=== PATIENT | male | born 1970 | race Two or more races ===

== ENCOUNTER → 2020-04-20 08:06 | Outpatient (BNVA) | payer MEDICAID, SELFPAY | PROVIDERS: PCP Nurse Practitioner Family; Visit Provider Nurse Practitioner Gerontology ==

== ENCOUNTER 2020-12-03 03:50 | Emergency (ER) | payer MEDICAID, SELFPAY ==
[2020-12-03 04:01] VITALS: BP 157/92; PULSE 88; RESP 16; TEMP 36.3; O2SAT 98; BMI 27.4
[2020-12-03 04:35] LABS: Glucose Urine UA >=1000 MG/DL (NEG); Leukocyte Esterase Urine NEG (NEG); Nitrite Urine NEG (NEG); PH 6.5 (5.0-8.0); UACC Culture Trigger NO; Urine Blood TRACE (NEG); Urine Ketones NEG (NEG); Urine Protein NEG (NEG-TRACE)
[2020-12-03 04:36] LABS: Appearance Urine CLEAR; Color Urine YELLOW
--- NOTE | 2020-12-03 04:39 | ED.MALEGU ---
HPI - Male Genitourinary General Chief complaint: Urogenital-Male Stated complaint: testicle swelling Time Seen by Provider: 12/03/20 04:39 Source: patient, family (so) and rn charge Mode of arrival: ambulatory Limitations: no limitations History of Present Illness HPI Narrative: 50 years old male came in for evaluation of infection in the penis. This is a 50-year-old male with fully control type 2 diabetes mellitus came in for evaluation of possible infection in the glans penis. Patient is homosexual declined any risk for STD no penile discharge, patient has been having inflammation with redness cottage cheese like material in the foreskin. No fever or chills. Related Data Home Medications Medication Instructions Recorded Confirmed atorvastatin 20 mg tablet 20 mg PO DAILY 04/20/20 04/20/20 bisacodyl 5 mg tablet,delayed 5 mg PO BEDTIME 04/20/20 04/20/20 release (Dulcolax (bisacodyl)) blood sugar diagnostic (FreeStyle #10 ea 04/20/20 04/20/20 Lite Strips) canagliflozin 300 mg tablet 300 mg PO DAILY 04/20/20 04/20/20 (Invokana) lancets 28 gauge (FreeStyle #100 ea 04/20/20 04/20/20 Lancets) sacubitril 49 mg-valsartan 51 mg 1 tab PO BID 04/20/20 04/20/20 tablet (Entresto) Previous Rx's Medication Instructions Recorded blood-glucose meter (FreeStyle #1 ea 04/14/20 [place] Lite) insulin lispro 100 unit/mL See Rx Instructions SUBCUT QID #15 07/27/20 subcutaneous pen (Humalog KwikPen ml (U-100) Insulin) cholecalciferol (vitamin D3) 125 125 mcg PO DAILY #30 cap 10/30/20 mcg (5,000 unit) capsule dulaglutide 1.5 mg/0.5 mL 1.5 mg SUBCUT QWEEK #2 ml 10/30/20 subcutaneous pen injector (Trulicity) insulin glargine 100 unit/mL (3 46 unit SUBCUT DAILY #15 ml 10/30/20 mL) subcutaneous pen (Lantus Solostar U-100 Insulin) pen needle, diabetic 32 gauge x 1 ea MISCELLANEOUS .COMPLEX #150 ea 10/30/20 (Pentips) nystatin-triamcinolone 100,000 1 appl TOPICAL TID #30 g 12/03/20 unit/g-0.1 % topical cream Allergies Allergy/AdvReac Type Severity Reaction Status Date / Time No Known Allergies Allergy Unverified 04/20/20 08:25 Review of Systems Review of Systems: All other systems are reviewed and are negative Constitutional: Reports as per HPI and Reports no additional constitutional complaints Eyes: Reports as per HPI and Reports no additional eye complaints Reports system reviewed and no additional complaints, except as documented Cardiovascular: Reports as per HPI and Reports no additional cardiovascular complaints Respiratory: Reports as per HPI and Reports no additional respiratory complaints Gastrointestinal: Reports as per HPI and Reports no additional gastrointestinal complaints Genitourinary: Reports no additional female genitourinary complaints Musculoskeletal: Reports no additional musculoskeletal complaints Skin/Breast: Reports system reviewed and no additional complaints, except as docu Psychiatric: Reports no additional psychiatric complaints Endocrine: Reports no additional endocrine complaints Hematologic/Lymphatic: Reports no additional hematologic/lymphatic complaints Allergic/Immunologic: Reports no additional allergic/immunologic complaints Reports system reviewed and no additional complaints, except as documented and Reports Abnormal speech present [facility] Past Medical History Medical History Cardiac insufficiency Essential hypertension Hyperlipidemia LDL goal <100 Proteinuria Type 2 diabetes mellitus with hyperglycemia, with long-term current use of insulin Vitamin D deficiency Surgical History No history of previous surgery Family History Family History Father Cancer Mother Hypertension Paternal Uncle Cancer Diabetes Maternal Uncle Diabetes Cancer Paternal Aunt CVD (cardiovascular disease) Social History Social History Household Members: Significant Other Advance Directives: No Advance Directives Information Provided: Yes Physical Exam Vital Signs: Vital Signs: Last Vital Signs Temp 97.3 F 12/03/20 04:01 Pulse 88 12/03/20 04:01 Resp 16 12/03/20 04:01 BP 157/92 H 12/03/20 04:01 Pulse Ox 98 12/03/20 04:01 Body Mass Index 27.4 Vital signs have been reviewed as appeared to be correct. Blood pressure normal. Heart rate normal. Respiration rate normal. Temperature normal. Oxygen saturation normal. Appearance: Alert. Oriented X3. No acute distress. Head: Normal external exam. Normocephalic. Atraumatic. No Finn signs noted. No raccoon eyes noted Eyes: PERRLA. EOMI. Conjunctiva and sclera normal. Eyelids normal. ENT: TM's Normal. Pharynx normal. Uvula midline. Moist mucous membranes. No trismus noted. No drooling noted. No muffled voice noted. Neck: Normal inspection. Neck supple. FROM. No adenopathy. Thyroid Normal. No meningeal signs. No neck mass noted. CVS: Normal heart rate and rhythm. Heart sound normal. No murmurs noted. Pulses normal throughout. Respiratory: No respiratory distress. Painless inspiration. Breath sounds normal. No wheezes/rales/rhonchi noted. Chest nontender. No accessory muscle usage noted or decreased air movement noted. Abdomen: Soft and nontender. Bowel sounds normal in all 4 quadrants. No distention noted. No organomegaly noted. No visible injury noted. exam: Uncircumcised, redness to the foreskin area and the glans penis with cottage cheese material under the foreskin and on the glans penis. Back: No CVA tenderness. Full range of motion noted. Skin: Skin warm and dry. Normal skin color. Normal skin turgor. No rashes/lesions/lacerations noted. Extremities: No lower extremity edema. Extremities exhibit normal range of motion. Extremities nontender. Neuro: Oriented X 3. Cranial nerve exam: II-XII are grossly intact No motor deficit. No sensory deficit. Reflexes normal. Course Course Course Narrative: Assessment and plan. 50-year-old male with history of uncontrolled type 2 diabetes came in with balanitis of the penis. Full start the patient on nystatin cream and follow up with for further evaluation for possible circumcision. MDM - Male Genitourinary Lab Data Labs: Lab Results 12/03/20 Range/Units 04:29 Urine Color YELLOW Urine Appearance CLEAR Urine pH 6.5 (5.0-8.0) Ur Specific [place] 1.020 (1.005-1.025) Urine Protein NEG (NEG-TRACE) MG/DL Urine Glucose (UA) >=1000 H (NEG) MG/DL Urine Ketones NEG (NEG) MG/DL Urine Blood TRACE (NEG) Urine Nitrite NEG (NEG) Ur Leukocyte Esterase NEG (NEG) Discharge Plan Discharge Clinical Impression: Candidal balanitis Patient Disposition: Home, Self-Care Instructions: Balanitis (ED) Prescriptions: New nystatin-triamcinolone 100,000-0.1 unit/g-% cream 1 appl topical TID Qty: 30 RF: 0 No Action (DME) blood-glucose meter [FreeStyle [place] Lite] Kit See Rx Instructions .ROUTE .MEDSUPPLY Qty: 1 RF: 0 insulin lispro [Humalog KwikPen Insulin] 100 unit/mL insulin pen See Rx Instructions subcut QID Qty: 15 RF: 2 Lantus Solostar U-100 Insulin 100 unit/mL (3 mL) insulin pen 46 unit subcut DAILY Qty: 15 RF: 0 Trulicity 1.5 mg/0.5 mL pen injector 1.5 mg subcut QWEEK Qty: 2 RF: 0 cholecalciferol (vitamin D3) 125 mcg (5,000 unit) capsule 125 mcg PO DAILY Qty: 30 RF: 0 pen needle, diabetic [Pentips] 32 gauge x 5/32 needle 1 ea miscellaneous .COMPLEX Qty: 150 RF: 0 bisacodyl [Dulcolax (bisacodyl)] 5 mg tablet,delayed release (DR/EC) 5 mg PO BEDTIME RF: 0 Entresto 49-51 mg tablet 1 tab PO BID RF: 0 atorvastatin 20 mg tablet 20 mg PO DAILY RF: 0 Invokana 300 mg tablet 300 mg PO DAILY RF: 0 (DME) lancets [FreeStyle Lancets] 28 gauge misc See Rx Instructions .ROUTE .MEDSUPPLY Qty: 100 RF: 0 (DME) FreeStyle Lite Strips Strip See Rx Instructions .ROUTE .MEDSUPPLY Qty: 10 RF: 0 Referrals: [facility] [Primary Care Provider] - 2 days
[2020-12-03 04:42] LABS: Mucus Urine 2+ /LPF; RBC Urine 0-2 /HPF (0); Squamous Epithelial Cell Urine TRACE /LPF
[2020-12-03 07:04] LABS: CT PCR NOT DETECTED (Not Detect.); NG PCR NOT DETECTED (Not Detect.)
[2020-12-03 07:40] LABS: Glucose, Whole Blood 172 mg/dL (60-115)
== END 2020-12-03 05:11 | disposition home or self-care (01) ==
PROVIDERS: Emergency Provider Emergency Medicine
DX: B37.42 Candidal balanitis (principal); N50.89 Other specified disorders of the male genital organs; Z20.2 Contact with and (suspected) exposure to infections with a predominantly sexual mode of transmission; Z79.899 Other long term (current) drug therapy
CPT/HCPCS: 81001; 82947; 87491; 87591; 99283; 99284

== ENCOUNTER 2021-03-15 19:26 | Emergency (ER) | payer MEDICAID, SELFPAY ==
[2021-03-15 19:38] VITALS: BP 213/125; PULSE 98; RESP 18; TEMP 36.8; O2SAT 98; BMI 27.4
--- NOTE | 2021-03-15 21:27 | ED_ITS ---
HPI - Dental/Oral General Chief complaint: Dental/Oral Stated complaint: tooth pain Time Seen by Provider: 03/15/21 21:17 Source: patient Mode of arrival: ambulatory Limitations: language barrier (Moroccan-speaking) History of Present Illness HPI Narrative: 50-year-old male who is Moroccan-speaking presenting to the ED with complaints of left upper dental pain over the past few weeks worse in the past few days. Reports that he has the appointment with his dentist to address this issue although he is unable to take this pain any longer. He reports that he seen the dentist approximately 1 week ago on Monday and was prescribed antibiotics and Motrin and Tylenol and he took as prescribed no symptomatic relief. He denies any other symptoms complaints or concerns at this time. MD Complaint: tooth pain Teeth map: 1. Onset (ago): day(s) (For the past few months worsened the past few days) Duration: worsening Severity: severe Severity scale (1-10): >10 Relieving factors: nothing Exacerbating factors: chewing and other (Palpation) Context: history of dental caries Treatment prior to arrival: other (Patient reports that he was taking Motrin Tylenol and a course of antibiotics although no symptomatic relief) Related Data Home Medications Medication Instructions Recorded Confirmed atorvastatin 20 mg tablet 20 mg PO DAILY 04/20/20 04/20/20 bisacodyl 5 mg tablet,delayed 5 mg PO BEDTIME 04/20/20 04/20/20 release (Dulcolax (bisacodyl)) blood sugar diagnostic (FreeStyle #10 ea 04/20/20 04/20/20 Lite Strips) canagliflozin 300 mg tablet 300 mg PO DAILY 04/20/20 04/20/20 (Invokana) lancets 28 gauge (FreeStyle #100 ea 04/20/20 04/20/20 Lancets) sacubitril 49 mg-valsartan 51 mg 1 tab PO BID 04/20/20 04/20/20 tablet (Entresto) Previous Rx's Medication Instructions Recorded blood-glucose meter (FreeStyle #1 ea 04/14/20 [place] Lite) cholecalciferol (vitamin D3) 125 125 mcg PO DAILY #30 cap 10/30/20 mcg (5,000 unit) capsule dulaglutide 1.5 mg/0.5 mL 1.5 mg (0.5 mL) SUBCUT QWEEK #2 ml 10/30/20 subcutaneous pen injector (Trulicity) insulin glargine 100 unit/mL (3 46 unit (0.46 mL) SUBCUT DAILY #15 10/30/20 mL) subcutaneous pen (Lantus ml Solostar U-100 Insulin) nystatin-triamcinolone 100,000 1 appl TOPICAL TID #30 g 12/03/20 unit/g-0.1 % topical cream insulin lispro 100 unit/mL See Rx Instructions SUBCUT QID #15 12/11/20 subcutaneous pen (Humalog KwikPen ml (U-100) Insulin) pen needle, diabetic 32 gauge x 1 ea MISCELLANEOUS .COMPLEX #200 ea 01/15/21 (Pentips) amoxicillin 875 mg-potassium 1 tab PO BID 10 Days #20 tab 03/15/21 clavulanate 125 mg tablet (Augmentin) ibuprofen 800 mg tablet 800 mg PO Q8H PRN #14 tab 03/15/21 oxycodone 5 mg tablet 5 mg PO Q6H PRN #14 tab 03/15/21 Allergies Allergy/AdvReac Type Severity Reaction Status Date / Time No Known Allergies Allergy Verified 03/15/21 19:38 Review of Systems Review of Systems: Constitutional : No Fever, No Chills, No changes in PO intake, No difficulty speaking, no recent dental procedure, no heat or cold intolerance while eating, no recent face trauma, ENT/Mouth : + Dental pain, No Sore throat, No Jaw pain, No throat swelling, No swallowing difficulty, no change in voice, No facial swelling, no drooling, no trismus, no bleeding, no lacerations, no tongue swelling, gum swelling, Eyes: No Eye Pain, No periorbital Swelling Cardiovascular : No Chest Pain, No SOB Respiratory : No Cough, No Sputum, No Wheezing, No Smoke Exposure, No Dyspnea Gastrointestinal : No Nausea, No Vomiting, No Diarrhea Genitourinary : No Dysuria Musculoskeletal : No Myalgias Skin : No rash, no facial swelling or redness, Neuro : No Weakness, No Numbness, No Headache Yes all other systems are reviewed and are negative PMFSH Past Medical History Attestation statement: The following information was validated with the patient. Medical History Cardiac insufficiency Essential hypertension Hyperlipidemia LDL goal <100 Proteinuria Type 2 diabetes mellitus with hyperglycemia, with long-term current use of insulin Vitamin D deficiency Surgical History No history of previous surgery Family History Family History Father Cancer Mother Hypertension Paternal Uncle Cancer Diabetes Maternal Uncle Diabetes Cancer Paternal Aunt CVD (cardiovascular disease) Social History Social History Household Members: Significant Other Advance Directives: No Advance Directives Information Provided: Yes Physical Exam Vital Signs: Vital Signs: Last Vital Signs Temp 98 F 03/15/21 21:37 Pulse 85 03/15/21 21:37 Resp 18 03/15/21 21:37 BP 145/97 H 03/15/21 21:37 Pulse Ox 98 03/15/21 21:37 BMI result Body Mass Index 27.4 vital signs have been reviewed as normal and appeared to be correct. Blood pressure normal. Heart rate normal. Respiration rate normal. Temperature normal. Oxygen saturation normal. Appearance: Alert. Oriented X3. No acute distress. Head: Normal external exam. Normocephalic. Atraumatic. Eyes: PERRLA. EOMI. Conjunctiva and sclera normal. Eyelids normal. ENT: EAC normal. TM's Normal. Pharynx normal. Uvula midline. Moist mucous membranes. No trismus noted. No drooling noted. No muffled voice noted. Dentition: Patient has multiple old dental extractions no signs of infections of those sites or gingival swelling/gum swelling. He has tenderness up patient to left upper tooth the canine tooth I believe with dental eleazar noted no fractu re no signs of dental abscess. Gingival within normal limits. No fluctuance. Not consistent with peritonsillar abscess. Not consistent with dental abscess. No salivary duct obstruction noted. Neck: Normal inspection. Neck supple. FROM. No adenopathy. Thyroid Normal. No meningeal signs. No neck mass noted. Trachea midline. CVS: Normal heart rate and rhythm. Heart sound normal. No murmurs noted. Pulses normal throughout. Respiratory: No respiratory distress. Painless inspiration. Breath sounds normal. No wheezes/rales/rhonchi noted. Chest nontender. No accessory muscle usage noted or decreased air movement noted. Back: Full range of motion noted. Skin: Skin warm and dry. Normal skin color. Normal skin turgor. No rashes/lesions/lacerations noted. Extremities:Extremities exhibit normal range of motion. Extremities nontender. Neuro: Oriented X 3. No motor deficit. No sensory deficit. Reflexes normal. MDM - Dental/Oral MDM Narrative Medical decision making narrative: 50-year-old male presenting to the ED with dental pain for the past few weeks worse in the past few days despite being on a course on antibiotics and Motrin Tylenol has a follow-up appointment with the dentist. Denies any other symptoms. On exam he has dental eleazar no signs of abscess. Therefore no labs or imaging indicated. I noted that the patient was hypertensive at 213/125 although he is asymptomatic to this and he reports he has a history of high blood pressure and did not take his blood pressure medication today I explained to him that he should take his blood pressure medication as prescribed and he should follow up with primary care provider regarding this and to return if any new or worsening symptoms. Patient understands agrees with this plan. Medical Records Attestation: I reviewed the patient's medical records. Discharge Plan Discharge Clinical Impression: Toothache Patient Disposition: Home, Self-Care Instructions: Toothache (ED) Prescriptions: New ibuprofen 800 mg tablet 800 mg PO Q8H PRN (Reason: pain) Qty: 14 RF: 0 amoxicillin-pot clavulanate [Augmentin] 875-125 mg tablet 1 tab PO BID 10 Days Qty: 20 RF: 0 oxycodone 5 mg tablet 5 mg PO Q6H PRN (Reason: pain) Qty: 14 RF: 0 No Action (DME) blood-glucose meter [FreeStyle [place] Lite] Kit See Rx Instructions .ROUTE .MEDSUPPLY Qty: 1 RF: 0 Lantus Solostar U-100 Insulin 100 unit/mL (3 mL) insulin pen 46 unit subcut DAILY Qty: 15 RF: 0 Trulicity 1.5 mg/0.5 mL pen injector 1.5 mg subcut QWEEK Qty: 2 RF: 0 cholecalciferol (vitamin D3) 125 mcg (5,000 unit) capsule 125 mcg PO DAILY Qty: 30 RF: 0 insulin lispro [Humalog KwikPen Insulin] 100 unit/mL insulin pen See Rx Instructions subcut QID Qty: 15 RF: 4 pen needle, diabetic [Pentips] 32 gauge x 5/32 needle 1 ea miscellaneous .COMPLEX Qty: 200 RF: 6 nystatin-triamcinolone 100,000-0.1 unit/g-% cream 1 appl topical TID Qty: 30 RF: 0 bisacodyl [Dulcolax (bisacodyl)] 5 mg tablet,delayed release (DR/EC) 5 mg PO BEDTIME RF: 0 Entresto 49-51 mg tablet 1 tab PO BID RF: 0 atorvastatin 20 mg tablet 20 mg PO DAILY RF: 0 Invokana 300 mg tablet 300 mg PO DAILY RF: 0 (DME) lancets [FreeStyle Lancets] 28 gauge misc See Rx Instructions .ROUTE .MEDSUPPLY Qty: 100 RF: 0 (DME) FreeStyle Lite Strips Strip See Rx Instructions .ROUTE .MEDSUPPLY Qty: 10 RF: 0 Referrals: [facility] [Primary Care Provider] - 2 days Stand Alone Forms: Work/School Release Print Language: Moroccan
[2021-03-15 21:37] VITALS: BP 145/97; PULSE 85; RESP 18; TEMP 36.6; O2SAT 98
[2021-03-15] MEDS: oxyCODONE HCl Immed Release 5 MG TABLET PO (22:07)
[2021-03-15] MEDS: Amoxicillin/Potassium Clav 875 MG TABLET PO (22:07)
[2021-03-15] MEDS: Ibuprofen 800 MG TABLET PO (22:07)
== END 2021-03-15 22:16 | disposition home or self-care (01) ==
PROVIDERS: Emergency Provider Emergency Medicine Emergency Medical Services
DX: K08.89 Other specified disorders of teeth and supporting structures (principal); I10 Essential (primary) hypertension; E11.9 Type 2 diabetes mellitus without complications; Z79.4 Long term (current) use of insulin
CPT/HCPCS: 99283

== ENCOUNTER → 2021-03-18 09:07 | Outpatient (BNVA) | payer MEDICAID, SELFPAY | PROVIDERS: PCP Internal Medicine; Visit Provider Nurse Practitioner Gerontology | DX: E11.65 Type 2 diabetes mellitus with hyperglycemia (principal); E78.5 Hyperlipidemia, unspecified; E55.9 Vitamin D deficiency, unspecified; I10 Essential (primary) hypertension; Z79.4 Long term (current) use of insulin | CPT/HCPCS: 82947; 83036; 99212 ==

== ENCOUNTER 2021-03-29 06:01 | Outpatient (REF) | payer MEDICAID, SELFPAY ==
[2021-03-29 07:24] LABS: Estimated Average Glucose 223 mg/dL; Hemoglobin A1c % 9.4 %
[2021-03-29 07:54] LABS: Alanine Aminotransferase 47 U/L (0-40); Albumin Level 4.5 g/dL (3.5-5.0); Alkaline Phosphatase 74 U/L (39-117); Anion Gap 12 (12-20); Aspartate Amino Transferase 31 U/L (5-37); Bilirubin Total 0.8 mg/dL (0.0-1.0); Blood Urea Nitrogen 13 mg/dL (9-16); Calcium 9.5 mg/dL (8.4-10.2); Carbon Dioxide 23 mmol/L (22-29); Chloride 106 mmol/L (96-108); Cholesterol 207 mg/dL; Estimated Glomerular Filt Rate > 60; Glucose Fasting 189 mg/dL (60-99); HDL Cholesterol 27 mg/dL; LDL Cholesterol Calculated 126 mg/dl; Potassium 4.2 mmol/L (3.3-5.1); Sodium 137 mmol/L (135-145); Total Protein 7.4 g/dL (6.5-8.0); Triglycerides 270 mg/dL
[2021-03-29 08:08] LABS: Vitamin D 25-OH Total 13.6 ng/mL (>30)
[2021-03-29 08:37] LABS: Creatinine Urine 133.79 mg/dL
[2021-03-30 08:06] LABS: LDL Cholesterol Direct 133 mg/dL (<100)
== END 2021-03-29 06:02 | disposition home or self-care (01) ==
LOC: HO.LAB 06:01
PROVIDERS: Visit Provider Nurse Practitioner Gerontology
DX: E11.65 Type 2 diabetes mellitus with hyperglycemia (principal); E55.9 Vitamin D deficiency, unspecified; Z79.4 Long term (current) use of insulin
CPT/HCPCS: 36415; 80053; 80061; 82043; 82306; 83036; 83721

== ENCOUNTER 2022-10-17 08:43 | Outpatient (REF) | payer MEDICAID, SELFPAY ==
[2022-10-17 17:18] LABS: Urine Cytology See Pathology rpt
== END 2022-10-17 08:44 | disposition home or self-care (01) ==
LOC: HO.LNP 08:43
PROVIDERS: PCP Internal Medicine; Visit Provider Nurse Practitioner Family
DX: R97.20 Elevated prostate specific antigen [PSA] (principal); R39.9 Unspecified symptoms and signs involving the genitourinary system
CPT/HCPCS: 51798; 88112; 99204

== ENCOUNTER 2022-10-17 08:43 | Outpatient (AMB) | payer MEDICAID, SELFPAY ==
--- NOTE | 2022-10-17 09:06 | MHC.OFFVIS ---
Intake Intake Visit Reasons: Difficulty Urinating/Elevated PSA 4.18 Intake Note: New Patient presents for initial visit difficulty urinating/elevated psa (psa 4.18) Urology Medications: none Blood Thinner: none PVR: 0ml's Cook Fish Eggs Required: Yes Accompanied by: Unknown Allergies No Known Allergies Allergy (Verified 10/17/22 13:02) Medication List - Last Reconciled 10/17/22 by HANNAH Gamez-JASMIN atorvastatin 80 mg PO BEDTIME blood sugar diagnostic (FreeStyle Lite Strips) As directed blood-glucose meter (FreeStyle [place] Lite kit) As directed cholecalciferol (vitamin D3) 125 mcg PO DAILY dulaglutide (Trulicity) 3 mg (0.5 mL) subcut QWEEK 28 days empagliflozin (Jardiance) 10 mg PO QAM ibuprofen 800 mg PO Q8H PRN insulin glargine (Lantus Solostar U-100 Insulin) 46 units (0.46 mL) subcut DAILY insulin lispro (Humalog KwikPen (U-100) Insulin) 15 units breakfast and lunch, 20 units dinner, 4 units hs snack subcut 4 times a day; lancets (FreeStyle Lancets) As directed losartan 50 mg PO DAILY nystatin-triamcinolone 100,000-0.1 unit/g-% 1 appl topical TID pen needle, diabetic (Pentips) 1 ea miscellaneous five times a day; PATIENT NEEDS APPOINTMENT FOR MORE REFILLS. sacubitril-valsartan 49-51 mg (Entresto) 1 tab PO BID tamsulosin (Flomax) 0.4 mg PO BEDTIME 30 days HPI HPI Comments History of Present Illness Details Arjun is a very pleasant 52-year-old Hebrew-speaking male patient of Dr. Erwin who was accompanied by his at today's visit. He has a past medical history of cardiac insufficiency, hypertension, hyperlipidemia, proteinuria, diabetes type 2 mellitus with hyperglycemia with long-term current use of insulin, and vitamin-D deficiency. He presents to the office today as a new patient for elevated PSA and ongoing lower urinary tract symptoms. In discussion with the patient today he reports noting over the last 5 months to be experiencing feelings of incomplete bladder emptying and straining to urinate. He otherwise denies urinary urgency, urinary frequency, incontinence, nocturia, hematuria, dysuria, foul smelling urine, flank pain, fever, and or chills. In review of patient's chart with records from PCP it appears PSA 4.2. Discussed at length potential causes for elevated PSA. Discussed obtaining retroperitoneal ultrasound for further assessment evaluation as well as redraw of PSA with no sex the night before, no caffeine morning of and no heavy lifting 1-2 days prior. When asked patient denies any known family history of prostate cancer. Discussed at length importance of managing diabetes for improvement in urinary symptoms as well of for overall health and wellbeing. In office urinalysis results reviewed with the patient today. PVR 0 mL. LACEY noted with semi firm right side of prostate no nodules or masses palpated. He otherwise offers no issues or concerns at this time. [facility] Medical History Cardiac insufficiency Essential hypertension Hyperlipidemia LDL goal <100 Proteinuria Type 2 diabetes mellitus with hyperglycemia, with long-term current use of insulin Vitamin D deficiency Surgical History No history of previous surgery Family History Father Cancer Mother Hypertension Paternal Uncle Cancer Diabetes Maternal Uncle Diabetes Cancer Paternal Aunt CVD (cardiovascular disease) Social History Household Members: Significant Other Alcohol intake: current Alcohol intake frequency: does not drink Patient Tobacco Use Status: Never used Tobacco Review of Systems Const Reports as per HPI Eyes Reports no additional complaints Card Reports as per HPI Resp Reports no additional complaints GI Reports no additional complaints Reports as per HPI Musc Reports no additional complaints Neuro Reports no additional complaints Psych Reports no additional complaints Endo Reports as per HPI Mode/Lymph Reports no additional complaints Aller/Immun Reports no additional complaints Physical Exam Const General: cooperative, healthy appearing, comfortable, no acute distress, well developed, alert and awake Orientation/consciousness: patient oriented x3 Limitations: no limitations HEENT Head: Yes normal to inspection, Yes normocephalic and Yes atraumatic Ears: hearing grossly normal bilaterally Eyes General: appearance normal, both eyes and all related structures Neck Neck: Yes normal visual inspection and Yes trachea midline Chest Chest palpation & inspection: normal inspection of the chest Resp Effort & Inspection: normal respiratory effort and able to speak in complete sentences Cardio Rate: regular rate GI Inspection: Yes normal to inspection General: Yes no CVA tenderness Back/Spine/Pelvis Back: no CVA tenderness Skin General skin exam: no rashes or lesions noted Neuro General: patient oriented x3 Extrem General: Yes normal to inspection Psych Appearance: grossly normal and well kempt Mental Status: mental status grossly normal Speech and movement: Normal speech and movement present and Clear speech present Affect: normal affect Attitude: cooperative Thought process: Normal thought process present Thought content: Normal thought content present Insight: Fair insight present (Psych) Judgement: Fair judgement present (Psych) Office Procedures Post Void Residual Post Residual Void Post Void Residual (PVR): 0 57151-Tgtf Void Residual by ultrasound Results AMB Urinalysis, Automated UA Leukoctes 0 Elizabeth/uL Last Edit by ChayKnottykartalison Mckeonpaige on 10/17/22 09:24 UA Nitrite Last Edit by Flipzu Lindapaige on 10/17/22 09:24 UA Urobilinogen 0.2 mg/dL Last Edit by Flipzu Lindapaige on 10/17/22 09:24 UA Protein 30 mg/dL Last Edit by Flipzu LindaVipVenta on 10/17/22 09:24 UA pH 6.0 Last Edit by [employer] on 10/17/22 09:24 UA Blood 25 Yony/uL Last Edit by Flipzu Lindapaige on 10/17/22 09:24 UA Specific [place] 1.020 Last Edit by [employer] on 10/17/22 09:24 UA Ketone Negative Last Edit by [employer] on 10/17/22 09:24 UA Bilirubin 0 mg/dL Last Edit by [employer] on 10/17/22 09:24 UA Glucose 0 mg/dL Last Edit by [employer] on 10/17/22 09:24 Results Reviewed Results Reviewed: Laboratory Last Values Urine pH (Auto) 6.0 10/17/22 09:22 Specific [place] (Auto) 1.020 10/17/22 09:22 Urine Protein (Auto) 30 mg/dL 10/17/22 09:22 Glucose (UA)(Auto) 0 mg/dL 10/17/22 09:22 Urine Ketones (Auto) Negative 10/17/22 09:22 Urine Blood (Auto) 25 Yony/uL 10/17/22 09:22 Urine Bilirubin (Auto) 0 mg/dL 10/17/22 09:22 Urine Urobilinogen (Auto) 0.2 mg/dL 10/17/22 09:22 Leukocyte Esterase (Auto) 0 Elizabeth/uL 10/17/22 09:22 Assessment & Plan Assessment & Plan (1) Elevated PSA: Code(s): R97.20 - Elevated prostate specific antigen [PSA] (2) Lower urinary tract symptoms: Code(s): R39.9 - Unspecified symptoms and signs involving the genitourinary system Plan In office urinalysis results reviewed with the patient today. PVR 0 mL. Start Flomax as discussed and prescribed. Will obtain retroperitoneal ultrasound for further assessment evaluation. Redraw of PSA; with specific instructions of no caffeine morning of test, no heavy lifting 1-2 days prior, and no sexual activity night before lab draw. Discussed at length potential causes for elevated PSA. Discussed near future in office cystoscopy is symptoms persist and/or worsen. Discussed at length importance of managing diabetes for improvement in urinary symptoms as well as overall health and well-being. Follow-up in 1-2 months with imaging and lab to be completed prior; or sooner with any issues, concerns, and or questions. Orders: Orders US retroperitoneal comp Today R39.9 - Unspecified symptoms and signs involving the genitourinary system, R97.20 - Elevated prostate specific antigen [PSA] PSA,Total (Free>4and<10) Today R97.20 - Elevated prostate specific antigen [PSA] Urine Cytology Today R39.9 - Unspecified symptoms and signs involving the genitourinary system AMB Urinalysis Automated Today Z13.9 - Encounter for screening, unspecified AMB Post Void Residual by ultrasound Today Z13.9 - Encounter for screening, unspecified Medications: New tamsulosin (Flomax) 0.4 mg PO BEDTIME 30 days 30 caps 1RF R97.20 - Elevated prostate specific antigen [PSA] Patient Instructions: The patient had an opportunity to ask questions regarding the treatment plan. All questions were answered. Physical exam, labs, and imaging were discussed and reviewed in detail. As well as risks, benefits, and discussion of treatment choices. No major barriers to understanding were identified. The patient expressed understanding and agreement with the above treatment plan. The patient was made aware they should contact our office by phone for worsening of their current condition, the appearance of new symptoms, or with any questions or concerns. Compliance is encouraged with any medications and follow up testing that is ordered. It is a privilege to be allowed the opportunity to participate in? your urological care.? Again, if you have any questions or concerns If you have any questions or concerns please do not hesitate to contact me. The office is [phone]. This note is constructed using voice recognition software. While every effort has been made to ensure accuracy tax attorney errors may have been included. Yours sincerely, HANNAH Gamez-JASMIN Coding Level of Care Code New Pt Level 4 (32913) Diagnoses Elevated PSA R97.20 Lower urinary tract symptoms R39.9 CPT Codes Post Residual Void - PVR CPT Code: 30350-Grzs Void Residual by ultrasound ([id number])
== END 2022-10-17 10:00 | disposition home or self-care (01) ==
PROVIDERS: PCP Internal Medicine; Visit Provider Nurse Practitioner Family
DX: R97.20 Elevated prostate specific antigen [PSA] (principal); R39.9 Unspecified symptoms and signs involving the genitourinary system
CPT/HCPCS: 99204

== ENCOUNTER 2022-10-24 06:44 | Outpatient (REF) | payer MEDICAID, SELFPAY ==
[2022-10-24 08:21] LABS: PSA,Total (Free>4and<10) 4.08 ng/mL (0.00-4.00)
[2022-10-26 10:59] LABS: Free Prostate Spec Ag 0.7 ng/mL; Percent Free Prostate Spec Ag 18 % (calc) (>25); Prostate Specific Ag Total 3.9 ng/mL (< OR = 4.0)
== END 2022-10-24 06:45 | disposition home or self-care (01) ==
LOC: HO.LAB 06:44
PROVIDERS: Visit Provider Nurse Practitioner Family
DX: Z12.5 Encounter for screening for malignant neoplasm of prostate (principal); R97.20 Elevated prostate specific antigen [PSA]
CPT/HCPCS: 36415; 84153; 84154

== ENCOUNTER 2022-11-04 07:07 | Outpatient (REF) | payer MEDICAID, SELFPAY ==
[2022-11-04 07:18] LABS: MANUAL DIFF FLAG NO
[2022-11-04 08:07] LABS: Basophils Percent Auto 0.5 % (0-2); Eosinophils Absolute Auto 0.1 X10*3/uL (0.0-0.4); Eosinophils Percent Auto 1.5 % (0-4); Hematocrit 46.5 % (42.0-52.0); Hemoglobin 16.7 g/dl (14.0-18.0); Imm Gran Abs Auto 0.03 X10*3/uL (0.00-0.03); Imm Gran Pct Auto 0.5 % (0.0-0.4); Lymphocytes Absolute Auto 2.1 X10*3/uL (1.2-4.9); Lymphocytes Percent Auto 31.6 % (20-40); Mean Corpuscular HGB Conc 35.9 g/dl (31.0-36.0); Mean Corpuscular Hemoglobin 29.3 pg (27.0-33.0); Mean Corpuscular Volume 81.7 fL (80.0-98.0); Mean Platelet Volume 10.2 fL (9.4-12.4); Monocytes Absolute Auto 0.6 X10*3/uL (0.1-1.2); Monocytes Percent Auto 9.6 % (2-11); Neutrophils Absolute Auto 3.7 x10*3/uL (2.0-8.3); Neutrophils Percent Auto 56.3 % (45-73); Platelet Count 193 X10*3/uL (160-400); Red Blood Count 5.69 X10*6/uL (4.60-5.80); Red Cell Distribution Width 12.6 % (11.0-16.0); White Blood Count 6.6 X10*3/uL (4.8-10.8)
== END 2022-11-04 07:08 | disposition home or self-care (01) ==
LOC: HO.LAB 07:07
PROVIDERS: PCP Registered Nurse; Visit Provider Registered Nurse
DX: N48.1 Balanitis (principal)
CPT/HCPCS: 36415; 85025

== ENCOUNTER 2022-11-07 09:44 | Outpatient (REF) | payer MEDICAID, SELFPAY ==
--- NOTE | ~2022-11-07 | US_ITS ---
EXAMINATION: US RETROPERITONEAL COMPLETE (RENAL) CLINICAL INFORMATION: Elevated prostate specific antigen. COMPARISON: CT abdomen/pelvis 06/14/2009. TECHNIQUE: Real-time imaging of the kidneys and bladder. FINDINGS: RIGHT KIDNEY: 10.2 x 5.6 x 6.1 cm (SAG x AP x TRV). The kidney is normal in size, contour, and echogenicity. Renal cortical thickness is normal. No calculi or focal parenchymal lesions. No hydronephrosis. LEFT KIDNEY: 11.5 x 6.7 x 6.2 cm (SAG x AP x TRV). The kidney is normal in size, contour, and echogenicity. Renal cortical thickness is normal. No calculi or focal parenchymal lesions. No hydronephrosis. BLADDER: Well-distended with wall thickening and trabeculations. Bilateral ureteral jets are not demonstrated. Prevoid bladder volume is 175.3 mL. Postvoid bladder volume is 193.5 mL. ADDITIONAL FINDINGS: Prostate volume of 80 mL. US/US retroperitoneal comp IMPRESSION: 1. No nephrolithiasis or hydronephrosis. 2. Enlarged prostate with evidence of chronic bladder outlet obstruction.
== END 2022-11-07 09:45 | disposition home or self-care (01) ==
LOC: HO.US 09:44
PROVIDERS: Visit Provider Nurse Practitioner Family
DX: R39.9 Unspecified symptoms and signs involving the genitourinary system (principal); R97.20 Elevated prostate specific antigen [PSA]
CPT/HCPCS: 76770

== ENCOUNTER 2022-11-29 08:56 | Outpatient (AMB) | payer MEDICAID, SELFPAY ==
--- NOTE | 2022-11-29 09:19 | MHC.OFFVIS ---
Intake Intake Visit Reasons: 6w/labs/US(SET) Intake Note: Patient presents for follow up visit difficulty urinating/elevated psa (psa 4.08)/Ultrasound (imaging 11/07/22) Urology Medications: Tamsulosin Blood Thinner: none PVR: 0ml's Channel Manager Required: Yes Channel Manager Name: BEAR Accompanied by: Self / Same As Patient Allergies No Known Allergies Allergy (Verified 11/29/22 21:51) Medication List - Last Reconciled 11/29/22 by HANNAH Gamez-JASMIN alfuzosin ER 10 mg PO BEDTIME 30 days atorvastatin 80 mg PO BEDTIME blood sugar diagnostic (FreeStyle Lite Strips) As directed blood-glucose meter (FreeStyle [place] Lite kit) As directed cholecalciferol (vitamin D3) 125 mcg PO DAILY dulaglutide (Trulicity) 3 mg (0.5 mL) subcut QWEEK 28 days empagliflozin (Jardiance) 10 mg PO QAM finasteride 5 mg PO DAILY 90 days ibuprofen 800 mg PO Q8H PRN insulin glargine (Lantus Solostar U-100 Insulin) 46 units (0.46 mL) subcut DAILY insulin lispro (Humalog KwikPen (U-100) Insulin) 15 units breakfast and lunch, 20 units dinner, 4 units hs snack subcut 4 times a day; lancets (FreeStyle Lancets) As directed losartan 50 mg PO DAILY nystatin-triamcinolone 100,000-0.1 unit/g-% 1 appl topical TID pen needle, diabetic (Pentips) 1 ea miscellaneous five times a day; PATIENT NEEDS APPOINTMENT FOR MORE REFILLS. sacubitril-valsartan 49-51 mg (Entresto) 1 tab PO BID HPI HPI Comments History of Present Illness Details Arjun is a very pleasant 52-year-old Armenian-speaking male patient of Dr. Erwin. He has a past medical history of cardiac insufficiency, hypertension, hyperlipidemia, proteinuria, diabetes type 2 mellitus with hyperglycemia with long-term current use of insulin, and vitamin-D deficiency. He presents to the office today for follow-up. Of note, patient was seen as a new patient for elevated PSA and ongoing lower urinary tract symptoms approximately 6 weeks ago at which time the patient was started on Flomax in a retroperitoneal ultrasound was ordered for further assessment evaluation. These results were reviewed with the patient today. Bilateral kidneys with no calculi, lesions, and or hydronephrosis. The bladder is well distended with wall thickening and trabeculations. Prostate volume is approximately 80 mL. PSAs are as follows... 10/23--4.1 10/23--3.9 % free prostate 18% When asked patient reports Flomax to have been helping lower urinary tract symptoms he had been experiencing however stop taking medications as he noted retrograde ejaculation. Discuss trial alfuzosin. Discussed at length potential causes for elevated PSA. Discussed prostate biopsy verses surveillance monitoring verses trial of finasteride. This was discussed at length. All questions were answered. In office urinalysis results reviewed with the patient today. Discussed at length importance of managing diabetes for improvement in lower urinary tract symptoms as well as overall health and well-being. He otherwise offers no other issues or concerns at this time. [facility] Medical History Cardiac insufficiency Essential hypertension Hyperlipidemia LDL goal <100 Proteinuria Type 2 diabetes mellitus with hyperglycemia, with long-term current use of insulin Vitamin D deficiency Surgical History No history of previous surgery Family History Father Cancer Mother Hypertension Paternal Uncle Cancer Diabetes Maternal Uncle Diabetes Cancer Paternal Aunt CVD (cardiovascular disease) Social History Household Members: Significant Other Alcohol intake: current Alcohol intake frequency: does not drink Patient Tobacco Use Status: Never used Tobacco Review of Systems Const Reports as per HPI Eyes Reports no additional complaints Card Reports as per HPI Resp Reports no additional complaints GI Reports no additional complaints Reports as per HPI Musc Reports no additional complaints Neuro Reports no additional complaints Psych Reports no additional complaints Endo Reports as per HPI Mode/Lymph Reports no additional complaints Aller/Immun Reports no additional complaints Physical Exam Const General: cooperative, healthy appearing, comfortable, no acute distress, well developed, alert and awake Orientation/consciousness: patient oriented x3 Limitations: no limitations HEENT Head: Yes normal to inspection, Yes normocephalic and Yes atraumatic Ears: hearing grossly normal bilaterally Eyes General: appearance normal, both eyes and all related structures Neck Neck: Yes normal visual inspection and Yes trachea midline Chest Chest palpation & inspection: normal inspection of the chest Resp Effort & Inspection: normal respiratory effort and able to speak in complete sentences Cardio Rate: regular rate GI Inspection: Yes normal to inspection General: Yes no CVA tenderness Back/Spine/Pelvis Back: no CVA tenderness Skin General skin exam: no rashes or lesions noted Neuro General: patient oriented x3 Extrem General: Yes normal to inspection Psych Appearance: grossly normal and well kempt Mental Status: mental status grossly normal Speech and movement: Normal speech and movement present and Clear speech present Affect: normal affect Attitude: cooperative Thought process: Normal thought process present Thought content: Normal thought content present Insight: Fair insight present (Psych) Judgement: Fair judgement present (Psych) Office Procedures Post Void Residual Post Residual Void Post Void Residual (PVR): 0 [id number]-[id number] Void Residual by ultrasound Results AMB Urinalysis, Automated UA Leukoctes 0 Elizabeth/uL Last Edit by [employer] on 11/29/22 09:38 UA Nitrite Last Edit by [employer] on 11/29/22 09:38 UA Urobilinogen 0.2 mg/dL Last Edit by [employer] on 11/29/22 09:38 UA Protein 15 mg/dL Last Edit by [employer] on 11/29/22 09:38 UA pH 6.0 Last Edit by [employer] on 11/29/22 09:38 UA Blood 0 Yony/uL Last Edit by [employer] on 11/29/22 09:38 UA Specific [place] 1.020 Last Edit by [employer] on 11/29/22 09:38 UA Ketone Negative Last Edit by [employer] on 11/29/22 09:38 UA Bilirubin 0 mg/dL Last Edit by [employer] on 11/29/22 09:38 UA Glucose 0 mg/dL Last Edit by [employer] on 11/29/22 09:38 Results Reviewed Results Reviewed: Laboratory Last Values Urine pH (Auto) 6.0 11/29/22 09:26 Specific [place] (Auto) 1.020 11/29/22 09:26 Urine Protein (Auto) 15 mg/dL 11/29/22 09:26 Glucose (UA)(Auto) 0 mg/dL 11/29/22 09:26 Urine Ketones (Auto) Negative 11/29/22 09:26 Urine Blood (Auto) 0 Yony/uL 11/29/22 09:26 Urine Bilirubin (Auto) 0 mg/dL 11/29/22 09:26 Urine Urobilinogen (Auto) 0.2 mg/dL 11/29/22 09:26 Leukocyte Esterase (Auto) 0 Elizabeth/uL 11/29/22 09:26 Date of Service: 11/07/22 EXAMINATION: US RETROPERITONEAL COMPLETE (RENAL) FINDINGS: RIGHT KIDNEY: 10.2 x 5.6 x 6.1 cm (SAG x AP x TRV). The kidney is normal in size, contour, and echogenicity. Renal cortical thickness is normal. No calculi or focal parenchymal lesions. No hydronephrosis. LEFT KIDNEY: 11.5 x 6.7 x 6.2 cm (SAG x AP x TRV). The kidney is normal in size, contour, and echogenicity. Renal cortical thickness is normal. No calculi or focal parenchymal lesions. No hydronephrosis. BLADDER: Well-distended with wall thickening and trabeculations. Bilateral ureteral jets are not demonstrated. Prevoid bladder volume is 175.3 mL. Postvoid bladder volume is 193.5 mL. ADDITIONAL FINDINGS: Prostate volume of 80 mL. IMPRESSION: 1.? No nephrolithiasis or hydronephrosis. 2.? Enlarged prostate with evidence of chronic bladder outlet obstruction. Assessment & Plan Assessment & Plan (1) Elevated PSA: Code(s): R97.20 - Elevated prostate specific antigen [PSA] (2) Enlarged prostate: Code(s): N40.0 - Benign prostatic hyperplasia without lower urinary tract symptoms (3) Bladder trabeculation: Code(s): N32.89 - Other specified disorders of bladder (4) Bladder wall thickening: Code(s): N32.89 - Other specified disorders of bladder (5) Lower urinary tract symptoms: Code(s): R39.9 - Unspecified symptoms and signs involving the genitourinary system Plan In office urinalysis results reviewed with the patient today; as noted above. Recent PSA results reviewed with the patient today; as noted above. Recent retroperitoneal ultrasound results reviewed with the patient today; as noted above. Discussed at length surveillance monitoring verses prostate biopsy verses trial of finasteride; discussed risks and benefits of asformentioned interventions/treatment options Discussed and stressed the importance of managing diabetes for improvement in lower urinary tract symptoms as well as overall health and well-being. Start finasteride 5 mg as discussed and prescribed. Start alfuzosin 10 mg as discussed and prescribed. PSA in 4 months. Follow-up in 4 months with lab to be completed prior; or sooner with any issues, concerns, and or questions. Orders: Orders PSA,Total (Free>4and<10) 4 Months R97.20 - Elevated prostate specific antigen [PSA] AMB Urinalysis Automated Today Z13.9 - Encounter for screening, unspecified AMB Post Void Residual by ultrasound Today R39.9 - Unspecified symptoms and signs involving the genitourinary system Medications: New finasteride 5 mg PO DAILY 90 days 90 tabs 1RF N40.1 - Benign prostatic hyperplasia with lower urinary tract symptoms, R33.9 - Retention of urine, unspecified alfuzosin ER Take before bedtime 10 mg PO BEDTIME 30 days 90 tabs 1RF N32.0 - Bladder-neck obstruction, N40.1 - Benign prostatic hyperplasia with lower urinary tract symptoms, R33.9 - Retention of urine, unspecified, R35.1 - Nocturia, R39.12 - Poor urinary stream Discontinued tamsulosin (Flomax) Discontinued Reason: Doctor's Order 0.4 mg PO BEDTIME 30 days 30 caps 1RF R97.20 - Elevated prostate specific antigen [PSA] Patient Instructions: The patient had an opportunity to ask questions regarding the treatment plan. All questions were answered. Physical exam, labs, and imaging were discussed and reviewed in detail. As well as risks, benefits, and discussion of treatment choices. No major barriers to understanding were identified. The patient expressed understanding and agreement with the above treatment plan. The patient was made aware they should contact our office by phone for worsening of their current condition, the appearance of new symptoms, or with any questions or concerns. Compliance is encouraged with any medications and follow up testing that is ordered. It is a privilege to be allowed the opportunity to participate in? your urological care.? Again, if you have any questions or concerns If you have any questions or concerns please do not hesitate to contact me. The office is [phone]. This note is constructed using voice recognition software. While every effort has been made to ensure accuracy repulping supervisor errors may have been included. Yours sincerely, HANNAH Gamez-BC Coding Level of Care Code Est Pt Level 4 (00881) Diagnoses Elevated PSA R97.20 Enlarged prostate N40.0 Bladder trabeculation N32.89 Bladder wall thickening N32.89 Lower urinary tract symptoms R39.9 CPT Codes Post Residual Void - PVR CPT Code: 38663-Hnvr Void Residual by ultrasound ([id number])
== END 2022-11-29 09:58 | disposition home or self-care (01) ==
PROVIDERS: PCP Internal Medicine; Visit Provider Nurse Practitioner Family
DX: N40.1 Benign prostatic hyperplasia with lower urinary tract symptoms (principal); R33.9 Retention of urine, unspecified; Z13.9 Encounter for screening, unspecified
CPT/HCPCS: 99214

== ENCOUNTER → 2022-11-29 08:56 | Outpatient (BNVA) | payer MEDICAID, SELFPAY | PROVIDERS: PCP Internal Medicine; Visit Provider Nurse Practitioner Family | DX: R97.20 Elevated prostate specific antigen [PSA] (principal); N40.0 Benign prostatic hyperplasia without lower urinary tract symptoms; N32.89 Other specified disorders of bladder; R39.9 Unspecified symptoms and signs involving the genitourinary system | CPT/HCPCS: 51798; 81003; 99212 ==

== ENCOUNTER 2023-02-15 09:58 | Outpatient (REF) | payer MEDICAID, SELFPAY ==
--- NOTE | ~2023-02-15 | XR_ITS ---
EXAMINATION: XR CERVICAL SPINE CLINICAL INFORMATION: Pain COMPARISON: None available. TECHNIQUE: The views of the cervical spine, inclusive of oblique views, were obtained. FINDINGS: There is straightening of cervical lordosis with minimal marginal spurring at the level of C5-C6 and C6-C7 and narrowing of C5-C6 and C6-C7 intervertebral disc spaces. Neuroforamina are narrowed due to osteophytosis at the same level bilaterally. There is uncovertebral osteophytosis seen. Soft tissues unremarkable. XR/XR cervical spine 5V IMPRESSION: Multilevel degenerative changes at the level of C5-C6 and C6-C7.
== END 2023-02-15 09:59 | disposition home or self-care (01) ==
LOC: HO.HHCX 09:58
PROVIDERS: Visit Provider Emergency Medicine
DX: M54.12 Radiculopathy, cervical region (principal)
CPT/HCPCS: 72050

== ENCOUNTER 2023-03-21 06:57 | Outpatient (REF) | payer MEDICAID, SELFPAY ==
[2023-03-21 08:41] LABS: PSA,Total (Free>4and<10) 2.52 ng/mL (0.00-4.00)
== END 2023-03-21 06:58 | disposition home or self-care (01) ==
LOC: HO.LAB 06:57
PROVIDERS: PCP Registered Nurse; Visit Provider Nurse Practitioner Family
DX: R97.20 Elevated prostate specific antigen [PSA] (principal)
CPT/HCPCS: 36415; 84153

== ENCOUNTER 2023-03-31 09:04 | Outpatient (AMB) | payer MEDICAID, SELFPAY ==
--- NOTE | 2023-03-31 09:29 | A.OFFVIS_ITS ---
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 Accompanied by: Self / Same As Patient Allergies No Known Allergies Allergy (Verified 04/01/23 17:20) Medication List - Last Reconciled 04/01/23 by HANNAH Gamez- alfuzosin ER 10 mg PO BEDTIME 90 days atorvastatin 20 mg PO DAILY blood sugar diagnostic (FreeStyle Lite Strips) As directed blood-glucose meter (FreeStyle [place] Lite kit) As directed chlorthalidone 25 mg PO QAM cholecalciferol (vitamin D3) 125 mcg PO DAILY dulaglutide (Trulicity) mg subcut QWEEK empagliflozin (Jardiance) 25 mg PO QAM finasteride 5 mg PO DAILY 90 days ibuprofen 800 mg PO Q8H PRN insulin glargine (Lantus Solostar U-100 Insulin) 46 units (0.46 mL) subcut DAILY insulin lispro (Humalog KwikPen (U-100) Insulin) 15 units breakfast and lunch, 20 units dinner, 4 units hs snack subcut 4 times a day; lancets (FreeStyle Lancets) As directed losartan 50 mg PO DAILY nystatin-triamcinolone 100,000-0.1 unit/g-% 1 appl topical TID pen needle, diabetic (Pentips) 1 ea miscellaneous five times a day; PATIENT NEEDS APPOINTMENT FOR MORE REFILLS. sacubitril-valsartan 49-51 mg (Entresto) 1 tab PO BID HPI HPI Comments History of Present Illness Details Arjun is a very pleasant 52-year-old Georgian-speaking male patient of Dr. Erwin who was accompanied by his significant other at today's office visit. He has a past medical history of cardiac insufficiency, hypertension, hyperlipi demia, proteinuria, diabetes type 2 mellitus with hyperglycemia with long-term current use of insulin, and vitamin-D deficiency. He presents to the office today for follow-up of his elevated PSA and lower urinary tract symptoms. In discussion with the patient today reports to be doing and feeling well. He reports significant improvement in lower urinary tract symptoms on alfuzosin 10 mg daily as well as 5 mg of finasteride. Recent PSA results reviewed with the patient today. Previous workup has included a retroperitoneal ultrasound noting bilateral kidneys with no calculi, lesions, and or hydronephrosis. The bladder is well distended with wall thickening and trabeculations. Prostate volume is approximately 80 mL. PSAs are as follows... 10/23--4.1 10/23--3.9 % free prostate 18% 03/25--2.5 Patient had previously trialed Flomax with good improvement in lower urinary tract symptoms however had been experiencing retrograde ejaculation and has since been doing well with alfuzosin. He currently denies any bothersome urinary issues or concerns. Discussed and stressed the importance of continuing to follow PSAs. He denies urinary urgency, urinary frequency, incontinence, nocturia, hematuria, dysuria, foul smelling urine, changes to urinary stream, flank pain, fever, and or chills. He is happy with his current voiding parameters. In office urinalysis results reviewed with the patient today. PVR 52 mL. Discussed at length importance of managing diabetes for improvement in lower urinary tract symptoms as well as overall health and well-being. He otherwise offers no other issues or concerns at this time. [facility] Medical History Cardiac insufficiency Essential hypertension Proteinuria Vitamin D deficiency Hyperlipidemia LDL goal <100 Type 2 diabetes mellitus with hyperglycemia, with long-term current use of insulin Surgical History No history of previous surgery Family History Father Cancer Mother Hypertension Paternal Uncle Cancer Diabetes Maternal Uncle Diabetes Cancer Paternal Aunt CVD (cardiovascular disease) Social History Household Members: Significant Other Alcohol intake: current Alcohol intake frequency: does not drink Patient Tobacco Use Status: Never used Tobacco Review of Systems Const Reports as per HPI Eyes Reports no additional complaints Card Reports as per HPI Resp Reports no additional complaints GI Reports no additional complaints Reports as per HPI Musc Reports no additional complaints Neuro Reports no additional complaints Psych Reports no additional complaints Endo Reports as per HPI Mode/Lymph Reports no additional complaints Aller/Immun Reports no additional complaints Physical Exam Const General: cooperative, healthy appearing, comfortable, no acute distress, well developed, alert and awake Orientation/consciousness: patient oriented x3 Limitations: no limitations HEENT Head: Yes normal to inspection, Yes normocephalic and Yes atraumatic Ears: hearing grossly normal bilaterally Eyes General: appearance normal, both eyes and all related structures Neck Neck: Yes normal visual inspection and Yes trachea midline Chest Chest palpation & inspection: normal inspection of the chest Resp Effort & Inspection: normal respiratory effort and able to speak in complete sentences Cardio Rate: regular rate GI Inspection: Yes normal to inspection General: Yes no CVA tenderness Back/Spine/Pelvis Back: no CVA tenderness Skin General skin exam: no rashes or lesions noted Neuro General: patient oriented x3 Extrem General: Yes normal to inspection Psych Appearance: grossly normal and well kempt Mental Status: mental status grossly normal Speech and movement: Normal speech and movement present and Clear speech present Affect: normal affect Attitude: cooperative Thought process: Normal thought process present Thought content: Normal thought content present Insight: Fair insight present (Psych) Judgement: Fair judgement present (Psych) Office Procedures Post Void Residual Post Residual Void Post Void Residual (PVR): 52 [id number] Void Residual by ultrasound Results AMB Urinalysis, Automated UA Leukoctes 0 Elizabeth/uL Last Edit by MessageGears on 03/31/23 09:46 UA Nitrite Negative Last Edit by MessageG[employer] on 03/31/23 09:46 UA Urobilinogen 0.2 mg/dL Last Edit by Message[employer] on 03/31/23 09:46 UA Protein 30 mg/dL Last Edit by MessageG[employer] on 03/31/23 09:46 UA pH 6.0 Last Edit by Message[employer] on 03/31/23 09:46 UA Blood 0 Yony/uL Last Edit by [employer] on 03/31/23 09:46 UA Specific [place] 1.025 Last Edit by Message[employer] on 03/31/23 09:46 UA Ketone Negative Last Edit by Message[employer] on 03/31/23 09:46 UA Bilirubin 0 mg/dL Last Edit by [employer] on 03/31/23 09:46 UA Glucose 0 mg/dL Last Edit by Message[employer] on 03/31/23 09:46 Results Reviewed Results Reviewed: Laboratory Last Values Urine pH (Auto) 6.0 03/31/23 09:37 Specific [place] (Auto) 1.025 03/31/23 09:37 Urine Protein (Auto) 30 mg/dL 03/31/23 09:37 Glucose (UA)(Auto) 0 mg/dL 03/31/23 09:37 Urine Ketones (Auto) Negative 03/31/23 09:37 Urine Blood (Auto) 0 Yony/uL 03/31/23 09:37 Urine Nitrite (Auto) Negative 03/31/23 09:37 Urine Bilirubin (Auto) 0 mg/dL 03/31/23 09:37 Urine Urobilinogen (Auto) 0.2 mg/dL 03/31/23 09:37 Leukocyte Esterase (Auto) 0 Elizabeth/uL 03/31/23 09:37 Assessment & Plan Assessment & Plan (1) Enlarged prostate: Code(s): N40.0 - Benign prostatic hyperplasia without lower urinary tract symptoms (2) Lower urinary tract symptoms: Code(s): R39.9 - Unspecified symptoms and signs involving the genitourinary system (3) Elevated PSA: Code(s): R97.20 - Elevated prostate specific antigen [PSA] (4) Bladder trabeculation: Code(s): N32.89 - Other specified disorders of bladder (5) Bladder wall thickening: Code(s): N32.89 - Other specified disorders of bladder Plan In office urinalysis results reviewed with the patient today; as noted above. PVR 52 mL. Recent PSA results reviewed with the patient today; as noted above. Discussed at length surveillance monitoring verses prostate biopsy verses continuation of finasteride; discussed risks and benefits of asformentioned interventions/treatment options Discussed and stressed the importance of managing diabetes for improvement in lower urinary tract symptoms as well as overall health and well-being. Continue finasteride 5 mg as discussed and prescribed. Continue alfuzosin 10 mg as discussed and prescribed. Patient reports be happy with current voiding parameters PSA in 4 months. Follow-up in 4 months with lab to be completed prior; or sooner with any issues, concerns, and or questions. Orders: Orders AMB Urinalysis Automated 03/31/23 Z13.9 - Encounter for screening, unspecified Prostate Specific Antigen 4 Months N40.0 - Benign prostatic hyperplasia without lower urinary tract symptoms, R39.9 - Unspecified symptoms and signs involving the genitourinary system AMB Post Void Residual by ultrasound 03/31/23 R39.9 - Unspecified symptoms and signs involving the genitourinary system Medications: Changed From alfuzosin ER Take before bedtime 10 mg PO BEDTIME 30 days 90 tabs 1RF N32.0 - Bladder- neck obstruction, N40.1 - Benign prostatic hyperplasia with lower urinary tract symptoms, R33.9 - Retention of urine, unspecified, R35.1 - Nocturia, R39.12 - Poor urinary stream To alfuzosin ER Take before bedtime 10 mg PO BEDTIME 90 days 90 tabs 2RF N32.0 - Bladder- neck obstruction, N40.1 - Benign prostatic hyperplasia with lower urinary tract symptoms, R33.9 - Retention of urine, unspecified, R35.1 - Nocturia, R39.12 - Poor urinary stream Refilled finasteride 5 mg PO DAILY 90 days 90 tabs 1RF N40.1 - Benign prostatic hyperplasia with lower urinary tract symptoms, R33.9 - Retention of urine, unspecified Patient Instructions: The patient had an opportunity to ask questions regarding the treatment plan. All questions were answered. Physical exam, labs, and imaging were discussed and reviewed in detail. As well as risks, benefits, and discussion of treatment choices. No major barriers to understanding were identified. The patient expressed understanding and agreement with the above treatment plan. The patient was made aware they should contact our office by phone for worsening of their current condition, the appearance of new symptoms, or with any questions or concerns. Compliance is encouraged with any medications and follow up testing that is ordered. It is a privilege to be allowed the opportunity to participate in? your urological care.? Again, if you have any questions or concerns If you have any questions or concerns please do not hesitate to contact me. The office is [phone]. This note is constructed using voice recognition software. While every effort has been made to ensure accuracy entry level civil engineer errors may have been included. Yours sincerely, ESE Gamez Coding Level of Care Code Est Pt Level 3 (49531) Diagnoses Enlarged prostate N40.0 Lower urinary tract symptoms R39.9 Elevated PSA R97.20 Bladder trabeculation N32.89 Bladder wall thickening N32.89 CPT Codes Post Residual Void - PVR CPT Code: 05451-Lthr Void Residual by ultrasound ([id number])
== END 2023-03-31 10:06 | disposition home or self-care (01) ==
PROVIDERS: PCP Internal Medicine; Visit Provider Nurse Practitioner Family
DX: N40.0 Benign prostatic hyperplasia without lower urinary tract symptoms (principal); R39.9 Unspecified symptoms and signs involving the genitourinary system; R97.20 Elevated prostate specific antigen [PSA]; N32.89 Other specified disorders of bladder
CPT/HCPCS: 99213

== ENCOUNTER → 2023-03-31 09:04 | Outpatient (BNVA) | payer MEDICAID, SELFPAY | PROVIDERS: PCP Internal Medicine; Visit Provider Nurse Practitioner Family | DX: N40.0 Benign prostatic hyperplasia without lower urinary tract symptoms (principal); R97.20 Elevated prostate specific antigen [PSA]; N32.89 Other specified disorders of bladder; R39.9 Unspecified symptoms and signs involving the genitourinary system; Z79.899 Other long term (current) drug therapy | CPT/HCPCS: 51798; 81003; 99212 ==

== ENCOUNTER 2023-07-18 07:12 | Outpatient (REF) | payer MEDICAID, SELFPAY ==
[2023-07-18 08:25] LABS: Prostate Specific Antigen 3.51 ng/mL (<0.05-4.0)
== END 2023-07-18 07:13 | disposition home or self-care (01) ==
LOC: HO.LAB 07:12
PROVIDERS: Visit Provider Nurse Practitioner Family
DX: N40.0 Benign prostatic hyperplasia without lower urinary tract symptoms (principal); R39.9 Unspecified symptoms and signs involving the genitourinary system
CPT/HCPCS: 36415; 84153

== ENCOUNTER → 2023-07-28 07:47 | Outpatient (BNVA) | payer MEDICAID, SELFPAY | PROVIDERS: PCP Internal Medicine; Visit Provider Nurse Practitioner Family ==

== ENCOUNTER 2023-10-10 14:57 | Outpatient (AMB) | payer MEDICAID, SELFPAY ==
--- NOTE | 2023-10-10 15:09 | A.OFFVIS_ITS ---
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 Accompanied by: Self / Same As Patient Allergies No Known Allergies Allergy (Verified 10/10/23 16:16) Medication List - Last Reconciled 10/10/23 by HANNAH Gamez- alfuzosin ER 10 mg PO BEDTIME 90 days atorvastatin 20 mg PO DAILY blood sugar diagnostic (FreeStyle Lite Strips) As directed blood-glucose meter (FreeStyle [place] Lite kit) As directed chlorthalidone 25 mg PO QAM cholecalciferol (vitamin D3) 125 mcg PO DAILY dulaglutide (Trulicity) mg subcut QWEEK empagliflozin (Jardiance) 25 mg PO QAM finasteride 5 mg PO DAILY 90 days ibuprofen 800 mg PO Q8H PRN insulin glargine (Lantus Solostar U-100 Insulin) 46 units (0.46 mL) subcut DAILY insulin lispro (Humalog KwikPen (U-100) Insulin) 15 units breakfast and lunch, 20 units dinner, 4 units hs snack subcut 4 times a day; lancets (FreeStyle Lancets) As directed losartan 50 mg PO DAILY nystatin-triamcinolone 100,000-0.1 unit/g-% 1 appl topical TID pen needle, diabetic (Pentips) 1 ea miscellaneous five times a day; PATIENT NEEDS APPOINTMENT FOR MORE REFILLS. sacubitril-valsartan 49-51 mg (Entresto) 1 tab PO BID HPI Comments Details: Arjun is a very pleasant 53-year-old Armenian-speaking male patient of Dr. Erwin who was accompanied by his significant other at today's office visit. He has a past medical history of cardiac insufficiency, hypertension, hyperlipidemia, proteinuria, diabetes type 2 mellitus with hyperglycemia with long-term current use of insulin, and vitamin-D deficiency. He presents to the office today for follow-up of his elevated PSA and lower urinary tract symptoms. In discussion with the patient today reports to be doing and feeling well. He reports s ignificant improvement in lower urinary tract symptoms on alfuzosin 10 mg daily as well as 5 mg of finasteride. Recent PSA results reviewed with the patient today as noted and trended below. Previous workup has included a retroperitoneal ultrasound 11/23 noting bilateral kidneys with no calculi, lesions, and or hydronephrosis. The bladder is well distended with wall thickening and trabeculations. Prostate volume is approximately 80 mL. PSAs are as follows... 10/23 4.1, 10/23 3.9 % free prostate 18%, 03/25 2.5, 07/25 3.5 Patient had previously trialed Flomax with good improvement in lower urinary tract symptoms however had been experiencing retrograde ejaculation and has since been doing well with alfuzosin. He currently denies any bothersome urinary issues or concerns. When asked he denies urinary urgency, urinary frequency, incontinence, nocturia, hematuria, dysuria, foul smelling urine, changes to urinary stream, flank pain, fever, and or chills. He is happy with his current voiding parameters. In office urinalysis results reviewed with the patient today. PVR 43ml's. Discussed slight increase/bump in PSA. Discussed potential causes of slight increase in PSA. Discussed at length importance of managing diabetes for improvement in lower urinary tract symptoms as well as overall health and well-being. He otherwise offers no other issues or concerns at this time. [facility] Medical History Cardiac insufficiency Essential hypertension Proteinuria Vitamin D deficiency Hyperlipidemia LDL goal <100 Type 2 diabetes mellitus with hyperglycemia, with long-term current use of insulin Surgical History No history of previous surgery Family History Father Cancer Mother Hypertension Paternal Uncle Cancer Diabetes Maternal Uncle Diabetes Cancer Paternal Aunt CVD (cardiovascular disease) Social History Household Members: Significant Other Alcohol intake: current Alcohol intake frequency: does not drink Patient Tobacco Use Status: Never used Tobacco Review of Systems Const Reports as per HPI Eyes Reports no additional complaints Card Reports as per HPI Resp Reports no additional complaints GI Reports no additional complaints Reports as per HPI Musc Reports no additional complaints Neuro Reports no additional complaints Psych Reports no additional complaints Endo Reports as per HPI Mode/Lymph Reports no additional complaints Aller/Immun Reports no additional complaints Physical Exam Const General: cooperative, healthy appearing, comfortable, no acute distress, well developed, alert and awake Nutritional Appearance: average body habitus Orientation/consciousness: patient oriented x3 Limitations: no limitations HEENT Head: Yes normal to inspection, Yes normocephalic and Yes atraumatic Ears: hearing grossly normal bilaterally Eyes General: appearance normal, both eyes and all related structures Neck Neck: Yes normal visual inspection and Yes trachea midline Chest Chest palpation & inspection: normal inspection of the chest Resp Effort & Inspection: normal respiratory effort and able to speak in complete sentences Cardio Rate: regular rate GI Inspection: Yes normal to inspection General: Yes no CVA tenderness Back/Spine/Pelvis Back: no CVA tenderness Skin General skin exam: no rashes or lesions noted Neuro General: patient oriented x3 Extrem General: Yes normal to inspection Psych Appearance: grossly normal and well kempt Mental Status: mental status grossly normal Speech and movement: Normal speech and movement present and Clear speech present Affect: normal affect Attitude: cooperative Thought process: Normal thought process present Thought content: Normal thought content present Insight: Fair insight present (Psych) Judgement: Fair judgement present (Psych) Office Procedures Post Void Residual Post Residual Void Post Void Residual (PVR): 43 [id number] Void Residual by ultrasound Results AMB Urinalysis, Automated UA Leukoctes 0 Elizabeth/uL Last Edit by [email or web address] on 10/10/23 15:42 UA Nitrite Negative Last Edit by [email or web address] on 10/10/23 15:42 UA Urobilinogen 0.2 mg/dL Last Edit by [email or web address] on 10/10/23 15:42 UA Protein 0 mg/dL Last Edit by [email or web address] on 10/10/23 15:42 UA pH 6.0 Last Edit by [email or web address] on 10/10/23 15:42 UA Blood 0 Yony/uL Last Edit by [email or web address] on 10/10/23 15:42 UA Specific [place] 1.015 Last Edit by [email or web address] on 10/10/23 15:42 UA Ketone Negative Last Edit by [email or web address] on 10/10/23 15:42 UA Bilirubin 0 mg/dL Last Edit by [email or web address] on 10/10/23 15:42 UA Glucose 250 mg/dL Last Edit by Tucker Abad on 10/10/23 15:42 Results Reviewed Results Reviewed: Laboratory Last Values Urine pH (Auto) 6.0 10/10/23 15:39 Specific [place] (Auto) 1.015 10/10/23 15:39 Urine Protein (Auto) 0 mg/dL 10/10/23 15:39 Glucose (UA)(Auto) 250 mg/dL 10/10/23 15:39 Urine Ketones (Auto) Negative 10/10/23 15:39 Urine Blood (Auto) 0 Yony/uL 10/10/23 15:39 Urine Nitrite (Auto) Negative 10/10/23 15:39 Urine Bilirubin (Auto) 0 mg/dL 10/10/23 15:39 Urine Urobilinogen (Auto) 0.2 mg/dL 10/10/23 15:39 Leukocyte Esterase (Auto) 0 Elizabeth/uL 10/10/23 15:39 Assessment & Plan Assessment & Plan (1) Elevated PSA: Code(s): R97.20 - Elevated prostate specific antigen [PSA] Category: Medical Plan In office urinalysis results reviewed with the patient today; as noted above. Recent PSA results reviewed with the patient and his partner today; as noted above. Will obtain redraw of PSA with no sex the night before, no caffeine morning of, and no heavy lifting 1-2 days prior. Discussed at length potential causes of bump in PSA. Continue finasteride and terazosin as prescribed. Patient currently denies any bothersome urinary issues or concerns. He reports be happy with current voiding parameters. Follow-up in 1-2 weeks with lab to be completed prior; or sooner with any issues, concerns, and or questions. Orders: Orders AMB Urinalysis Automated Today Z13.9 - Encounter for screening, unspecified Prostate Specific Antigen Today R97.20 - Elevated prostate specific antigen [PSA] AMB Post Void Residual by ultrasound Today R39.9 - Unspecified symptoms and signs involving the genitourinary system Medications: Refilled finasteride 5 mg PO DAILY 90 days 90 tabs 1RF N40.1 - Benign prostatic hyperplasia with lower urinary tract symptoms, R33.9 - Retention of urine, unspecified alfuzosin ER Take before bedtime 10 mg PO BEDTIME 90 days 90 tabs 2RF N32.0 - Bladder- neck obstruction, N40.1 - Benign prostatic hyperplasia with lower urinary tract symptoms, R33.9 - Retention of urine, unspecified, R35.1 - Nocturia, R39.12 - Poor urinary stream Patient Instructions: The patient had an opportunity to ask questions regarding the treatment plan. All questions were answered. Physical exam, labs, and imaging were discussed and reviewed in detail. As well as risks, benefits, and discussion of treatment choices. No major barriers to understanding were identified. The patient expressed understanding and agreement with the above treatment plan. The patient was made aware they should contact our office by phone for worsening of their current condition, the appearance of new symptoms, or with any questions or concerns. Compliance is encouraged with any medications and follow up testing that is ordered. It is a privilege to be allowed the opportunity to participate in? your urological care.? Again, if you have any questions or concerns If you have any questions or concerns please do not hesitate to contact me. The office is [phone]. This note is constructed using voice recognition software. While every effort has been made to ensure accuracy traffic reporter errors may have been included. Yours sincerely, ESE Gamez Coding Level of Care Code Est Pt Level 3 (36338) Diagnoses Elevated PSA R97.20 CPT Codes Post Residual Void - PVR CPT Code: 07577-Bjsl Void Residual by ultrasound ([id number])
== END 2023-10-10 15:47 | disposition home or self-care (01) ==
PROVIDERS: PCP Internal Medicine; Visit Provider Nurse Practitioner Family
DX: Z13.9 Encounter for screening, unspecified (principal); R97.20 Elevated prostate specific antigen [PSA]
CPT/HCPCS: 99213

== ENCOUNTER → 2023-10-10 14:57 | Outpatient (BNVA) | payer MEDICAID, SELFPAY | PROVIDERS: PCP Internal Medicine; Visit Provider Nurse Practitioner Family | DX: R97.20 Elevated prostate specific antigen [PSA] (principal); N40.1 Benign prostatic hyperplasia with lower urinary tract symptoms; R33.8 Other retention of urine; Z79.899 Other long term (current) drug therapy | CPT/HCPCS: 51798; 81003; 99212 ==

== ENCOUNTER 2023-10-13 07:44 | Outpatient (REF) | payer MEDICAID, SELFPAY ==
[2023-10-13 10:38] LABS: Prostate Specific Antigen 2.07 ng/mL (<0.05-4.0)
== END 2023-10-13 07:45 | disposition home or self-care (01) ==
LOC: HO.LAB 07:44
PROVIDERS: Visit Provider Nurse Practitioner Family
DX: Z12.5 Encounter for screening for malignant neoplasm of prostate (principal); R97.20 Elevated prostate specific antigen [PSA]
CPT/HCPCS: 36415; 84153

== ENCOUNTER 2023-10-24 11:49 | Outpatient (AMB) | payer MEDICAID, SELFPAY ==
--- NOTE | 2023-10-24 11:50 | MHC.OFFVIS ---
Intake Visit Reasons: 2w/PSA(set) Intake Note: Patient presents for follow up visit on: Elevated PSA and Lab results PSA: 2.07 Urology Medications: Alfuzosin, finasteride Blood Thinner: none Manager Title Required: No Manager Title Name: [id number] Accompanied by: Self / Same As Patient Allergies No Known Allergies Allergy (Verified 10/24/23 11:59) Medication List - Last Reconciled 10/24/23 by HANNAH Gamez- alfuzosin ER 10 mg PO BEDTIME 90 days atorvastatin 20 mg PO DAILY blood sugar diagnostic (FreeStyle Lite Strips) As directed blood-glucose meter (FreeStyle [place] Lite kit) As directed chlorthalidone 25 mg PO QAM cholecalciferol (vitamin D3) 125 mcg PO DAILY dulaglutide (Trulicity) mg subcut QWEEK empagliflozin (Jardiance) 25 mg PO QAM finasteride 5 mg PO DAILY 90 days ibuprofen 800 mg PO Q8H PRN insulin glargine (Lantus Solostar U-100 Insulin) 46 units (0.46 mL) subcut DAILY insulin lispro (Humalog KwikPen (U-100) Insulin) 15 units breakfast and lunch, 20 units dinner, 4 units hs snack subcut 4 times a day; lancets (FreeStyle Lancets) As directed losartan 50 mg PO DAILY nystatin-triamcinolone 100,000-0.1 unit/g-% 1 appl topical TID pen needle, diabetic (Pentips) 1 ea miscellaneous five times a day; PATIENT NEEDS APPOINTMENT FOR MORE REFILLS. sacubitril-valsartan 49-51 mg (Entresto) 1 tab PO BID HPI Comments Details: Arjun is a very pleasant 53-year-old Rwandan-speaking male patient of Dr. Erwin. He has a past medical history of cardiac insufficiency, hypertension, hyperlipidemia, proteinuria, diabetes type 2 mellitus with hyperglycemia with long-term current use of insulin, and vitamin-D deficiency. He is being followed up on today via telehealth as patient was seen approximately 2 weeks ago and PSA was noted to be slightly increased despite compliance with finasteride. Therefore, redraw of PSA was ordered and performed. These results were reviewed with the patient today. In discussion with the patient today reports to be doing and feeling well. He reports significant improvement in lower urinary tract symptoms on alfuzosin 10 mg daily as well as 5 mg of finasteride. Previous workup has included a retroperitoneal ultrasound 11/23 noting bilateral kidneys with no calculi, lesions, and or hydronephrosis. The bladder is well distended with wall thickening and trabeculations. Prostate volume is approximately 80 mL. PSAs are as follows... 10/23 4.1, 10/23 3.9 % free prostate 18%, 03/25 2.5, 07/25 3.5, 10/24 2.1 Patient had previously trialed Flomax with good improvement in lower urinary tract symptoms however had been experiencing retrograde ejaculation and has since been doing well with alfuzosin. He currently denies any bothersome urinary issues or concerns. When asked he denies urinary urgency, urinary frequency, incontinence, nocturia, hematuria, dysuria, foul smelling urine, changes to urinary stream, flank pain, fever, and or chills. He is happy with his current voiding parameters. Discussed at length importance of managing diabetes for improvement in lower urinary tract symptoms as well as overall health and well-being. He otherwise offers no other issues or concerns at this time. [facility] Medical History Cardiac insufficiency Essential hypertension Proteinuria Vitamin D deficiency Hyperlipidemia LDL goal <100 Type 2 diabetes mellitus with hyperglycemia, with long-term current use of insulin Surgical History No history of previous surgery Family History Father Cancer Mother Hypertension Paternal Uncle Cancer Diabetes Maternal Uncle Diabetes Cancer Paternal Aunt CVD (cardiovascular disease) Social History Household Members: Significant Other Alcohol intake: current Alcohol intake frequency: does not drink Patient Tobacco Use Status: Never used Tobacco Review of Systems Const Reports as per HPI Eyes Reports no additional complaints Card Reports as per HPI Resp Reports no additional complaints GI Reports no additional complaints Reports as per HPI Musc Reports no additional complaints Neuro Reports no additional complaints Psych Reports no additional complaints Endo Reports as per HPI Mode/Lymph Reports no additional complaints Aller/Immun Reports no additional complaints Physical Exam Const General: cooperative Resp Effort & Inspection: able to speak in complete sentences Psych Attitude: cooperative Thought process: Normal thought process present Thought content: Normal thought content present Insight: Fair insight present (Psych) Judgement: Fair judgement present (Psych) Telehealth Telehealth Telehealth Platform: Telephone Location of provider rendering services: practice address Location of patient: address on file Patient Identification confirmed using: Name, : Yes Telehealth method: voice only Patient verbally consented to treatment: Yes Patient verbally consented to billing insurance company: Yes Patient informed of any privacy concerns related to visit: Yes Minutes spent on Phone/Video with Pt.: 15 Assessment & Plan Assessment & Plan (1) Enlarged prostate: Code(s): N40.0 - Benign prostatic hyperplasia without lower urinary tract symptoms Category: Medical (2) Elevated PSA: Code(s): R97.20 - Elevated prostate specific antigen [PSA] Category: Medical (3) Bladder wall thickening: Code(s): N32.89 - Other specified disorders of bladder Category: Medical (4) Bladder trabeculation: Code(s): N32.89 - Other specified disorders of bladder Category: Medical (5) Lower urinary tract symptoms: Code(s): R39.9 - Unspecified symptoms and signs involving the genitourinary system Category: Medical Plan Recent PSA results reviewed with the patient and his partner today; as noted above. Continue finasteride and terazosin as prescribed. Patient currently denies any bothersome urinary issues or concerns. He reports be happy with current voiding parameters. Follow-up in 4 months with lab to be completed prior; or sooner with any issues, concerns, and or questions. Orders: Orders Prostate Specific Antigen 4 Months N40.0 - Benign prostatic hyperplasia without lower urinary tract symptoms Patient Instructions: The patient had an opportunity to ask questions regarding the treatment plan. All questions were answered. Physical exam, labs, and imaging were discussed and reviewed in detail. As well as risks, benefits, and discussion of treatment choices. No major barriers to understanding were identified. The patient expressed understanding and agreement with the above treatment plan. The patient was made aware they should contact our office by phone for worsening of their current condition, the appearance of new symptoms, or with any questions or concerns. Compliance is encouraged with any medications and follow up testing that is ordered. It is a privilege to be allowed the opportunity to participate in? your urological care.? Again, if you have any questions or concerns If you have any questions or concerns please do not hesitate to contact me. The office is [phone]. This note is constructed using voice recognition software. While every effort has been made to ensure accuracy leader assembler errors may have been included. Yours sincerely, HANNAH Gamez- Coding Level of Care Code Tele Est Pt Level 3 (03038) Diagnoses Enlarged prostate N40.0 Elevated PSA R97.20 Bladder wall thickening N32.89 Bladder trabeculation N32.89 Lower urinary tract symptoms R39.9
== END 2023-10-24 12:16 | disposition home or self-care (01) ==
LOC: HO.HUSH 11:49
PROVIDERS: PCP Internal Medicine; Visit Provider Nurse Practitioner Family
DX: N40.0 Benign prostatic hyperplasia without lower urinary tract symptoms (principal); R97.20 Elevated prostate specific antigen [PSA]; N32.89 Other specified disorders of bladder; R39.9 Unspecified symptoms and signs involving the genitourinary system
CPT/HCPCS: 99213

== ENCOUNTER → 2023-10-24 11:49 | Outpatient (BNVA) | payer MEDICAID, SELFPAY | PROVIDERS: PCP Internal Medicine; Visit Provider Nurse Practitioner Family ==

== ENCOUNTER 2023-11-14 17:24 | Outpatient (REF) | payer MEDICAID, SELFPAY ==
[2023-11-18 19:08] LABS: C. Trachomatis RNA TMA, Throat NOT DETECTED; N. gonorrhoeae RNA TMA, Throat NOT DETECTED
[2023-11-19 03:39] LABS: C.Trachomatis RNA TMA, Rectal NOT DETECTED; N.Gonorrhoeae RNA TMA, Rectal NOT DETECTED
== END 2023-11-14 17:25 | disposition home or self-care (01) ==
LOC: HO.HHCLNP 17:24
PROVIDERS: Visit Provider Student in an Organized Health Care Education/Training Program
DX: Z00.00 Encounter for general adult medical examination without abnormal findings (principal)
CPT/HCPCS: 87491; 87591

== ENCOUNTER → 2023-12-15 07:38 | Outpatient (REF) | payer MEDICAID, SELFPAY ==
--- NOTE | 2023-12-15 07:41 | CA_ITS ---
Transthoracic Echocardiogram Patient (Last, First, Middle): Arjun Parkinson, Gender: Male Date of : 1970 Age: 53 Procedure Date: 12/15/2023 Procedure Type: Transthoracic Echocardiogram Location: OP Height: 167.64 cm Weight: 77.11 kg BSA: 1.87 m2 Heart Rate: 90 bpm BP: 148 / 72 mmHg Straight Pin Making Machine Operator: SB Referring MD: Lisa Fraser MD Symptoms: CARDIOMYOPATHY I42.9 Study Quality: Adequate ECG Rhythm: Sinus Conclusions: - Normal left ventricular size and systolic function. There is mildly increased left ventricular wall thickness. The visually estimated ejection fraction is between 55-60%. - Normal right ventricular cavity size and systolic function. Findings Left Ventricle Normal left ventricular size and systolic function. There is mildly increased left ventricular wall thickness. The visually estimated ejection fraction is between 55-60%. There is no evidence of regional wall motion abnormalities. Diastolic function is indeterminate on the basis of available data. Right Ventricle Normal right ventricular cavity size and systolic function. Atria The left atrium is normal in size. The right atrium is normal in size. Aortic Valve Normal aortic valve structure and function. There is no aortic valve stenosis. There is no aortic valve regurgitation. Mitral Valve Normal mitral valve structure and function. There is no mitral valve regurgitation. There is no mitral valve stenosis. Pulmonic Valve The pulmonic valve is likely normal. Tricuspid Valve Normal tricuspid valve structure. There is trace tricuspid valve regurgitation. Normal right atrial pressure. There is no evidence of pulmonary hypertension. Great Vessels All visible segments of the aorta are normal in size. The visualized portions of the pulmonary artery and branches are normal. Venous The inferior vena cava is normal in size and collapses greater than 50% with inspiration. Pericardium/Pleural There is no evidence of pericardial effusion. Prior Study Comparison No prior study available for comparison. Measurements 2D Linear Measurements IVSd: 1.31 0.6-0.9/0.6-1.0 cm LVIDd: 4.64 3.9-5.3/4.2-5.9 cm LVIDd Index: 2.48 2.4-3.2/2.2-3.1 cm/m2 LVIDs: 2.98 2.0-3.6 cm LVPWd: 1.22 0.7-1.1 cm LA Diam: 3.40 2.7-3.8/3.0-4.0 cm LAIDs Index: 1.82 1.5-2.3 cm/m2 LV Mass: 279.45 67-162/88-224 g LV Mass Index: 149.44 43-95/49-115 g/m2 LVOT Diam: 2.00 3.0+(-)1.3 cm 2D Systolic Function EF 4C: 51.30 >55% EF 2C: 53.50 >55% Mitral Valve E'Lateral: 6.31 E'Medial: 6.64 Aortic Valve AoV Pk Erasmo: 1.16 AoV Pk Grad: 5.00 RADHA: 2.84 LVOT LVOT Pk Erasmo: 1.06 LVOT Mn Erasmo: 0.71 LVOT VTI: 0.18 LVOT Pk Grad: 4.00 LVOT Mn Grad: 2.00 LVOT Diam: 2.00 LVOT Area: 3.14 Diastolic Function E'Medial: 6.64 E' Laterial: 6.31 Right Ventricle TAPSE (mm): 16.10 TVS' Erasmo: 9.17 Tricuspid Valve TR Pk Erasmo: 2.15 TR Pk Grad: 18.00 RA Press: 3.00 RVSP: 21.00 Great Vessels Aorta Sinus of Valsalva: 3.50 2.0-3.5 cm Ao Asc: 3.20 2.1-3.4 cm Ao Arch: 2.90 Pulmonary Valve PV Pk Erasmo: 0.86 Peak PV Grad: 3.00 Updated in Other Vendor System with Status of Final Ray Gar MD electronically signed on 12/17/2023 2:16:10 PM with status of Final
== END ==
LOC: HO.CARD 07:38
PROVIDERS: PCP Internal Medicine; Visit Provider Student in an Organized Health Care Education/Training Program
DX: I42.9 Cardiomyopathy, unspecified (principal)
CPT/HCPCS: 93306

== ENCOUNTER → 2023-12-15 07:41 | Outpatient (BNV) | payer MEDICAID, SELFPAY | PROVIDERS: PCP Internal Medicine; Visit Provider Internal Medicine Cardiovascular Disease | DX: I42.8 Other cardiomyopathies (principal) | CPT/HCPCS: 93306 ==

== ENCOUNTER 2024-01-12 06:51 | Outpatient (REF) | payer MEDICAID, SELFPAY ==
[2024-01-12 07:36] LABS: Hematocrit 45.6 % (42.0-52.0); Hemoglobin 16.4 g/dl (14.0-18.0); Mean Corpuscular Hemoglobin 29.3 pg (27.0-33.0); Mean Corpuscular Volume 81.6 fL (80.0-98.0); Mean Platelet Volume 9.9 fL (9.4-12.4); Platelet Count 168 X10*3/uL (160-400); Red Blood Count 5.59 X10*6/uL (4.60-5.80); Red Cell Distribution Width 12.3 % (11.0-16.0); White Blood Count 5.5 X10*3/uL (4.8-10.8)
[2024-01-12 07:57] LABS: Estimated Average Glucose 240 mg/dL; Hemoglobin A1C 354.5591 umol/L; Total Hemoglobin (HGBA1C) 4158.9136 umol/L
[2024-01-12 08:13] LABS: Creatinine Urine 128.64 mg/dL; Microalbum/Creatinine Ratio Ur 9.3 ug/mg cr (<30)
[2024-01-12 08:16] LABS: Alanine Aminotransferase 40 U/L (0-40); Albumin Level 4.4 g/dL (3.5-5.0); Alkaline Phosphatase 79 U/L (39-117); Anion Gap 12 (12-20); Aspartate Amino Transferase 26 U/L (5-37); Bilirubin Total 0.6 mg/dL (0.0-1.0); Blood Urea Nitrogen 10 mg/dL (9-16); Calcium 9.7 mg/dL (8.4-10.2); Carbon Dioxide 26 mmol/L (22-29); Chloride 103 mmol/L (96-108); Cholesterol 208 mg/dL (<200); Estimated Glomerular Filt Rate > 60; Glucose Random 274 mg/dL (60-115); HDL Cholesterol 32 mg/dL (>40); LDL Cholesterol Calculated 121 mg/dL (<100); Potassium 3.8 mmol/L (3.3-5.1); Sodium 137 mmol/L (135-145); Total Protein 7.4 g/dL (6.5-8.0); Triglycerides 275 mg/dL (<150)
[2024-01-12 08:33] LABS: TSH reflex Free T4 3.03 uIU/mL (0.32-4.0); Vitamin D 25-OH Total 20.9 ng/mL (>30)
[2024-01-12 08:37] LABS: Syphilis Screen Nonreactive (Nonreactive)
[2024-01-12 08:40] LABS: HBS Num1 677.45 mIU/mL (0-7.99); HBc Num1 5.76 S/CO (0.00-0.79); HIV AB/AG Nonreactive (Nonreactive); HIV Num 1 0.04 S/CO (0.00-0.99); Hepatitis B Surface Antigen Negative (Negative); ~HepC Num1 0.24 S/CO (0.00-0.79); ~Hepatitis B Surface Antibody REACTIVE (Nonreactive); ~Hepatitis C Antibody Nonreactive (Nonreactive)
[2024-01-12 08:49] LABS: Folate 12.2 ng/mL (> or = 4.0); Prostate Specific Antigen 2.49 ng/mL (<0.05-4.0); Vitamin B12 423 pg/mL (200-900)
[2024-01-12 11:41] LABS: HBc Num2 5.66 S/CO; HBc Num3 5.82 S/CO; Hepatitis B Core Antibody Reactive (Nonreactive)
== END 2024-01-12 06:52 | disposition home or self-care (01) ==
LOC: HO.LAB 06:51
PROVIDERS: PCP Student in an Organized Health Care Education/Training Program; Visit Provider Student in an Organized Health Care Education/Training Program
DX: Z00.00 Encounter for general adult medical examination without abnormal findings (principal); E11.9 Type 2 diabetes mellitus without complications; Z79.4 Long term (current) use of insulin
CPT/HCPCS: 36415; 80053; 80061; 82043; 82306; 82570; 82607; 82746; 83036; 84153; 84443; 85027; 86704; 86706; 86780; 86803; 87340; 87389

== ENCOUNTER 2024-02-20 08:02 | Outpatient (REF) | payer MEDICAID, SELFPAY ==
[2024-02-20 11:52] LABS: Prostate Specific Antigen 3.01 ng/mL (<0.05-4.0)
[2024-02-20 12:13] LABS: Alanine Aminotransferase 39 U/L (0-40); Albumin Level 4.2 g/dL (3.5-5.0); Alkaline Phosphatase 71 U/L (39-117); Anion Gap 8 (12-20); Aspartate Amino Transferase 33 U/L (5-37); Bilirubin Total 0.7 mg/dL (0.0-1.0); Blood Urea Nitrogen 16 mg/dL (9-16); Calcium 9.2 mg/dL (8.4-10.2); Carbon Dioxide 30 mmol/L (22-29); Chloride 104 mmol/L (96-108); Estimated Glomerular Filt Rate > 60; Glucose Random 166 mg/dL (60-115); Potassium 3.4 mmol/L (3.3-5.1); Sodium 139 mmol/L (135-145); Total Protein 7.1 g/dL (6.5-8.0)
== END 2024-02-20 08:03 | disposition home or self-care (01) ==
LOC: HO.HHCL 08:02
PROVIDERS: Student in an Organized Health Care Education/Training Program; Visit Provider Nurse Practitioner Family
DX: I10 Essential (primary) hypertension (principal); N40.0 Benign prostatic hyperplasia without lower urinary tract symptoms
CPT/HCPCS: 36415; 80053; 84153

== ENCOUNTER 2024-06-10 09:39 | Outpatient (REF) | payer MEDICAID, SELFPAY ==
--- NOTE | ~2024-06-10 | XR_ITS ---
EXAMINATION: XR RIBS, LEFT CLINICAL INFORMATION: INJURY to left anterior ribs. COMPARISON: None available. TECHNIQUE: PA view of the chest, and 4 views left RIBS. FINDINGS: Lungs are clear. No consolidation, pneumothorax, or pleural effusion. The cardiomediastinal silhouette and pulmonary vasculature are normal. Reviews demonstrate a probable subtle fracture of the left anterior 10th rib. XR/XR ribs LT min 3V w CXR1V IMPRESSION: 1. Findings suggestive of subtle fracture left anterior 10th rib. 2. Lungs are clear. Electronically signed by: Pb Kaur MD 06/10/2024 10:08 AM EDT
--- OUTSIDE RECORDS SUMMARY | 2024-06-10 10:32 | XMS_ITS | Clinical Summary ---
Author Organization [address] [facility] Address [address] [place] [address] Phone Care Team Providers Care Cylinder Filler Name Role Phone Lisa Cantrell MD Primary Care Pro vider Social History Tobacco Use Types Packs/Day Years Used Date Smoking Tobacco: Never Assessed Sex and Gender Information Value Date Recorded Sex Assigned at Not on file Legal Sex Male 4:38 PM EDT Gender Identity Not on file Sexual Orientation Not on file Plan of Treatment Upcoming Encounters Date Type Department Care Team ([facility] Contact Info) Description 07/18/2024 8:30 AM EDT Office Visit Orthopedic Surgery - [place] [address] [phone] Ascencion Broussard, DPM [address] [address] Health Maintenance Due Date Last Done Comments DTaP,Tdap,and Td Vaccines (1 - Tdap) 1988 Hepatitis B Vaccines (1 of 3 - 19+ 3-dose series) 1988 Pneumococcal Vaccine: 50+ Ye ars (1 of 1 - PCV) 2019 Zoster Vaccines (1 of 2) 2019 COVID-19 Vaccine ( - 2023-2 5 season) 2023 Influenza Vaccine (#1) 2023 Cholesterol Screening (Lipid Panel) 01/28/2024 Colorectal Cancer Screening: Colonoscopy 01/28/2024 Depression Screening 01/28/2024 HIV Screening 01/28/2024 Hepatitis C Screening 01/28/2024 Social Influencers of Health Screening 01/28/2024 HIB Vaccines Aged Out No longer eligi ble based on patient's age to complete this topic HPV Vaccines Aged Out No longer eligi ble based on patient's age to complete this topic Hepatitis A Vaccines Aged Out No long er eligible based on patient's age to complete this topic IPV Vaccines Aged Out No longer eligi ble based on patient's age to complete this topic MMR Vaccines Aged Out No longer eligi ble based on patient's age to complete this topic Meningococcal ACWY Vaccine Aged Out N o longer eligible based on patient's age to complete this topic Meningococcal B Vacine Aged Out No lo nger eligible based on patient's age to complete this topic Pneumococcal Vaccine: Pediat rics (0 to 5 Years) and At-Risk Patients (6 to 64 Years) Aged Out No longer eligible b ased on patient's age to complete this topic RSV Immunization Patients Un rom 20 months Aged Out No longer eligible b ased on patient's age to complete this topic Varicella Vaccines Aged Out No longer eligible based on patient's age to complete this topic Care Teams Cylinder Filler Relationship Specialty Start Date End Date Lisa Cantrell MD 9 [facility] 9 [place] [phone] PCP - General 01/22/24
== END 2024-06-10 09:40 | disposition home or self-care (01) ==
LOC: HO.HHCX 09:39
PROVIDERS: Visit Provider Emergency Medicine
DX: S29.9XXD Unspecified injury of thorax, subsequent encounter (principal)
CPT/HCPCS: 71101

== ENCOUNTER → 2024-06-10 09:40 | Outpatient (BNV) | payer MEDICAID, SELFPAY | PROVIDERS: Visit Provider Radiology Diagnostic Radiology | DX: S29.9XXA Unspecified injury of thorax, initial encounter (principal) | CPT/HCPCS: 71101 ==

== ENCOUNTER 2024-10-21 09:16 | Outpatient (REF) | payer MEDICAID, SELFPAY ==
--- NOTE | ~2024-10-21 | XR_ITS ---
EXAMINATION: XR HAND 3 OR MORE VIEWS RIGHT HISTORY: right digits pain and weakness COMPARISON: There are no prior studies available for comparison. FINDINGS: Three views of the right hand are submitted. Osseous mineralization is normal. There is no fracture or dislocation. The joint spaces are preserved. The soft tissues are unremarkable. XR/XR hand RT min 3V IMPRESSION: Unremarkable examination of the right hand. Electronically signed by: Gen Louie MD 10/21/2024 09:55 AM EDT
--- OUTSIDE RECORDS SUMMARY | 2024-10-21 09:40 | XMS_ITS | Encounter Summary ---
Author Organization [facility] Address [address] [place] [address] [address] [place] [address] Care Team Providers Care Senior Controls Engineer Name Role Phone Lisa Cantrell MD Primary Care Pro vider Reason for Visit * Reason Comments Med Refill Encounter Details Date Type Department Care Team (Late st Contact Info) Description 04/05/2023 Refill [facility] MEDICINE [address] [place] [address] Lisa Cantrell MD [address] [place] [address] Type 2 diabetes mellitus with hyperglycemia, with long-term current use of insulin ([facility]) Social History Tobacco Use Types Packs/Day Years Used Date Smoking Tobacco: Never Passive Smoke Exposure: Never Smokeless Tobacco: Never Alcohol Use Standard Drinks/Week Comments Never 0 (1 standard drink = 0.6 oz pur e alcohol) Depression Answer Date Recorded Patient Health Questionnaire-9 Score 0 08/31/2022 Housing Stability Answer Date Recorded What is your housing situation today? I have cammy owens 02/06/[address] you li ve. Do you have problems with any of the following? None of the above 02/06/2023 Food Insecurity Answer Date Recorded Within the past 12 months, y ou worried that your food would run out before you got money to buy more: Never True 02/06/2023 Within the past 12 months,th e food you bought just didn't last and you didn't have enough money to get more: Never True 09/2022 Transportation Answer Date Recorded In the past 12 months, has l ack of transportation kept you from medical appts, meetings, work or from getting things needed for daily living? No 02/06/2023 Utilities Answer Date Recorded In the past 12 months, has t he electric, gas, oil or water company threatened to shut off services in your home? No 02/06/2023 Depression Answer Date Recorded Patient Health Questionnaire-2 Score 0 08/31/2022 Sex and Gender Information Value Date Recorded Sex Assigned at Male 01/31/2022 10:17 AM EDT Legal Sex Male 10:17 AM EDT Gender Identity Male 01/31/2022 10:17 AM EDT Sexual Orientation Rose 11/14/2023 10 :51 AM EDT documented as of this encounter Plan of Treatment Upcoming Encounters Date Type Department Care Team (Late st Contact Info) Description 10/25/2024 11:30 AM EDT Office Visit [facility] MEDICINE [address] [place] [phone] Lisa Cantrell MD [address] [place] [phone] 12/30/2024 9:00 AM EDT Office Visit [facility] OPTOMETRY [address] [place] [address] Gracie Ingram, OD [address] [place] [address] 03/26/2025 9:30 AM EST Office Visit [facility] OPTOMETRY [address] [place] [address] Gracie Ingram, OD [address] [place] [address] documented as of this encounter Visit Diagnoses Diagnosis Type 2 diabetes mellitus with hyperglycemia, with long-term current use of insulin ([facility]) documented in this encounter Additional Health Concerns Assessment Noted Time PHQ-9 Depression Total Score: 0 09/01/19 23 8:56 AM EDT documented as of this encounter Care Teams Senior Controls Engineer Relationship Specialty Start Date End Date Lisa Cantrell MD [address] [place] [phone] PCP - General Internal Medicine 12/22/22 documented as of this encounter
== END 2024-10-21 09:17 | disposition home or self-care (01) ==
LOC: HO.HHCX 09:16
PROVIDERS: Visit Provider Internal Medicine
DX: M25.541 Pain in joints of right hand (principal); M25.561 Pain in right knee
CPT/HCPCS: 73130

== ENCOUNTER → 2024-10-21 09:16 | Outpatient (BNV) | payer MEDICAID, SELFPAY | PROVIDERS: Visit Provider Radiology Diagnostic Radiology | DX: M79.644 Pain in right finger(s) (principal) | CPT/HCPCS: 73130 ==

== ENCOUNTER 2025-01-01 10:02 | Outpatient (REF) | payer MEDICAID, SELFPAY ==
--- OUTSIDE RECORDS SUMMARY | 2024-12-30 09:00 | XMS_ITS | Encounter Summary ---
Author Organization [facility] [facility] Address [address] [facility] [address] [place] [address] Care Team Providers Care Certified Performance Technologist Name Role Phone Lisa Cantrell MD Primary Care Pro vider Reason for Visit * Reason Comments Glaucoma Encounter Details Date Type Department Care Team (Late st Contact Info) Description 12/30/2024 9:00 AM EDT Office Visit [facility] OPTOMETRY [address] [place] [address] Juan Jose, Gracie, OD [address] [place] [address] Suspicious optic nerve cupping of both eyes (Primary Dx) Social History Tobacco Use Types Packs/Day Years Used Date Smoking Tobacco: Never Passive Smoke Exposure: Never Smokeless Tobacco: Never Alcohol Use Standard Drinks/Week Comments Yes 0 (1 standard drink = 0.6 oz pur e alcohol) occasionally Depression Answer Date Recorded Patient Health Questionnaire-9 Score 3 11/14/2023 Patient Health Questionnaire-9 Score 3 11/14/2023 Last PHQ-9: Questionnaire Data Not on file 0 11/14/2023 Housing Stability Answer Date Recorded What is your housing situation today? I have cammy graciela 11/01/[address] you li ve. Do you have problems with any of the following? None of the above 11/01/2023 Food Insecurity Answer Date Recorded Within the past 12 months, y ou worried that your food would run out before you got money to buy more: Never True 11/01/2023 Within the past 12 months,th e food you bought just didn't last and you didn't have enough money to get more: Never True Transportation Answer Date Recorded In the past 12 months, has l ack of transportation kept you from medical appts, meetings, work or from getting things needed for daily living? No 11/01/2023 Utilities Answer Date Recorded In the past 12 months, has t he electric, gas, oil or water company threatened to shut off services in your home? No 11/01/2023 Depression Answer Date Recorded Patient Health Questionnaire-2 Score 0 11/14/2023 Internet Access Answer Date Recorded Internet Access Q1 Yes 12/04/2023 Internet Access Q2 Not on file 12/04/2023 Sex and Gender Information Value Date Recorded Sex Assigned at Male 01/31/2022 10:17 AM EDT Legal Sex Male 10:17 AM EDT Gender Identity Male 01/31/2022 10:17 AM EDT Sexual Orientation Rose 11/14/2023 10 :51 AM EDT documented as of this encounter Plan of Treatment Upcoming Encounters Date Type Department Care Team (Late st Contact Info) Description 01/27/2025 9:00 AM EDT Medication Management [facility] MEDICINE [address] [place] [phone] Angela Llamas, PharmD [address] [place] [address] 03/13/2025 9:00 AM EST Office Visit [facility] MEDICINE [address] [place] [phone] Lisa Cantrell MD [address] [place] [address] 03/26/2025 9:30 AM EST Office Visit [facility] OPTOMETRY [address] [place] [address] Gracie Ingram, OD [address] [place] [address] Pending Results Name Type Priority Associated Diagnoses Date /Time Automated Visual Field, Extended - OU - Both Eyes Ophthalmology Routine Suspicious optic nerve cupping of both eyes 12/30/2024 10:14 AM EDT documented as of this encounter Visit Diagnoses Diagnosis Suspicious optic nerve cupping of both eyes- Primary documented in this encounter Additional Health Concerns Assessment Noted Time PHQ-9 Depression Total Score: 3 11/14/19 24 10:21 AM EDT documented as of this encounter Care Teams Certified Performance Technologist Relationship Specialty Start Date End Date Lisa Cantrell MD [address] [place] [phone] PCP - General Internal Medicine 12/22/22 documented as of this encounter
--- OUTSIDE RECORDS SUMMARY | 2025-01-01 11:13 | XMS_ITS | Encounter Summary ---
Author Organization [email or web address] [facility] Address [address] [place] [address] 7[address] [place] [address] Care Team Providers Care Cone Picker Name Role Phone Mark Brennan Primary Care Provider Unavail able Lisa Cantrell MD Primary Care Pro vider Reason for Visit * Reason Comments Med Refill Encounter Details Date Type Department Care Team (Late Contact Info) Description 07/08/2022 Refill [facility] [address] [place] [address] Cuca Richey FNP Social History Tobacco Use Types Packs/Day Years Used Date Smoking Tobacco: Never Assessed Sex and Gender Information Value Date Recorded Sex Assigned at Male 01/31/2022 10:17 AM EDT Legal Sex Male 10:17 AM EDT Gender Identity Male 01/31/2022 10:17 AM EDT Sexual Orientation Rose 11/14/2023 10 :51 AM EDT COVID-19 Exposure Response Date Recorded In the last 10 days, have yo u been in contact with someone who was confirmed or suspected to have Coronavirus/COVID-19? No / Unsure 07/04/2022 9:32 AM EDT documented as of this encounter Plan of Treatment Upcoming Encounters Date Type Department Care Team (Late Contact Info) Description 01/27/2025 9:00 AM EDT Medication Management [facility] MEDICINE [address] [place] [address] Angela Llamas, CarrieD [address] [place] [address] 03/13/2025 9:00 AM EST Office Visit [facility] MEDICINE [address] [place] [address] Lisa Cantrell MD [address] [place], [place] [phone] 03/26/2025 9:30 AM EST Office Visit [facility] OPTOMETRY [address] [place], [place] [phone] Gracie Ingram, OD [address] [place], [place] [phone] documented as of this encounter Visit Diagnoses Not on filedocumented in this encounter Care Teams Cone Picker Relationship Specialty Start Date End Date Mark Brennan AGNP PCP - General Family Medicine 01/03/22 12/21/22 Lisa Cantrell MD [address] [place], [place] [phone] PCP - General Internal Medicine 12/22/22 documented as of this encounter
--- OUTSIDE RECORDS SUMMARY | 2025-01-01 11:13 | XMS_ITS | Encounter Summary ---
Author Organization [employer] Address [address] [place] [address] [address] [place] [address] Care Team Providers Care Medical Physics Teacher Name Role Phone Lisa Cantrell MD Primary Care Pro vider Reason for Visit * Reason Comments Med Refill Encounter Details Date Type Department Care Team (Late st Contact Info) Description 04/05/[address] [facility] [address] [place] [address] Lisa Cantrell MD [address] [place] [address] Type 2 diabetes mellitus with hyperglycemia, with long-term current use of insulin ([facility]) Social History Tobacco Use Types Packs/Day Years [...] Description 01/27/2025 9:00 AM EDT Medication Management [facility] [address] [place] [phone] Angela Llamas, PharmD [address] [place] [address] 03/13/2025 9:00 AM EST Office Visit [facility] [address] [place] [address] Lisa Cantrell MD [address] [place] [phone] 03/26/2025 9:30 AM EST Office Visit [facility] [address] [place] [address] Gracie Ingram, OD [address] [place] [address] documented as of this encounter Visit Diagnoses Diagnosis Type 2 diabetes mellitus with hyperglycemia, with long-term current use of insulin (HCC) documented in this encounter Additional Health Concerns Assessment Noted Time PHQ-9 Depression Total Score: 0 09/01/19 23 8:56 AM EDT documented as of this encounter Care Teams Medical Physics Teacher Relationship Specialty Start Date End Date Lisa Cantrell MD [address] [place] [id number] PCP - General Internal Medicine 12/22/22 documented as of this encounter
--- OUTSIDE RECORDS SUMMARY | 2025-01-01 11:13 | XMS_ITS | Encounter Summary ---
Author Organization [employer] Address [address] [facility] [address] [place] [address] Care Team Providers Care Black Top Spreader Machine Operator Name Role Phone Mark Brennan Primary Care Provider Unavail able Lisa Cantrell MD Primary Care Pro vider Encounter Details Date Type Department Care Team ([facility] Contact Info) Description 07/08/2022 Orders Only [facility] & PEDS [address] [place] [address] Danni Romero LPN Social History Tobacco Use Types Packs/Day Years [...] Upcoming Encounters Date Type Department Care Team ([facility] Contact Info) Description 01/27/2025 9:00 AM EDT Medication Management [facility] [address] [place] [phone] Angela Llamas, PharmD [address] [place] [address] 03/13/2025 9:00 AM EST Office Visit [facility] [address] [place], [place] [phone] Lisa Cantrell MD [address] [place], [place] [phone] 03/26/2025 9:30 AM EST Office Visit [facility] OPT[facility]ET[facility] [address] [place], [place] [phone] Gracie Ingram, OD [address] [place], [place] [phone] documented as of this encounter Visit Diagnoses Not on filedocumented in this encounter Care Teams Black Top Spreader Machine Operator Relationship Specialty Start Date End Date Mark Brennan AGNP PCP - General Family Medicine 01/03/22 12/21/22 Lisa Cantrell MD [address] [place], [place] [phone] PCP - General Internal Medicine 12/22/22 documented as of this encounter
--- OUTSIDE RECORDS SUMMARY | 2025-01-01 11:14 | XMS_ITS | Clinical Summary ---
Author Organization [employer] Address [address] [place] [address] [address] [place] [address] Care Team Providers Care Usability Specialist Name Role Phone Lisa [place]rell MD Primary Care Pro vider Allergies Active Allergy Reactions Criticality Noted Date Comments Bee Pollen Runny nose 08/17/2022 Medications empagliflozin (Jardiance) 25 MG Take 1 tablet (25 mg) by mouth in the morning. 90 tablet 1 023 Active glucose blood test stripIndications :Type 2 diabetes mellitus without complication, with long-term current use of insulin (HCC) 1 each by Other route 2 times daily. 100 each 12 023 Active Blood Pressure kitIndications:T ype 2 diabetes mellitus without complication, with long-term current use of insulin (HCC) 1 kit 2 times daily. 1 kit 023 Active Pentips 32G X 4 MM misc USE FIVE TIMES DAILY 200 each 11 023 Active alfuzosin ER (Uroxatral) 10 MG 24 hr tablet Take 10 mg by mouth in the morning. Do not crush, chew, or split. Active finasteride (Proscar) 5 MG tablet Take 5 mg by mouth in the morning. Do not crush, chew, or split. Active TRUEplus Lancets 33G misc 1 Units 2 times daily. TEST BLOOD SUGAR SUGAR TWICE A DAY 100 each 11 024 Active polyethylene glycol, PEG, 3350 (MiraLax) 17 GM/SCOOP powderIndication s:Constipation, unspecified constipation type Take 17 g by mouth if needed each day (constipation). 225 g 2 Active FREESTYLE LITE test strip TEST BLOOD SUGAR TWICE A DAY 100 each 11 024 2024 Active metFORMIN (Glucophage) 500 MG tablet TAKE 1 TABLET BY MOUTH TWICE DAILY IN THE MORNING AND IN THE EVENING WITH BREAKFAST AND WITH DINNER 180 tablet Active lidocaine (Lidoderm) 5 % patch APPLY 1 PATCH TOPICALLY TO SKIN, LEAVE ON FOR 12 HOURS AND OFF FOR 12 HOURS DIRECTED 30 patch 2 Active meloxicam (Mobic) 15 MG tablet Take 1 tablet (15 mg) by mouth Once per day. 15 tablet 025 2025 Active acetaminophen (Tylenol) 500 MG tablet Take 2 tablets (1,000 mg) by mouth every 6 (six) hours if needed for moderate pain or fever for up to 25 doses. Take 1-2 tablets po tid prn pain 90 tablet Active polyethylene glycol, PEG, 3350 (MiraLax) 17 GM/SCOOP powderIndication s:Constipation, unspecified constipation type 17 grams in 8-12 oz juice or water PO TID for 3 days 238 g Active docusate sodium (Colace) 100 MG capsuleIndicatio ns:Constipation, unspecified constipation type Take 1 capsule (100 mg) by mouth if needed each day for constipation. 30 capsule 2 025 2024 Active losartan (Cozaar) 25 MG tablet TAKE 1 TABLET BY MOUTH EVERY DAY 90 tablet Active Aspirin Low Dose 81 MG chewable tablet CHEW 1 TABLET BY MOUTH EVERY DAY 90 tablet Active atorvastatin (Lipitor) 40 MG tabletIndication s:Mixed hyperlipidemia TAKE 1 TABLET BY MOUTH EVERY DAY 90 tablet Active chlorthalidone (Hygroton) 25 MG tabletIndication s:Essential hypertension Take 1 tablet (25 mg) by mouth in the morning. 90 tablet Active Lantus SoloStar 100 UNIT/ML penIndications:T ype 2 diabetes mellitus with hyperglycemia, with long-term current use of insulin (HCC) INJECT 42 UNITS SUBCUTANEOUSLY EVERY EVENING DIRECTED 15 mL 2 Active Diclofenac Sodium 1 % gel APPLY 1 INCH TOPICALLY TWICE DAILY IN THE MORNING AND AT BEDTIME NEEDED FOR PAIN 100 g 025 Active cholecalciferol (Vitamin D-3) 125 MCG (5000 UT) tabletIndication s:Routine adult health maintenance TAKE 1 TABLET BY MOUTH EVERY DAY 90 tablet 025 Active insulin lispro (HumaLOG) 100 UNIT/ML injectionIndicat ions:Type 2 diabetes mellitus with hyperglycemia, with long-term current use of insulin (HCC) Inject 20 Units under the skin with breakfast, with lunch, and with evening meal. 15 mL 1 025 Active cholecalciferol (Vitamin D-3) 125 MCG (5000 UT) tabletIndication s:Routine adult health maintenance TAKE 1 TABLET BY MOUTH EVERY DAY 90 tablet 1 025 2024 Discontinued insulin lispro (HumaLOG) 100 UNIT/ML injectionIndicat ions:Type 2 diabetes mellitus with hyperglycemia, with long-term current use of insulin (HCC) INJECT 12 UNITS SUBCUTANEOUSLY TWICE DAILY BEFORE BREAKFAST AND BEFORE LUNCH, 15 UNITS BEFORE SUPPER AND 4 UNITS WITH SNACKS 15 mL 1 025 2024 Discontinued insulin lispro (HumaLOG) 100 UNIT/ML injectionIndicat ions:Type 2 diabetes mellitus with hyperglycemia, with long-term current use of insulin (HCC) INJECT 12 UNITS SUBCUTANEOUSLY TWICE DAILY BEFORE BREAKFAST AND BEFORE LUNCH, 15 UNITS BEFORE SUPPER, AND 4 UNITS WITH SNACKS 15 mL 1 025 2024 Discontinued(R eorder (will not trigger notification to Pharmacy)) Hospital, Clinic, or Other Facility Administered Medication Ordered Dose Route Frequency Start Date End Date Status lidocaine (Xylocaine) 2 % injection 20 mgIndications:Inflamed skin tag 20 mg INFILTRATION Once 01/19/2024 Active Active Problems Problem Noted Date Diagnosed Date Arthralgia of right hand 10/21/2024 Assessment & Plan (10/21/2024 9:00 AM EDT): Unclear if related to recent fall, order x-ray of the hand. Acute location of symptoms, is most likely related to OA, see above Arthralgia of right knee 10/21/2024 Assessment & Plan (10/21/2024 9:00 AM EDT): Most likely OA, discussed with patient regarding the treatment and prognosis of the condition, will order x-rays and explained that we may find some early signs of arthritis and will treat the pain accordingly. Start meloxicam 1 to 2 weeks daily plus Tylenol twice daily as needed breakthrough pain. Follow-up with PCP Use diclofenac gel or compresses with Epsom salt to affected areas. Get x-rays and follow-up with PCP if symptoms do not resolve within 3 to 4 weeks. Poor memory 01/19/2024 Cardiomyopathy 11/14/2023 Family history of cancer 11/14/2023 Skin lesion 11/14/2023 Overweight (BMI 25.0-29.9) 11/14/2023 Gastroesophageal reflux disease 12/02/2022 Assessment & Plan (12/02/2022 11:19 AM EDT): He will hold Alfasulozin + Finasteride x 2d Take Tums tid ac meals + at bedtime x 2w then prn Omeprazole 20 mg on empty stomach x 1mo, FU with PCP Avoid red meat or processed foods, NSAIDs Benign prostatic hyperplasia (BPH) with straining on urination 12/02/2022 Assessment & Plan (12/02/2022 11:21 AM EDT): Didn't tolerate Flomax due to delayed ejaculation. He's on Alfuzosin + finasteride, doing well so far. He will hold them x 2d as above and take them with dinner after that. FU with PCP or urology Mixed hyperlipidemia 08/30/2022 Assessment & Plan (09/28/2022 9:14 AM EDT): Started atorvastatin 20 mg 08/30/22, ordered cmp for liver function Assessment & Plan (08/31/2022 9:45 AM EDT): Component Ref Range & Units 12 d ago 1 yr ago Cholesterol, Total <200 mg/dL 212 High 187 HDL Cholesterol > OR = 40 mg/dL 32 Low 30 Low Triglycerides <150 mg/dL 221 High 305 High CM Comment: If a non-fasting specimen was collected, consider repeat triglyceride testing on a fasting specimen if clinically indicated. Paz et al. J. of Clin. Lipidol. 2015;9:129-169. LDL Cholesterol mg/dL (calc) 144 High 116 High CM Comment: Reference range: <100 Desirable range <100 mg/dL for primary prevention; <70 mg/dL for patients with CHD or diabetic patients with > or = 2 CHD risk factors. LDL-C is now calculated using the Griffin calculation, which is a validated novel method providing better accuracy than the Friedewald equation in the estimation of LDL-C. David SS et al. JUDD. 2013;310(57): 4885-8881 (http://education.[employer]/faq/EXL323) Chol/HDLC Ratio <5.0 (calc) 6.6 High 6.2 High Non-HDL Cholesterol <130 mg/dL (calc) 180 High 157 High CM The 10-year ASCVD risk score (Janiya WAGGONER, et al., 2019) is: 22.5% Values used to calculate the score: Age: 52 years Sex: Male Is Non- : No Diabetic: Yes Tobacco smoker: No Systolic Blood Pressure: 156 mmHg Is BP treated: Yes HDL Cholesterol: 32 mg/dL Total Cholesterol: 212 mg/dL Starting patient on atorvastatin 20 mg Routine adult health maintenance 08/17/2022 Assessment & Plan (08/17/2022 4:11 PM EDT): PHQ: 0 STI: denies, states he is faithful Smoking status: denies smoking Lipids: panel ordered. Colonoscopy: 44 y/o 06/18/2019 had previsit but got scarred and never went through with it. Ordered referral to GI Eye exam: 3rd of this month, F/up in one year. [facility] Dental home: [facility] dental advised. Constipation 08/17/2022 Assessment & Plan (08/17/2022 4:09 PM EDT): Patient will start colace and miralax. We will discuss his results in two weeks at his f/up. He is also being placed for a colorectal cancer screening. Microalbuminuria due to type 2 diabetes mellitus 04/22/2016 Essential hypertension 10/08/2015 Assessment & Plan (10/21/2024 9:02 AM EDT): Uncontrolled today, and she is to be borderline controlled/stage I HTN. Advised to take BP medications daily and regularly and follow-up closely with PCP on 10/25/2024 Assessment & Plan (09/28/2022 1:15 PM EDT): Patients home blood pressures not well managed. Patient also is having difficulty urinating and has an inreased PSA = 4.18 on 08/18/22. I started patient on Tamsulosin 0.4 mg daily. Patient is to continue logging BP at home and return in 6 weeks for f/up. Counseled low-salt diet, advised increase in exercise to 30 min/ day most days, weight loss if applicable. Call clinic for high BP >170/90 or low <90/60. Assessment & Plan (08/31/2022 9:43 AM EDT): Starting chlorthalidone 25 mg Patient is not sure if he snores, I instructed him to ask someone he lives with and report back at his next visit in one month. I will order a polysomnography if so. He is to continue his BP logging and bring list in at f/up. Counseled low-salt diet, advised increase in exercise to 30 min/ day most days, weight loss if applicable. Assessment & Plan (08/17/2022 4:05 PM EDT): Patient is to log his BP twice a day and return in two weeks with the log. Type 2 diabetes mellitus without complication Assessment & Plan (09/28/2022 1:15 PM EDT): A1C = 9.3 Increasing trulicity to 1.5 mg/0.5 mL F/up 6 weeks Assessment & Plan (08/31/2022 9:44 AM EDT): Last visit 08/17: Patients DM2 is not controlled. Patient stopped trulicity 3 mg, I am restarting him on 0.75 mg. I explained to him that we need to get his diabetes under control, and that he needs to stay on his medication. Diabetes can cause diabetic gastroparesis. Today: Patient was restarted on his trulicity last visit. I will bring him back in 4 weeks to check a1c again. I do not want to increase his Trulicity after two weeks. Counseled weight loss, dietary changes including watching carbs, exercise 30 min/ day, most days. ED precautions discussed Assessment & Plan (08/17/2022 4:04 PM EDT): A1C today 9.8 Glucose 204 Patients DM2 is not controlled. Patient stopped trulicity 3 mg, I am restarting him on 0.75 mg. I explained to him that we need to get his diabetes under control, and that he needs to stay on his medication. Diabetes can cause diabetic gastroparesis. He is to return in two weeks with his blood sugar results. Encounters Date Type Department Care Team Description 01/01/2025 Travel 12/30/2024 9:00 AM EDT Office Visit [facility] OPTOMETRY [address] [place], [place] [phone] Juan Jose, Gracie, OD Suspicious optic nerve cupping of both eyes (Primary Dx) 12/30/2024 Travel 12/25/2024 Travel 12/23/2024 Travel 12/19/2024 Orders Only [facility] MEDICINE [address] [place] [phone] Lisa Cantrell MD Type 2 diabetes mellitus with hyperglycemia, with long-term current use of insulin ([facility]) 12/18/2024 Refill [facility] WALK-IN CENTER [address] [place] [address] Lisa Cantrell MD Type 2 diabetes mellitus with hyperglycemia, with long-term current use of insulin ([facility]/HCC) 12/16/2024 Telephone [facility] MEDICINE [address] [place] [address], [place] [phone] Lisa Cantrell MD chart prep 12/10/2024 Refill [facility] MEDICINE [address] [place] [address], [place] [phone] Cristobal Brooks MD Routine adult health maintenance 11/26/2024 Refill [facility] WALK-IN CENTER [address] [place] [address], [place] [phone] Swapna Pimentel MD 11/17/2024 Refill [facility] MEDICINE [address] [place] [phone] Lisa Cantrell MD Type 2 diabetes mellitus with hyperglycemia, with long-term current use of insulin ([facility]) 11/11/2024 Refill [facility] MEDICINE [address] [place] [address] Lisa Cantrell MD Essential hypertension 11/08/2024 Refill [facility] PEDS [address] [place] [address] Norma Brothers MD Mixed hyperlipidemia 10/31/2024 8:40 AM EDT Office Visit [facility] WALK[facility]IN CENTER [address] [place] [phone] Dennis Mauricio MD Constipation, unspecified constipation type (Primary Dx); Colon cancer screening 10/31/2024 Travel 10/25/2024 Travel 10/24/2024 Travel 10/24/2024 Telephone [facility] MEDICINE [address] [place] [phone] Lisa Cantrell MD Chartprep 10/21/2024 9:00 AM EDT Office Visit [facility] WALK[facility]IN [facility]ENTER [address] [place] [phone] Swapna Pimentel MD Arthralgia of right hand (Primary Dx); Arthralgia of right knee; Essential hypertension 10/21/2024 Travel 10/11/2024 Refill [facility] WALK[facility] [address] [place] [phone] Norma Brothers MD Type 2 diabetes mellitus with hyperglycemia, with long-term current use of insulin ([facility]) from Last 3 Months Immunizations Immunization Administration Dates Next Due Influenza injectable quadriv alent IIV4 with preservative 03/08/2017 Influenza injectable quadrivalent preservative f ree 04/22/2016 Influenza, IIV3, injectable 03/10/2014 Influenza, seasonal, injectable, preservative fr ee 01/18/2024 MMR 10/12/2015 Pfizer Covid-19 Vaccine 12+ 01/18/2024 Pneumococcal Conjugate PCV 20 11/14/2023 Pneumococcal Polysaccharide PPSV23 09/07/2016 Tdap 10/08/2015 Varicella 10/12/2015 Zoster, Recombinant 10/06/2020,05/13/2019 Family History Medical History Relation Name Comments Gout Brother Cancer Father Gastric cancer Diabetes Father's Brother Alzheimer's disease Mother Hypertension Mother Diabetes Mother's Brother unspecified ca Mother's Brother breast ca at 60s Mother's Sister paternal cousin: gastric ca Other Throat cancer Sister Uterine cancer Sister Relation Name Status Comments Brother Father Father's Brother Mother Mother's Brother Mother's Sister Other Sister Social History Tobacco Use Types Packs/Day Years Used Date Smoking Tobacco: Never Passive Smoke Exposure: Never Smokeless Tobacco: Never Tobacco Cessation:Counseling Given: Not Answered Alcohol Use Standard Drinks/Week Comments Yes 0 (1 standard drink = 0.6 oz pur e alcohol) occasionally Depression Answer Date Recorded Patient Health Questionnaire-9 Score 3 11/14/2023 Patient Health Questionnaire-9 Score 3 11/14/2023 Last PHQ-9: Questionnaire Data Not on file 0 11/14/2023 Housing Stability Answer Date Recorded What is your housing situation today? I have cammy owens 11/01/[address] you li [...] Orientation Rose 11/14/2023 10 :51 AM EDT Last Filed Vital Signs Vital Sign Reading Time Taken Comments Blood Pressure 140/92 01/01/2025 9:46 AM EDT Pulse 82 01/01/2025 9:46 AM EDT Temperature 36.8 C (98.3 F) 10/31/2024 8:38 AM EDT Respiratory Rate 18 10/31/2024 8:38 AM EDT Oxygen Saturation 96% 10/31/2024 8:38 AM EDT Inhaled Oxygen Concentration - - Weight 77.7 kg (171 lb 6.4 oz) 10/31/2024 8:38 A M EDT Height 167.6 cm (5' 6 ) 10/21/2024 8:40 AM EDT Body Mass Index 27.66 10/21/2024 8:40 AM EDT Plan of Treatment Upcoming Encounters Date Type Department Care Team (Late st Contact Info) Description 01/27/2025 9:00 AM EDT Medication Management [facility] MEDICINE [address] [place] [phone] Angela Llamas, PharmD [address] [place] [address] 03/13/2025 9:00 AM EST Office Visit [facility] MEDICINE [address] [place] [phone] Lisa Cantrell MD [address] [place] [address] 03/26/2025 9:30 AM EST Office Visit [facility] OPTOMETRY [address] [place] [phone] Gracie Ingram, OD [address] [place] [address] Health Maintenance Due Date Last Done Comments Anal Pap 1969 CT Colonography 1969 Colonoscopy 1969 Colorectal Cancer Screening 1969 FIT DNA/Cologuard 1969 FIT 1969 FOBT 1969 Sigmoidoscopy 1969 Diabetes: Foot Exam 1979 Alcohol/Substance Use Screening 1981 Hepatitis A Vaccines (1 of 2 - Risk 2-dose series) 1988 Hepatitis B Vaccines (1 of 3 - 19+ 3-dose series) 1988 Depression Screening 11/13/2024 11/14/2023, 11/14/19 SDOH Screening 11/13/2024 11/14/2023 Influenza Vaccine (#1) 2024 , 03/08/2017, 04/22/2016, Additional history exists Lipid Panel 01/11/2025 01/12/2024, 08/01, 11/03/2020 Diabetes: Hemoglobin A1C 04/03/2025 025, 01/12/2024, 11/14/2023, Additional history exists Eye Exam 09/30/2025 09/30/2024, 06/02, 06/28/2024, Additional history exists DTaP/Tdap/Td Vaccines (2 - Td or Tdap) 10/07/2025 10/08/2015 Tobacco Screening 10/21/2025 10/21/2024 Disability Screening 10/24/2025 10/24/2024 RSV Patients and Patients Aged 60 years or older (1 - 1-dose 75+ series) 2044 Zoster Vaccines Completed 10/06/2020, 05/13/2019 Pneumococcal Vaccine: 50+ Years Completed 11/14/2023, 09/07/2016 HIV Screening Completed 01/12/2024 Hepatitis C Screening Completed 01/12/2024 COVID-19 Vaccine Completed 01/18/2024, 06/2021, 09/29/2020, Additional history exists HIB Vaccines Aged Out No longer eligi ble based on patient's age to complete this topic HPV Vaccines Aged Out No longer eligi ble based on patient's age to complete this topic IPV Vaccines Aged Out No longer eligi ble based on patient's age to complete this topic Meningococcal B Vaccine Aged Out No l onger eligible based on patient's age to complete this topic Meningococcal Vaccine Aged Out No taylor bibi eligible based on patient's age to complete this topic RSV under 20 months Aged Out No longe r eligible based on patient's age to complete this topic Rotavirus Vaccines Aged Out No longer eligible based on patient's age to complete this topic Procedures Procedure Name Priority Date/Time Associated Diagnosis Comments POCT GLYCATED HEMOGLOBIN, TOTAL Routine 01/01/2025 9:41 AM EDT Diabetes mellitus type 2, insulin dependent (HCC) XR HAND 3+ VIEWS RIGHT Routine 10/21/2024 8:38 AM EDT Arthralgia of right hand Arthralgia of right knee HEPATITIS C AB W/REFL TO HCV RNA, QN, PCR Routine 01/12/2024 7:08 AM EDT Annual physical exam HIV 1/2 ANTIGEN/ANTIBODY, FOURTH GENERATION W/RFL Routine 01/12/2024 7:08 AM EDT Annual physical exam LIPID PANEL, STANDARD Routine 01/12/2024 7:08 AM EDT Annual physical exam from Last 3 Months or Most Recently Relevant to Health Maintenance Results * (ABNORMAL) POCT A1c (01/01/2025 9:41 AM EDT) Hemoglobin A1C 9.3(A) 4.0 - 5.7 % QC Media Lot # [id number] Lot# Expiration Date [id number] Blood 01/01/2025 9:41 AM EDT Lisa Fraser MD POINT OF CARE PRAKASH T ENTER/EDIT ORDERABLES Final Result * XR Hand 3+ Views Right (10/21/2024 8:38 AM EDT) Anatomical Region Laterality Modality Upper Extremities, Hand Right Radiogra phic Imaging 10/21/2024 8:38 AM EDT Narrative 10/21/2024 9:59 AM EDT [address] [address] XRay Report Signed Patient: Arjun Parkinson MR#: [id number] : 1970 Acct:[id number] Age/Sex: 54 / M ADM Date: 10/21/24 Loc: [facility] Attending Dr: Swapna Pimentel MD Ordering Physician: Swapna Pimentel MD Date of Service: 10/21/24 Procedure(s): XR hand RT min 3V Accession Number(s): [id number] cc: Swapna Pimentel MD EXAMINATION: XR HAND 3 OR MORE VIEWS RIGHT HISTORY: right digits pain and weakness COMPARISON: There are no prior studies available for comparison. FINDINGS: Three views of the right hand are submitted. Osseous mineralization is normal. There is no fracture or dislocation. The joint spaces are preserved. The soft tissues are unremarkable. XR/XR hand RT min 3V IMPRESSION: Unremarkable examination of the right hand. Electronically signed by: Gen Louie MD 10/21/2024 09:55 AM EDT RP Dictated By: Gen Louie MD Signed By: <Electronically signed by Gen Louie MD in OV> 10/21/24 0955 DD/ 0838 TD/TT: 10/21/24 0900 Patcher: Procedure Note Donyasminter, Image - 10/21/[address] [address] XRay Report Signed Patient: Arjun Parkinson#: [id number] : 1970Acct:[id number] Age/Sex: 54 / MADM Date: 10/21/24 Loc: [facility] Attending Dr: Swapna Pimentel MD Ordering Physician: Swapna Pimentel MD Date of Service: 10/21/24 Procedure(s): XR hand RT min 3V Accession Number(s): [id number] cc: Swapna Pimentel MD EXAMINATION: XR HAND 3 OR MORE VIEWS RIGHT HISTORY: right digits pain and weakness COMPARISON: There are no prior studies available for comparison. FINDINGS: Three views of the right hand are submitted. Osseous mineralization is normal. There is no fracture or dislocation. The joint spaces are preserved. The soft tissues are unremarkable. XR/XR hand RT min 3V IMPRESSION: Unremarkable examination of the right hand. Electronically signed by: Gen Louie MD 10/21/2024 09:55 AM EDT RP Dictated By: Gen Louie MD Signed By: <Electronically signed by Gen Louie MD in OV> 10/21/24 0955 DD/ 0838 TD/TT: 10/21/24 0900 Patcher: us Swapna Pimentel MD IMG XR PROCEDURES Final Result * Hepatitis C Antibody with Reflex to HCV, RNA, Quantitative, Real-Time PCR (01/12/2024 7:08 AM EDT) Hepatitis C Antibody Nonreactive Nonreactive [facility] Comment:Antibodies to HCV no t detected; does not exclude early acuteHCV infection. Blood Venous blood specimen / Unknown 01/12/2024 7:08 AM EDT 01/12/2024 7:08 AM EDT us Lisa Fraser MD LAB BLOOD ORDERAB LES Final Result [facility] [address] [place] [phone] * HIV-1/2 Antigen and Antibodies, Fourth Generation, with Reflexes (01/12/2024 7:08 AM EDT) HIV AB/AG Nonreactive Nonreactive [facility] Comment:HIV-1 p24 Ag and/or HIV-1/HIV-2 Ab not detected.A test result that is nonreactive does not exclude thepossibility of exposure to or infection with HIV-1 and/orHIV-2. Nonreactive results in this assay for individualswith prior exposure to HIV-1 and/or HIV-2 may be due toantigen and antibody levels that are below the limit ofdetection of this assay.The [employer] HIV Ag/Ab Combo assay result andsupplemental assay results should be interpreted inconjunction with the patient's clinical presentation,history and other laboratory results. If the results areinconsistent with clinical evidence, additional testing issuggested to confirm the result. Blood Venous blood specimen / Unknown 01/12/2024 7:08 AM EDT 01/12/2024 7:08 AM EDT us Lisa Fraser MD LAB BLOOD ORDERAB LES Final Result Performing Organization Address City/[facility]/ZIP Co de Phone Number [facility] [address] [place] [phone] * (ABNORMAL) Lipid Panel, Standard (01/12/2024 7:08 AM EDT) Triglycerides 275(H) <150 mg/dL [facility] Comment:Desirable Triglyceri de: less than 150 mg/dLBorderline High Triglyceride 150-199 mg/dLHigh Triglyceride: 200-499 mg/dLVery High Triglyceride: greater than or equal to 5OO mg/dL Cholesterol 208(H) <200 mg/dL [facility] Comment:Desirable Cholestero l: less than 200 mg/dLBorderline High Cholesterol: 200-239 mg/dLHigh Cholesterol: greater than 239 mg/dL LDL Cholesterol Calculated 121(H) <100 mg/dL [facility] Comment:Desirable LDL: less than 100 mg/dLNear Optimal/Above Optimal LDL: 110- 129 mg/dLBorderline High LDL: 130-159 mg/dLHigh LDL: 160-189 mg/dLVery High LDL: greater than or equal to 190 mg/dL HDL Cholesterol 32(L) >40 mg/dL [facility] Comment:Desirable HDL: great er than 40 mg/dL Note: This HDL assay may give artificially low results in patients with liver disease. Blood Venous blood specimen / Unknown 01/12/2024 7:08 AM EDT 01/12/2024 7:08 AM EDT us Lisa Fraser MD LAB BLOOD ORDERAB LES Final Result Performing Organization Address City/[facility]/ZIP Co de Phone Number [facility] [address] [place], [place] [phone] from Last 3 Months or Most Recently Relevant to Health Maintenance Insurance [facility] C3 Care Teams Usability Specialist Relationship Specialty Start Date End Date Lisa Cantrell MD [address] [place] [phone] PCP - General Internal Medicine 12/22/22
--- OUTSIDE RECORDS SUMMARY | 2025-01-01 11:14 | XMS_ITS | Encounter Summary ---
Author Organization [employer] Address [address] [place] [address] 7[address] [place] [address] Care Team Providers Care Clinical Nurse Reviewer Name Role Phone Mark Brennan Primary Care Provider Unavail able Lisa Cantrell MD Primary Care Pro vider Reason for Visit * Reason Onset Date Comments TP appt 05/18/2022 Encounter Details Date Type Department Care Team ([facility] Contact Info) Description 05/18/2022 Telephone [facility] [address] [place] [phone] Mark Brennan AGNP TP appt Social History Tobacco Use Types Packs/Day Years Used Date Smoking Tobacco: Never Assessed Sex and Gender Information Value Date Recorded Sex Assigned at Male 01/31/2022 10:17 AM EDT Legal Sex Male 10:17 AM EDT Gender Identity Male 01/31/2022 10:17 AM EDT Sexual Orientation Rose 11/14/2023 10 :51 AM EDT documented as of this encounter Miscellaneous Notes * Telephone Encounter - Scott Goldstein - 05/18/2022 9:10 AM EST Tc from pt spouse requesting a TP appt for ppt. Pt has not yet had a TP appt with new provider. Maintenance Custodian tried booking but schedule for provider was booked. Please contact pt at [phone] documented in this encounter Plan of Treatment Upcoming Encounters Date Type Department Care Team (Late Contact Info) Description 01/27/2025 9:00 AM EDT Medication Management [facility] MEDICINE [address] [place] [address] Angela Llamas, PharmD 230 [place] [address] 03/13/2025 9:00 AM EST Office Visit [facility] MED[facility]INE [address] [place] [address] Lisa Cantrell MD 230 [place] [address] 03/26/2025 9:30 AM EST Office Visit [facility] OPT[facility] [address] [place], [place] [phone] Gracie Ingram, OD 230 [place] [address] documented as of this encounter Visit Diagnoses Not on filedocumented in this encounter Care Teams Clinical Nurse Reviewer Relationship Specialty Start Date End Date Mark Brennan AGNP PCP - General Family Medicine 01/03/22 12/21/22 Lisa Cantrell MD [address] [place] [address] [phone] PCP - General Internal Medicine 12/22/22 documented as of this encounter
--- OUTSIDE RECORDS SUMMARY | 2025-01-01 11:14 | XMS_ITS | Encounter Summary ---
Author Organization [employer] Address 75 [facility] 7t [place] [address] Care Team Providers Care Lead Infrastructure Architect Name Role Phone Lisa Cantrell MD Primary Care Pro vider Encounter Details Date Type Department Care Team (Latest Contact Info) Description 01/01/2025 Travel Social History Tobacco Use Types Packs/Day Years [...] Description 01/27/2025 9:00 AM EDT Medication Management [facility] MEDICINE [address] [place] [phone] Angela Llamas, PharmD [address] [place] [address] 03/13/2025 9:00 AM EST Office Visit [facility] MEDICINE 230 [place] [address] Lisa Cantrell MD 230 [place] [address] 03/26/2025 9:30 AM EST Office Visit [facility] OPTOMETRY [address] [place] [address] Juan Jose, Gracie, OD 230 [place] [address] documented as of this encounter Visit Diagnoses Not on filedocumented in this encounter Additional Health Concerns Assessment Noted Time PHQ-9 Depression Total Score: 3 11/14/19 24 10:21 AM EDT documented as of this encounter Care Teams Lead Infrastructure Architect Relationship Specialty Start Date End Date Lisa Cantrell MD [address] [place] [phone] PCP - General Internal Medicine 12/22/22 documented as of this encounter
--- OUTSIDE RECORDS SUMMARY | 2025-01-01 11:14 | XMS_ITS | Encounter Summary ---
Author Organization [employer] Address 75 [facility] 7t [place] [address] Care Team Providers Care Office Automation Clerk Name Role Phone Lisa Cantrell MD Primary Care Pro vider Encounter Details Date Type Department Care Team (Latest Contact Info) Description 12/30/2024 Travel Social History Tobacco Use Types Packs/Day [...] 01/27/2025 9:00 AM EDT Medication Management [facility] MEDICINE [address] [place] [phone] Angela Llamas, PharmD 230 [place] [address] 03/13/2025 9:00 AM EST Office Visit [facility] MEDICINE [address] [place] [address] Lisa Cantrell MD 230 [place] [address] 03/26/2025 9:30 AM EST Office Visit [facility] OPTOMETRY [address] [place] [address] Juan Jose, Gracie, OD 230 [place] [address] documented as of this encounter Visit Diagnoses Not on filedocumented in this encounter Additional Health Concerns Assessment Noted Time PHQ-9 Depression Total Score: 3 11/14/19 24 10:21 AM EDT documented as of this encounter Care Teams Office Automation Clerk Relationship Specialty Start Date End Date Lisa Cantrell MD [address] [place] [phone] PCP - General Internal Medicine 12/22/22 documented as of this encounter
[2025-01-01 11:54] LABS: Microalbum/Creatinine Ratio Ur 28.7 ug/mg cr (<30)
[2025-01-01 12:05] LABS: Alanine Aminotransferase 48 U/L (0-40); Albumin Level 4.7 g/dL (3.5-5.0); Alkaline Phosphatase 74 U/L (39-117); Anion Gap 10 (12-20); Aspartate Amino Transferase 45 U/L (5-37); Blood Urea Nitrogen 11 mg/dL (9-16); Calcium 9.5 mg/dL (8.4-10.2); Carbon Dioxide 29 mmol/L (22-29); Chloride 107 mmol/L (96-108); Cholesterol 196 mg/dL (<200); Estimated Glomerular Filt Rate > 60; HDL Cholesterol 30 mg/dL (>40); Potassium 4.2 mmol/L (3.3-5.1); Sodium 142 mmol/L (135-145); Total Protein 7.4 g/dL (6.5-8.0); Triglycerides 196 mg/dL (<150)
== END 2025-01-01 10:03 | disposition home or self-care (01) ==
LOC: HO.HHCL 10:02
PROVIDERS: PCP Student in an Organized Health Care Education/Training Program; Visit Provider Student in an Organized Health Care Education/Training Program
DX: E11.9 Type 2 diabetes mellitus without complications (principal); Z79.4 Long term (current) use of insulin
CPT/HCPCS: 36415; 80048; 80061; 80076; 82043; 82570

== ENCOUNTER 2025-01-06 10:11 | Outpatient (REF) | payer MEDICAID, SELFPAY ==
--- OUTSIDE RECORDS SUMMARY | 2025-01-06 09:00 | XMS_ITS | Encounter Summary ---
Author Organization [employer] Address 75 [facility] 7t [place] [address] Care Team Providers Care Information Systems Analyst Name Role Phone Lisa Cantrell MD Primary Care Pro vider Angela Llamas PharmD Unavailable [phone] Reason for Visit * Reason Comments Blood in Urine Encounter Details Date Type Department Care Team (Late st Contact Info) Description 01/06/2025 9:00 AM EDT Office Visit [facility] 230 [place] [address] Elevated blood pressure reading in office with diagnosis of hypertension (Primary Dx); Hematuria, unspecified type Social History Tobacco Use Types Packs/Day Years [...] is your housing situation today? I have cammymichael owens 11/01/[address] you [...] AM EDT documented as of this encounter Last Filed Vital Signs Vital Sign Reading Time Taken Comments Blood Pressure 138/98 01/06/2025 9:43 AM EDT Pulse 93 01/06/2025 9:17 AM EDT Temperature 36.8 C (98.2 F) 01/06/2025 9:17 AM EDT Respiratory Rate 20 01/06/2025 9:17 AM EDT Oxygen Saturation 96% 01/06/2025 9:17 AM EDT Inhaled Oxygen Concentration - - Weight 76.7 kg (169 lb 3.2 oz) 01/06/2025 9:17 A M EDT Height - - Body Mass Index 27.31 10/21/2024 8:40 AM EDT documented in this encounter Plan of Treatment Upcoming Encounters Date Type Department Care Team (Late st Contact Info) Description 01/27/2025 9:00 AM EDT Medication Management [facility] MEDICINE [address] [place] [address] Angela Llamas, CarrieD [address] [place] [address] 03/13/2025 9:00 AM EST Office Visit [facility] [address] [place] [address] [phone] Lisa Cantrell MD [address] [place] [phone] 03/26/2025 9:30 AM EST Office Visit [facility] [address] [place] [address] Gracie Ingram, OD [address] [place] [address] Scheduled Orders Name Type Priority Associated Diagnoses Orde r Schedule Urinalysis, Complete, with Reflex to Culture Lab Routine Hematuria, unspecified type Ordered: 01/06/2025 Basic Metabolic Panel Lab Routine Hematuria, unspecified type Expected: 01/06/2025 (Approximate), Expires: 01/06/2026 documented as of this encounter Procedures Procedure Name Priority Date/Time Associated Diagnosis Comments POCT URINALYSIS DIPSTICK Routine 01/06/2025 9:53 AM EDT Hematuria, unspecified type documented in this encounter Results * (ABNORMAL) POCT Urinalysis (01/06/2025 9:53 AM EDT) Color, UA Yellow Clarity, UA Cloudy Glucose, UA Negative Bilirubin, UA Negative Ketones, UA Negative Spec Grav, UA 1.025 Blood, UA Positive(A) Negative, None Detected Comment:large pH, UA 6.0 Protein, UA Trace Comment:30mg/dL Urobilinogen, UA 0.2 Leukocytes, UA Negative Negative, Rare, Trace Nitrite, UA Negative Negative, None Detected Appearance, UA cloudy QC Media Lot # [id number] Lot# Expiration Date 63, Urine 01/06/2025 9:53 AM EDT Olivia Greenwood SINGLE NEEDLE TUFTING MACHINE OPERATOR POINT OF CARE TEST ENTER/EDIT O RDERABLES Final Result documented in this encounter Visit Diagnoses Diagnosis Elevated blood pressure reading in office with diagnosis of hypertension- Primary Hematuria, unspecified type documented in this encounter Additional Health Concerns Assessment Noted Time PHQ-9 Depression Total Score: 3 11/14/19 24 10:21 AM EDT documented as of this encounter Care Teams Information Systems Analyst Relationship Specialty Start Date End Date Lisa Cantrell MD [address] [place] [phone] PCP - General Internal Medicine 12/22/22 Angela Llamas, CarrieD [address] [place] [phone] Pharmacist Pharmacy 01/01/25 documented as of this encounter
--- OUTSIDE RECORDS SUMMARY | 2025-01-06 11:50 | XMS_ITS | Encounter Summary ---
Author Organization [employer] Address 75 [facility] 7t [place] [address] Care Team Providers Care Machinery Erector Name Role Phone Lisa Cantrell MD Primary Care Pro vider Angela Llamas PharmD Unavailable [phone] Encounter Details Date Type Department Care Team (Latest Contact Info) Description 01/06/2025 Travel Social History Tobacco Use Types Packs/Day [...] Male 01/31/2022 10:17 AM EDT Sexual Orientation Orse 11/14/2023 10 :51 AM EDT documented as of this encounter Plan of Treatment Upcoming Encounters Date Type Department Care Team (Late st Contact Info) Description 01/27/2025 9:00 AM EDT Medication Management [facility] [address] [place] [address] Angela Llamas PharmD 230 [place] [address] 03/13/2025 9:00 AM EST Office Visit [facility] [address] [place] [address] Lisa Cantrell MD [address] [place] [address] 03/26/2025 9:30 AM EST Office Visit [facility] OPT[facility] [address] [place] [address] Juan Jose, Gracie, OD 230 [place] [address] documented as of this encounter Visit Diagnoses Not on filedocumented in this encounter Additional Health Concerns Assessment Noted Time PHQ-9 Depression Total Score: 3 11/14/19 24 10:21 AM EDT documented as of this encounter Care Teams Machinery Erector Relationship Specialty Start Date End Date Lisa Cantrell MD [address] [place] [address] PCP - General Internal Medicine 12/22/22 Angela Llamas, PharmD 230 [place] [address] Pharmacist Pharmacy 01/01/25 documented as of this encounter
--- OUTSIDE RECORDS SUMMARY | 2025-01-06 11:51 | XMS_ITS | Encounter Summary ---
Author Organization [employer] Address [address] [place] [address] 7 [place] [address] Care Team Providers Care Lead Net Software Developer Name Role Phone Lisa Cantrell MD Primary Care Pro vider Angela Llamas PharmD Unavailable [phone] Encounter Details Date Type Department Care Team (Late st Contact Info) Description 01/01/2025 Orders Only [facility] MEDICINE 230 [place] [address] Lisa Cantrell MD 230 [place] [address] Social History Tobacco Use Types Packs/Day Years [...] your housing situation today? I have cammy sing 11/01/[address] you li [...] 9:00 AM EDT Medication Management [facility] MEDICINE [address] [place] [address] Angela Llamas, PharmD [address] [place] [address] 03/13/2025 9:00 AM EST Office Visit [facility] MEDICINE [address] [place] [address] Lisa Cantrell MD 230 [place] [address] 03/26/2025 9:30 AM EST Office Visit [facility] OPTOMETRY [address] [place] [address] Gracie Ingram, OD 230 [place] [address] documented as of this encounter Procedures Procedure Name Priority Date/Time Associated Diagnosis Comments ALBUMIN, RANDOM URINE W/CREATININE Routine 01/01/2025 10:22 AM EDT HEPATIC FUNCTION PANEL Routine 01/01/2025 10:22 AM EDT LIPID PANEL, STANDARD Routine 01/01/2025 10:22 AM EDT BASIC METABOLIC PANEL Routine 01/01/2025 10:22 AM EDT documented in this encounter Results * (ABNORMAL) Lipid Panel, Standard (01/01/2025 10:22 AM EDT) Triglycerides 196(H) <150 mg/dL [facility] Comment:Desirable Triglyceri de: less than 150 mg/dLBorderline High Triglyceride 150-199 mg/dLHigh Triglyceride: 200-499 mg/dLVery High Triglyceride: greater than or equal to 5OO mg/dL Cholesterol 196 <200 mg/dL [facility] Comment:Desirable Cholestero l: less than 200 mg/dLBorderline High Cholesterol: 200-239 mg/dLHigh Cholesterol: greater than 239 mg/dL LDL Cholesterol Calculated 127(H) <100 mg/dL [facility] Comment:Desirable LDL: less than 100 mg/dLNear Optimal/Above Optimal LDL: 110- 129 mg/dLBorderline High LDL: 130-159 mg/dLHigh LDL: 160-189 mg/dLVery High LDL: greater than or equal to 190 mg/dL HDL Cholesterol 30(L) >40 mg/dL [facility] Comment:Desirable HDL: great er than 40 mg/dL Note: This HDL assay may give artificially low results in patients with liver disease. 01/01/2025 10:2 2 AM EDT 01/01/2025 10:55 AM EDT us Lisa Fraser MD LAB BLOOD ORDERAB LES Final Result [facility] [address] [place] [phone] * (ABNORMAL) Basic Metabolic Panel (01/01/2025 10:22 AM EDT) Sodium 142 135 - 145 mmol/L [facility] Potassium 4.2 3.3 - 5.1 mmol/L [facility] Chloride 107 96 - 108 mmol/L [facility] Carbon Dioxide 29 22 - 29 mmol/L [facility] Anion Gap 10(L) 12 - 20 [facility] Urea Nitrogen (BUN) 11 9 - 16 mg/dL [facility] Creatinine, Serum 0.94 0.5 - 1.4 mg/dL [facility] Estimated Glomerular Filt Rate >60 [facility] Comment:Chronic Kidney Disea se: Estimated GFR < 60 mL/min/1.59c1Ghmupd Kidney Disease: Estimated GFR < 15 mL/min/1.73m2 Glucose 125(H) 60 - 115 mg/dL [facility] Calcium 9.5 8.4 - 10.2 mg/dL [facility] 01/01/2025 10:2 2 AM EDT 01/01/2025 10:55 AM EDT us Lisa Fraser MD LAB BLOOD ORDERAB LES Final Result [facility] [address] [place] [phone] * (ABNORMAL) Hepatic Function Panel (01/01/2025 10:22 AM EDT) Bilirubin, Total 0.7 0.0 - 1.0 mg/dL [facility] Bilirubin, Direct 0.2 0.0 - 0.5 mg/dL [facility] Aspartate Amino Transferase 45(H) 5 - 37 U/L [facility] Alanine Aminotransferase 48(H) 0 - 40 U/L [facility] Total Protein 7.4 6.5 - 8.0 g/dL [facility] Albumin Level 4.7 3.5 - 5.0 g/dL [facility] Alkaline Phosphatase 74 39 - 117 U/L [facility] 01/01/2025 10:2 2 AM EDT 01/01/2025 10:55 AM EDT us Lisa Fraser MD LAB BLOOD ORDERAB LES Final Result Performing Organization Address [facility] Co de Phone Number [facility] [address] [place] [address] [phone] * Albumin, Random Urine W/Creatinine (01/01/2025 10:22 AM EDT) Creatinine, Urine 195.00 mg/dL [facility] Microalbumin Urine 56.0 mg/L [facility] Microalbum Creatinine Ratio Ur 28.7 <30 ug/mg cr [facility] Comment:Albumin/Creatinine R atio Reference Ranges: Normal: < 30 ug/mg creatinine Microalbuminuria: 30 - 300 ug/mg creatinineClinical Albuminuria: > 300 ug/mg creatinine 01/01/2025 10:2 2 AM EDT 01/01/2025 10:55 AM EDT us Lisa Fraser MD LAB URINE ORDERAB LES Final Result Performing Organization Address [facility] Co de Phone Number [facility] [address] [place] [address] [phone] documented in this encounter Visit Diagnoses Not on filedocumented in this encounter Additional Health Concerns Assessment Noted Time PHQ-9 Depression Total Score: 3 11/14/19 24 10:21 AM EDT documented as of this encounter Care Teams Lead Net Software Developer Relationship Specialty Start Date End Date Lisa Cantrell MD 230 [place] [address] PCP - General Internal Medicine 12/22/22 Angela Llamas, CarireD [address] [place] [address] Pharmacist Pharmacy 01/01/25 documented as of this encounter
--- OUTSIDE RECORDS SUMMARY | 2025-01-06 11:51 | XMS_ITS | Encounter Summary ---
Author Organization [employer] Address [address] [place] [address] Care Team Providers Care Mail Sorting Supervisor Name Role Phone Lisa Cantrell MD Primary Care Pro vider Angela Llamas PharmD Unavailable [phone] Encounter Details Date Type Department Care Team (Late st Contact Info) Description 01/01/2025 Results Follow-Up [facility] MEDICINE [address] [place] [address] Lisa Cantrell MD [address] [place] [address] POCT A1c Social History Tobacco Use Types Packs/Day Years [...] 01/27/2025 9:00 AM EDT Medication Management [facility]INE [address] [place] [address] Angela Llamas, PharmD [address] [place] [address] 03/13/2025 9:00 AM EST Office Visit [facility] [address] [place] [address] Lisa Cantrell MD 230 [place] [address] 03/26/2025 9:30 AM EST Office Visit [facility] [address] [place] [address] Gracie Ingram, OD [address] [place] [address] documented as of this encounter Visit Diagnoses Not on filedocumented in this encounter Additional Health Concerns Assessment Noted Time PHQ-9 Depression Total Score: 3 11/14/19 10:21 AM EDT documented as of this encounter Care Teams Mail Sorting Supervisor Relationship Specialty Start Date End Date Lisa Cantrell MD [address] [place] [address] [phone] PCP - General Internal Medicine 12/22/22 Angela Llamas, CarrieD [address] [place] [phone] Pharmacist Pharmacy 01/01/25 documented as of this encounter
--- OUTSIDE RECORDS SUMMARY | 2025-01-06 11:51 | XMS_ITS | Encounter Summary ---
Author Organization [employer] Address [address] [place] [address] 7[place] [address] Care Team Providers Care Energy Conservation Technician Name Role Phone Mark Brennan Primary Care Provider Unavail able Lisa Cantrell MD Primary Care Pro vider Angela Llamas PharmD Unavailable [phone] Reason for Visit * Reason Onset Date Comments TP appt 05/18/2022 Encounter Details Date Type Department Care Team ([facility] Contact Info) Description 05/18/2022 Telephone [facility] MEDICINE [address] [place] [phone] Mark Brennan AGNP TP appt Social History [...] had a TP appt with new provider. Image Assembler tried booking but schedule for provider was booked. Please contact pt at [phone] documented in this encounter Plan of Treatment Upcoming Encounters Date Type Department Care Team ([facility] Contact Info) Description 01/27/2025 9:00 AM EDT Medication Management [facility]INE [address] [place] [address] Angela Llamas, Mark [address] [place] [address] 03/13/2025 9:00 AM EST Office Visit [facility]INE [address] [place] [address] Lisa Cantrell MD 230 [place] [address] 03/26/2025 9:30 AM EST Office Visit [facility] OPTOMETRY [address] [place] [address] Juan Jose, Gracie, OD 230 [place] [address] documented as of this encounter Visit Diagnoses Not on filedocumented in this encounter Care Teams Energy Conservation Technician Relationship Specialty Start Date End Date Mark Brennan AGNP PCP - General Family Medicine 01/03/22 12/21/22 Lisa Cantrell MD [address] [place] [phone] PCP - General Internal Medicine 12/22/22 Angela Llamas PharmD [address] [place] [phone] Pharmacist Pharmacy 01/01/25 documented as of this encounter
--- OUTSIDE RECORDS SUMMARY | 2025-01-06 11:51 | XMS_ITS | Encounter Summary ---
Author Organization [employer] Address 75 [facility] 7t [place] [address] Care Team Providers Care Composite Mechanic Name Role Phone Lisa Cantrell MD Primary Care Pro vider Angela Llamas PharmD Unavailable [phone] Encounter Details Date Type Department Care Team [...] Description 01/27/2025 9:00 AM EDT Medication Management [facility] MED[facility]INE [address] [place] [phone] Angela Llamas PharmD 230 [place] [address] 03/13/2025 9:00 AM EST Office Visit [facility] [address] [place] [address] Lisa Cantrell MD [address] [place] [address] 03/26/2025 9:30 AM EST Office Visit [facility] OPTOMETRY [address] [place] [address] Juan Jose, Gracie, OD 230 [place] [address] documented as of this encounter Visit Diagnoses Not on filedocumented in this encounter Additional Health Concerns Assessment Noted Time PHQ-9 Depression Total Score: 3 11/14/19 24 10:21 AM EDT documented as of this encounter Care Teams Composite Mechanic Relationship Specialty Start Date End Date Lisa Cantrell MD [address] [place] [phone] PCP - General Internal Medicine 12/22/22 Angela Llamas, PharmD 230 [place] [address] Pharmacist Pharmacy 01/01/25 documented as of this encounter
--- OUTSIDE RECORDS SUMMARY | 2025-01-06 11:51 | XMS_ITS | Clinical Summary ---
Author Organization [employer] Address [address] [place] [address] 7[address] [place] [address] Care Team Providers Care Electrical Subcontractor Name Role Phone Lisa Cantrell MD Primary Care Pro vider Angela Llamas PharmD Unavailable [phone]- [phone] Allergies Active Allergy Reactions Criticality Noted Date Comments Bee Pollen Runny nose 08/17/2022 Medications glucose blood test stripIndications :Type 2 diabetes [...] misc USE FIVE TIMES DAILY 200 each 023 Active alfuzosin ER (Uroxatral) 10 MG [...] A DAY 100 each 11 024 Active FREESTYLE LITE test strip TEST BLOOD SUGAR TWICE A DAY 100 each 11 024 2024 Active lidocaine (Lidoderm) 5 % patch APPLY 1 PATCH TOPICALLY TO SKIN, LEAVE ON FOR 12 HOURS AND OFF FOR 12 HOURS DIRECTED 30 patch 2 025 Active meloxicam (Mobic) 15 MG tablet Take 1 tablet (15 mg) by mouth Once per day. 15 tablet 025 2025 Active acetaminophen (Tylenol) 500 MG tablet Take 2 tablets (1,000 mg) by mouth every 6 (six) hours if needed for moderate pain or fever for up to 25 doses. Take 1-2 tablets po tid prn pain 90 tablet 025 Active docusate sodium (Colace) 100 MG capsuleIndicatio [...] MOUTH EVERY DAY 90 tablet 025 Active chlorthalidone (Hygroton) 25 MG tabletIndication s:Essential hypertension Take 1 tablet (25 mg) by mouth in the morning. 90 tablet 025 Active Lantus SoloStar 100 UNIT/ML penIndications:T ype 2 diabetes mellitus with hyperglycemia, with long-term current use of insulin ([facility]) INJECT 42 UNITS SUBCUTANEOUSLY EVERY EVENING DIRECTED 15 mL 2 025 Active Diclofenac Sodium 1 % gel APPLY [...] hyperglycemia, with long-term current use of insulin ([facility]) Inject 20 Units under the skin with breakfast, with lunch, and with evening meal. 15 mL 1 025 Active Tirzepatide (Mounjaro) 2.5 MG/0.5ML solution auto-injectorInd ications:Diabete s mellitus type 2, insulin dependent ([facility]) Inject 2.5 mg under the skin every 7 (seven) days. 2 mL Active empagliflozin (Jardiance) 25 MG Take 1 tablet (25 mg) by mouth in the morning. 90 tablet 1 023 2024 Discontinued(N on-compliance) polyethylene glycol, PEG, 3350 (MiraLax) 17 GM/SCOOP powderIndication s:Constipation, unspecified constipation type Take 17 g by mouth if needed each day (constipation). 225 g 2 024 2024 Discontinued(M ed list cleanup (will not trigger notification to Pharmacy)) metFORMIN (Glucophage) 500 MG tablet TAKE 1 TABLET BY MOUTH TWICE DAILY IN THE MORNING AND IN THE EVENING WITH BREAKFAST AND WITH DINNER 180 tablet 025 2024 Discontinued(N on-compliance) cholecalciferol (Vitamin D-3) 125 MCG (5000 UT) tabletIndication s:Routine adult health maintenance TAKE 1 TABLET BY MOUTH EVERY DAY 90 tablet 1 025 2024 Discontinued insulin lispro (HumaLOG) 100 UNIT/ML injectionIndicat ions:Type 2 diabetes mellitus with hyperglycemia, with long-term current use of insulin ([facility]) INJECT 12 UNITS SUBCUTANEOUSLY TWICE DAILY BEFORE BREAKFAST AND BEFORE LUNCH, 15 UNITS BEFORE SUPPER AND 4 UNITS WITH SNACKS 15 mL 1 025 2024 Discontinued polyethylene glycol, PEG, 3350 (MiraLax) 17 GM/SCOOP powderIndication s:Constipation, unspecified constipation type 17 grams in 8-12 oz juice or water PO TID for 3 days 238 g 025 2024 Discontinued(M ed list cleanup (will not trigger notification to Pharmacy)) insulin lispro (HumaLOG) 100 UNIT/ML injectionIndicat ions:Type 2 diabetes mellitus with hyperglycemia, with long-term current use of insulin ([facility]) INJECT 12 UNITS SUBCUTANEOUSLY TWICE DAILY BEFORE [...] factors. LDL-C is now calculated using the David-Marlys calculation, which is a validated novel method providing better accuracy than the Friedewald equation in the estimation of LDL-C. David SS et al. JUDD. 2013;310(19): 8136-9612 (http://education.UsingMiles.com/faq/YNY475) Chol/HDLC Ratio <5.0 (calc) 6.6 High 6.2 [...] of this month, F/up in one year. [facility] Dental home: [facility] dental advised. Constipation 08/17/2022 Assessment & Plan [...] log. Type 2 diabetes mellitus without complication 07 /10/2015 Assessment & Plan (09/28/2022 1:15 PM EDT): [...] Encounters Date Type Department Care Team Description 01/06/2025 9:00 AM EDT Office Visit [facility] WALK-IN CENTER [address] [place] [address] Elevated blood pressure reading in office with diagnosis of hypertension (Primary Dx); Hematuria, unspecified type 01/06/2025 Travel 01/01/2025 Results Follow-Up [facility] MEDICINE [address] [place] [address] Lisa Cantrell MD Albumin, Random Urine W/Creatinine, Hepatic Function Panel, Basic Metabolic Panel, Lipid Panel, Standard 01/01/2025 Results Follow-Up [facility] MEDICINE [address] [place] [address] Lisa Cantrell MD POCT A1c 01/01/2025 Orders Only [facility] MEDICINE [address] [place] [address] Lisa Cantrell MD 01/01/2025 Travel 12/30/2024 9:00 AM EDT Office Visit [facility] OPTOMETRY [address] [place] [address] Juan Jose, Gracie, OD Suspicious optic nerve cupping of both eyes (Primary Dx) 12/30/2024 Travel 12/25/2024 Travel 12/23/2024 Travel 12/19/2024 Orders Only [facility] MEDICINE [address] [place] [address] Lisa Cantrell MD Type 2 diabetes mellitus with hyperglycemia, with long-term current use of insulin (CMS/[facility]) 12/18/2024 Refill [facility] WALK[facility]IN CENTER [address] [place] [address] Lisa Cantrell MD Type 2 diabetes mellitus with hyperglycemia, with long-term current use of insulin (CMS/[facility]) 12/16/2024 Telephone [facility] MEDICINE [address] [place] [address] Lisa Cantrell MD chart prep 12/10/2024 Refill [facility] MEDICINE [address] [place] [address] Cristobal Brooks MD Routine adult health maintenance 11/26/2024 Refill [facility] WALK-IN CENTER [address] [place] [address] Swapna Pimentel MD 11/17/2024 Refill [facility] MEDICINE [address] [place] [address] Lisa Cantrell MD Type 2 diabetes mellitus with hyperglycemia, with long-term current use of insulin (CMS/HCC) 11/11/2024 Refill [facility] MEDICINE [address] [place] [address] Lisa Cantrell MD Essential hypertension 11/08/2024 Refill [facility] MED & PEDS [address] [place], [place] [phone] Norma Brothers MD Mixed hyperlipidemia 10/31/2024 8:40 AM EDT Office Visit [facility] WALK-IN CENTER [address] [place] [phone] Dennis Mauricio MD Constipation, unspecified constipation type (Primary Dx); Colon cancer screening 10/31/2024 Travel 10/25/2024 Travel 10/24/2024 Travel 10/24/2024 Telephone [facility] MEDICINE [address] [place] [phone] Lisa Cantrell MD Chartprep 10/21/2024 9:00 AM EDT Office Visit [facility] WALK-IN [address] [address] Swapna Pimentel MD Arthralgia of right hand (Primary Dx); Arthralgia of right knee; Essential hypertension 10/21/2024 Travel 10/11/2024 Refill [facility] WALK-IN [address] [address] Norma Brothers MD Type 2 diabetes mellitus with hyperglycemia, with long-term current use of insulin ([facility]) from Last 3 Months Immunizations [...] oz) 01/06/2025 9:17 A M EDT Height 167.6 cm (5' 6 ) 10/21/2024 8:40 AM EDT Body Mass Index 27.31 10/21/2024 8:40 AM EDT Plan of Treatment Upcoming Encounters Date Type Department Care Team (Late st Contact Info) Description 01/27/2025 9:00 AM EDT Medication Management [facility] MEDICINE [address] [place] [address] Angela Llmaas, PharmD [address] [place] [address] 03/13/2025 9:00 AM EST Office Visit [facility] MEDICINE [address] [place] [address] Lisa Cantrell MD [address] [place] [address] 03/26/2025 9:30 AM EST Office Visit [facility] OPTOMETRY [address] [place] [address] Juan Jose, Gracie, OD [address] [place] [address] Health Maintenance Due Date Last Done Comments Anal Pap 1969 CT Colonography 1969 Colonoscopy 1969 Colorectal Cancer Screening 1969 FIT DNA/Cologuard 1969 FIT 1969 FOBT 1969 Sigmoidoscopy 1969 Diabetes: Foot Exam 1979 Alcohol/Substance Use Screening 1981 Hepatitis A Vaccines (1 of 2 - Risk 2-dose series) 1988 Hepatitis B Vaccines (1 of 3 - 19+ 3-dose series) 1988 Depression Screening 11/13/2024 11/14/2023, 11/14/19 24 SDOH Screening 11/13/2024 11/14/2023 Influenza Vaccine (#1) 2024 , 03/08/2017, 04/22/2016, Additional history exists Diabetes: Hemoglobin A1C 04/03/2025 025, 01/12/2024, 11/14/2023, Additional history exists Eye Exam 09/30/2025 09/30/2024, 06/02, 06/28/2024, Additional history exists DTaP/Tdap/Td Vaccines (2 - Td or Tdap) 10/07/2025 10/08/2015 Tobacco Screening 10/21/2025 10/21/2024 Disability Screening 10/24/2025 10/24/2024 Lipid Panel 01/01/2026 01/01/2025, 01/01, 08/18/2022, Additional history exists RSV Patients and Patients Aged 60 years [...] 01/06/2025 9:53 AM EDT Hematuria, unspecified type LIPID PANEL, STANDARD Routine 01/01/2025 10:22 AM EDT BASIC METABOLIC PANEL Routine 01/01/2025 10:22 AM EDT HEPATIC FUNCTION PANEL Routine 01/01/2025 10:22 AM EDT ALBUMIN, RANDOM URINE W/CREATININE Routine 01/01/2025 10:22 AM EDT POCT GLYCATED HEMOGLOBIN, TOTAL Routine 01/01/2025 9:41 [...] to Health Maintenance Results * (ABNORMAL) POCT Urinalysis (01/06/2025 9:53 [...] Media Lot # [id number] Lot# Expiration Date 63 Urine 01/06/2025 9:53 AM EDT us Olivia Greenwood NP POINT OF CARE TEST ENTER/EDIT O RDERABLES Final Result * Albumin, Random Urine W/Creatinine (01/01/2025 10:22 AM EDT) Creatinine, Urine 195.00 mg/dL [facility] Microalbumin Urine 56.0 mg/L [facility] Microalbum Creatinine Ratio Ur 28.7 <30 ug/mg cr [facility] Comment:Albumin/Creatinine R atio Reference Ranges: Normal: < 30 ug/mg creatinine Microalbuminuria: 30 - 300 ug/mg creatinineClinical Albuminuria: > 300 ug/mg creatinine 01/01/2025 10:2 2 AM EDT 01/01/2025 10:55 AM EDT us Lisa Fraser MD LAB URINE ORDERAB LES Final Result Performing Organization Address [facility]/ZIP Co de Phone Number [facility] [address] [place] [phone] * (ABNORMAL) Hepatic Function Panel (01/01/2025 10:22 AM EDT) Bilirubin, Total 0.7 0.0 - 1.0 mg/dL [facility] Bilirubin, Direct 0.2 0.0 - 0.5 mg/dL [facility] Aspartate Amino Transferase 45(H) 5 - 37 U/L [facility] Alanine Aminotransferase 48(H) 0 - 40 U/L [facility] Total Protein 7.4 6.5 - 8.0 g/dL [facility] Albumin Level 4.7 3.5 - 5.0 g/dL [facility] Alkaline Phosphatase 74 39 - 117 U/L [facility] 01/01/2025 10:2 2 AM EDT 01/01/2025 10:55 AM EDT us Lisa Fraser MD LAB BLOOD ORDERAB LES Final Result Performing Organization Address City/[facility]/ZIP Co de Phone Number [facility] [address] [place] [address] [phone] * (ABNORMAL) Lipid Panel, Standard (01/01/2025 10:22 AM EDT) Triglycerides 196(H) <150 mg/dL [facility] Comment:Desirable Triglyceri de: less than 150 mg/dLBorderline High Triglyceride 150-199 mg/dLHigh Triglyceride: 200-499 mg/dLVery High Triglyceride: greater than or equal to 5OO mg/dL Cholesterol 196 <200 mg/dL [facility] Comment:Desirable Cholestero l: less than 200 mg/dLBorderline High Cholesterol: 200-239 mg/dLHigh Cholesterol: greater than 239 mg/dL LDL Cholesterol Calculated 127(H) <100 mg/dL [facility] Comment:Desirable LDL: less than 100 mg/dLNear Optimal/Above Optimal LDL: 110- 129 mg/dLBorderline High LDL: 130-159 mg/dLHigh LDL: 160-189 mg/dLVery High LDL: greater than or equal to 190 mg/dL HDL Cholesterol 30(L) >40 mg/dL [facility] Comment:Desirable HDL: great er than 40 mg/dL Note: This HDL assay may give artificially low results in patients with liver disease. 01/01/2025 10:2 2 AM EDT 01/01/2025 10:55 AM EDT us Lisa Fraser MD LAB BLOOD ORDERAB LES Final Result [facility] [address] [place] [phone] * (ABNORMAL) Basic Metabolic Panel (01/01/2025 10:22 AM EDT) Sodium 142 135 - 145 mmol/L [facility] Potassium 4.2 3.3 - 5.1 mmol/L [facility] Chloride 107 96 - 108 mmol/L [facility] Carbon Dioxide 29 22 - 29 mmol/L [facility] Anion Gap 10(L) 12 - 20 [facility] Urea Nitrogen (BUN) 11 9 - 16 mg/dL [facility] Creatinine, Serum 0.94 0.5 - 1.4 mg/dL [facility] Estimated Glomerular Filt Rate >60 [facility] Comment:Chronic Kidney Disea se: Estimated GFR < 60 mL/min/1.39f2Wogiii Kidney Disease: Estimated GFR < 15 mL/min/1.73m2 Glucose 125(H) 60 - 115 mg/dL [facility] Calcium 9.5 8.4 - 10.2 mg/dL [facility] 01/01/2025 10:2 2 AM EDT 01/01/2025 10:55 AM EDT us Lisa Frsaer MD LAB BLOOD ORDERAB LES Final Result [facility] [address] [place] [phone] * (ABNORMAL) POCT A1c (01/01/2025 9:41 AM EDT) Hemoglobin A1C 9.3(A) 4.0 - 5.7 % QC Media Lot # [id number] Lot# Expiration Date ,623,220 Blood 01/01/2025 9:41 AM EDT us Lisa Fraser MD POINT OF CARE PRAKASH T ENTER/EDIT ORDERABLES Final Result * XR Hand 3+ Views Right (10/21/2024 8:38 AM EDT) Anatomical Region Laterality Modality Upper Extremities, Hand Right Radiogra phic Imaging 10/21/2024 8:38 AM EDT Narrative 10/21/2024 9:59 AM EDT [address] [address] XRay Report Signed Patient: Arjun Parkinson MR#: [id number] : 1970 Acct:[id number] Age/Sex: 54 / M ADM Date: 10/21/24 Loc: HO.HHCX Attending Dr: Swapna Pimentel MD Ordering Physician: Swapna Pimentel MD Date of Service: 10/21/24 Procedure(s): XR hand RT min 3V Accession Number(s): [id number] cc: Swapna Pimentel MD EXAMINATION: XR HAND [...] signed by Gen Louie MD in OV> 10/21/24954 DD/ 7 TD/TT: 10/21/24899 Inventory Specialist Manager: Procedure Note Donotuseinterpreter, Image - 10/21/2024 [place] [address] XRay Report Signed Patient: Arjun Parkinson#: [id number] : 1970Acct:[id number] Age/Sex: 54 / MADM Date: 10/21/24 Loc: HO.HHCX Attending Dr: Swapna Pimentel MD Ordering Physician: Swapna Pimentel MD Date of Service: 10/21/24 Procedure(s): XR hand RT min 3V Accession Number(s): [id number] cc: Swapna Pimentel MD EXAMINATION: XR HAND [...] signed by Gen Louie MD in OV> 10/21/24954 DD/ 0838 TD/TT: 10/21/24 0900 Inventory Specialist Manager: Swapna Pimentel MD IMG XR PROCEDURES Final Result * Hepatitis C Antibody with Reflex to HCV, RNA, Quantitative, Real-Time PCR (01/12/2024 7:08 AM EDT) Hepatitis C Antibody Nonreactive Nonreactive [facility] Comment:Antibodies to HCV no t detected; does not exclude early acuteHCV infection. Blood Venous blood specimen / Unknown 01/12/2024 7:08 AM EDT 01/12/2024 7:08 AM EDT Lisa Fraser MD LAB BLOOD ORDERAB LES Final Result [facility] [address] [place] [phone] * HIV-1/2 Antigen and Antibodies, Fourth Generation, with Reflexes (01/12/2024 7:08 AM EDT) HIV AB/AG Nonreactive Nonreactive [facility] Comment:HIV-1 p24 Ag and/or HIV-1/HIV-2 Ab not detected.A test result that is nonreactive does not exclude thepossibility of exposure to or infection with HIV-1 and/orHIV-2. Nonreactive results in this assay for individualswith prior exposure to HIV-1 and/or HIV-2 may be due toantigen and antibody levels that are below the limit ofdetection of this assay.The [employer] HIV Ag/Ab Combo assay result andsupplemental assay results should be interpreted inconjunction with the patient's clinical presentation,history and other laboratory results. If the results areinconsistent with clinical evidence, additional testing issuggested to confirm the result. Blood Venous blood specimen / Unknown 01/12/2024 7:08 AM EDT 01/12/2024 7:08 AM EDT Lisa Fraser MD LAB BLOOD ORDERAB LES Final Result [facility] [address] [place], [place] [phone] from Last 3 Months or Most Recently Relevant to Health Maintenance Insurance Mto[employer] C3 Care Teams Electrical Subcontractor Relationship Specialty Start Date End Date Lisa Cantrell MD [address] [place] [address] PCP - General Internal Medicine 12/22/22 Angela Llamas, CarrieD [address] [place] [address] Pharmacist Pharmacy 01/01/25
--- OUTSIDE RECORDS SUMMARY | 2025-01-06 11:51 | XMS_ITS | Encounter Summary ---
Author Organization [employer] Address [address] [facility] 7[address] [place] [address] Care Team Providers Care Director Of Athletics Name Role Phone Mark Brennan Primary Care Provider Unavail able Lisa Cantrell MD Primary Care Pro vider Angela Llamas PharmD Unavailable [phone] Encounter Details Date Type Department Care Team (Late Contact Info) Description 07/08/2022 Orders Only [facility] MED & PEDS [address] [place] [address] Danni Romero LPN Social History Tobacco Use [...] Description 01/27/2025 9:00 AM EDT Medication Management [facility] MEDICINE [address] [place], [place] [phone] Angela Llamas, PharmD [address] [place], [place] [phone] 03/13/2025 9:00 AM EST Office Visit [facility] MEDICINE [address] [place] [address] Lisa Cantrell MD [address] [place] [address] 03/26/2025 9:30 AM EST Office Visit [facility] OPTOMETRY [address] [place] [address] Gracie Ingram, OD [address] [place] [address] documented as of this encounter Visit Diagnoses Not on filedocumented in this encounter Care Teams Director Of Athletics Relationship Specialty Start Date End Date Mark Brennan AGNP PCP - General Family Medicine 01/03/22 12/21/22 Lisa Cantrell MD [address] [place] [address] PCP - General Internal Medicine 12/22/22 Angela Llamas PharmD [address] [place] [phone] Pharmacist Pharmacy 01/01/25 documented as of this encounter
--- OUTSIDE RECORDS SUMMARY | 2025-01-06 11:51 | XMS_ITS | Encounter Summary ---
Author Organization [employer] Address [address] [facility] [address]t [place] [address] Care Team Providers Care Local Area Network Administrator Name Role Phone Mark Brennan Primary Care Provider Unavail able Lisa Cantrell MD Primary Care Pro vider Angela Llamas PharmD Unavailable [phone] Reason for Visit * Reason Comments Med Refill Encounter Details Date Type Department Care Team (Late Contact Info) Description 07/08/2022 Refill [facility] WALK-IN CENTER [address] [place] [address] Cuca Richey FNP Social History Tobacco Use [...] Description 01/27/2025 9:00 AM EDT Medication Management [facility] MEDICINE [address] [place] [address] Angela Llamas, PharmD [address] [place] [address] 03/13/2025 9:00 AM EST Office Visit [facility] MEDICINE [address] [place] [address] Lisa Cantrell MD [address] [place] [address] 03/26/2025 9:30 AM EST Office Visit [facility] OPTOMETRY [address] [place] [address] Juan Jose, Gracie, OD [address] [place] [address] documented as of this encounter Visit Diagnoses Not on filedocumented in this encounter Care Teams Local Area Network Administrator Relationship Specialty Start Date End Date Mark Brennan AGNP PCP - General Family Medicine 01/03/22 12/21/22 Lisa Cantrell MD [address] [place] [address] [phone] PCP - General Internal Medicine 12/22/22 Angela Llamas, CarrieD [address] [place] [address] [phone] Pharmacist Pharmacy 01/01/25 documented as of this encounter
--- OUTSIDE RECORDS SUMMARY | 2025-01-06 11:51 | XMS_ITS | Encounter Summary ---
Author Organization [employer] Address [address] [place] [phone] Care Team Providers Care Tire Spotter Name Role Phone Lisa Cantrell MD Primary Care Pro vider Angela Llamas PharmD Unavailable [phone] Encounter Details Date Type Department Care Team (Late st Contact Info) Description 01/01/2025 Results Follow-Up [facility] MEDICINE [address] [place] [address] Lisa Cantrell MD [address] [place] [address] Albumin, Random Urine W/Creatinine, Hepatic Function Panel, Basic Metabolic Panel, Lipid Panel, Standard Social History Tobacco Use Types Packs/Day Years [...] as of this encounter Miscellaneous Notes * Result Encounter Note - Lisa Fraser MD - 01/01/2025 2:04 PM EDT Pt saw today Radha Pina Pt to start Mounjaro today and seems not fully complaint w statins per my discussion westley Garcia Pt will f w CDTM this month ,possibly to start Medbox to improve compliance documented in this encounter Plan of Treatment Upcoming Encounters Date Type Department Care Team (Late st Contact Info) Description 01/27/2025 9:00 AM EDT Medication Management [facility] MEDICINE [address] [place] [address] [phone] Angela Llamas, PharmD [address] [place] [address] [phone] 03/13/2025 9:00 AM EST Office Visit [facility] MEDICINE [address] [place] [address] [phone] Lisa Cantrell MD [address] [place], [place] [phone] 03/26/2025 9:30 AM EST Office Visit [facility] OPTOMETRY [address] [place], [place] [phone] Gracie Ingram, OD [address] [place] [address] documented as of this encounter Visit Diagnoses Not on filedocumented in this encounter Additional Health Concerns Assessment Noted Time PHQ-9 Depression Total Score: 3 11/14/19 24 10:21 AM EDT documented as of this encounter Care Teams Tire Spotter Relationship Specialty Start Date End Date Lisa Cantrell MD [address] [place] [address] PCP - General Internal Medicine 12/22/22 Angela Llamas, CarrieD [address] [place] [address] Pharmacist Pharmacy 01/01/25 documented as of this encounter
--- OUTSIDE RECORDS SUMMARY | 2025-01-06 11:51 | XMS_ITS | Encounter Summary ---
Author Organization [employer] Address [address] [place] [address] [address] [place] [address] Care Team Providers Care Heat Treating Operator Name Role Phone Lisa Cantrell MD Primary Care Pro vider Angela Llamas PharmD Unavailable [phone] Reason for Visit * Reason Comments Med Refill Encounter Details Date Type Department Care Team (Late st Contact Info) Description 04/05/2023 Refill [facility] [address] [place] [address] Lisa Cantrell MD [address] [place], [place] [phone] Type 2 diabetes mellitus with hyperglycemia, with long-term current use of insulin ([facility]) Social History Tobacco Use Types Packs/Day Years Used Date Smoking Tobacco: Never Passive Smoke Exposure: Never Smokeless Tobacco: Never Alcohol Use Standard Drinks/Week Comments Never 0 (1 standard drink = 0.6 oz pur e alcohol) Depression Answer Date Recorded Patient Health Questionnaire-9 Score 0 08/31/2022 Housing Stability Answer Date Recorded What is your housing situation today? I have cammy sing 02/06/[address] you li [...] Description 01/27/2025 9:00 AM EDT Medication Management [facility] [address] [place] [address] Angela Llamas, PharmD [address] [place] [address] 03/13/2025 9:00 AM EST Office Visit [facility] [address] [place] [address] Lisa Cantrell MD [address] [place] [address] 03/26/2025 9:30 AM EST Office Visit [facility] [address] [place] [address] Gracie Ingram, OD [address] [place] [address] documented as of this encounter Visit Diagnoses Diagnosis Type 2 diabetes mellitus with hyperglycemia, with long-term current use of insulin (HCC) documented in this encounter Additional Health Concerns Assessment Noted Time PHQ-9 Depression Total Score: 0 09/01/19 23 8:56 AM EDT documented as of this encounter Care Teams Heat Treating Operator Relationship Specialty Start Date End Date Lisa Cantrell MD [address] [place] [id number] PCP - General Internal Medicine 12/22/22 Angela Llamas, CarrieD [address] [place] [phone] Pharmacist Pharmacy 01/01/25 documented as of this encounter
[2025-01-06 11:52] LABS: Anion Gap 10 (12-20); Blood Urea Nitrogen 16 mg/dL (9-16); Calcium 9.7 mg/dL (8.4-10.2); Carbon Dioxide 28 mmol/L (22-29); Chloride 102 mmol/L (96-108); Estimated Glomerular Filt Rate > 60; Potassium 4.2 mmol/L (3.3-5.1); Sodium 136 mmol/L (135-145)
[2025-01-06 17:17] LABS: Appearance Urine Clear; Glucose Urine UA 250 mg/dL (Negative); PH 6.0 (5.0-9.0); Specific Gravity - Urine 1.020 (1.005-1.025); UMIC TRIGGER UACC YES
[2025-01-06 17:57] LABS: UACC Culture Trigger YES
== END 2025-01-06 10:12 | disposition home or self-care (01) ==
LOC: HO.HHCL 10:11
PROVIDERS: PCP Nurse Practitioner; Visit Provider Nurse Practitioner
DX: R31.9 Hematuria, unspecified (principal)
CPT/HCPCS: 36415; 80048; 81001; 87086

== ENCOUNTER 2025-01-06 14:59 | Emergency (ER) | payer MEDICAID, SELFPAY ==
--- NOTE | ~2025-01-06 | CT_ITS ---
CLINICAL HISTORY: back pain, hematuria. kidney stones? CT abdomen and pelvis without contrast Comparison: None provided Findings: LIMITED CHEST: Lung bases are clear. LIVER: No focal liver lesion. BILIARY: No gallbladder wall thickening, radiopaque stone, or ductal dilatation. PANCREAS: No mass or ductal dilatation. SPLEEN: No splenomegaly. KIDNEYS: No hydronephrosis or radiopaque stone. ADRENALS: No nodule. VASCULAR: No aneurysm. RETROPERITONEUM: No lymphadenopathy or mass. BOWEL/MESENTERY: No evidence of obstruction. No free fluid or air. ABDOMINAL WALL: No mass or significant abnormality. URINARY BLADDER: Circumferential thickening of the bladder. PELVIC NODES: No pelvic lymphadenopathy. PELVIC ORGANS: Prostatomegaly. BONES: No acute fracture. Degenerative changes of the spine. OTHER: Negative. IMPRESSION: No nephrolithiasis or hydronephrosis. Prostatomegaly with circumferential wall thickening of the bladder, may represent chronic outlet obstruction. This document has been electronically signed by: Kusum Steward MD on 01/06/2025 19:21:33
[2025-01-06 15:55] VITALS: BP 137/90; PULSE 101; RESP 16; TEMP 36.6; O2SAT 97; BMI 26.5
[2025-01-06 16:19] LABS: MANUAL DIFF FLAG NO
[2025-01-06 16:25] LABS: Appearance Urine Clear; Glucose Urine UA >=1000 mg/dL (Negative); PH 7.0 (5.0-9.0); Specific Gravity - Urine 1.020 (1.005-1.025); UMIC TRIGGER UACC YES
[2025-01-06 16:31] LABS: Hematocrit 45.6 % (42.0-52.0); Hemoglobin 16.7 g/dl (14.0-18.0); Imm Gran Abs Auto 0.01 X10*3/uL (0.00-0.03); Imm Gran Pct Auto 0.2 % (0.0-0.4); Lymphocytes Absolute Auto 1.5 X10*3/uL (1.2-4.9); Mean Corpuscular HGB Conc 36.6 g/dl (31.0-36.0); Mean Corpuscular Hemoglobin 29.8 pg (27.0-33.0); Mean Corpuscular Volume 81.3 fL (80.0-98.0); NRBC Abs Auto 0.000 X10*3/uL (0.0-0.012); NRBC Pct Auto 0.0 /100WBC (0.0-0.2); Platelet Count 195 X10*3/uL (160-400); Red Blood Count 5.61 X10*6/uL (4.60-5.80); White Blood Count 5.9 X10*3/uL (4.8-10.8)
[2025-01-06 16:52] LABS: Alanine Aminotransferase 42 U/L (0-40); Albumin Level 4.7 g/dL (3.5-5.0); Alkaline Phosphatase 74 U/L (39-117); Anion Gap 9 (12-20); Aspartate Amino Transferase 36 U/L (5-37); Blood Urea Nitrogen 18 mg/dL (9-16); Calcium 9.9 mg/dL (8.4-10.2); Carbon Dioxide 28 mmol/L (22-29); Chloride 102 mmol/L (96-108); Creatinine Clr Calc Pharmacy 70.3; Estimated Glomerular Filt Rate > 60; Potassium 3.8 mmol/L (3.3-5.1); Sodium 135 mmol/L (135-145); Total Protein 7.8 g/dL (6.5-8.0)
--- NOTE | 2025-01-06 17:09 | ED.MALEGU ---
HPI - Male Genitourinary General Chief complaint: Urogenital-Male Stated complaint: peeing blood since last night Time Seen by Provider: 01/06/25 17:25 Source: patient and radiology physician (all interactions with this patient were facilitated with an [facility] instrument maker and repairer) Mode of arrival: ambulatory Limitations: language barrier (all interactions with this patient were facilitated with an [facility] instrument maker and repairer) History of Present Illness ED Provider: Sadie Gutierrez PA-C HPI Narrative: Patient is a 54 year old assigned male at with a history of bladder trabeculation, enlarged prostate, DM, and HTN presenting to the emergency department today with blood in his urine and flank pain. Patient states that he has had blood in his urine since yesterday and is having lower back pain. Patient denies any other complaints at this time. Patient states that he followed up with the Urology group here at [facility] last year for other things. Related Data Home Medications ?Medication ?Instructions ?Recorded ?Confirmed blood sugar diagnostic (FreeStyle #10 ea 04/20/20 04/01/23 Lite Strips) lancets 28 gauge (FreeStyle #100 ea 04/20/20 04/01/23 Lancets) sacubitril 49 mg-valsartan 51 mg 1 tab PO BID 04/20/20 04/01/23 tablet (Entresto) losartan 50 mg tablet 50 mg PO DAILY 03/18/21 04/01/23 atorvastatin 20 mg tablet 20 mg PO DAILY 03/31/23 04/01/23 chlorthalidone 25 mg tablet 25 mg PO QAM 03/31/23 04/01/23 dulaglutide 1.5 mg/0.5 mL mg subcut QWEEK 03/31/23 04/01/23 subcutaneous pen injector (Trulicity) empagliflozin 25 mg tablet 25 mg PO QAM 03/31/23 04/01/23 (Jardiance) Previous Rx's ?Medication ?Instructions ?Recorded blood-glucose meter (FreeStyle #1 ea 04/14/20 Williams Lite kit) insulin glargine 100 unit/mL (3 46 unit (0.46 mL) subcut DAILY #15 10/30/20 mL) subcutaneous pen (Lantus mL Solostar U-100 Insulin) nystatin-triamcinolone 100,000 1 appl topical TID #30 grams 12/03/20 unit/g-0.1 % topical cream insulin lispro 100 unit/mL See Rx Instructions subcut QID #15 12/11/20 subcutaneous pen (Humalog KwikPen mL (U-100) Insulin) pen needle, diabetic 32 gauge x 1 ea miscellaneous .COMPLEX #200 ea 01/15/21 (Pentips Pen Needle) ibuprofen 800 mg tablet 800 mg PO Q8H PRN pain #14 tabs 03/15/21 cholecalciferol (vitamin D3) 125 125 mcg PO DAILY #30 caps 03/30/21 mcg (5,000 unit) capsule alfuzosin 10 mg tablet,extended 10 mg PO BEDTIME 90 days #90 tabs 10/10/23 release 24 hr finasteride 5 mg tablet 5 mg PO DAILY 90 days #90 tabs 10/10/23 Allergies Allergy/AdvReac Type Severity Reaction Status Date / Time No Known Allergies Allergy Verified 01/06/25 15:57 Review of Systems Constitutional: Constitutional: Reports as per HPI Eyes: Eyes: Reports as per HPI ENT: Reports as per HPI Cardiovascular: Cardiovascular: Reports as per HPI Respiratory: Respiratory: Reports as per HPI Gastrointestinal: Gastrointestinal: Reports as per HPI Genitourinary: Genitourinary: Reports as per HPI Musculoskeletal: Musculoskeletal: Reports as per HPI Integumentary/Breasts: Skin/Breast: Reports as per HPI Neurologic: Reports as per HPI Psychiatric: Psychiatric: Reports as per HPI Endocrine: Endocrine: Reports as per HPI Hematologic/Lymphatic: Hematologic/Lymphatic: Reports as per HPI Allergic/Immunologic: Allergic/Immunologic: Reports as per HPI [facility] Past Medical History Attestation statement: The following information was validated with the patient. Source: old records reviewed and nursing notes reviewed Medical History Cardiac insufficiency Essential hypertension Proteinuria Vitamin D deficiency Hyperlipidemia LDL goal <100 Type 2 diabetes mellitus with hyperglycemia, with long-term current use of insulin Surgical History No history of previous surgery Family History Family History Father Cancer Mother Hypertension Paternal Uncle Cancer Diabetes Maternal Uncle Diabetes Cancer Paternal Aunt CVD (cardiovascular disease) Social History Social History Household Members: Significant Other Alcohol intake: current Alcohol intake frequency: does not drink Patient Tobacco Use Status: Never used Tobacco Physical Exam Vital Signs: Vital Signs: Last Vital Signs Temp 97.7 F 01/06/25 20:06 Pulse 78 01/06/25 20:06 Resp 16 01/06/25 20:06 BP 132/93 H 01/06/25 20:06 Pulse Ox 97 01/06/25 20:06 O2 Del Method Room Air 01/06/25 20:06 BMI result Body Mass Index 26.5 Const: General: cooperative, no acute distress, alert and awake Nutritional Appearance: well nourished Orientation/consciousness: patient oriented x3 HEENT: Head: Yes normal to inspection and Yes atraumatic Ears: hearing grossly normal bilaterally and external ears normal General nose exam: Normal external nose present, no nasal discharge noted and no epistaxis Face and sinus: Yes normal facial exam, No abrasion and No laceration Mouth: Normal oral and palatal mucosa present, no drooling and no muffled voice Eyes: General: appearance normal, both eyes and all related structures Periorbital: periorbital findings normal Eyelids: Yes eyelids normal Conjunctivae: conjunctivae normal Pupils: Equal, round and reactive pupils present EOM: EOMs intact bilaterally Neck: Neck: Yes normal visual inspection and Yes full ROM Resp: Effort & Inspection: normal respiratory effort and able to speak in complete sentences Neuro: General: patient oriented x3, moves all extremities and CN's II-XI intact bilaterally Cranial nerves: Yes Equal, round and reactive pupils present Cognition (Neuro): normal cognition Extrem: General: Yes normal to inspection, Yes full ROM and Yes capillary refill normal Psych: Appearance: grossly normal Mental Status: mental status grossly normal Affect: normal affect Attitude: cooperative Thought process: Normal thought process present Thought content: Normal thought content present Insight: Good insight present (Psych) Course Course Course Narrative: RME: 54 yol male presents to the ED for back pain with blood in the urine. patient denies any trauma, fever, chills, nuasea, or vomittting, labs ordered. Medical Decision Making Medical Decision Making MDM Narrative: Patient is a 54 year old assigned male at with a history of bladder trabeculation, enlarged prostate, DM, and HTN presenting to the emergency department today with blood in his urine and flank pain. Patient's physical exam was as noted in the physical exam portion of this note. Patient's blood work was unremarkable. Patient's urine showed blood but no evidence of UTI. Patient's CT abd/pelvis showed evidence of bladder wall thickening which the radiologist speculates is secondary to chronic outlet obstruction. I explained my physical exam findings as well as all test results to the patient. I answered all questions asked by the patient. I stressed the importance of the patient taking his medication as directed (either prescribed or as the over the counter packaging recommends). I stressed the importance of the patient following up with his primary care provider and the urology team. I stressed the importance of the patient returning to the emergency department immediately if his symptoms were to worsen or if he were to develop any dizziness, shortness of breath, difficulty breathing, chest pain, blurry vision, loss of vision, nausea, vomiting, abdominal pain, fever, chills, back pain, or any other complaints. Patient verbalized agreement and understanding with this treatment plan and discharge. Differential Diagnosis Differential Diagnoses: The differential diagnosis associated with the presentation includes Kidney stone UTI Flank pain Hematuria Bladder mass Bladder CA Admission/Observation Consideration of admission/observation: Escalation of care including admission/observation considered Patient would have been admitted to the hospital had his work up had any findings where hospital admission was appropriate and his clinical presentation warranted hospital admission. Lab Data [facility] Lab Attestation statement: I reviewed the patient's lab results. My interpretation of these results are in the [facility] Rationale portion of this note. 01/06/25 16:12 01/06/25 16:12 Labs: Lab Results 01/06/25 Range/Units 16:12 WBC 5.9 (4.8-10.8) X10*3/uL RBC 5.61 (4.60-5.80) X10*6/uL Hgb 16.7 (14.0-18.0) g/dl Hct 45.6 (42.0-52.0) % MCV 81.3 (80.0-98.0) fL MCH 29.8 (27.0-33.0) pg MCHC 36.6 H (31.0-36.0) g/dl RDW 12.5 (11.0-16.0) % Plt Count 195 (160-400) X10*3/uL MPV 9.7 (9.4-12.4) fL Immature Gran % (Auto) 0.2 (0.0-0.4) % Neut % (Auto) 64.3 (45-73) % Lymph % (Auto) 25.0 (20-40) % [place] % (Auto) 8.9 (2-11) % Eos % (Auto) 1.3 (0-4) % Baso % (Auto) 0.3 (0-2) % Lymph # (Auto) 1.5 (1.2-4.9) X10*3/uL [place] # (Auto) 0.5 (0.1-1.2) X10*3/uL Eos # (Auto) 0.1 (0.0-0.4) X10*3/uL Baso # (Auto) 0.0 (0.0-0.2) X10*3/uL Abs Immat Gran (auto) 0.01 (0.00-0.03) X10*3/uL Absolute Neuts (auto) 3.8 (2.0-8.3) x10*3/uL Absolute Nucleated RBC 0.000 (0.0-0.012) X10*3/uL Nucleated RBC % (auto) 0.0 (0.0-0.2) /100WBC Sodium 135 (135-145) mmol/L Potassium 3.8 (3.3-5.1) mmol/L Chloride 102 (96-108) mmol/L Carbon Dioxide 28 (22-29) mmol/L Anion Gap 9 L (12-20) BUN 18 H (9-16) mg/dL Creatinine 1.11 (0.5-1.4) mg/dL Estim Creat Clear Calc 70.3 Estimated GFR > 60 Random Glucose 247 H (60-115) mg/dL Calcium 9.9 (8.4-10.2) mg/dL Total Bilirubin 0.7 (0.0-1.0) mg/dL AST 36 (5-37) U/L ALT 42 H (0-40) U/L Alkaline Phosphatase 74 (39-117) U/L Total Protein 7.8 (6.5-8.0) g/dL Albumin 4.7 (3.5-5.0) g/dL Urine Color Yellow Urine Appearance Clear Urine pH 7.0 (5.0-9.0) Ur Specific [place] 1.020 (1.005-1.025) Urine Protein Negative (Neg-Trace) mg/dL Urine Glucose (UA) >=1000 H (Negative) mg/dL Urine Ketones Negative (Negative) mg/dL Urine Blood Moderate (2+) H (Negative) Urine Nitrite Negative (Negative) Ur Leukocyte Esterase Negative (Negative) Urine RBC >20 H (0-2) /HPF Urine WBC 0-5 (0-5) /HPF Ur Squamous Epith Cells 0-2 (0-2) /HPF Urine Bacteria None Seen (None Seen) Hyaline Casts 0-2 (0-2) /LPF Independent Interpretation I performed an independent interpretation of an: CT Scan Interpretation: My interpretation is in agreement with the radiologist's impression of this imaging study. Report Number: [id number] Reason for Exam: back pain, hematuria. kidney stones? CLINICAL HISTORY: back pain, hematuria. kidney stones? CT abdomen and pelvis without contrast Comparison: None provided Findings: LIMITED CHEST: Lung bases are clear. LIVER: No focal liver lesion. BILIARY: No gallbladder wall thickening, radiopaque stone, or ductal dilatation. PANCREAS: No mass or ductal dilatation. SPLEEN: No splenomegaly. KIDNEYS: No hydronephrosis or radiopaque stone. ADRENALS: No nodule. VASCULAR: No aneurysm. RETROPERITONEUM: No lymphadenopathy or mass. BOWEL/MESENTERY: No evidence of obstruction. No free fluid or air. ABDOMINAL WALL: No mass or significant abnormality. URINARY BLADDER: Circumferential thickening of the bladder. PELVIC NODES: No pelvic lymphadenopathy. PELVIC ORGANS: Prostatomegaly. BONES: No acute fracture. Degenerative changes of the spine. OTHER: Negative. IMPRESSION: No nephrolithiasis or hydronephrosis. Prostatomegaly with circumferential wall thickening of the bladder, may represent chronic outlet obstruction. This document has been electronically signed by: Kusum Steward MD on 01/06/2025 19:21:33 Dictated By: Kusum Steward MD Signed By: Electronically signed by Kusum Steward MD 01/06/251921 Radiology Impression Discussion of test interpretation with radiology: I have reviewed the radiologist's reading. Discharge Plan Discharge Clinical Impression: Hematuria Patient Disposition: Home, Self-Care Instructions: Hematuria (ED) Additional Instructions: Your work up did not show any EMERGENT process for your symptoms. Mclaughlin evaluaci?n no mostr? erica?n proceso EMERGENTE para earnest s?ntomas. Please follow up with the urology team. Por favor braulio seguimiento con el equipo de urolog?a. IF you are prescribed home medications and/or you are taking over the counter medications at home- it is very important you continue to do so as prescribed / directed unless told otherwise. SI le recetan medicamentos y/o est? tomando medicamentos de venta melinda, es muy importante que contin?e haci?ndolo seg?n lo recetado/indicado a menos que le indiquen lo contrario. Follow up with your primary care provider. Return to the emergency department immediately if your symptoms worsen or if you develop any dizziness, shortness of breath, difficulty breathing, chest pain, blurry vision, loss of vision, nausea, vomiting, abdominal pain, fever, chills, back pain, or any other complaints. Braulio?seguimiento?con mclaughlin m?dico de atenci?n primaria. Acuda inmediatamente al servicio de urgencias si earnest s?ntomas empeoran o si presenta falta de aliento, dificultad para respirar, dolor tor?cico, mareos, aturdimiento, dolor de espalda, dolor abdominal, fiebre, escalofr?os o cualquier otro s?ntoma. Please see the information below about our Patient Portal. If you are not yet enrolled in the [facility] Patient Portal, you will receive an enrollment email invitation following your visit to any [facility] care setting. You may also self-enroll in the Patient Portal by visiting our website: [email or web address] The following information is required to access the Patient Portal: - Your [facility] Medical Record Number - Your personal home email address (must match what is in your electronic medical record, Registration staff can assist with this) - Name - Date of Capabilities of the Patient Portal: - Message some providers - View upcoming appointments - Access your health summary, medical history, and visit history - View current conditions and allergies - View procedure and lab results - View your medications, including guidelines, side effects, and precautions - Complete pre-appointment questionnaires requested by your provider - Ready summary reports of your office visits and procedures To access the Patient Portal Mobile Rahul, follow these directions: - Search Cadee in the Rahul Store or [employer] Store - Download the Rahul - Search for [facility] - Enter your login/password Portal del paciente Si usted no esta inscrito en el portal de pacientes de [facility] y [facility], recibira oh invitacion de inscripcion despues de mclaughlin visita al [facility] o al [facility] via correo electronico. Tambien puede inscribirse voluntariamente en el portal de pacientes visitando nuestra pagina web: [email or web address] La siguiente informacion sera requerida para acceder al portal: - Mclaughlin nona de historia medica de [facility] - Mclaughlin direccion de correo electronico personal - Nombre - Fecha de nacimiento Capacidades: Las siguientes capacidades estan disponibles en el portal de pacientes: - Enviar mensajes a algunos doctores - Verificar proximas citas - Acceso a mclaughlin historial de nelsy, registro medico e historial de visitas - Bernarda las condiciones actuales y alergias bernarda procedimientos y resultados del laboratorio - Bernarda earnest medicamentos, incluyendo las pautas - Efectos secundarios y precauciones - Completar o llenar formularios / cuestionarios de - Citas solicitadas por mclaughlin doctor - Leer los resumenes de reportes medicos de earnest visitas y procedimientos Yanira acceder a la aplicacion movil: - Busque [employer]e en la Rahul Store o [employer] Store - Descargue la aplicacion - Busque [facility] - Ingrese mclaughlin nombre de usuario / Contrasena Prescriptions: No Action (DME) blood-glucose meter [TagManStyle Williams Lite] Kit See Rx Instructions .ROUTE .JobConvo Qty: 1 0RF Rx Instructions: As directed Lantus Solostar U-100 Insulin 100 unit/mL (3 mL) insulin pen 46 unit subcut DAILY Qty: 15 0RF Rx Instructions: NEEDS APPOINTMENT FOR MORE REFILLS. insulin lispro [Humalog KwikPen Insulin] 100 unit/mL insulin pen See Rx Instructions subcut QID Qty: 15 4RF Rx Instructions: 15 units breakfast and lunch, 20 units dinner, 4 units hs snack subcut 4 times a day; pen needle, diabetic [Pentips Pen Needle] 32 gauge x 5/32 needle 1 ea miscellaneous .COMPLEX Qty: 200 6RF Rx Instructions: 1 ea miscellaneous five times a day; PATIENT NEEDS APPOINTMENT FOR MORE REFILLS. cholecalciferol (vitamin D3) 125 mcg (5,000 unit) capsule 125 mcg PO DAILY Qty: 30 11RF nystatin-triamcinolone 100,000-0.1 unit/g-% cream 1 appl topical TID Qty: 30 0RF ibuprofen 800 mg tablet 800 mg PO Q8H PRN (Reason: pain) Qty: 14 0RF Entresto 49-51 mg tablet 1 tab PO BID (DME) lancets [FreeStyle Lancets] 28 gauge misc See Rx Instructions .ROUTE .MEDSUPPLY Qty: 100 Rx Instructions: As directed (DME) FreeStyle Lite Strips Strip See Rx Instructions .ROUTE .MEDSUPPLY Qty: 10 Rx Instructions: As directed losartan 50 mg tablet 50 mg PO DAILY Jardiance 25 mg tablet 25 mg PO QAM Trulicity 1.5 mg/0.5 mL pen injector subcut QWEEK atorvastatin 20 mg tablet 20 mg PO DAILY chlorthalidone 25 mg tablet 25 mg PO QAM alfuzosin 10 mg tablet extended release 24 hr 10 mg PO BEDTIME 90 Days Qty: 90 2RF Rx Instructions: Take before bedtime finasteride 5 mg tablet 5 mg PO DAILY 90 Days Qty: 90 1RF Referrals: [facility] [Provider Group, Urology] Referral Note: You'll receive a call from the Urology team within 3 business days. If you don't, please call them. Recibira oh llamada del equipo de Urologia en un plazo de 3 deleon habiles. Si no la recibe, llamelos. Center,[facility] [Primary Care Provider, Medical] Interventions: ED Discharge Assessment Last Done: 01/06/25 20:06 Discharge Date/Time: 01/06/25 20:07 Print Language: Ugandan
[2025-01-06 19:09] VITALS: BP 132/93; PULSE 78; RESP 16; TEMP 36.5; O2SAT 97
[2025-01-06 20:06] VITALS: BP 132/93; PULSE 78; RESP 16; TEMP 36.5; O2SAT 97
== END 2025-01-06 20:07 | disposition home or self-care (01) ==
PROVIDERS: Emergency Provider Student in an Organized Health Care Education/Training Program
DX: R31.9 Hematuria, unspecified (principal); M54.50 Low back pain, unspecified; I10 Essential (primary) hypertension; E11.9 Type 2 diabetes mellitus without complications; R10.A0 Flank pain, unspecified side; Z79.899 Other long term (current) drug therapy
CPT/HCPCS: 36415; 74176; 80053; 81001; 85025; 99284

== ENCOUNTER → 2025-01-06 17:08 | Outpatient (BNV) | payer MEDICAID, SELFPAY | PROVIDERS: Emergency Provider Student in an Organized Health Care Education/Training Program; Visit Provider Student in an Organized Health Care Education/Training Program | DX: N40.0 Benign prostatic hyperplasia without lower urinary tract symptoms (principal); N32.89 Other specified disorders of bladder | CPT/HCPCS: 74176 ==

== ENCOUNTER 2025-02-11 07:42 | Outpatient (AMB) | payer MEDICAID, SELFPAY ==
--- OUTSIDE RECORDS SUMMARY | 2025-02-11 07:44 | XMS_ITS | Encounter Summary ---
Author Organization [employer] Address [address] [place] [id number] Care Team Providers Care Exterminator Helper Termite Name Role Phone Lisa Cantrell MD Primary Care Pro vider Angela Llamas PharmD Unavailable [phone] Encounter Details Date Type Department Care Team (Late st Contact Info) Description 01/01/2025 Results Follow-Up [facility] [address] [place] [address] Lisa Cantrell MD [address] [place] [address] Albumin, Random Urine W/Creatinine, Hepatic Function Panel, [...] Care Team (Late st Contact Info) Description 03/13/2025 9:00 AM EST Office Visit [facility] [address] [place] [address] Lisa Cantrell MD [address] [place], [place] [phone] 06/30/2025 9:00 AM EDT Office Visit [facility] OPTOMETRY [address] [place] [address] Gracie Ingram, OD [address] [place] [address] documented as of this encounter Visit Diagnoses Not on filedocumented in this encounter Additional Health Concerns Assessment Noted Time PHQ-9 Depression Total Score: 3 11/14/19 24 10:21 AM EDT documented as of this encounter Care Teams Exterminator Helper Termite Relationship Specialty Start Date End Date Lisa Cantrell MD [address] [place] [address] [phone] PCP - General Internal Medicine 12/22/22 Angela Llamas, CarrieD [address] [place] [id number] Pharmacist Pharmacy 01/01/25 documented as of this encounter
--- OUTSIDE RECORDS SUMMARY | 2025-02-11 07:44 | XMS_ITS | Encounter Summary ---
Author Organization [employer] Address [address] [place] [address], [place] [address] Care Team Providers Care News Assistant Name Role Phone Mark Brennan Primary Care Provider Unavail able Lisa Cantrell MD Primary Care Pro vider Angela Llamas PharmD Unavailable +- [phone] Encounter Details Date Type Department Care Team (Late Contact Info) Description 07/08/2022 Orders Only [facility] MED & PEDS [address] [place], [place] [phone] Danni Romero LPN Social History Tobacco Use [...] Department Care Team (Late Contact Info) Description 03/13/2025 9:00 AM EST Office Visit [facility] MEDICINE [address] [place], [place] [phone] Lisa Cantrell MD [address] [place], [place] [phone] 06/30/2025 9:00 AM EDT Office Visit [facility] OPTOMETRY [address] [place], [place] [phone] Gracie Ingram, OD [address] [place] [address] documented as of this encounter Visit Diagnoses Not on filedocumented in this encounter Care Teams News Assistant Relationship Specialty Start Date End Date Mark Brennan AGNP PCP - General Family Medicine 01/03/22 12/21/22 Lisa Cantrell MD [address] [place] [address] PCP - General Internal Medicine 12/22/22 Angela Llamas PharmD [address] [place], [place] [phone] Pharmacist Pharmacy 01/01/25 documented as of this encounter
--- OUTSIDE RECORDS SUMMARY | 2025-02-11 07:44 | XMS_ITS | Encounter Summary ---
Author Organization [employer] Address [address] [place] [address] [address] [place] [address] Care Team Providers Care Tank House Supervisor Name Role Phone Lisa Cantrell MD Primary Care Pro vider Angela Llamas PharmD Unavailable [phone] Reason for Visit * Reason Comments Med Refill Encounter Details Date Type Department Care Team (Late st Contact Info) Description 04/05/2023 Refill [facility] MEDICINE [address] [place] [address] Lisa Cantrell MD [address] [place], [place] [phone] Type 2 diabetes mellitus with hyperglycemia, with long-term current use of insulin ([facility]) Social History Tobacco Use Types [...] Description 03/13/2025 9:00 AM EST Office Visit [facility] MEDICINE [address] [place] [address] Lisa Cantrell MD [address] [place] [address] 06/30/2025 9:00 AM EDT Office Visit [facility] OPTOMETRY [address] [place] [address] Juan Jose, Gracie, OD [address] [place] [address] documented as of this encounter Visit Diagnoses Diagnosis Type 2 diabetes mellitus with hyperglycemia, with long-term current use of insulin (HCC) documented in this encounter Additional Health Concerns Assessment Noted Time PHQ-9 Depression Total Score: 0 09/01/19 23 8:56 AM EDT documented as of this encounter Care Teams Tank House Supervisor Relationship Specialty Start Date End Date Lisa Cantrell MD [address] [place] [id number] PCP - General Internal Medicine 12/22/22 Angela Llamas, Mark [address] [place] [phone] Pharmacist Pharmacy 01/01/25 documented as of this encounter
--- OUTSIDE RECORDS SUMMARY | 2025-02-11 07:44 | XMS_ITS | Encounter Summary ---
Author Organization [employer] Address [address] [place] [id number] Care Team Providers Care Payroll Assistant Name Role Phone Lisa Cantrell MD Primary Care Pro vider Angela Llamas PharmD Unavailable [phone]- [phone] Encounter Details Date Type Department Care Team (Late st Contact Info) Description 01/01/2025 Results Follow-Up [facility] MEDICINE [address] [place] [address] Lisa Cantrell MD [address] [place] [address] POCT A1c Social History Tobacco Use Types [...] Description 03/13/2025 9:00 AM EST Office Visit [facility] MEDICINE [address] [place] [address] Lisa Cantrell MD [address] [place] [address] 06/30/2025 9:00 AM EDT Office Visit [facility] OPTOMETRY [address] [place] [address] Juan Jose, Gracie, OD [address] [place] [address] documented as of this encounter Visit Diagnoses Not on filedocumented in this encounter Additional Health Concerns Assessment Noted Time PHQ-9 Depression Total Score: 3 11/14/19 24 10:21 AM EDT documented as of this encounter Care Teams Payroll Assistant Relationship Specialty Start Date End Date Lisa Cantrell MD [address] [place] [phone] PCP - General Internal Medicine 12/22/22 Angela Llamas PharmD [address] [place] [address] Pharmacist Pharmacy 01/01/25 documented as of this encounter
--- OUTSIDE RECORDS SUMMARY | 2025-02-11 07:44 | XMS_ITS | Encounter Summary ---
Author Organization [employer] Address [address] [place] [address] [address] [address] Care Team Providers Care Upholstery Handler Name Role Phone Mark Brennan Primary Care Provider Unavail able Lisa Cantrell MD Primary Care Pro vider Angela Llamas PharmD Unavailable [phone] Reason for Visit * Reason Comments Med Refill Encounter Details Date Type Department Care Team (Late Contact Info) Description 07/08/2022 Refill [facility] [address] [place] [phone] Cuca Richey FNP Social History Tobacco Use [...] Description 03/13/2025 9:00 AM EST Office Visit [facility] MEDICINE [address] [place] [phone] Lisa Cantrell MD [address] [place], [place] [phone] 06/30/2025 9:00 AM EDT Office Visit [facility] OPTOMETRY [address] [place], [place] [phone] Gracie Ingram, OD [address] [place] [address] documented as of this encounter Visit Diagnoses Not on filedocumented in this encounter Care Teams Upholstery Handler Relationship Specialty Start Date End Date Mark Brennan AGNP PCP - General Family Medicine 01/03/22 12/21/22 Lisa Cantrell MD [address] [place], [place] [phone] PCP - General Internal Medicine 12/22/22 Angela Llamas PharmD [address] [place], [place] [phone] Pharmacist Pharmacy 01/01/25 documented as of this encounter
--- OUTSIDE RECORDS SUMMARY | 2025-02-11 07:45 | XMS_ITS | Clinical Summary ---
Author Organization [employer] Address [address] [place] [address] Care Team Providers Care Cardiovascular Surgical Tech Name Role Phone Lisa Cantrell MD Primary Care Pro vider Angela Llamas PharmD Unavailable [phone] Allergies Active Allergy Reactions Criticality Noted Date Comments Bee Pollen Runny nose 08/17/2022 Medications glucose blood test stripIndications: Type 2 diabetes mellitus without complication, with long-term current use of insulin (HCC) 1 each by Other route 2 times daily. 100 each 08/18/19 23 Active Blood Pressure kitIndications:Ty pe 2 diabetes mellitus without complication, with long-term current use of insulin (HCC) 1 kit 2 times daily. 1 kit 08/18/19 Active Pentips 32G X 4 MM misc USE FIVE TIMES DAILY 200 each 08/20/19 23 Active alfuzosin ER (Uroxatral) 10 MG 24 hr tablet Take 10 mg by mouth in the morning. Do not crush, chew, or split. Active finasteride (Proscar) 5 MG tablet Take 5 mg by mouth in the morning. Do not crush, chew, or split. Active TRUEplus Lancets 33G misc 1 Units 2 times daily. TEST BLOOD SUGAR SUGAR TWICE A DAY 100 each 07/27/19 24 Active lidocaine (Lidoderm) 5 % patch APPLY 1 PATCH TOPICALLY TO SKIN, LEAVE ON FOR 12 HOURS AND OFF FOR 12 HOURS DIRECTED 30 patch 2 09/06/19 25 Active meloxicam (Mobic) 15 MG tablet Take 1 tablet (15 mg) by mouth Once per day. 15 tablet 10/22/19 25 026 Active acetaminophen (Tylenol) 500 MG tablet Take 2 tablets (1,000 mg) by mouth every 6 (six) hours if needed for moderate pain or fever for up to 25 doses. Take 1-2 tablets po tid prn pain 90 tablet 10/22/19 25 Active losartan (Cozaar) 25 MG tablet TAKE 1 TABLET BY MOUTH EVERY DAY 90 tablet 11/09/19 25 Active Aspirin Low Dose 81 MG chewable tablet CHEW 1 TABLET BY MOUTH EVERY DAY 90 tablet 11/09/19 25 Active atorvastatin (Lipitor) 40 MG tabletIndications :Mixed hyperlipidemia TAKE 1 TABLET BY MOUTH EVERY DAY 90 tablet 11/09/19 25 Active chlorthalidone (Hygroton) 25 MG tabletIndications :Essential hypertension Take 1 tablet (25 mg) by mouth in the morning. 90 tablet 11/12/19 25 Active Lantus SoloStar 100 UNIT/ML penIndications:Ty pe 2 diabetes mellitus with hyperglycemia, with long-term current use of insulin ([facility]) INJECT 42 UNITS SUBCUTANEOUSLY EVERY EVENING DIRECTED 15 mL 2 11/19/19 25 Active Diclofenac Sodium 1 % gel APPLY 1 INCH TOPICALLY TWICE DAILY IN THE MORNING AND AT BEDTIME NEEDED FOR PAIN 100 g 11/28/19 25 Active cholecalciferol (Vitamin D-3) 125 MCG (5000 UT) tabletIndications :Routine adult health maintenance TAKE 1 TABLET BY MOUTH EVERY DAY 90 tablet 12/11/19 25 Active insulin lispro (HumaLOG) 100 UNIT/ML injectionIndicati ons:Type 2 diabetes mellitus with hyperglycemia, with long-term current use of insulin ([facility]) Inject 20 Units under the skin with breakfast, with lunch, and with evening meal. 15 mL 1 12/20/19 25 Active Tirzepatide (Mounjaro) 2.5 MG/0.5ML solution auto-injectorIndi cations:Diabetes mellitus type 2, insulin dependent ([facility]) Inject 2.5 mg under the skin every 7 (seven) days. 2 mL 01/02/20 25 Active FREESTYLE LITE test strip TEST BLOOD SUGAR TWICE A DAY 100 each 11 02/05/20 24 025 docusate sodium (Colace) 100 MG capsuleIndication s:Constipation, unspecified constipation type Take 1 capsule (100 mg) by mouth if needed each day for constipation. 30 capsule 2 11/01/19 25 025 Hospital, Clinic, or Other Facility Administered Medication [...] factors. LDL-C is now calculated using the David-Frankel calculation, which is a validated novel method providing better accuracy than the Friedewald equation in the estimation of LDL-C. David SS et al. JUDD. 2013;310(19): 2455-8363 (http://education.ServiceTrade.Octoplus/faq/FVF210) Chol/HDLC Ratio <5.0 (calc) 6.6 High 6.2 [...] of this month, F/up in one year. [facility] Dental home: [facility] dental advised. Constipation 08/17/2022 Assessment [...] Encounters Date Type Department Care Team Description 01/26/2025 Travel 01/13/2025 Telephone [facility] MEDICINE [address] [place] [address] Lisa Cantrell MD 01/13/2025 Results Follow-Up [facility]ICINE [address] [place] [address] Olivia Greenwood NP POCT Urinalysis, Urinalysis, Complete, with Reflex to Culture, Basic Metabolic Panel 01/06/2025 9:00 AM EDT Office Visit [facility] WALK[facility]IN CENTER [address] [place] [address] Olivia Greenwood NP Elevated blood pressure reading in office with diagnosis of hypertension (Primary Dx); Hematuria, unspecified type; Acute bilateral low back pain without sciatica 01/06/2025 Orders Only GENERIC EXTERNAL DATA DEPARTMENT Provider, Generic External Data 01/06/2025 Travel 01/01/2025 Results Follow-Up [facility] MEDICINE [address] [place] [address] Lisa Cantrell MD Albumin, Random Urine W/Creatinine, Hepatic Function Panel, Basic Metabolic Panel, Lipid Panel, Standard 01/01/2025 Results Follow-Up [facility] [address] [place] [address] Lisa Cantrell MD POCT A1c 01/01/2025 Orders Only [facility] [address] [place] [address] Lisa Cantrell MD 01/01/2025 Travel 12/30/2024 9:00 AM EDT Office Visit [facility] OPTOMETRY [address] [place] [address] Juan Jose, Gracie, OD Open angle with borderline findings, 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) 12/18/2024 Refill [facility] [address] [place] [address] Lisa Cantrell MD Type 2 diabetes mellitus with hyperglycemia, with long-term current use of insulin ([facility]) 12/16/2024 Telephone [facility] MEDICINE [address] [place] [address] Lisa Cantrell MD chart prep 12/10/2024 Refill [facility] MEDICINE [address] [place], [place] [phone] Cristobal Brooks MD Routine adult health maintenance 11/26/2024 Refill [facility] [address] [place] [address] Swapna Pimentel MD 11/17/2024 Refill [facility] MEDICINE [address] [place] [address] Lisa Cantrell MD Type 2 diabetes mellitus with hyperglycemia, with long-term current use of insulin ([facility]) 11/11/2024 Refill [facility] MEDICINE [address] [place], [place] [phone] Lisa Cantrell MD Essential hypertension from Last 3 Months Immunizations Immunization Administration [...] Description 03/13/2025 9:00 AM EST Office Visit [facility] MEDICINE [address] [place] [address] Lisa Cantrell MD [address] [place], [place] [phone] 06/30/2025 9:00 AM EDT Office Visit [facility] OPTOMETRY [address] [place], [place] [phone] Juan Jose, Gracie, OD [address] [place], [place] [phone] Health Maintenance Due Date Last Done Comments [...] 04/03/2025 025, 01/12/2024, 11/14/2023, Additional history exists DTaP/Tdap/Td Vaccines (2 - Td or Tdap) 10/07/2025 10/08/2015 Disability Screening 10/24/2025 10/24/2024 Eye Exam 12/30/2025 12/30/2024, 09/03, 06/28/2024, Additional history exists Lipid Panel 01/01/2026 01/01/2025, 01/01, 08/18/2022, Additional history exists Tobacco Screening 01/08/2026 01/08/2025 RSV Patients and Patients Aged 60 years [...] Procedure Name Priority Date/Time Associated Diagnosis Comments CT ABDOMEN PELVIS WO CONTRAST Routine 01/06/2025 7:21 PM EDT CULTURE, URINE, ROUTINE Routine 01/06/2025 5:57 PM EDT COMPREHENSIVE METABOLIC PANEL Routine 01/06/2025 4:12 PM EDT CBC WITH AUTO DIFFERENTIAL Routine 01/06/2025 4:12 PM EDT URINALYSIS, COMPLETE, WITH REFLEX TO CULTURE Routine 01/06/2025 4:12 PM EDT BASIC METABOLIC PANEL Routine 01/06/2025 10:32 AM EDT Hematuria, unspecified type POCT URINALYSIS DIPSTICK Routine 01/06/2025 9:53 AM EDT Hematuria, unspecified type URINALYSIS, COMPLETE, WITH REFLEX TO CULTURE Routine 01/06/2025 12:00 AM EDT Hematuria, unspecified type LIPID PANEL, STANDARD Routine 01/01/2025 10:22 AM EDT BASIC METABOLIC PANEL Routine 01/01/2025 10:22 AM EDT HEPATIC FUNCTION PANEL Routine 10:22 AM EDT ALBUMIN, RANDOM URINE W/CREATININE Routine 01/01/2025 10:22 AM EDT POCT GLYCATED HEMOGLOBIN, TOTAL Routine 01/01/2025 9:41 AM EDT Diabetes mellitus type 2, insulin dependent (HCC) AUTOMATED VISUAL FIELD, EXTENDED - OU - BOTH EYES Routine 12/30/2024 9:00 AM EDT Open angle with borderline findings, low risk HEPATITIS C AB W/REFL TO HCV RNA, QN, PCR Routine 01/12/2024 7:08 AM EDT Annual physical exam HIV 1/2 ANTIGEN/ANTIBODY, FOURTH GENERATION W/RFL Routine 01/12/2024 7:08 AM EDT Annual physical exam from Last 3 Months or Most Recently Relevant to Health Maintenance Results * CT Abdomen Pelvis w/o Contrast (01/06/2025 7:21 PM EDT) Anatomical Region Laterality Modality Body, Pelvis, Abdomen Computed T omography 01/06/2025 7:21 PM EDT Narrative 01/06/2025 7:22 PM EDT [place] [id number] CT Scan Report Signed Patient: Arjun Parkinson MR#: [id number] : 1970 Acct:[id number] Age/Sex: 54 / M ADM Date: 01/06/25 Loc: HO.ED Attending Dr: Ordering Physician: Antonino Marquez Date of Service: 01/06/25 Procedure(s): CT abdomen pelvis wo IV con Accession Number(s): [id number] cc: Antonino Marquez; [facility] Report Number: [id number]: Total DLP = 464.00 mGy-cm Reason for Exam: back pain, hematuria. kidney stones? CLINICAL HISTORY: back pain, hematuria. kidney stones? CT abdomen and pelvis without contrast Comparison: None provided Findings: LIMITED CHEST: Lung bases are clear. LIVER: No focal liver lesion. BILIARY: No gallbladder wall thickening, radiopaque stone, or ductal dilatation. PANCREAS: No mass or ductal dilatation. SPLEEN: No splenomegaly. KIDNEYS: No hydronephrosis or radiopaque stone. ADRENALS: No nodule. VASCULAR: No aneurysm. RETROPERITONEUM: No lymphadenopathy or mass. BOWEL/MESENTERY: No evidence of obstruction. No free fluid or air. ABDOMINAL WALL: No mass or significant abnormality. URINARY BLADDER: Circumferential thickening of the bladder. PELVIC NODES: No pelvic lymphadenopathy. PELVIC ORGANS: Prostatomegaly. BONES: No acute fracture. Degenerative changes of the spine. OTHER: Negative. IMPRESSION: No nephrolithiasis or hydronephrosis. Prostatomegaly with circumferential wall thickening of the bladder, may represent chronic outlet obstruction. This document has been electronically signed by: Kusum Steward MD on 01/06/2025 19:21:33 Dictated By: Kusum Steward MD Signed By: <Electronically signed by Kusum Steward MD in OV> 01/06/251921 DD/ 20 TD/TT: 01/06/251920 Major Case Detective: Procedure Note Donotuseinterpreter, Image - 01/06/[address] [place] [id number] [address] Scan Report Signed Patient: Arjun Parkinson#: [id number] : 1970Acct:[id number] Age/Sex: 54 / MADM Date: 01/06/25 Loc: HO.ED Attending Dr: Ordering Physician: Antonino Marquez Date of Service: 01/06/25 Procedure(s): CT abdomen pelvis wo IV con Accession Number(s): [id number] cc: Antonino Marquez; [facility] Report Number: [id number]: Total DLP = 464.00 mGy-cm Reason for Exam: back pain, hematuria. kidney stones? CLINICAL HISTORY: back pain, hematuria. kidney stones? CT abdomen and pelvis without contrast Comparison: None provided Findings: LIMITED CHEST: Lung bases are clear. LIVER: No focal liver lesion. BILIARY: No gallbladder wall thickening, radiopaque stone, or ductal dilatation. PANCREAS: No mass or ductal dilatation. SPLEEN: No splenomegaly. KIDNEYS: No hydronephrosis or radiopaque stone. ADRENALS: No nodule. VASCULAR: No aneurysm. RETROPERITONEUM: No lymphadenopathy or mass. BOWEL/MESENTERY: No evidence of obstruction. No free fluid or air. ABDOMINAL WALL: No mass or significant abnormality. URINARY BLADDER: Circumferential thickening of the bladder. PELVIC NODES: No pelvic lymphadenopathy. PELVIC ORGANS: Prostatomegaly. BONES: No acute fracture. Degenerative changes of the spine. OTHER: Negative. IMPRESSION: No nephrolithiasis or hydronephrosis. Prostatomegaly with circumferential wall thickening of the bladder, may represent chronic outlet obstruction. This document has been electronically signed by: Kusum Steward MD on 01/06/2025 19:21:33 Dictated By: Kusum Steward MD Signed By: <Electronically signed by Kusum Steward MD in OV> 01/06/251921 DD/ 20 TD/TT: 01/06/251920 Major Case Detective: [facility] External Provider IMG CT PROCEDURES Final Result * Culture, Urine, Routine (01/06/2025 5:57 PM EDT) Urine Urine specimen obtained by clean catch procedure / Unknown 01/06/2025 5:57 PM EDT 01/06/2025 5:57 PM EDT Comment:[facility] Narrative [facility] - 01/08/2025 12:25 PM EDT Urine Culture No growth. Specimen Source: Urine clean catch Olivia Greenwood NP LAB MICROBIOLOGY - GENERAL ORDVadim SPEARS Final Result [facility] [address] [place] [phone] * (ABNORMAL) Urinalysis, Complete, with Reflex to Culture (01/06/2025 4:12 PM EDT) Only the most recent of2 resultswithin the time period is included. Color Urine Yellow [facility] Appearance Urine Clear [facility] PH 7.0 5.0 - 9.0 [facility] Glucose Urine UA >=1000(A) Negative mg/dL [facility] Urine Blood Moderate (2+)(A) Negative [facility] Specific [place] - Urine 1.020 1.005 - 1.025 [facility] Urine Protein Negative Neg-Trace mg/dL [facility] Urine Ketones Negative Negative mg/dL [facility] Nitrite Urine Negative Negative [facility] Leukocyte Esterase Urine Negative Negative [facility] RBC Urine >20(A) 0 - 2 /HPF [facility] Urine WBC 0-5 0 - 5 /HPF [facility] Urine Squamous Epithelial Cell 0-2 0 - 2 /HPF [facility] Urine Bacteria None Seen None Seen [facility] Hyaline Casts, Urine 0-2 0 - 2 /LPF [facility] 01/06/2025 4:12 PM EDT 01/06/2025 4:17 PM EDT Narrative [facility] - 01/06/2025 4:28 PM EDT [id number], Clean Catch us Generic External Data Provider LAB URINE ORDERAB LES Final Result [facility] [address] [place] [phone] * (ABNORMAL) CBC auto differential (01/06/2025 4:12 PM EDT) White Blood Count 5.9 4.8 - 10.8 X10*3/uL [facility] Red Blood Count 5.61 4.60 - 5.80 X10*6/uL [facility] Hemoglobin 16.7 14.0 - 18.0 g/dl [facility] Hematocrit 45.6 42.0 - 52.0 % [facility] Mean Corpuscular Volume 81.3 80.0 - 98.0 fL [facility] Mean Corpuscular Hemoglobin 29.8 27.0 - 33.0 pg [facility] Mean Corpuscular HGB Conc 36.6(H) 31.0 - 36.0 g/dl [facility] Red Cell Distribution Width 12.5 11.0 - 16.0 % [facility] Platelet Count 195 160 - 400 X10*3/uL [facility] Mean Platelet Volume 9.7 9.4 - 12.4 fL [facility] Neutrophils Percent Auto 64.3 45 - 73 % [facility] Imm Gran Pct Auto 0.2 0.0 - 0.4 % [facility] Lymphocytes Percent Auto 25.0 20 - 40 % [facility] Monocytes Percent Auto 8.9 2 - 11 % [facility] Eosinophils Percent Auto 1.3 0 - 4 % [facility] Basophils Percent Auto 0.3 0 - 2 % [facility] NRBC Pct Auto 0.0 0.0 - 0.2 /100WBC [facility] Neutrophils Absolute Auto 3.8 2.0 - 8.3 x10*3/uL [facility] Imm Gran Abs Auto 0.01 0.00 - 0.03 X10*3/uL [facility] Lymphocytes Absolute Auto 1.5 1.2 - 4.9 X10*3/uL [facility] Monocytes Absolute Auto 0.5 0.1 - 1.2 X10*3/uL [facility] Eosinophils Absolute Auto 0.1 0.0 - 0.4 X10*3/uL [facility] Basophils Absolute Auto 0.0 0.0 - 0.2 X10*3/uL [facility] NRBC Abs Auto 0.000 0.0 - 0.012 X10*3/uL [facility] 01/06/2025 4:12 PM EDT 01/06/2025 4:17 PM EDT us Generic External Data Provider LAB BLOOD ORDERAB LES Final Result Performing Organization Address [facility]/State/ZIP Co de Phone Number [facility] [address] [place], [place] [phone] * (ABNORMAL) Comprehensive Metabolic Panel (01/06/2025 4:12 PM EDT) Sodium 135 135 - 145 mmol/L [facility] Potassium 3.8 3.3 - 5.1 mmol/L [facility] Comment:Slight Hemolysis.Int erpret result with caution. Chloride 102 96 - 108 mmol/L [facility] Carbon Dioxide 28 22 - 29 mmol/L [facility] Anion Gap 9(L) 12 - 20 [facility] Urea Nitrogen (BUN) 18(H) 9 - 16 mg/dL [facility] Creatinine, Serum 1.11 0.5 - 1.4 mg/dL [facility] Creatinine Clr Calc Pharmacy 70.3 [facility] Comment:eGFR (calculated fro m the MDRD study equation) and eCrCl(calculated from the Cockcroft-Gault equation) are based ondifferent parameters and may not yield comparable results.If eCrCl result is absurd, please check patient'sheight/weight. Estimated Glomerular Filt Rate >60 [facility] Comment:Chronic Kidney Disea se: Estimated GFR < 60 mL/min/1.73r5Ugxyvd Kidney Disease: Estimated GFR < 15 mL/min/1.73m2 Glucose 247(H) 60 - 115 mg/dL [facility] Calcium 9.9 8.4 - 10.2 mg/dL [facility] Bilirubin, Total 0.7 0.0 - 1.0 mg/dL [facility] Aspartate Amino Transferase 36 5 - 37 U/L [facility] Comment:Slight Hemolysis.Int erpret result with caution. Alanine Aminotransferase 42(H) 0 - 40 U/L [facility] Total Protein 7.8 6.5 - 8.0 g/dL [facility] Albumin Level 4.7 3.5 - 5.0 g/dL [facility] Alkaline Phosphatase 74 39 - 117 U/L [facility] 01/06/2025 4:12 PM EDT 01/06/2025 4:17 PM EDT us Generic External Data Provider LAB BLOOD ORDERAB LES Final Result Performing Organization Address [facility] de Phone Number [facility] [address] [place] [address] [phone] * (ABNORMAL) Basic Metabolic Panel (01/06/2025 10:32 AM EDT) Only the most recent of2 resultswithin the time period is included. Sodium 136 135 - 145 mmol/L [facility] Potassium 4.2 3.3 - 5.1 mmol/L [facility] Chloride 102 96 - 108 mmol/L [facility] Carbon Dioxide 28 22 - 29 mmol/L [facility] Anion Gap 10(L) 12 - 20 [facility] Urea Nitrogen (BUN) 16 9 - 16 mg/dL [facility] Creatinine, Serum 1.08 0.5 - 1.4 mg/dL [facility] Estimated Glomerular Filt Rate >60 [facility] Comment:Chronic Kidney Disea se: Estimated GFR < 60 mL/min/1.88r9Sghxbs Kidney Disease: Estimated GFR < 15 mL/min/1.73m2 Glucose 215(H) 60 - 115 mg/dL [facility] Calcium 9.7 8.4 - 10.2 mg/dL [facility] Blood Venous blood specimen / Unknown 01/06/2025 10:32 AM EDT 01/06/2025 11:25 AM EDT us Olivia Greenwood LICENSE EXAMINER LAB BLOOD ORDERABLES Final Resu lt Performing Organization Address [facility] Co de Phone Number [facility] [address] [place] [phone] * (ABNORMAL) POCT Urinalysis (01/06/2025 9:53 AM [...] Media Lot # [id number] Lot# Expiration Date [id number] Urine 01/06/2025 9:53 AM EDT Olivia Greenwood NP POINT OF CARE TEST ENTER/EDIT O RDERABLES Final Result * Albumin, Random Urine W/Creatinine (01/01/2025 10:22 AM EDT) Creatinine, Urine 195.00 mg/dL [facility] Microalbumin Urine 56.0 mg/L [facility] Microalbum Creatinine Ratio Ur 28.7 <30 ug/mg cr [facility] Comment:Albumin/Creatinine R atio Reference Ranges: Normal: < 30 ug/mg creatinine Microalbuminuria: 30 - 300 ug/mg creatinineClinical Albuminuria: > 300 ug/mg creatinine 01/01/2025 10:2 2 AM EDT 01/01/2025 10:55 AM EDT Lisa Fraser MD LAB URINE ORDERAB LES Final Result [facility] [address] [place] [phone] * (ABNORMAL) Hepatic Function Panel (01/01/2025 10:22 AM EDT) Bilirubin, Total 0.7 0.0 - 1.0 mg/dL [facility] Bilirubin, Direct 0.2 0.0 - 0.5 mg/dL [facility] Aspartate Amino Transferase 45(H) 5 - 37 U/L [facility] Alanine Aminotransferase 48(H) 0 - 40 U/L [facility] Total Protein 7.4 6.5 - 8.0 g/dL [facility] Albumin Level 4.7 3.5 - 5.0 g/dL [facility] Alkaline Phosphatase 74 39 - 117 U/L [facility] 01/01/2025 10:2 2 AM EDT 01/01/2025 10:55 AM EDT us Lisa Fraser MD LAB BLOOD ORDERAB LES Final Result Performing Organization Address [facility] Co de Phone Number [facility] [address] [place] [phone] * (ABNORMAL) Lipid Panel, Standard (01/01/2025 10:22 AM EDT) Triglycerides 196(H) <150 mg/dL [facility] Comment:Desirable Triglyceri de: less than 150 mg/dLBorderline High Triglyceride 150-199 mg/dLHigh Triglyceride: 200-499 mg/dLVery High Triglyceride: greater than or equal to 5OO mg/dL Cholesterol 196 <200 mg/dL [facility] Comment:Desirable Cholestero l: less than 200 mg/dLBorderline High Cholesterol: 200-239 mg/dLHigh Cholesterol: greater than 239 mg/dL LDL Cholesterol Calculated 127(H) <100 mg/dL [facility] Comment:Desirable LDL: less than 100 mg/dLNear Optimal/Above Optimal LDL: 110- 129 mg/dLBorderline High LDL: 130-159 mg/dLHigh LDL: 160-189 mg/dLVery High LDL: greater than or equal to 190 mg/dL HDL Cholesterol 30(L) >40 mg/dL [facility] Comment:Desirable HDL: great er than 40 mg/dL Note: This HDL assay may give artificially low results in patients with liver disease. 01/01/2025 10:2 2 AM EDT 01/01/2025 10:55 AM EDT us Lisa Fraesr MD LAB BLOOD ORDERAB LES Final Result Performing Organization Address City/[facility]/ZIP Co de Phone Number [facility] [address] [place] [phone] * (ABNORMAL) POCT A1c (01/01/2025 9:41 AM EDT) Hemoglobin A1C 9.3(A) 4.0 - 5.7 % QC Media Lot # [id number] Lot# Expiration Date [id number] Blood 01/01/2025 9:41 AM EDT Lisa Fraser MD POINT OF CARE PRAKASH T ENTER/EDIT ORDERABLES Final Result * Automated Visual Field, Extended - OU - Both Eyes (12/30/2024 9:00 AM EDT) Narrative Gracie Ingram, OD - 01/08/2025 3:52 PM EDT VISUAL FIELD INTERPRETATION Visual Field Interpretation Test Details: Octopus G P Pulsar / 200 / TOP Reliability Indices: False positive errors OD: 0/8 OS: 0/8 False negative errors OD: 0/8 OS: 0/8 Statistical Indices: MS [src]: OD: 22.6 OS: 22.0 MD [< 2.0 src]: OD: -0.7 OS: -0.1 sLV [< 2.5 src]: OD: 1.5 OS: 1.6 Impression: Reason for testing: Glaucoma suspect both eyes secondary to large optic nerve cupping Test Reliability: Good reliability, no false positives or negatives in either eye Impression: Right: 1 focal shallow defect superiorly Left: Unremarkable field Progression: Right: Much improved field with almost total resolution of defects seen on 09/2024 exam. Left: Complete resolution of defect seen on 09/2024 exam. Management Plan: Low suspicion for glaucoma at this time. Will monitor with a dilated eye exam and updated OCT of the nerve in 6 months. Gracie Ingram OD OPHTH VISUAL FIELD Final Resu lt * Hepatitis C Antibody with Reflex to HCV, RNA, Quantitative, Real-Time PCR (01/12/2024 7:08 AM EDT) Hepatitis C Antibody Nonreactive Nonreactive [facility] Comment:Antibodies to HCV no t detected; does not exclude early acuteHCV infection. Blood Venous blood specimen / Unknown 01/12/2024 7:08 AM EDT 01/12/2024 7:08 AM EDT us Lisa Fraser MD LAB BLOOD ORDERAB LES Final Result Performing Organization Address [facility] Co de Phone Number [facility] LAB[facility] [address] [place] [address] [phone] * HIV-1/2 Antigen and Antibodies, Fourth Generation, with Reflexes (01/12/2024 7:08 AM EDT) [facility] HIV AB/AG Nonreactive Nonreactive [facility] Comment:HIV-1 p24 Ag and/or HIV-1/HIV-2 Ab not detected.A test result that is nonreactive does not exclude thepossibility of exposure to or infection with HIV-1 and/orHIV-2. Nonreactive results in this assay for individualswith prior exposure to HIV-1 and/or HIV-2 may be due toantigen and antibody levels that are below the limit ofdetection of this assay.[facility] HIV Ag/Ab Combo assay result andsupplemental assay results should be interpreted inconjunction with the patient's clinical presentation,history and other laboratory results. If the results areinconsistent with clinical evidence, additional testing issuggested to confirm the result. Blood Venous blood specimen / Unknown 01/12/2024 7:08 AM EDT 01/12/2024 7:08 AM EDT us Lisa Fraser MD LAB BLOOD ORDERAB LES Final Result Performing Organization Address City/[facility]/ZIP Co de Phone Number [facility] [address] [place] [address] [phone] from Last 3 Months or Most Recently Relevant to Health Maintenance Insurance [address] [place] [address] C3 Care Teams Cardiovascular Surgical Tech Relationship Specialty Start Date End Date Lisa Cantrell MD [address] [place] [address] PCP - General Internal Medicine 12/22/22 Angela Llamas PharmD [address] [place] [address] Pharmacist Pharmacy 01/01/25
--- OUTSIDE RECORDS SUMMARY | 2025-02-11 07:45 | XMS_ITS | Encounter Summary ---
Author Organization [employer] Address [address] [place] [address] [address] [place] [address] Care Team Providers Care Project Control Manager Name Role Phone Mark Brennan Primary Care Provider Unavail able Lisa Cantrell MD Primary Care Pro vider Angela Llamas PharmD Unavailable [phone]- [phone] Reason for Visit * Reason Onset Date Comments TP appt 05/18/2022 Encounter Details Date Type Department Care Team ([facility] Contact Info) Description 05/18/2022 Telephone [facility] [address] [place] [phone] Mark Brennan AGNP TP appt Social History [...] had a TP appt with new provider. Pattern Data Operator tried booking but schedule for provider was booked. Please contact pt at [phone] documented in this encounter Plan of Treatment Upcoming Encounters Date Type Department Care Team ([facility] Contact Info) Description 03/13/2025 9:00 AM EST Office Visit [facility] [address] [place] [address] Lisa Cantrell MD [address] [place] [address] 06/30/2025 9:00 AM EDT Office Visit [facility] [address] [place], [place] [phone] Gracie Ingram, OD [address] [place] [address] documented as of this encounter Visit Diagnoses Not on filedocumented in this encounter Care Teams Project Control Manager Relationship Specialty Start Date End Date Mark Brennan AGNP PCP - General Family Medicine 01/03/22 12/21/22 Lisa Cantrell MD [address] [place] [phone] PCP - General Internal Medicine 12/22/22 Angela Llamas, CarrieD [address] [place] [address] [phone] Pharmacist Pharmacy 01/01/25 documented as of this encounter
--- NOTE | 2025-02-11 08:04 | A.OFFVIS_ITS ---
Intake Visit Reasons: hematuria/ chronic bladder outlet obstruction Intake Note: Patient is present for HEMATURIA/ CHRONIC BLADDER OUTLET OBSTRUTION Urology Medication:ALFUZOSIN,FINASTERIDE Antibiotic Allergy:NONE Blood Thinner:NONE Crab Steamer Required: No Crab Steamer Name: Cliff Ayers Allergies No Known Allergies Allergy (Verified 02/11/25 08:18) Medication List - Last Reconciled 02/11/25 by HANNAH Gamez- alfuzosin ER 10 mg PO BEDTIME 90 days atorvastatin 20 mg PO DAILY blood sugar diagnostic (FreeStyle Lite Strips) As directed blood-glucose meter (FreeStyle Jericho Lite kit) As directed chlorthalidone 25 mg PO QAM cholecalciferol (vitamin D3) 125 mcg PO DAILY dulaglutide (Trulicity) mg subcut QWEEK empagliflozin (Jardiance) 25 mg PO QAM finasteride 5 mg PO DAILY 90 days ibuprofen 800 mg PO Q8H PRN insulin glargine (Lantus Solostar U-100 Insulin) 46 units (0.46 mL) subcut DAILY insulin lispro (Humalog KwikPen (U-100) Insulin) 15 units breakfast and lunch, 20 units dinner, 4 units hs snack subcut 4 times a day; lancets (FreeStyle Lancets) As directed losartan 50 mg PO DAILY nystatin-triamcinolone 100,000-0.1 unit/g-% 1 appl topical TID pen needle, diabetic (Pentips Pen Needle) 1 ea miscellaneous five times a day; PATIENT NEEDS APPOINTMENT FOR MORE REFILLS. sacubitril-valsartan 49-51 mg (Entresto) 1 tab PO BID HPI Comments Details: Arjun is a very pleasant 54-year-old Turkmen-speaking male patient of Dr. Erwin was accompanied by his partner at today's office visit. He has a past medical history of cardiac insufficiency, hypertension, hyperlipidemia, proteinuria, diabetes type 2 mellitus with hyperglycemia with long-term current use of insulin, and vitamin-D deficiency. He presents to the office today for follow-up of his gross hematuria. In discussion with the patient today he reports having seeked emergency room care services the beginning of January as he had been experiencing episodes of gross hematuria. He reports episodes lasted approximately 2 weeks. He reports shortly after ER visit he has not experienced any other bouts of gross hematuria. In review of patient's chart it does appear CT of the abdomen without IV contrast has been ordered and performed. These results were reviewed with the patient and his partner today. 01/25 no nephr olithiasis or hydronephrosis. Prostatomegaly with circumferential wall thickening of the bladder, may represent chronic outlet obstruction. Previously patient had been following up for his history of borderline elevated PSA at which time discussion regarding further treatment options with MRI of the prostate verses prostate biopsy verses surveillance monitoring verses trial of finasteride were discussed. Patient had previously been on finasteride and alfuzosin however it appears patient has not been seen in over a year and has since stopped taking these medications. In office urinalysis results reviewed with the patient today. No microscopic hematuria noted. We did discussed potential causes of gross hematuria as well as further workup to include in office cystoscopy. He denies any previous history of nicotine dependence and or workplace chemical exposure. We also discussed obtaining more recent PSA for further assessment evaluation. PSAs are as follows: 10/23 4.1, 10/23 3.9 % free prostate 18%, 03/25 2.5, 07/25 3.5, 10/24 2.1, 02/24 3.0 Previous workup for elevated PSA has included a retroperitoneal ultrasound that noted a prostate volume of approximately 80 mL. Patient had previously trialed Flomax with good improvement in lower urinary tract symptoms however had been experiencing retrograde ejaculation and has since been doing well with alfuzosin. When asked he denies urinary urgency, urinary frequency, incontinence, nocturia, hematuria, dysuria, foul smelling urine, changes to urinary stream, flank pain, fever, and or chills. Discussed at length importance of managing diabetes for improvement in lower urinary tract symptoms as well as overall health and well-being. He otherwise offers no other issues or concerns at this time. [facility] Medical History Cardiac insufficiency Essential hypertension Proteinuria Vitamin D deficiency Hyperlipidemia LDL goal <100 Type 2 diabetes mellitus with hyperglycemia, with long-term current use of insulin Surgical History No history of previous surgery Family History Father Cancer Mother Hypertension Paternal Uncle Cancer Diabetes Maternal Uncle Diabetes Cancer Paternal Aunt CVD (cardiovascular disease) Social History Household Members: Significant Other Alcohol intake: current Alcohol intake frequency: does not drink Patient Tobacco Use Status: Never used Tobacco Review of Systems Const Reports as per HPI Eyes Reports no additional complaints Card Reports as per HPI Resp Reports no additional complaints GI Reports no additional complaints Reports as per HPI Musc Reports no additional complaints Neuro Reports no additional complaints Psych Reports no additional complaints Endo Reports as per HPI Mode/Lymph Reports no additional complaints Aller/Immun Reports no additional complaints Physical Exam Const General: cooperative, healthy appearing, comfortable, no acute distress, well developed, alert and awake Orientation/consciousness: patient oriented x3 Limitations: language barrier HEENT Head: Yes normal to inspection, Yes normocephalic and Yes atraumatic Ears: hearing grossly normal bilaterally Eyes General: appearance normal, both eyes and all related structures Neck Neck: Yes normal visual inspection and Yes trachea midline Chest Chest palpation & inspection: normal inspection of the chest Resp Effort & Inspection: normal respiratory effort and able to speak in complete sentences Cardio Rate: regular rate GI Inspection: Yes normal to inspection General: Yes no CVA tenderness Back/Spine/Pelvis Back: no CVA tenderness Skin General skin exam: no rashes or lesions noted Neuro General: patient oriented x3 Extrem General: Yes normal to inspection Psych Appearance: grossly normal and well kempt Mental Status: mental status grossly normal Speech and movement: Normal speech and movement present and Clear speech present Affect: normal affect Attitude: cooperative Thought process: Normal thought process present Thought content: Normal thought content present Insight: Fair insight present (Psych) Judgement: Fair judgement present (Psych) Results AMB Urinalysis, Automated UA Leukoctes 0 Elizabeth/uL Last Edit by ALFONZO Bell on 02/11/25 08:24 UA Nitrite Negative Last Edit by ALFONZO Bell on 02/11/25 08:24 UA Urobilinogen 0.2 mg/dL Last Edit by ALFONZO Bell on 02/11/25 08:2 4 UA Protein 15 mg/dL Last Edit by ALFONZO Bell on 02/11/25 08:24 UA pH 6.0 Last Edit by ALFONZO Bell on 02/11/25 08:24 UA Blood 0 Yony/uL Last Edit by ALFONZO Blel on 02/11/25 08:24 UA Specific [place] 1.015 Last Edit by ALFONZO Bell on 02/11/25 08: 24 UA Ketone Negative Last Edit by ALFONZO Bell on 02/11/25 08:24 UA Bilirubin 0 mg/dL Last Edit by ALFONZO Bell on 02/11/25 08:24 UA Glucose 500 mg/dL Last Edit by ALFONZO Bell on 02/11/25 08:24 Results Reviewed Results Reviewed: Date of Service: 01/06/25 Procedure(s): CT abdomen pelvis wo IV con Findings: LIMITED CHEST: Lung bases are clear. LIVER: No focal liver lesion. BILIARY: No gallbladder wall thickening, radiopaque stone, or ductal dilatation. PANCREAS: No mass or ductal dilatation. SPLEEN: No splenomegaly. KIDNEYS: No hydronephrosis or radiopaque stone. ADRENALS: No nodule. VASCULAR: No aneurysm. RETROPERITONEUM: No lymphadenopathy or mass. BOWEL/MESENTERY: No evidence of obstruction. No free fluid or air. ABDOMINAL WALL: No mass or significant abnormality. URINARY BLADDER: Circumferential thickening of the bladder. PELVIC NODES: No pelvic lymphadenopathy. PELVIC ORGANS: Prostatomegaly. BONES: No acute fracture. Degenerative changes of the spine. OTHER: Negative. IMPRESSION: No nephrolithiasis or hydronephrosis. Prostatomegaly with circumferential wall thickening of the bladder, may represent chronic outlet obstruction. Assessment & Plan Assessment & Plan (1) Lower urinary tract symptoms: Code(s): R39.9 - Unspecified symptoms and signs involving the genitourinary system Category: Medical (2) Bladder trabeculation: Code(s): N32.89 - Other specified disorders of bladder Category: Medical (3) Bladder wall thickening: Code(s): N32.89 - Other specified disorders of bladder Category: Medical (4) Elevated PSA: Code(s): R97.20 - Elevated prostate specific antigen [PSA] Category: Medical (5) Enlarged prostate: Code(s): N40.0 - Benign prostatic hyperplasia without lower urinary tract symptoms Category: Medical (6) Gross hematuria: Code(s): R31.0 - Gross hematuria Category: Medical Plan In office urinalysis results reviewed with the patient today; as noted above; will send for urine cytology. We did discussed potential causes of gross hematuria as well as further workup in risks and benefits of these interventions. Most recent CT results reviewed with the patient today; as noted above. We did discussed importance of maintaining scheduled follow-up appointments to avoid delay and potential treatment. All questions were answered. We did discussed potential causes of elevated PSA, gross hematuria, enlarged prostate, and bladder trabeculations. He currently denies any bothersome urinary issues. We discussed obtaining more recent PSA for further assessment evaluation. Follow-up next available in office cystoscopy with lab to be completed prior; or sooner with any issues, concerns, and or questions. Orders: Orders AMB Urinalysis Automated Today Z13.9 - Encounter for screening, unspecified Urine Cytology Today R31.9 - Hematuria, unspecified PSA,Total (Free>4and<10) Today N40.0 - Benign prostatic hyperplasia without lower urinary tract symptoms, R97.20 - Elevated prostate specific antigen [PSA] Medications: Discontinued finasteride Discontinued Reason: Patient no longer taking 5 mg PO DAILY 90 days 90 tabs 1RF N40.1 - Benign prostatic hyperplasia with lower urinary tract symptoms, R33.9 - Retention of urine, unspecified alfuzosin ER Take before bedtime Discontinued Reason: Patient no longer taking 10 mg PO BEDTIME 90 days 90 tabs 2RF N32.0 - Bladder-neck obstruction, N40.1 - Benign prostatic hyperplasia with lower urinary tract symptoms, R33.9 - Retention of urine, unspecified, R35.1 - Nocturia, R39.12 - Poor urinary stream Coding Level of Care Code Est Pt Level 3 (42809) Complex EM visit Add On G2211 Diagnoses Lower urinary tract symptoms R39.9 Bladder trabeculation N32.89 Bladder wall thickening N32.89 Elevated PSA R97.20 Enlarged prostate N40.0 Gross hematuria R31.0
== END 2025-02-11 08:40 | disposition home or self-care (01) ==
LOC: HO.HUSH 07:42
PROVIDERS: PCP Student in an Organized Health Care Education/Training Program; Visit Provider Nurse Practitioner Family
DX: R39.9 Unspecified symptoms and signs involving the genitourinary system (principal); N32.89 Other specified disorders of bladder; R97.20 Elevated prostate specific antigen [PSA]; N40.0 Benign prostatic hyperplasia without lower urinary tract symptoms; R31.0 Gross hematuria; Z13.9 Encounter for screening, unspecified
CPT/HCPCS: 99213

== ENCOUNTER 2025-02-11 07:42 | Outpatient (REF) | payer MEDICAID, SELFPAY | END 2025-02-11 07:43 | disposition home or self-care (01) | LOC: HO.LAB 07:42 | PROVIDERS: PCP Student in an Organized Health Care Education/Training Program; Visit Provider Nurse Practitioner Family | DX: R39.9 Unspecified symptoms and signs involving the genitourinary system (principal); N32.89 Other specified disorders of bladder; R97.20 Elevated prostate specific antigen [PSA]; N40.0 Benign prostatic hyperplasia without lower urinary tract symptoms; R31.0 Gross hematuria; Z13.89 Encounter for screening for other disorder | CPT/HCPCS: 81003; 88112; 99212 ==

== ENCOUNTER 2025-02-14 08:34 | Outpatient (REF) | payer MEDICAID, SELFPAY ==
--- OUTSIDE RECORDS SUMMARY | 2025-02-14 08:46 | XMS_ITS | Encounter Summary ---
Author Organization [employer] Address [address] [place] [address] [place], [place] [address] Care Team Providers Care Engraver Letter Name Role Phone Lisa Cantrell MD Primary Care Pro vider Angela Llamas PharmD Unavailable [phone]- [phone] Encounter Details Date Type Department Care Team (Late st Contact Info) Description 01/01/2025 Results Follow-Up [facility] [address] [place] [address] Lisa Cantrell MD [address] [place] [address] POCT A1c Social History Tobacco Use Types [...] Description 03/13/2025 9:00 AM EST Office Visit [facility] [address] [place] [address] Lisa Cantrell MD [address] [place] [address] 06/30/2025 9:00 AM EDT Office Visit [facility] OPTOMET[facility] [address] [place] [address] Juan Jose, Gracie, OD [address] [place] [address] documented as of this encounter Visit Diagnoses Not on filedocumented in this encounter Additional Health Concerns Assessment Noted Time PHQ-9 Depression Total Score: 3 11/14/19 24 10:21 AM EDT documented as of this encounter Care Teams Engraver Letter Relationship Specialty Start Date End Date Lisa Cnatrell MD [address] [place] [phone] PCP - General Internal Medicine 12/22/22 Angela Llamas PharmD [address] [place] [address] Pharmacist Pharmacy 01/01/25 documented as of this encounter
--- OUTSIDE RECORDS SUMMARY | 2025-02-14 08:46 | XMS_ITS | Encounter Summary ---
Author Organization [employer] Address [address] [place] [address] Care Team Providers Care Police Detention Attendant Name Role Phone Lisa Cantrell MD Primary Care Pro vider Angela Llamas PharmD Unavailable [phone]- [phone] Encounter Details Date Type Department Care Team (Late st Contact Info) Description 01/01/2025 Results Follow-Up [facility] [address] [place] [address] Lisa Cantrell MD [address] [place] [address] Albumin, Random Urine W/Creatinine, Hepatic Function Panel, [...] Description 03/13/2025 9:00 AM EST Office Visit [facility] [address] [place] [address] Lisa Cantrell MD [address] [place], [place] [phone] 06/30/2025 9:00 AM EDT Office Visit [facility] OPT[facility] [address] [place] [address] Gracie Ingram, OD [address] [place] [address] documented as of this encounter Visit Diagnoses Not on filedocumented in this encounter Additional Health Concerns Assessment Noted Time PHQ-9 Depression Total Score: 3 11/14/19 24 10:21 AM EDT documented as of this encounter Care Teams Police Detention Attendant Relationship Specialty Start Date End Date Lisa Cantrell MD [address] [place] [address] [phone] PCP - General Internal Medicine 12/22/22 Angela Llamas, CarrieD [address] [place] [phone] Pharmacist Pharmacy 01/01/25 documented as of this encounter
--- OUTSIDE RECORDS SUMMARY | 2025-02-14 08:46 | XMS_ITS | Encounter Summary ---
Author Organization [employer] Address [address] [place] [address] [address] [place] [address] Care Team Providers Care Peach Grower Name Role Phone Lisa Cantrell MD Primary Care Pro vider Angela Llamas PharmD Unavailable [phone]- [phone] Reason for Visit * Reason Comments Med Refill Encounter Details Date Type Department Care Team (Late st Contact Info) Description 04/05/2023 Refill [facility] [address] [place] [address] Lisa Cantrell MD [address] [place], [place] [phone] Type 2 diabetes mellitus with hyperglycemia, with long-term current use of insulin ([facility]) Social History Tobacco Use Types Packs/Day Years [...] Description 03/13/2025 9:00 AM EST Office Visit [facility] [address] [place] [address] Lisa Cantrell MD [address] [place] [address] 06/30/2025 9:00 AM EDT Office Visit [facility] OPT[facility]ET[facility] [address] [place] [address] Juan Jose, Gracie, OD [address] [place] [address] documented as of this encounter Visit Diagnoses Diagnosis Type 2 diabetes mellitus with hyperglycemia, with long-term current use of insulin (HCC) documented in this encounter Additional Health Concerns Assessment Noted Time PHQ-9 Depression Total Score: 0 09/01/19 23 8:56 AM EDT documented as of this encounter Care Teams Peach Grower Relationship Specialty Start Date End Date Lisa Cantrell MD [address] [place] [phone] PCP - General Internal Medicine 12/22/22 Angela Llamas, Mark [address] [place] [phone] Pharmacist Pharmacy 01/01/25 documented as of this encounter
--- OUTSIDE RECORDS SUMMARY | 2025-02-14 08:46 | XMS_ITS | Encounter Summary ---
Author Organization [employer] Address [address] [place] [address] [address], [place] [address] Care Team Providers Care Digester Hand Name Role Phone Mark Brennan Primary Care Provider Unavail able Lisa Cantrell MD Primary Care Pro vider Angela Llamas PharmD Unavailable [phone]- [phone] Encounter Details Date Type Department Care Team (Late Contact Info) Description 07/08/2022 Orders Only [facility] [address] [place], [place] [phone] Danni Romero LPN Social History Tobacco Use [...] Description 03/13/2025 9:00 AM EST Office Visit [facility] [address] [place], [place] [phone] Lisa Cantrell MD [address] [place], [place] [phone] 06/30/2025 9:00 AM EDT Office Visit [facility] OPTOMETRY [address] [place], [place] [phone] Gracie Ingram, OD [address] [place] [address] documented as of this encounter Visit Diagnoses Not on filedocumented in this encounter Care Teams Digester Hand Relationship Specialty Start Date End Date Mark Brennan AGNP PCP - General Family Medicine 01/03/22 12/21/22 Lisa Cantrell MD [address] [place] [address] PCP - General Internal Medicine 12/22/22 Angela Llamas PharmD [address] [place], [place] [phone] Pharmacist Pharmacy 01/01/25 documented as of this encounter
--- OUTSIDE RECORDS SUMMARY | 2025-02-14 08:46 | XMS_ITS | Encounter Summary ---
Author Organization [employer] Address [address] [place] [address] [address], [place] [address] Care Team Providers Care Biometric Screener Name Role Phone Mark Brennan Primary Care Provider Unavail able Lisa Cantrell MD Primary Care Pro vider Angela Llamas PharmD Unavailable [phone] Reason for Visit * Reason Comments Med Refill Encounter Details Date Type Department Care Team (Late Contact Info) Description 07/08/2022 Refill [facility] [address] [place] [address] [phone] Cuca Richey FNP Social History Tobacco Use [...] Description 03/13/2025 9:00 AM EST Office Visit [facility] [address] [place] [phone] Lisa Cantrell MD [address] [place], [place] [phone] 06/30/2025 9:00 AM EDT Office Visit [facility] [address] [place], [place] [phone] Gracie Ingram, OD [address] [place] [address] documented as of this encounter Visit Diagnoses Not on filedocumented in this encounter Care Teams Biometric Screener Relationship Specialty Start Date End Date Mark Brennan AGNP PCP - General Family Medicine 01/03/22 12/21/22 Lisa Cantrell MD [address] [place], [place] [phone] PCP - General Internal Medicine 12/22/22 Angela Llamas PharmD [address] [place], [place] [phone] Pharmacist Pharmacy 01/01/25 documented as of this encounter
--- OUTSIDE RECORDS SUMMARY | 2025-02-14 08:47 | XMS_ITS | Clinical Summary ---
Author Organization [employer] Address [address] [place] [address] Care Team Providers Care Implementation Specialist Payroll Name Role Phone Lisa Cantrell MD Primary Care Pro vider Angela Llamas PharmD Unavailable [phone] Allergies Active Allergy Reactions Criticality Noted Date [...] hyperglycemia, with long-term current use of insulin ([facility]) INJECT 42 UNITS SUBCUTANEOUSLY EVERY [...] hyperglycemia, with long-term current use of insulin ([facility]) Inject 20 Units under the skin with breakfast, with lunch, and with evening meal. 15 mL 1 12/20/19 25 Active Tirzepatide (Mounjaro) 2.5 MG/0.5ML solution auto-injectorIndi cations:Diabetes mellitus type 2, insulin dependent ([facility]) Inject 2.5 mg under the [...] LDL-C. David SS et al. JUDD. 2013;310(19): 9166-3735 (http://education.iOmando.MedeFile International/faq/RTQ443) Chol/HDLC Ratio <5.0 (calc) 6.6 High 6.2 [...] of this month, F/up in one year. [facility] Dental home: [facility] dental advised. Constipation 08/17/2022 Assessment & Plan [...] Encounters Date Type Department Care Team Description 02/11/2025 Orders Only GENERIC EXTERNAL DATA DEPARTMENT Provider, Generic External Data 01/26/2025 Travel 01/13/2025 Telephone [facility] [address] [place] [phone] Lisa Cantrell MD 01/13/2025 Results Follow-Up [facility] [address] [facility] [place] [address] Olivia Greenwood NP POCT Urinalysis, Urinalysis, Complete, with Reflex to Culture, Basic Metabolic Panel 01/06/2025 9:00 AM EDT Office Visit [facility] [address] [place] [address] Olivia Greenwood NP Elevated blood pressure reading in office with diagnosis of hypertension (Primary Dx); Hematuria, unspecified type; Acute bilateral low back pain without sciatica 01/06/2025 Orders Only GENERIC EXTERNAL DATA DEPARTMENT Provider, Generic External Data 01/06/2025 Travel 01/01/2025 Results Follow-Up [facility] [address] [place] [address] Lisa Cantrell MD Albumin, Random Urine W/Creatinine, Hepatic Function Panel, Basic Metabolic Panel, Lipid Panel, Standard 01/01/2025 Results Follow-Up [facility] [address] [place] [address] Lisa Cantrell MD POCT A1c 01/01/2025 Orders Only [facility] [address] [place] [address] Lisa Cantrell MD 01/01/2025 Travel 12/30/2024 9:00 AM EDT Office Visit [facility] [address] [place] [address] Juan Jose, Gracie, OD Open angle with borderline findings, 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); Other disorders of optic disc, bilateral 12/30/2024 Travel 12/25/2024 Travel 12/23/2024 Travel 12/19/2024 Orders Only [facility] [address] [place] [address] Lisa Cantrell MD Type 2 diabetes mellitus with hyperglycemia, with long-term current use of insulin ([facility]) 12/18/2024 Refill [facility] [address] [place] [address] Lisa Cantrell MD Type 2 diabetes mellitus with hyperglycemia, with long-term current use of insulin ([facility]) 12/16/2024 Telephone [facility] [address] [place] [address] Lisa Cantrell MD chart prep 12/10/2024 Refill [facility] [address] [place], [place] [phone] Cristobal Brooks MD Routine adult health maintenance 11/26/2024 Refill [facility] [address] [place] [address] Swapna Pmientel MD 11/17/2024 Refill [facility] [address] [place] [address] Lisa Cantrell MD Type 2 diabetes mellitus with hyperglycemia, with long-term current use of insulin ([facility]) from Last 3 Months Immunizations [...] Description 03/13/2025 9:00 AM EST Office Visit [facility] [address] [place] [phone] Lisa Cantrell MD [address] [place], [place] [phone] 06/30/2025 9:00 AM EDT Office Visit [facility] [address] [place] [address] Gracie Ingram, OD [address] [place], [place] [phone] Health Maintenance Due Date Last Done Comments CT Colonography 1970 Colonoscopy 1969 Colorectal Cancer Screening 1969 FIT DNA/Cologuard 1969 FIT 1969 FOBT 1969 Sigmoidoscopy 1969 Diabetes: Foot Exam 1979 Alcohol/Substance Use Screening 1981 Hepatitis A Vaccines (1 of 2 - Risk 2-dose series) 1988 Hepatitis B Vaccines (1 of 3 - 19+ 3-dose series) 1988 RSV Patients and Patients Aged 60 years or older (1 - Risk 50-74 years 1-dose series) 2019 Depression Screening 11/13/2024 11/14/2023, 11/14/19 24 SDOH Screening 11/13/2024 11/14/2023 COVID-19 Vaccine ( season) 2024 01/18/2024, 03/05/2022, 09/29/2020, Additional history exists Influenza Vaccine (#1) 2024 , 03/08/2017, 04/22/2016, Additional history exists Diabetes: Hemoglobin A1C 04/03/20252 025, 01/12/2024, 11/14/2023, Additional history exists DTaP/Tdap/Td Vaccines (2 - Td or Tdap) 10/07/2025 10/08/2015 Disability Screening 10/24/2025 10/24/2024 Eye Exam 12/30/2025 12/30/2024, 09/03, 06/28/2024, Additional history exists Lipid Panel 01/01/2026 01/01/2025, 01/01, 08/18/2022, Additional history exists Tobacco Screening 01/08/2026 01/08/2025 Anal Pap 02/11/2026 02/11/2025 Zoster Vaccines Completed 10/06/2020, 05/13/2019 Pneumococcal Vaccine: 50+ Years Completed 11/14/2023, 09/07/2016 HIV Screening Completed 01/12/2024 Hepatitis C Screening Completed 01/12/2024 HIB Vaccines Aged Out No longer eligi [...] Procedure Name Priority Date/Time Associated Diagnosis Comments CYTOPATH-CELL ENHANCED Routine 5:[address] ABDOMEN PELVIS WO CONTRAST Routine 01/06/2025 [...] Recently Relevant to Health Maintenance Results * Cytopath-cell enhanced (02/11/2025 5:20 PM EST) 02/11/2025 5:20 PM EST 02/12/2025 11:34 AM EST [facility] - 02/13/2025 10:03 AM EST ----- ------- Name: Arjun Parkinson Age/Sex: 54/M : 1970 Unit#: [id number] Attend Dr: Melody [facility] Re02/11/25 Status: [facility] Disch: ----- ------- SPEC : [id number] RECD: 02/12/25 STATUS: SALVADOR RODRIGUEZ NUM: [id number] ELIOT: 02/11/25-[address]: Melody Stringer [facility] ENTERED: 02/12/25-1246 SP TYPE: Cytology OTHR DR: Lisa Cantrell MD ORDERED: Cyto-enhanced Diagnosis Urine: Atypical urothelial cells. See comment. COMMENT: Cellular specimen consisting of few atypical single urothelial cells, which are small/medium in size, have increased nuclear:cytoplasmic ratio and variable dark chromatin. The background has single urothelial cells with degenerative changes, squamous cells, acute inflammatory cells and red blood cells. Clinical History Hematuria, unspecified Material Received Urine Gross Description Received is 5 cc of clear yellow fluid from which a ThinPrep slide is prepared. IHC S/NG Disclaimer NOTE: Unless otherwise stated, all tissue is formalin-fixed and paraffin-embedded. Some or all of the immunohistochemical tests reported herein may have been developed and their performance characteristics determined by [facility]. They have not been cleared or approved by the U.S. Food and Drug Administration (FDA). However, the FDA has determined that such clearance or approval is not necessary. This laboratory is certified under the Clinical Laboratory Improvement Amendments of 1988 (CLIA) as qualified to perform high complexity clinical laboratory testing. Copies To: Melody Stringer [facility] [address] [place] [address] Dr. Aranda [address] [place] [address] [email or web address] Lisa Cantrell MD [address] [address] CONTINUED ON NEXT PAGE ----- ------- Name: Zafar PurvisArjun Age/Sex: 54/M : 1970 Unit#: [id number] Attend Dr: Melody String[facility] Re02/11/25 Status: DEP REF Location: [facility] Disch: ----- ------- SPEC : [id number] RECD: 02/12/25 STATUS: SALVADOR RODRIGUEZ NUM: [id number] ELIOT: 02/11/25-[address] [facility] [address]: Melody Stringer [facility] ENTERED: 02/12/25-1246 SP TYPE: Cytology OTHR DR: Lisa Cantrell MD ORDERED: Cyto-enhanced ----- ------- Signed (signature on file) Yariel Barros MD 02/13/25 1003 ----- ------- END OF REPORT us Generic External Data Provider LAB CYTOLOGY CHRISTINA SPEARS Final Result Performing Organization Address City/State/[facility] Co de Phone Number [facility] [address] [place] [phone] * CT Abdomen Pelvis w/o Contrast (01/06/2025 7:21 PM EDT) Anatomical Region Laterality Modality Body, Pelvis, Abdomen Computed T omography 01/06/2025 7:21 PM EDT Narrative 01/06/2025 7:22 PM EDT [address] [address] [address] Scan Report Signed Patient: Arjun Parkinson MR#: [id number] : 1970 Acct:[id number] Age/Sex: 54 / M ADM Date: 01/06/25 Loc: .ED Attending Dr: Ordering Physician: Antonino Marquez Date of Service: 01/06/25 Procedure(s): CT abdomen pelvis wo IV con Accession Number(s): [id number] cc: Antonino Marquez; [facility] Report Number: [id number]: Total DLP = 464.00 mGy-cm Reason for [...] This document has been electronically signed by: Topher Steward MD on 01/06/2025 19:21:33 Dictated By: Topher Steward MD Signed By: <Electronically signed by Topher Steward MD in OV> 01/06/251921 DD/ 20 TD/TT: 01/06/251920 Tread Booker: Procedure Note Donotuseinterpreter, Image - 01/06/[address] [place] [address] [address] Scan Report Signed Patient: Arjun Parkinson#: [id number] : 1970Acct:[id number] Age/Sex: 54 / MADM Date: 01/06/25 Loc: HO.ED Attending Dr: Ordering Physician: Antonino Marquez Date of Service: 01/06/25 Procedure(s): CT abdomen pelvis wo IV con Accession Number(s): [id number] cc: Antonino Marquez; [facility] Report Number: [id number]: Total DLP = 464.00 mGy-cm Reason for [...] This document has been electronically signed by: Tophre Steward MD on 01/06/2025 19:21:33 Dictated By: Topher Steward MD Signed By: <Electronically signed by Topher Steward MD in OV> 01/06/251921 DD/ 20 TD/TT: 01/06/251920 Tread Booker: [facility] External Provider IMG CT PROCEDURES Final Result * Culture, Urine, Routine (01/06/2025 5:57 PM EDT) Urine Urine specimen obtained by clean catch procedure / Unknown 01/06/2025 5:57 PM EDT 01/06/2025 5:57 PM EDT Comment:UACC Narrative [facility] - 01/08/2025 12:25 PM EDT Urine Culture No growth. Specimen Source: Urine clean catch Olivia Greenwood NP LAB MICROBIOLOGY - GENERAL CHRISTINA SPEARS Final Result [facility] [address] [place] [phone] * (ABNORMAL) Urinalysis, Complete, with Reflex to Culture (01/06/2025 4:12 PM EDT) Only the most recent of2 resultswithin the time period is included. Color Urine Yellow [facility] Appearance Urine Clear [facility] PH 7.0 5.0 - 9.0 [facility] Glucose Urine UA >=1000(A) Negative mg/dL [facility] Urine Blood Moderate (2+)(A) Negative [facility] Specific [place] - Urine 1.020 1.005 - 1.025 [facility] Urine Protein Negative Neg-Trace mg/dL [facility] Urine Ketones Negative Negative mg/dL [facility] Nitrite Urine Negative Negative [facility] Leukocyte Esterase Urine Negative Negative [facility] RBC Urine >20(A) 0 - 2 /HPF [facility] Urine WBC 0-5 0 - 5 /HPF [facility] Urine Squamous Epithelial Cell 0-2 0 - 2 /HPF [facility] Urine Bacteria None Seen None Seen [facility] Hyaline Casts, Urine 0-2 0 - 2 /LPF [facility] 01/06/2025 4:12 PM EDT 01/06/2025 4:17 PM EDT Narrative [facility] - 01/06/2025 4:28 PM EDT [id number], Clean Catch us Generic External Data Provider LAB URINE ORDERAB LES Final Result [facility] [address] [place] [phone] * (ABNORMAL) CBC auto differential (01/06/2025 4:12 PM EDT) White Blood Count 5.9 4.8 - 10.8 X10*3/uL [facility] Red Blood Count 5.61 4.60 - 5.80 X10*6/uL [facility] Hemoglobin 16.7 14.0 - 18.0 g/dl [facility] Hematocrit 45.6 42.0 - 52.0 % [facility] Mean Corpuscular Volume 81.3 80.0 - 98.0 fL [facility] Mean Corpuscular Hemoglobin 29.8 27.0 - 33.0 pg [facility] Mean Corpuscular HGB Conc 36.6(H) 31.0 - 36.0 g/dl [facility] Red Cell Distribution Width 12.5 11.0 - 16.0 % [facility] Platelet Count 195 160 - 400 X10*3/uL [facility] Mean Platelet Volume 9.7 9.4 - 12.4 fL [facility] Neutrophils Percent Auto 64.3 45 - 73 % [facility] Imm Gran Pct Auto 0.2 0.0 - 0.4 % [facility] Lymphocytes Percent Auto 25.0 20 - 40 % [facility] Monocytes Percent Auto 8.9 2 - 11 % [facility] Eosinophils Percent Auto 1.3 0 - 4 % [facility] Basophils Percent Auto 0.3 0 - 2 % [facility] NRBC Pct Auto 0.0 0.0 - 0.2 /100WBC [facility] Neutrophils Absolute Auto 3.8 2.0 - 8.3 x10*3/uL [facility] Imm Gran Abs Auto 0.01 0.00 - 0.03 X10*3/uL [facility] Lymphocytes Absolute Auto 1.5 1.2 - 4.9 X10*3/uL [facility] Monocytes Absolute Auto 0.5 0.1 - 1.2 X10*3/uL [facility] Eosinophils Absolute Auto 0.1 0.0 - 0.4 X10*3/uL [facility] Basophils Absolute Auto 0.0 0.0 - 0.2 X10*3/uL [facility] NRBC Abs Auto 0.000 0.0 - 0.012 X10*3/uL [facility] 01/06/2025 4:12 PM EDT 01/06/2025 4:17 PM EDT us Generic External Data Provider LAB BLOOD ORDERAB LES Final Result [facility] [address] [place] [phone] * (ABNORMAL) Comprehensive Metabolic Panel (01/06/2025 4:12 PM EDT) Sodium 135 135 - 145 mmol/L [facility] Potassium 3.8 3.3 - 5.1 mmol/L [facility] Comment:Slight Hemolysis.Int erpret result with caution. Chloride 102 96 - 108 mmol/L [facility] Carbon Dioxide 28 22 - 29 mmol/L [facility] Anion Gap 9(L) 12 - 20 [facility] Urea Nitrogen (BUN) 18(H) 9 - 16 mg/dL [facility] Creatinine, Serum 1.11 0.5 - 1.4 mg/dL [facility] Creatinine Clr Calc Pharmacy 70.3 [facility] Comment:eGFR (calculated fro m the MDRD study equation) and eCrCl(calculated from the Cockcroft-Gault equation) are based ondifferent parameters and may not yield comparable results.If eCrCl result is absurd, please check patient'sheight/weight. Estimated Glomerular Filt Rate >60 [facility] Comment:Chronic Kidney Disea se: Estimated GFR < 60 mL/min/1.22b2Taobql Kidney Disease: Estimated GFR < 15 mL/min/1.73m2 Glucose 247(H) 60 - 115 mg/dL [facility] Calcium 9.9 8.4 - 10.2 mg/dL [facility] Bilirubin, Total 0.7 0.0 - 1.0 mg/dL [facility] Aspartate Amino Transferase 36 5 - 37 U/L [facility] Comment:Slight Hemolysis.Int erpret result with caution. Alanine Aminotransferase 42(H) 0 - 40 U/L [facility] Total Protein 7.8 6.5 - 8.0 g/dL [facility] Albumin Level 4.7 3.5 - 5.0 g/dL [facility] Alkaline Phosphatase 74 39 - 117 U/L [facility] 01/06/2025 4:12 PM EDT 01/06/2025 4:17 PM EDT us Generic External Data Provider LAB BLOOD ORDERAB LES Final Result [facility] [address] [place] [phone] * (ABNORMAL) Basic Metabolic Panel (01/06/2025 10:32 AM EDT) Only the most recent of2 resultswithin the time period is included. Sodium 136 135 - 145 mmol/L [facility] Potassium 4.2 3.3 - 5.1 mmol/L [facility] Chloride 102 96 - 108 mmol/L [facility] Carbon Dioxide 28 22 - 29 mmol/L [facility] Anion Gap 10(L) 12 - 20 [facility] Urea Nitrogen (BUN) 16 9 - 16 mg/dL [facility] Creatinine, Serum 1.08 0.5 - 1.4 mg/dL [facility] Estimated Glomerular Filt Rate >60 [facility] Comment:Chronic Kidney Disea se: Estimated GFR < 60 mL/min/1.16t9Wmhkoo Kidney Disease: Estimated GFR < 15 mL/min/1.73m2 Glucose 215(H) 60 - 115 mg/dL [facility] Calcium 9.7 8.4 - 10.2 mg/dL [facility] Blood Venous blood specimen / Unknown 01/06/2025 10:32 AM EDT 01/06/2025 11:25 AM EDT us Olivia Greenwood NP LAB BLOOD ORDERABLES Final Resu lt [facility] [address] [place] [phone] * (ABNORMAL) POCT Urinalysis (01/06/2025 9:53 [...] Date 63,026 Urine 01/06/2025 9:53 AM EDT us Olivia Appram [facility]HO[facility] [employer] [employer] POINT OF CARE TEST ENTER/EDIT O RDERABLES Final Result * Albumin, Random Urine W/Creatinine (01/01/2025 10:22 AM EDT) Creatinine, Urine 195.00 mg/dL [facility] Microalbumin Urine 56.0 mg/L [facility] Microalbum Creatinine Ratio Ur 28.7 <30 ug/mg cr [facility] Comment:Albumin/Creatinine R atio Reference Ranges: Normal: < 30 ug/mg creatinine Microalbuminuria: 30 - 300 ug/mg creatinineClinical Albuminuria: > 300 ug/mg creatinine 01/01/2025 10:2 2 AM EDT 01/01/2025 10:55 AM EDT us Lisa Fraser MD LAB URINE ORDERAB LES Final Result Performing Organization Address [facility] Co de Phone Number [facility] [address] [place] [phone] * (ABNORMAL) Hepatic Function Panel (01/01/2025 10:22 AM EDT) Bilirubin, Total 0.7 0.0 - 1.0 mg/dL [facility] Bilirubin, Direct 0.2 0.0 - 0.5 mg/dL [facility] Aspartate Amino Transferase 45(H) 5 - 37 U/L [facility] Alanine Aminotransferase 48(H) 0 - 40 U/L [facility] Total Protein 7.4 6.5 - 8.0 g/dL [facility] Albumin Level 4.7 3.5 - 5.0 g/dL [facility] Alkaline Phosphatase 74 39 - 117 U/L [facility] 01/01/2025 10:2 2 AM EDT 01/01/2025 10:55 AM EDT us Lisa Fraser MD LAB BLOOD ORDERAB LES Final Result Performing Organization Address [facility] Co de Phone Number [facility] [address] [place] [phone] * (ABNORMAL) Lipid Panel, Standard (01/01/2025 10:22 AM EDT) Triglycerides 196(H) <150 mg/dL [facility] Comment:Desirable Triglyceri de: less than 150 mg/dLBorderline High Triglyceride 150-199 mg/dLHigh Triglyceride: 200-499 mg/dLVery High Triglyceride: greater than or equal to 5OO mg/dL Cholesterol 196 <200 mg/dL [facility] Comment:Desirable Cholestero l: less than 200 mg/dLBorderline High Cholesterol: 200-239 mg/dLHigh Cholesterol: greater than 239 mg/dL LDL Cholesterol Calculated 127(H) <100 mg/dL [facility] Comment:Desirable LDL: less than 100 mg/dLNear Optimal/Above Optimal LDL: 110- 129 mg/dLBorderline High LDL: 130-159 mg/dLHigh LDL: 160-189 mg/dLVery High LDL: greater than or equal to 190 mg/dL HDL Cholesterol 30(L) >40 mg/dL [facility] Comment:Desirable HDL: great er than 40 mg/dL Note: This HDL assay may give artificially low results in patients with liver disease. 01/01/2025 10:2 2 AM EDT 01/01/2025 10:55 AM EDT us Lisa Fraser MD LAB BLOOD ORDERAB LES Final Result [facility] [address] [place] [phone] * (ABNORMAL) POCT A1c (01/01/2025 9:41 AM EDT) Hemoglobin A1C 9.3(A) 4.0 - 5.7 % QC Media Lot # [id number] Lot# Expiration Date [id number] Blood 01/01/2025 9:41 AM EDT us Lisa Fraser MD POINT OF CARE PRAKASH T ENTER/EDIT ORDERABLES Final Result * Automated Visual Field, Extended - OU - Both Eyes (12/30/2024 9:00 AM EDT) Gracie Jennings, OD - 01/08/2025 3:52 PM EDT VISUAL [...] OCT of the nerve in 6 months. us Gracie Ingram OD OPHTH VISUAL FIELD Final Resu lt * Hepatitis C Antibody with Reflex to HCV, RNA, Quantitative, Real-Time PCR (01/12/2024 7:08 AM EDT) Hepatitis C Antibody Nonreactive Nonreactive [facility] Comment:Antibodies to HCV no t detected; does not exclude early acuteHCV infection. Blood Venous blood specimen / Unknown 01/12/2024 7:08 AM EDT 01/12/2024 7:08 AM EDT us Lisa Fraser MD LAB BLOOD ORDERAB LES Final Result [facility] [address] [place] [phone] * HIV-1/2 Antigen and Antibodies, Fourth Generation, with Reflexes (01/12/2024 7:08 AM EDT) HIV AB/AG Nonreactive Nonreactive [facility] Comment:HIV-1 p24 Ag and/or HIV-1/HIV-2 Ab not detected.A test result that is nonreactive does not exclude thepossibility of exposure to or infection with HIV-1 and/orHIV-2. Nonreactive results in this assay for individualswith prior exposure to HIV-1 and/or HIV-2 may be due toantigen and antibody levels that are below the limit ofdetection of this assay.The Neuralieve HIV Ag/Ab Combo assay result andsupplemental assay results should be interpreted inconjunction with the patient's clinical presentation,history and other laboratory results. If the results areinconsistent with clinical evidence, additional testing issuggested to confirm the result. Blood Venous blood specimen / Unknown 01/12/2024 7:08 AM EDT 01/12/2024 7:08 AM EDT us Lisa Fraser MD LAB BLOOD ORDERAB LES Final Result [facility] [address] [place] [phone] from Last 3 Months or Most Recently Relevant to Health Maintenance Insurance [facility] C3 Care Teams Implementation Specialist Payroll Relationship Specialty Start Date End Date Lisa Cantrell MD [address] [place] [phone] PCP - General Internal Medicine 12/22/22 Angela Llamas, CarrieD [address] [place] [phone] Pharmacist Pharmacy 01/01/25
--- OUTSIDE RECORDS SUMMARY | 2025-02-14 08:47 | XMS_ITS | Encounter Summary ---
Author Organization [employer] Address [address] [facility] [address] [place] [address] Care Team Providers Care Concrete Pourer Name Role Phone Lisa Cantrell MD Primary Care Pro vider Angela Llamas PharmD Unavailable [phone] Encounter Details Date Type Department Care Team (Late st Contact Info) Description 02/11/2025 Orders Only GENERIC EXTERNAL DATA DEPARTMENT Provider, Generic External Data Social History Tobacco Use Types Packs/Day Years [...] Description 03/13/2025 9:00 AM EST Office Visit [facility] [address] [place] [address] Lisa Cantrell MD [address] [place] [address] 06/30/2025 9:00 AM EDT Office Visit [facility] [address] [place] [address] Gracie Ingram, OD [address] [place] [address] documented as of this encounter Procedures Procedure Name Priority Date/Time Associated Diagnosis Comments CYTOPATH-CELL ENHANCED Routine 02/11/2025 5:20 PM EST documented in this encounter Results * Cytopath-cell enhanced (02/11/2025 5:20 PM EST) 02/11/2025 5:20 PM EST 02/12/2025 11:34 AM EST [facility] - 02/13/2025 10:03 AM EST ----- ------- Name: Arjun Parkinson Age/Sex: 54/M : 1970 Unit#: [id number] Attend Dr: Melody StringerPJessica Re02/11/25 Status[facility] Disch: ----- ------- SPEC : [id number] RECD: 02/12/25 STATUS: CLARENCEDewayne MICHAEL NUM: [id number] ELIOT: 02/11/25-[address] [facility] [address]: Melody String[facility] ENTERED: 02/12/25-1246 SP TYPE: Cytology OT DR: Lisa Cantrell MD ORDERED: Cyto-enhanced Diagnosis [...] developed and their performance characteristics determined by [facility]. They have not been cleared or approved by the U.S. Food and Drug Administration (FDA). However, the FDA has determined that such clearance or approval is not necessary. This laboratory is certified under the Clinical Laboratory Improvement Amendments of 1988 (CLIA) as qualified to perform high complexity clinical laboratory testing. Copies To: Melody Stringer [facility] [address] [place] [address] [address] [place] [address] [email or web address] Lisa Cantrell MD [address] [address] CONTINUED ON NEXT PAGE ----- ------- Name: Arjun Parkinson Age/Sex: 54/M : 1970 Unit#: [id number] Attend Dr: Melody Stringer [facility] Re02/11/25 Status: DEP REF Location: .LAB Disch: ----- ------- SPEC : [id number] RECD: 02/12/25-1133 STATUS: SALVADOR RODRIGUEZ NUM: [id number] ELIOT: 02/11/25-[address] [facility] [address]: Melody Stringer [facility] ENTERED: 02/12/25-1246 SP TYPE: Cytology OTHR DR: Lisa Cantrell MD ORDERED: Cyto-enhanced ----- ------- Signed (signature on file) Yariel Barros MD 02/13/25 1003 ----- ------- END OF REPORT us Generic External Data Provider LAB CYTOLOGY CHRISTINA SPEARS Final Result [facility] [address] [place] [address] [phone] documented in this encounter Visit Diagnoses Not on filedocumented in this encounter Additional Health Concerns Assessment Noted Time PHQ-9 Depression Total Score: 3 11/14/19 24 10:21 AM EDT documented as of this encounter Care Teams Concrete Pourer Relationship Specialty Start Date End Date Lisa Cantrell MD [address] [place] [address] PCP - General Internal Medicine 12/22/22 Angela Llamas PharmD [address] [place] [address] Pharmacist Pharmacy 01/01/25 documented as of this encounter
--- OUTSIDE RECORDS SUMMARY | 2025-02-14 08:47 | XMS_ITS | Encounter Summary ---
Author Organization [employer] Address [address] [place] [address] [address] [place] [address] Care Team Providers Care Cds Sales Advisor Name Role Phone Mark Brennan Primary Care Provider Unavail able Lisa Cantrell MD Primary Care Pro vider Angela Llamas PharmD Unavailable [phone] Reason for Visit * Reason Onset Date Comments TP appt 05/18/2022 Encounter Details Date Type Department Care Team ([facility] Contact Info) Description 05/18/2022 Telephone [facility] [address] [place] [phone] Mark Brennan AGNP TP appt Social History [...] had a TP appt with new provider. 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 Please contact pt at [phone] documented in this encounter Plan of Treatment Upcoming Encounters Date Type Department Care Team ([facility] Contact Info) Description 03/13/2025 9:00 AM EST Office Visit [facility] [address] [place] [address] Lisa Cantrell MD [address] [place] [address] 06/30/2025 9:00 AM EDT Office Visit [facility] OPTOMETRY [address] [place], [place] [phone] Gracie Ingram, OD [address] [place] [address] documented as of this encounter Visit Diagnoses Not on filedocumented in this encounter Care Teams Cds Sales Advisor Relationship Specialty Start Date End Date Mark Brennan AGNP PCP - General Family Medicine 01/03/22 12/21/22 Lisa Cantrell MD [address] [place] [id number] PCP - General Internal Medicine 12/22/22 Angela Llamas, CarrieD [address] [place] [address] [phone] Pharmacist Pharmacy 01/01/25 documented as of this encounter
[2025-02-14 11:16] LABS: PSA,Total (Free>4and<10) 4.84 ng/mL (0.00-4.00)
[2025-02-18 13:08] LABS: Free Prostate Spec Ag 0.6 ng/mL; Percent Free Prostate Spec Ag 13 % (calc) (>25)
== END 2025-02-14 08:35 | disposition home or self-care (01) ==
LOC: HO.10HDL 08:34
PROVIDERS: Visit Provider Nurse Practitioner Family
DX: R97.20 Elevated prostate specific antigen [PSA] (principal); N40.0 Benign prostatic hyperplasia without lower urinary tract symptoms
CPT/HCPCS: 36415; 84153; 84154

== ENCOUNTER 2025-03-13 10:36 | Outpatient (REF) | payer MEDICAID, SELFPAY ==
[2025-03-13 14:09] LABS: MANUAL DIFF FLAG NO
[2025-03-13 14:12] LABS: Hematocrit 49.2 % (42.0-52.0); Hemoglobin 17.3 g/dl (14.0-18.0); Imm Gran Abs Auto 0.01 X10*3/uL (0.00-0.03); Imm Gran Pct Auto 0.2 % (0.0-0.4); Lymphocytes Absolute Auto 1.7 X10*3/uL (1.2-4.9); Mean Corpuscular HGB Conc 35.2 g/dl (31.0-36.0); Mean Corpuscular Hemoglobin 29.1 pg (27.0-33.0); Mean Corpuscular Volume 82.8 fL (80.0-98.0); NRBC Abs Auto 0.000 X10*3/uL (0.0-0.012); NRBC Pct Auto 0.0 /100WBC (0.0-0.2); Platelet Count 189 X10*3/uL (160-400); Red Blood Count 5.94 X10*6/uL (4.60-5.80); White Blood Count 5.9 X10*3/uL (4.8-10.8)
[2025-03-13 14:43] LABS: Alanine Aminotransferase 38 U/L (0-40); Albumin Level 4.8 g/dL (3.5-5.0); Alkaline Phosphatase 77 U/L (39-117); Anion Gap 10 (12-20); Aspartate Amino Transferase 39 U/L (5-37); Blood Urea Nitrogen 14 mg/dL (9-16); Calcium 10.0 mg/dL (8.4-10.2); Carbon Dioxide 28 mmol/L (22-29); Chloride 104 mmol/L (96-108); Cholesterol 207 mg/dL (<200); Estimated Glomerular Filt Rate > 60; HDL Cholesterol 30 mg/dL (>40); Potassium 4.2 mmol/L (3.3-5.1); Sodium 138 mmol/L (135-145); Total Protein 7.7 g/dL (6.5-8.0); Triglycerides 180 mg/dL (<150)
[2025-03-13 14:47] LABS: Microalbum/Creatinine Ratio Ur 20.1 ug/mg cr (<30)
[2025-03-13 14:59] LABS: Folate 12.0 ng/mL (> or = 4.0); Prostate Specific Antigen 5.17 ng/mL (<0.05-4.0); Vitamin B12 332 pg/mL (200-900)
[2025-03-13 15:21] LABS: CT PCR Urine NOT DETECTED (Not Detect.); NG PCR Urine NOT DETECTED (Not Detect.)
[2025-03-14 08:03] LABS: HBc Num1 7.30 S/CO (0.00-0.79); HBsAGNum1 0.47 S/CO (0.00-0.99); HIV Num 1 0.08 S/CO (0.00-0.99); Hepatitis B Surface Antigen Negative (Negative); ~HepC Num1 0.20 S/CO (0.00-0.79); ~Hepatitis B Surface Antibody REACTIVE (Nonreactive); ~Hepatitis C Antibody Nonreactive (Nonreactive)
[2025-03-14 08:07] LABS: Syphilis Screen Nonreactive (Nonreactive)
[2025-03-14 09:41] LABS: HBc Num2 7.85 S/CO; HBc Num3 7.63 S/CO
== END 2025-03-13 10:37 | disposition home or self-care (01) ==
LOC: HO.HHCL 10:36
PROVIDERS: PCP Student in an Organized Health Care Education/Training Program; Visit Provider Student in an Organized Health Care Education/Training Program
DX: Z00.00 Encounter for general adult medical examination without abnormal findings (principal); Z20.2 Contact with and (suspected) exposure to infections with a predominantly sexual mode of transmission; Z11.4 Encounter for screening for human immunodeficiency virus [HIV]; Z11.59 Encounter for screening for other viral diseases
CPT/HCPCS: 36415; 80053; 80061; 82043; 82306; 82570; 82607; 82746; 83036; 84153; 84443; 85025; 86704; 86706; 86780; 86803; 87340; 87389; 87491; 87591; 88112

== ENCOUNTER 2025-03-23 07:27 | Emergency (ER) | payer MEDICAID, SELFPAY ==
--- OUTSIDE RECORDS SUMMARY | 2025-03-13 09:00 | XMS_ITS | Encounter Summary ---
Author Organization [employer] Address [address] [place] [address] Care Team Providers Care Silver Hollow[employer] Assembler Name Role Phone Lisa Cantrell MD Primary Care Pro vider Angela Llamas PharmD Unavailable [phone]- [phone] Reason for Referral * (Routine) - Authorized Specialty Diagnoses / Procedures Referred By Contac t Referred To Contact Diagnoses Encounter for immunization Procedures FLU VACCINE TRIVALENT [id number] (Fluarix) 19 yrs + Lisa Cantrell MD [address] [place] [phone] Phone: tel: fax: Referral ID Status Reason Start Date Expiration Date V isits Requested Visits Authorized [id number] Authorized 03/13/2025 03/13/2026 1 1 * (Routine) - Authorized Specialty Diagnoses / Procedures Referred By Contac t Referred To Contact Diagnoses Encounter for immunization Procedures COVID-19 VACCINE [id number] (Comirnaty) 12 yrs to 18 yrs Lisa Cantrell MD [address] [place] [address] Phone: tel: fax: Referral ID Status Reason Start Date Expiration Date V isits Requested Visits Authorized [id number] Authorized 03/13/2025 03/13/2026 1 1 * Consultation (Routine) - Closed Specialty Diagnoses / Procedures Referred By Isabel t Referred To Contact Pharmacy Diagnoses Diabetes mellitus type 2, insulin dependent (HCC) Hypertension, unspecified type Lisa Cantrell MD [address] [place] [phone] Phone: tel: fax: Referral ID Status Reason Start Date Expiration Date V isits Requested Visits Authorized [id number] Closed Continuity of Care 03/13/2025 03/13/2026 6 6 Encounter Details Date Type Department Care Team (Late st Contact Info) Description 03/13/2025 9:00 AM EST Office Visit [facility] [address] [place] [phone] Lisa Cantrell MD [address] [place] [address] [phone] Hypertension, unspecified type (Primary Dx); Diabetes mellitus type 2, insulin dependent (HCC); Mixed hyperlipidemia; Type 2 diabetes mellitus with hyperglycemia, with long-term current use of insulin (HCC); Dietary counseling; Exercise counseling; Cardiomyopathy, unspecified type (CMS/HCC) (HCC); Annual physical exam; Encounter for immunization; Essential hypertension; Overweight (BMI 25.0-29.9); Benign prostatic hyperplasia (BPH) with straining on urination; Routine adult health maintenance; Family history of cancer; Poor memory; Hematuria, unspecified type; Type 2 diabetes mellitus with diabetic microalbuminuria, with long-term current use of insulin (HCC) Social History Tobacco Use Types Packs/Day Years Used Date Smoking Tobacco: Never Passive Smoke Exposure: Never Smokeless Tobacco: Never Tobacco Cessation:Counseling Given: Not Answered Alcohol Use Standard Drinks/Week Comments Yes 0 (1 standard drink = 0.6 oz pur e alcohol) occasionally Depression Answer Date Recorded Patient Health Questionnaire-9 Score 0 03/13/2025 Patient Health Questionnaire-9 Score 0 03/13/2025 Last PHQ-9: Questionnaire Data Not on file 1 05/14/2024 Housing Stability Answer Date Recorded What is your housing situation today? I have cammy owens 03/13/[address] you li ve. Do you have problems with any of the following? None of the above 03/13/2025 Food Insecurity Answer Date Recorded Within the past 12 months, y ou worried that your food would run out before you got money to buy more: Never True 03/13/2025 Within the past 12 months,th e food you bought just didn't last and you didn't have enough money to get more: Never True 02/2025 Transportation Answer Date Recorded In the past 12 months, has l ack of transportation kept you from medical appts, meetings, work or from getting things needed for daily living? No 03/13/2025 Utilities Answer Date Recorded In the past 12 months, has t he electric, gas, oil or water company threatened to shut off services in your home? No 03/13/2025 Depression Answer Date Recorded Patient Health Questionnaire-2 Score 0 03/13/2025 Internet Access Answer Date Recorded Internet Access Q1 Yes 03/13/2025 Internet Access Q2 Not on file 03/13/2025 Sex and Gender Information Value Date Recorded Sex Assigned at Male 01/31/2022 10:17 AM EDT Legal Sex Male 10:17 AM EDT Gender Identity Male 01/31/2022 10:17 AM EDT Sexual Orientation Rose 11/14/2023 10 :51 AM EDT documented as of this encounter Last Filed Vital Signs Vital Sign Reading Time Taken Comments Blood Pressure 134/64 03/13/2025 9:06 AM EST Pulse 93 03/13/2025 9:06 AM EST Temperature 36.2 C (97.1 F) 03/13/2025 9:06 AM EST Respiratory Rate 20 03/13/2025 9:06 AM EST Oxygen Saturation 97% 03/13/2025 9:06 AM EST Inhaled Oxygen Concentration - - Weight 77.8 kg (171 lb 9.6 oz) 03/13/2025 9:06 A M EST Height 167.6 cm (5' 6 ) 03/13/2025 9:06 AM EST Body Mass Index 27.7 03/13/2025 9:06 AM EST documented in this encounter Functional Status * Over the past 2 weeks, how often have you been bothered by any of the following problems? Question Answer Date of Assessment Author Patient Health Questionnaire -2 Score 0 03/13/2025 9:07 AM Jaymie Taylor MA * Little interest or pleasure in doing things Answer Date of Assessment Author Not at all 03/13/2025 9:07 AM Misbah Taylor MA * Feeling down, depressed, or hopeless Answer Date of Assessment Author Not at all 03/13/2025 9:07 AM Misbah Taylor MA * Trouble falling or staying asleep, or sleeping too much Answer Date of Assessment Author Not at all 03/13/2025 9:07 AM Misbah Taylor MA * Feeling tired or having little energy Answer Date of Assessment Author Not at all 03/13/2025 9:07 AM Misbah Taylor MA * Poor appetite or overeating Answer Date of Assessment Author Not at all 03/13/2025 9:07 AM Misbah Taylor MA * Feeling bad about yourself - or that you are a failure or have let yourself or your family down Answer Date of Assessment Author Not at all 03/13/2025 9:07 AM Misbah Taylor MA * Trouble concentrating on things, such as reading the newspaper or watching television Answer Date of Assessment Author Not at all 03/13/2025 9:07 AM Misbah Taylor MA * Moving or speaking so slowly that other people could have noticed? Or the opposite - being so fidgety or restless that you have been moving around a lot more than usual. Answer Date of Assessment Author Not at all 03/13/2025 9:07 AM Misbah Taylor MA * Thoughts that you would be better off or hurting yourself in some way Answer Date of Assessment Author Not at all 03/13/2025 9:07 AM Misbah Taylor MA * Patient Health Questionnaire-9 Score Answer Date of Assessment Author 0 03/13/2025 9:07 AM Misbah Taylor MA documented as of this encounter Progress Notes * Lisa Fraser MD - 03/13/2025 9:00 AM EST Subjective Patient ID: Arjun Purvis is a 54 y.o. male who presents for Annual exam HPI 54 y o M From [place] ( lives in [place] for [place]) w PMX of HTN, DM2 -insulin dep,HLD, BPH,hx of cardiomyopathy?, GERD Comes for annual exam Lost care w me for the past year Reports ongoing constipation ,states taking OTC meds that can not specify ,has not done GI referralsent already twice Report chronic urinary strain and previous episode of hematuria ,already following with urologist Pt is very non compliant with all his meds ,Today states not taking statins, losartan ,metformin , Mounjaro,jardiance was stopped by CD States uses insulin 20 u TID but denies checking consistently CBGS prior injecting ,sometimes at least s recalls 6 episodes w low Gl in 60s after doing that . Pt seen at [facility] but now refuse to continue ------ Assessment and Plan: Health care maintenance -Annual exam done 03/2025 -PSA 01/2024 wnl -Colonoscopy never-referred for constipation and screening of colon ca--gave today information to pt to call for apt -referred for 2nd time in 10/2024 -vaccines s/p : Hep B immune ,core + , MMR1 ,COVID 19 x3, Tdap 2016 ,varicella x1, Shingrix x2 . P20 for DM 11/2023, COVID 19 and Flu vaccine today ----- -01/12/2024 vit D 20.9 --denies taking vit D --to repeat vit D level -pt is MSM > 45 y by guidelines needs anal pap every 1-3 y -pt agreed today, normal LACEY except for enlarged ,hard prostate -anal pap referred today w reflex HPV if abn HTN BP states some elevate at home -dont bring readings and is not sure about numbers -EKG 01/2025 for baseline 01/2024 NSR, HR 83, QTc 397 , No ischemic findings ,only TWI in lead III -saw plate gauger 12/2024 Open angle with borderline findings, low risk and has f up 06/2025 -Not taking losartan for long time given run out --will consider to resume at next apt, pt seems not compliant w meds ,will do fewer changes today -continue chlorthalidone 25 mg daily -encouraged to take consistently -f w staffing specialist in 2 weeks to check BP -Refuse to continue CDTM DM2 -insulin dep,HLD Today CBG 170 -01/12/2024 microalb neg, hb1AC 10, trig 275, total ch 208, LDL 121, HDL 32 --CBG today 181 -ASCVD 19.4% rec for satins and ASA -saw plate gauger 12/2024 Open angle with borderline findings, low risk and has f up 06/2025 Not using trulicuty for last 2 weeks ,states was causing constipation Reports hypoglycemia episodes associated w using high rapid insulin and not checking glucose before Pt stopped jardiance for no particular reason -Pt Stopped Mounajro for abdominal pain ,used once only-explain may experience some GI symptoms for1 to 2 weeks but pt agrees to try again ,denies risk factors nor contraindications for med, explained pt alarm symptoms to be aware when using med for pancreatitis,denies symptoms before--resume today Mounjaro 2.5 mg weekly -continue lantus but increase to 45 u HS from 42 u HS -Continue Humulog but stop 20 u TID and start SS explained to pt in length how to use and explainedhe should NOT inj rapid insulin if not checking CBGs before . SS ( CBG 150-200: 4u, 201-250: 6u, 251-300: 8u, 301-350: 10u, ) -resume metformin 500 mg BID -to start daily for 1 week and then BID -atorvastatin 40 mg not taking for long time --advised to resume today -not taking ASA and given hematuria will hold for now until completes evaluation w urologist -advised to reschedule apt w CDTM but refusing -referred again today for MTM -DM labs -refuse continuous glucose monitoring offered again today -Sent today glucose tab in case needed -explained how to use PRN -referred to nutriotnist before -refuse now -Drying Oven Attendant: never--referred before never seen -will do foot exam at next apt -consider endocrinology referral if difficult to control -to f w RN team in 2 weeks for CBG and BP check up -will consider resuming SGLT2 at future apt as w fargixa -will benefit w cardiomyopathy hx Hematuria Enlarged prostate/BPH On LACEY exam today noted enlarged -hard to touch prostate ,not tender w palpation -Saw urologist 02/2025 Referred for urine testing -Off meds ,states was told by urologist that at next apt will discuss about meds hx of cardiomyopathy? This diagnosis is not confirmed just from history but last TTE not supporting diagnosis -TTE 12/2023 Normal left ventricular size and systolic function. There is mildly increased left ventricular wall thickness. The visually estimated ejection fraction is between 55-60%. Normal right ventricular cavity size and systolic function. -will need to improve BP controlled ,--will discuss to resume losartan at next apt Constipation -continue miralax PRN only ,states tried before other PO options w no improvement -pt taking OTC -will bring next apt so can evaluation and prescribed meds accordingly -referred to GI for colonoscopy -pd to schedule apt needs colon ca screening - referred back in 10/2024 gave info today again to call for apt Fx hx of malignancies -fx hx of mx malignsncy-referred to genetics med but never done ---refusing now Poor memory Cognitive impairment ? -eval memory at future visit ,pt reports studied until mid school? Question for some mild cognitive impairment -refuse VNA and CM offered today -will need to consider neuropsychology evaluation ,given no formal diagnosis Overweight BMI 27 -Advised pt to improve diet and exercise,discussed healthy life style -discussed developmental services worker referral -refuse Review of Systems Constitutional: Negative. HENT: Negative. Eyes: Negative. Respiratory: Negative. Cardiovascular: Negative. Gastrointestinal: Positive for constipation. Genitourinary: Positive for difficulty urinating and hematuria. Musculoskeletal: Negative. Neurological: Negative. Psychiatric/Behavioral: Negative. Objective BP 134/64 (BP Location: Left arm, Patient Position: Sitting, BP Cuff Size: Adult) Pulse 93 Temp97.1 ??F (36.2 ??C) (Temporal) Resp 20 Ht 5' 6 (1.676 m) Wt 171 lb 9.6 oz (77.8 kg) SpO2 97% BMI 27.70 kg/m?? Physical Exam Constitutional: Appearance: Normal appearance. HENT: Head: Normocephalic and atraumatic. Right Ear: Tympanic membrane and ear canal normal. Left Ear: Tympanic membrane and ear canal normal. Mouth/Throat: Pharynx: Oropharynx is clear. Eyes: Extraocular Movements: Extraocular movements intact. Pupils: Pupils are equal, round, and reactive to light. Cardiovascular: Rate and Rhythm: Normal rate and regular rhythm. Heart sounds: No murmur heard. Pulmonary: Effort: Pulmonary effort is normal. Breath sounds: Normal breath sounds. Abdominal: Palpations: Abdomen is soft. Genitourinary: Comments: Normal rectal examination, no perianal lesions seen, no fissures no hemorrhoids noted, normal rectal tone , no rectal masses palpated and no blood on glove BUT large prostate /hard Musculoskeletal: General: Normal range of motion. Cervical back: Normal range of motion and neck supple. Skin: General: Skin is warm. Neurological: General: No focal deficit present. Mental Status: He is alert and oriented to person, place, and time. Psychiatric: Mood and Affect: Mood normal. Behavior: Behavior normal. Assessment/Plan Problem List Items Addressed This Visit Essential hypertension Routine adult health maintenance Mixed hyperlipidemia Relevant Medications Tirzepatide (Mounjaro) 2.5 MG/0.5ML solution auto-injector atorvastatin (Lipitor) 40 MG tablet metFORMIN (Glucophage) 500 MG tablet insulin lispro (HumaLOG) 100 UNIT/ML injection insulin glargine (Lantus SoloStar) 100 UNIT/ML pen Benign prostatic hyperplasia (BPH) with straining on urination Cardiomyopathy (HCC) Relevant Medications atorvastatin (Lipitor) 40 MG tablet Family history of cancer Overweight (BMI 25.0-29.9) Relevant Medications Tirzepatide (Mounjaro) 2.5 MG/0.5ML solution auto-injector atorvastatin (Lipitor) 40 MG tablet metFORMIN (Glucophage) 500 MG tablet insulin lispro (HumaLOG) 100 UNIT/ML injection insulin glargine (Lantus SoloStar) 100 UNIT/ML pen glucose 4 g chewable tablet Poor memory Type 2 diabetes mellitus with hyperglycemia, with long-term current use of insulin (HCC) Relevant Medications Tirzepatide (Mounjaro) 2.5 MG/0.5ML solution auto-injector atorvastatin (Lipitor) 40 MG tablet metFORMIN (Glucophage) 500 MG tablet insulin lispro (HumaLOG) 100 UNIT/ML injection insulin glargine (Lantus SoloStar) 100 UNIT/ML pen glucose 4 g chewable tablet Hematuria Other Visit Diagnoses Hypertension, unspecified type - Primary Relevant Orders Referral to Pharmacy MTM Diabetes mellitus type 2, insulin dependent (HCC) Relevant Medications Tirzepatide (Mounjaro) 2.5 MG/0.5ML solution auto-injector atorvastatin (Lipitor) 40 MG tablet metFORMIN (Glucophage) 500 MG tablet insulin lispro (HumaLOG) 100 UNIT/ML injection insulin glargine (Lantus SoloStar) 100 UNIT/ML pen glucose 4 g chewable tablet Other Relevant Orders Referral to Pharmacy MTM Dietary counseling Relevant Medications Tirzepatide (Mounjaro) 2.5 MG/0.5ML solution auto-injector atorvastatin (Lipitor) 40 MG tablet metFORMIN (Glucophage) 500 MG tablet insulin lispro (HumaLOG) 100 UNIT/ML injection insulin glargine (Lantus SoloStar) 100 UNIT/ML pen glucose 4 g chewable tablet Exercise counseling Relevant Medications Tirzepatide (Mounjaro) 2.5 MG/0.5ML solution auto-injector atorvastatin (Lipitor) 40 MG tablet metFORMIN (Glucophage) 500 MG tablet insulin lispro (HumaLOG) 100 UNIT/ML injection insulin glargine (Lantus SoloStar) 100 UNIT/ML pen glucose 4 g chewable tablet Annual physical exam Relevant Orders POCT Glucose (Completed) Albumin, Random Urine W/Creatinine CBC auto differential Chlamydia/Trichomonas/Neisseria gonorrhoeae, PCR, Urine Comprehensive Metabolic Panel Hemoglobin A1c Hepatitis B Core Antibody, Total Hepatitis B Surface Antibody, Qualitative Hepatitis B surface antigen, EIA Hepatitis C Antibody with Reflex to HCV, RNA, Quantitative, Real-Time PCR HIV-1/2 Antigen and Antibodies, Fourth Generation, with Reflexes Lipid Panel, Standard Syphilis Screen TSH with Reflex to Free T4 Vitamin D, 25-Hydroxy, Total, Immunoassay Vitamin B12 (Cobalamin) and Folate Panel, Serum PSA,Total Cytology, Non-CUSHION STUFFER Encounter for immunization Relevant Orders COVID-19 VACCINE [id number] (Comirnaty) 12 yrs to 18 yrs (Completed) FLU VACCINE TRIVALENT [id number] (Fluarix) 19 yrs + (Completed) documented in this encounter Plan of Treatment Upcoming Encounters Date Type Department Care Team (Late st Contact Info) Description 03/31/2025 10:00 AM EST Clinical Support [facility] [address] [place] [address] 06/12/2025 9:00 AM EDT Office Visit [facility] [address] [place] [address] Lisa Cantrell MD [address] [place] [address] 06/30/2025 9:00 AM EDT Office Visit [facility] [address] [place] [address] Juan Jose, Gracie, OD [address] [place] [address] Scheduled Orders Name Type Priority Associated Diagnoses Orde r Schedule Cytology, Non-CUSHION STUFFER Pathology and Cytology Routine Annual physical exam Ordered: 03/13/2025 Scheduled Referrals Name Type Priority Associated Diagnoses Orde r Schedule Referral to Pharmacy [place] Outpatient Referral Routine Diabetes mellitus type 2, insulin dependent (HCC) Hypertension, unspecified type Ordered: 03/13/2025 documented as of this encounter Goals Goal Patient Goal Type Associated Problems Recent Progress Patient-Stated? Author Help patients manage their type 2 diabetes Care Plan Help patients manage their type 2 diabetes No Lizbet Young MA Weekly blood pressure task Care Plan Weekly blood pressure task No Lizbet Young MA Help patients manage their type 2 diabetes Care Plan Help patients manage their type 2 diabetes No Lizbet Young MA Patient has chronic kidney disease Care Plan Patient has chronic kidney disease No Lizbet Young MA Weekly blood pressure task Care Plan Weekly blood pressure task No Lizbet Young MA Patient has chronic kidney disease Care Plan Patient has chronic kidney disease No Lizbte Young MA Weekly blood pressure task Care Plan Weekly blood pressure task No Lizbet Young MA Weekly blood pressure task Care Plan Weekly blood pressure task No Lizbet Young MA Patient has chronic kidney disease Care Plan Patient has chronic kidney disease No Lizbet Young MA Patient has chronic kidney disease Care Plan Patient has chronic kidney disease No Lizbet Young MA Weekly blood pressure task Care Plan Weekly blood pressure task No Jaymie Reilly MA Weekly blood pressure task Care Plan Weekly blood pressure task No Jaymie Reilly MA Patient has chronic kidney disease Care Plan Patient has chronic kidney disease No Jaymie Reilly MA Patient has chronic kidney disease Care Plan Patient has chronic kidney disease No Jaymie Reilly MA Weekly blood pressure task Care Plan Weekly blood pressure task No Namrata Pugh Weekly blood pressure task Care Plan Weekly blood pressure task No Namrata Pugh Patient has chronic kidney disease Care Plan Patient has chronic kidney disease No Namrata Pugh Patient has chronic kidney disease Care Plan Patient has chronic kidney disease No Namrata Pugh Weekly blood pressure task Care Plan Weekly blood pressure task No Lisa Cantrell MD Weekly blood pressure task Care Plan Weekly blood pressure task No Lisa Cantrell MD Patient has chronic kidney disease Care Plan Patient has chronic kidney disease No Lisa Cantrell MD Patient has chronic kidney disease Care Plan Patient has chronic kidney disease No Lisa Cantrell MD Weekly blood pressure task Care Plan Weekly blood pressure task No Lisa Cantrell MD Weekly blood pressure task Care Plan Weekly blood pressure task No Lisa Cantrell MD Patient has chronic kidney disease Care Plan Patient has chronic kidney disease No Lisa Cantrell MD Patient has chronic kidney disease Care Plan Patient has chronic kidney disease No Lisa Cantrell MD Weekly blood pressure task Care Plan Weekly blood pressure task No Darshana Clay RN Weekly blood pressure task Care Plan Weekly blood pressure task No Darshana Clay RN Patient has chronic kidney disease Care Plan Patient has chronic kidney disease No Darshana Clay RN Patient has chronic kidney disease Care Plan Patient has chronic kidney disease No Darshana Clay RN Weekly blood pressure task Care Plan Weekly blood pressure task No Jaymie Reilly MA Weekly blood pressure task Care Plan Weekly blood pressure task No Jaymie Reilly MA Patient has chronic kidney disease Care Plan Patient has chronic kidney disease No Jaymie Reilly MA Patient has chronic kidney disease Care Plan Patient has chronic kidney disease No Jaymie Reilly MA documented as of this encounter Procedures Procedure Name Priority Date/Time Associated Diagnosis Comments SYPHILIS SCREEN Routine 03/13/2025 11:07 AM EST Annual physical exam VITAMIN D,25-OH,TOTAL,IA Routine 03/13/2025 11:07 AM EST Annual physical exam VITAMIN B12/FOLATE, SERUM PANEL Routine 03/13/2025 11:07 AM EST Annual physical exam TSH W/REFLEX TO FT4 Routine 03/13/2025 1 1:07 AM EST Annual physical exam HEPATITIS C AB W/REFL TO HCV RNA, QN, PCR Routine 03/13/2025 11:07 AM EST Annual physical exam HEPATITIS B SURFACE ANTIGEN, EIA Routine 03/13/2025 11:07 AM EST Annual physical exam HEPATITIS B CORE AB TOTAL Routine 03/13/2025 11:07 AM EST Annual physical exam HIV 1/2 ANTIGEN/ANTIBODY, FOURTH GENERATION W/RFL Routine 03/13/2025 11:07 AM EST Annual physical exam HEPATITIS B SURFACE ANTIBODY, QUALITATIVE Routine 03/13/2025 11:07 AM EST Annual physical exam PSA, TOTAL Routine 03/13/2025 11:07 AM EST Annual physical exam HEMOGLOBIN A1C Routine 03/13/2025 11:07 AM EST Annual physical exam LIPID PANEL, STANDARD Routine 03/13/2025 11:07 AM EST Annual physical exam COMPREHENSIVE METABOLIC PANEL Routine 03/13/2025 11:07 AM EST Annual physical exam CHLAMYDIA/TRICHOMONAS/ NEISSERIA GONORRHOEAE, PCR, URINE Routine 03/13/2025 11:02 AM EST Annual physical exam ALBUMIN, RANDOM URINE W/CREATININE Routine 03/13/2025 11:02 AM EST Annual physical exam CBC WITH AUTO DIFFERENTIAL Routine 03/13/2025 10:07 AM EST Annual physical exam POCT GLUCOSE Routine 03/13/2025 9:57 AM EST Annual physical exam documented in this encounter Results * (ABNORMAL) PSA,Total (03/13/2025 11:07 AM EST) Prostate Specific Antigen 5.17(H) <0.05 - 4.0 ng/mL [facility] Comment:PSA methodology: Abb benjamin Alichaitanyaty i ChemiluminescentMicroparticle Immunoassay (CMIA) Blood Venous blood specimen / Unknown 03/13/2025 11:07 AM EST 03/13/2025 2:04 PM EST Lisa Fraser MD LAB BLOOD ORDERAB LES Final Result Performing Organization Address [facility] Co de Phone Number [facility] [address] [place] [address] [phone] * Vitamin B12 (Cobalamin) and Folate Panel, Serum (03/13/2025 11:07 AM EST) Vitamin B12 332 200 - 900 pg/mL [facility] Comment:NORMAL 200-900 PG/ML INDETERMINATE 160-199 PG/ML DEFICIENT < 160 PG/ML Folate 12.0 > or = 4.0 ng/mL [facility] Comment:Reference Values:> o r = 4.0 ng/mL< 4.0 ng/mL suggests folate deficiency Methotrexate, aminopterin and folinic acid(leucovorin) are chemotherapeutic agents whose molecularstructures are similar to folate; therefore, the Architectfolate assay cannot be used for patients using these drugs. Blood 03/13/2025 11:0 7 AM EST 03/13/2025 2:04 PM EST Lisa Fraser MD LAB BLOOD ORDERAB LES Final Result Performing Organization Address City/[facility]/ZIP Co de Phone Number [facility] [address] [place] [phone] * (ABNORMAL) Vitamin D, 25-Hydroxy, Total, Immunoassay (03/13/2025 11:07 AM EST) Vitamin D 25-OH Total 18.9(L) >30 ng/mL [facility] Comment: Health Based Reference Values*< 20 ng/mL [id number] ng/mL Insufficient> 30 ng/mL Sufficient*Ronen MARTINEZ. N Engl J Med. 2007;[id number] is no well-established upper level of normal vitamin Dlevels. Some laboratories use 50 ng/mL as an upper limit ofnormal. However, toxicity is patient-dependent and may occurat any level. Careful correlation with the patient'spresentation is necessary and, if there is concern forvitamin D toxicity, treatment should be consideredirrespective of the serum level.Care must be taken in interpreting Vitamin D results fromdifferent laboratories and methodologies. Published datademonstrated that results from patients undergoinghemodialysis may show a negative bias when tested withvarious automated 25-OH vitamin D assays when compared toLC-MS/MS.When testing samples from patients whose predominant form ofVitamin D is Vitamin D2, such as patients receiving VitaminD2 supplementation, results that are subtherapeutic shouldbe confirmed with another method such as LC-MS/MS. Blood Venous blood specimen / Unknown 03/13/2025 11:07 AM EST 03/13/2025 2:04 PM EST Lisa Fraser MD LAB BLOOD ORDERAB LES Final Result [facility] [address] [place] [phone] * TSH with Reflex to Free T4 (03/13/2025 11:07 AM EST) TSH reflex Free T4 1.61 0.32 - 4.0 uIU/mL [facility] Blood 03/13/2025 11:0 7 AM EST 03/13/2025 2:04 PM EST us Lisa Fraser MD LAB BLOOD ORDERAB LES Final Result [facility] [address] [place] [phone] * Syphilis Screen (03/13/2025 11:07 AM EST) Syphilis Screen Nonreactive Nonreactive [facility] Blood 03/13/2025 11:0 7 AM EST 03/13/2025 2:04 PM EST Lisa Fraser MD LAB BLOOD ORDERAB LES Final Result Performing Organization Address [facility] Co de Phone Number [facility] [address] [place] [phone] * (ABNORMAL) Lipid Panel, Standard (03/13/2025 11:07 AM EST) Triglycerides 180(H) <150 mg/dL [facility] Comment:Desirable Triglyceri de: less than 150 mg/dLBorderline High Triglyceride 150-199 mg/dLHigh Triglyceride: 200-499 mg/dLVery High Triglyceride: greater than or equal to 5OO mg/dL Cholesterol 207(H) <200 mg/dL [facility] Comment:Desirable Cholestero l: less than 200 mg/dLBorderline High Cholesterol: 200-239 mg/dLHigh Cholesterol: greater than 239 mg/dL LDL Cholesterol Calculated 141(H) <100 mg/dL [facility] Comment:Desirable LDL: less than 100 mg/dLNear Optimal/Above Optimal LDL: 110- 129 mg/dLBorderline High LDL: 130-159 mg/dLHigh LDL: 160-189 mg/dLVery High LDL: greater than or equal to 190 mg/dL HDL Cholesterol 30(L) >40 mg/dL [facility] Comment:Desirable HDL: great er than 40 mg/dL Note: This HDL assay may give artificially low results in patients with liver disease. Blood Venous blood specimen / Unknown 03/13/2025 11:07 AM EST 03/13/2025 2:04 PM EST us Lisa Fraser MD LAB BLOOD ORDERAB LES Final Result Performing Organization Address [facility] Co de Phone Number [facility] [address] [place] [phone] * HIV-1/2 Antigen and Antibodies, Fourth Generation, with Reflexes (03/13/2025 11:07 AM EST) HIV AB/AG Nonreactive Nonreactive [facility] Comment:HIV-1 p24 Ag and/or HIV-1/HIV-2 Ab not detected.A test result that is nonreactive does not exclude thepossibility of exposure to or infection with HIV-1 and/orHIV-2. Nonreactive results in this assay for individualswith prior exposure to HIV-1 and/or HIV-2 may be due toantigen and antibody levels that are below the limit ofdetection of this assay.The [employer]Droppy[employer] HIV Ag/Ab Combo assay result andsupplemental assay results should be interpreted inconjunction with the patient's clinical presentation,history and other laboratory results. If the results areinconsistent with clinical evidence, additional testing issuggested to confirm the result. Blood Venous blood specimen / Unknown 03/13/2025 11:07 AM EST 03/13/2025 2:04 PM EST us Lisa Fraser MD LAB BLOOD ORDERAB LES Final Result Performing Organization Address City/[facility]/ZIP Co de Phone Number [facility] [address] [place] [phone] * Hepatitis C Antibody with Reflex to HCV, RNA, Quantitative, Real-Time PCR (03/13/2025 11:07 AM EST) Hepatitis C Antibody Nonreactive Nonreactive [facility] Comment:Antibodies to HCV no t detected; does not exclude early acuteHCV infection. Blood Venous blood specimen / Unknown 03/13/2025 11:07 AM EST 03/13/2025 2:04 PM EST Lisa Fraser MD LAB BLOOD ORDERAB LES Final Result Performing Organization Address [facility] Co de Phone Number [facility] [address] [place] [phone] * Hepatitis B surface antigen, EIA (03/13/2025 11:07 AM EST) Pathologist [facility] Hepatitis B Surface Ag Negative Negative [facility] Blood Venous blood specimen / Unknown 03/13/2025 11:07 AM EST 03/13/2025 2:04 PM EST Lisa Fraser MD LAB BLOOD ORDERAB LES Final Result Performing Organization Address [facility] Phone Number [facility] [address] [place] [phone] * Hepatitis B Surface Antibody, Qualitative (03/13/2025 11:07 AM EST) Pathologist [facility] ~Hepatitis B Surface Antibody REACTIVE Nonreactive [facility] Comment:REACTIVE: > 11.99 mI U/mL Blood Venous blood specimen / Unknown 03/13/2025 11:07 AM EST 03/13/2025 2:04 PM EST Lisa Fraser MD LAB BLOOD ORDERAB LES Final Result Performing Organization Address [facility] Co de Phone Number [facility] [address] [place] [phone] * Hepatitis B Core Antibody, Total (03/13/2025 11:07 AM EST) [facility] Hepatitis B Core Antibody Reactive Nonreactive [facility] Comment:Presumptive evidence of anti-HBc. Blood Venous blood specimen / Unknown 03/13/2025 11:07 AM EST 03/13/2025 2:04 PM EST Lisa Fraser MD LAB BLOOD ORDERAB LES Final Result Performing Organization Address [facility]/ZIP Co de Phone Number [facility] [address] [place] [phone] * (ABNORMAL) Hemoglobin A1c (03/13/2025 11:07 AM EST) Hemoglobin A1c 8.7(H) <6.0 % [facility] Comment:Hemoglobin A1C Refer ence Range Adults: 4.8 - 6.0 % Non diabetic: < 6.0 % Goal: < 7.0 %Additional Action Suggested: > 8.0 %Note: Hemoglobin A1c results are invalid for patients with abnormal amounts of HbF. Blood transfusions may impact the HbA1c concentration in the patient sample. Estimated Average Glucose 203 mg/dL [facility] Comment:eAG = Estimated ave rage glucose which is %A1C expressed asaverage glucose, using the formula of the [id number]-[id number] Glucose study (ADAG), Diabetes Care, Vol.31,#8,Nov. 2007 Blood Venous blood specimen / Unknown 03/13/2025 11:07 AM EST 03/13/2025 2:04 PM EST us Lisa Fraser MD LAB BLOOD ORDERAB LES Final Result Performing Organization Address [facility]/ZIP Co de Phone Number [facility] [address] [place] [phone] * (ABNORMAL) Comprehensive Metabolic Panel (03/13/2025 11:07 AM EST) Sodium 138 135 - 145 mmol/L [facility] Potassium 4.2 3.3 - 5.1 mmol/L [facility] Chloride 104 96 - 108 mmol/L [facility] Carbon Dioxide 28 22 - 29 mmol/L [facility] Anion Gap 10(L) 12 - 20 [facility] Urea Nitrogen (BUN) 14 9 - 16 mg/dL [facility] Creatinine, Serum 1.06 0.5 - 1.4 mg/dL [facility] Estimated Glomerular Filt Rate >60 [facility] Comment:Chronic Kidney Disea se: Estimated GFR < 60 mL/min/1.95y6Vcpzav Kidney Disease: Estimated GFR < 15 mL/min/1.73m2 Glucose 158(H) 60 - 115 mg/dL [facility] Calcium 10.0 8.4 - 10.2 mg/dL [facility] Bilirubin, Total 0.7 0.0 - 1.0 mg/dL [facility] Aspartate Amino Transferase 39(H) 5 - 37 U/L [facility] Alanine Aminotransferase 38 0 - 40 U/L [facility] Total Protein 7.7 6.5 - 8.0 g/dL [facility] Albumin Level 4.8 3.5 - 5.0 g/dL [facility] Alkaline Phosphatase 77 39 - 117 U/L [facility] Blood Venous blood specimen / Unknown 03/13/2025 11:07 AM EST 03/13/2025 2:04 PM EST us Lisa Fraser MD LAB BLOOD ORDERAB LES Final Result [facility] [address] [place] [phone] * Chlamydia/Trichomonas/Neisseria gonorrhoeae, PCR, Urine (03/13/2025 11:02 AM EST) CT PCR, Urine NOT DETECTED Not Detect. [facility] Comment:A not detected test result does not exclude the possibilityof infection because test results can be affected byimproper specimen collection, concurrent antibiotic therapy,or the number of organisms in the specimen which may bebelow the sensitivity of the test. As with many diagnostictests, results from the Xpert CT/NG assay should beinterpreted in conjunction with other laboratory andclinical data available to the clinician.The Xpert CT/NG assay should not be used for the evaluationof suspected sexual abuse or for other medico-legalindications. Additional testing is recommended in anycircumstance when false positive or false negative resultscould lead to adverse medical, social or psychologicalconsequences. NG PCR, Urine NOT DETECTED Not Detect. [facility] Comment:A not detected test result does not exclude the possibilityof infection because test results can be affected byimproper specimen collection, concurrent antibiotic therapy,or the number of organisms in the specimen which may bebelow the sensitivity of the test. As with many diagnostictests, results from the Xpert CT/NG assay should beinterpreted in conjunction with other laboratory andclinical data available to the clinician.The Xpert CT/NG assay should not be used for the evaluationof suspected sexual abuse or for other medico-legalindications. Additional testing is recommended in anycircumstance when false positive or false negative resultscould lead to adverse medical, social or psychologicalconsequences. Urine (Urine, Random) 03/13/2025 11:02 AM EST 03/13/2025 1:46 PM EST us Lisa Fraser MD LAB URINE ORDERAB LES Final Result Performing Organization Address [facility] Co de Phone Number [facility] [address] [place] [phone] * Albumin, Random Urine W/Creatinine (03/13/2025 11:02 AM EST) Creatinine, Urine 193.50 mg/dL [facility] Microalbumin Urine 39.0 mg/L [facility] Microalbum Creatinine Ratio Ur 20.1 <30 ug/mg cr [facility] Comment:Albumin/Creatinine R atio Reference Ranges: Normal: < 30 ug/mg creatinine Microalbuminuria: 30 - 300 ug/mg creatinineClinical Albuminuria: > 300 ug/mg creatinine Urine (Urine, Random) 03/13/2025 11:02 AM EST 03/13/2025 1:46 PM EST us Lisa Fraser MD LAB URINE ORDERAB LES Final Result Performing Organization Address [facility] Co de Phone Number [facility] [address] [place] [phone] * (ABNORMAL) CBC auto differential (03/13/2025 10:07 AM EST) White Blood Count 5.9 4.8 - 10.8 X10*3/uL [facility] Red Blood Count 5.94(H) 4.60 - 5.80 X10*6/uL [facility] Hemoglobin 17.3 14.0 - 18.0 g/dl [facility] Hematocrit 49.2 42.0 - 52.0 % [facility] Mean Corpuscular Volume 82.8 80.0 - 98.0 fL [facility] Mean Corpuscular Hemoglobin 29.1 27.0 - 33.0 pg [facility] Mean Corpuscular HGB Conc 35.2 31.0 - 36.0 g/dl [facility] Red Cell Distribution Width 12.9 11.0 - 16.0 % [facility] Platelet Count 189 160 - 400 X10*3/uL [facility] Mean Platelet Volume 10.6 9.4 - 12.4 fL [facility] Neutrophils Percent Auto 59.7 45 - 73 % [facility] Imm Gran Pct Auto 0.2 0.0 - 0.4 % [facility] Lymphocytes Percent Auto 29.7 20 - 40 % [facility] Monocytes Percent Auto 8.5 2 - 11 % [facility] Eosinophils Percent Auto 1.2 0 - 4 % [facility] Basophils Percent Auto 0.7 0 - 2 % [facility] NRBC Pct Auto 0.0 0.0 - 0.2 /100WBC [facility] Neutrophils Absolute Auto 3.5 2.0 - 8.3 x10*3/uL [facility] Imm Gran Abs Auto 0.01 0.00 - 0.03 X10*3/uL [facility] Lymphocytes Absolute Auto 1.7 1.2 - 4.9 X10*3/uL [facility] Monocytes Absolute Auto 0.5 0.1 - 1.2 X10*3/uL [facility] Eosinophils Absolute Auto 0.1 0.0 - 0.4 X10*3/uL [facility] Basophils Absolute Auto 0.0 0.0 - 0.2 X10*3/uL [facility] NRBC Abs Auto 0.000 0.0 - 0.012 X10*3/uL [facility] Blood Venous blood specimen / Unknown 03/13/2025 10:07 AM EST 03/13/2025 2:04 PM EST Lisa Fraser MD LAB BLOOD ORDERAB LES Final Result [facility] [address] [place] [phone] * POCT Glucose (03/13/2025 9:57 AM EST) [facility] Glucose Blood, POC 170 60 - 200 mg/dL [employer] Lot # [id number] Lot# Expiration Date Blood Capillary blood specimen / Unknown 03/13/2025 9:57 AM EST Lisa Fraser MD POINT OF CARE PRAKASH T ENTER/EDIT ORDERABLES Final Result documented in this encounter Visit Diagnoses Diagnosis Hypertension, unspecified type- Primary Diabetes mellitus type 2, insulin dependent (HCC) Mixed hyperlipidemia Type 2 diabetes mellitus with hyperglycemia, with long-term current use of insulin (HCC) Dietary counseling Dietary surveillance and counseling Exercise counseling Cardiomyopathy, unspecified type (CMS/HCC) (HCC) Annual physical exam Routine general medical examination at a health care facility Encounter for immunization Essential hypertension Unspecified essential hypertension Overweight (BMI 25.0-29.9) Overweight Benign prostatic hyperplasia (BPH) with straining on urination Routine adult health maintenance Family history of cancer Family history of unspecified malignant neoplasm Poor memory Memory loss Hematuria, unspecified type Type 2 diabetes mellitus with diabetic microalbuminuria, with long-term current use of insulin (HCC) documented in this encounter Additional Health Concerns Active Problems Noted Date Diagnosed Date Help patients manage their type 2 diabetes 03/12 Weekly blood pressure task 03/12/2025 Help patients manage their type 2 diabetes 03/12 Patient has chronic kidney disease 03/12/2025 Weekly blood pressure task 03/12/2025 Patient has chronic kidney disease 03/12/2025 Weekly blood pressure task 03/12/2025 Weekly blood pressure task 03/12/2025 Patient has chronic kidney disease 03/12/2025 Patient has chronic kidney disease 03/12/2025 Weekly blood pressure task 03/13/2025 Weekly blood pressure task 03/13/2025 Patient has chronic kidney disease 03/13/2025 Patient has chronic kidney disease 03/13/2025 Weekly blood pressure task 03/14/2025 Weekly blood pressure task 03/14/2025 Patient has chronic kidney disease 03/14/2025 Patient has chronic kidney disease 03/14/2025 Weekly blood pressure task 03/14/2025 Weekly blood pressure task 03/14/2025 Patient has chronic kidney disease 03/14/2025 Patient has chronic kidney disease 03/14/2025 Weekly blood pressure task 03/14/2025 Weekly blood pressure task 03/14/2025 Patient has chronic kidney disease 03/14/2025 Patient has chronic kidney disease 03/14/2025 Weekly blood pressure task 03/21/2025 Weekly blood pressure task 03/21/2025 Patient has chronic kidney disease 03/21/2025 Patient has chronic kidney disease 03/21/2025 Weekly blood pressure task 03/21/2025 Weekly blood pressure task 03/21/2025 Patient has chronic kidney disease 03/21/2025 Patient has chronic kidney disease 03/21/2025 Assessment Noted Time PHQ-9 Depression Total Score: 0 03/13/20 9:07 AM EST documented as of this encounter Care Teams [employer] Relationship Specialty Start Date End Date Lisa Cantrell MD [address] [place] [address] PCP - General Internal Medicine 12/22/22 Angela Llamas, Mark [address] [place] [address] Pharmacist Pharmacy 01/01/25 documented as of this encounter
--- NOTE | ~2025-03-23 | CT_ITS ---
CLINICAL HISTORY: R flank pain CT abdomen and pelvis without IV or oral contrast Comparison: CT/SR - CT ABDOMEN PELVIS WO IV CON - 01/06/25 18:38 EDT Findings: Lung bases show no active disease. No dependent layering pleural effusions. The heart is not enlarged. No stones are identified in the kidneys, ureters or bladder. There is no hydronephrosis or perinephric stranding/fluid. Equivocal urinary bladder wall thickening. Prostatomegaly. Evaluation of the liver, spleen, adrenal glands and pancreas demonstrates no lesions. It should be noted that isodense masses may be obscured in the absence of intravenous contrast. Default gallbladder No pathologically enlarged lymph nodes . No ascites demonstrated. Normal appendix No vertebral body compression fractures or spondylolisthesis. No bony destructive lesions. Impression: 1. No nephrolithiasis or urinary tract obstruction demonstrated. 2. Prostatomegaly. Mild urinary bladder wall thickening. This document has been electronically signed by: Alexei Tabares MD on 03/23/2025 09:52:15
[2025-03-23 07:32] VITALS: BP 146/93; PULSE 116; RESP 16; TEMP 35.7; O2SAT 99; BMI 26.9
[2025-03-23 07:55] VITALS: BP 162/105; PULSE 103; RESP 16; TEMP 36.4; O2SAT 97
--- NOTE | 2025-03-23 08:00 | ED.GENADULT ---
HPI - General Adult General Chief complaint: Abdominal Pain Stated complaint: Lower abd pain to back and down leg Time Seen by Provider: 03/23/25 07:55 Source: patient, RN notes reviewed and old records reviewed Mode of arrival: ambulatory Limitations: no limitations History of Present Illness ED Provider: Aysha HPI narrative: Patient is a 54-year-old male with pmhx of T2DM, HTN, HLD, enlarged prostate presenting to the ED with complaint of right lower quadrant pain radiating to right flank and groin for the past week. Has also had vomiting and diarrhea. Denies hematemesis, hematochezia, melena. Was recently started on Trulicity for his DM. Denies hematuria or fevers. Has follow up appointment with urology in May. MD complaint: abdominal pain Onset (ago): week(s) Related Data Home Medications ?Medication ?Instructions ?Recorded ?Confirmed blood sugar diagnostic (FreeStyle #10 ea 04/20/20 02/11/25 Lite Strips) lancets 28 gauge (FreeStyle #100 ea 04/20/20 02/11/25 Lancets) sacubitril 49 mg-valsartan 51 mg 1 tab PO BID 04/20/20 02/11/25 tablet (Entresto) losartan 50 mg tablet 50 mg PO DAILY 03/18/21 02/11/25 atorvastatin 20 mg tablet 20 mg PO DAILY 03/31/23 02/11/25 chlorthalidone 25 mg tablet 25 mg PO QAM 03/31/23 02/11/25 dulaglutide 1.5 mg/0.5 mL mg subcut QWEEK 03/31/23 02/11/25 subcutaneous pen injector (Trulicity) empagliflozin 25 mg tablet 25 mg PO QAM 03/31/23 02/11/25 (Jardiance) Previous Rx's ?Medication ?Instructions ?Recorded blood-glucose meter (FreeStyle #1 ea 04/14/20 [place] Lite kit) insulin glargine 100 unit/mL (3 46 unit (0.46 mL) subcut DAILY #15 10/30/20 mL) subcutaneous pen (Lantus mL Solostar U-100 Insulin) nystatin-triamcinolone 100,000 1 appl topical TID #30 grams 12/03/20 unit/g-0.1 % topical cream insulin lispro 100 unit/mL See Rx Instructions subcut QID #15 12/11/20 subcutaneous pen (Humalog KwikPen mL (U-100) Insulin) pen needle, diabetic 32 gauge x 1 ea miscellaneous .COMPLEX #200 ea 01/15/21 (Pentips Pen Needle) ibuprofen 800 mg tablet 800 mg PO Q8H PRN pain #14 tabs 03/15/21 cholecalciferol (vitamin D3) 125 125 mcg PO DAILY #30 caps 03/30/21 mcg (5,000 unit) capsule tamsulosin 0.4 mg capsule 0.4 mg PO DAILY #60 caps 03/23/25 Allergies Allergy/AdvReac Type Severity Reaction Status Date / Time No Known Allergies Allergy Verified 03/23/25 07:33 [facility] Past Medical History Medical History Cardiac insufficiency Essential hypertension Proteinuria Vitamin D deficiency Hyperlipidemia LDL goal <100 Type 2 diabetes mellitus with hyperglycemia, with long-term current use of insulin Surgical History No history of previous surgery Family History Family History Father Cancer Mother Hypertension Paternal Uncle Cancer Diabetes Maternal Uncle Diabetes Cancer Paternal Aunt CVD (cardiovascular disease) Social History Social History Household Members: Significant Other Alcohol intake: current Alcohol intake frequency: does not drink Patient Tobacco Use Status: Never used Tobacco Smoked in Last 30 Days: No Use of substances other than those prescribed or required for medical reasons: No Advance Directives: No Advance Directives Information Provided: Yes Do you have a plan to hurt others: No Plan Physical Exam ED Vital Signs: Vital Signs - 24 hr 03/23/25 07:32 03/23/25 07:55 03/23/25 10:35 Temperature 96.3 F L 97.6 F 97.8 F Pulse Rate 116 H 103 H 99 Respiratory Rate 16 16 14 Blood Pressure 146/93 H 162/105 H 138/83 Pulse Oximetry 99 97 96 Oxygen Delivery Method Room Air Room Air Room Air BMI result Body Mass Index 26.9 Medications Administered Discontinued Medications Generic Name Dose Route Start Last Admin Trade Name Freq PRN Reason Stop Dose Admin Sodium Chloride 1,000 mls @ 999 mls/hr 03/23/25 09:15 03/23/25 10:44 Ns IV 03/23/25 10:15 Infused .Q1H1M RONAK Infusion Ketorolac Tromethamine 15 mg 03/23/25 09:05 03/23/25 09:32 Ketorolac Tromethamine 15 Mg/Ml Vial IVPUSH 03/23/25 09:06 15 mg ONCE ONE Administration Medical Decision Making Medical Decision Making [facility] Narrative: Patient is a 54-year-old male with pmhx of T2DM, HTN, HLD, enlarged prostate presenting to the ED with complaint of right lower quadrant pain radiating to right flank and groin for the past week. On exam patient is awake, A+Ox3, slightly tachycardic, Bp elevated, afebrile, normal neurological exam without focal deficits, physical exam findings as above. Given reported symptoms and physical exam findings, initial differential includes but is not limited to appendicitis, ureterolithiasis, GLP-1 agonist related GI symptoms, gastroenteritis. Unlikely bowel obstruction, AAA rupture. Do not suspect testicular torsion. Labs notable for no leukocytosis, no anemia, no significant electrolyte abnormalities. UA notable for 1+ leukocytes, otherwise negative, do not suspect UTI/pyelonephritis. CT A/P notable for prostatomegaly with bladder wall thickening, no evidence of obstructing calculi. My interpretation is in agreement with the radiologist's interpretation. Results discussed with patient and all questions answered. Case discussed with Dr. Holcomb from urology who recommends starting patient on tamsulosin 0.4mg daily until his follow up appointment. Return precautions discussed. Patient verbalized understanding of and agreement with plan. In-person reproduction machine loader was utilized for all interactions, assessments, and discussions. Differential Diagnosis Differential Diagnoses: The differential diagnosis associated with the presentation includes as per [facility] Admission/Observation Consideration of admission/observation: Escalation of care including admission/observation considered Patient would have been admitted to the hospital and transferred to appropriate facility had their clinical presentation warranted hospital admission. Consult Healthcare Provider Management of the patient was discussed with: Care Giver (Dr. Holcomb, urology) Lab Data [facility] Lab Attestation statement: I reviewed the patient's lab results. as per [facility] 03/23/25 07:54 03/23/25 07:54 Labs: Lab Results 12/21/25 12/21/25 Range/Units 07:54 09:34 WBC 7.8 (4.8-10.8) X10*3/uL RBC 6.06 H (4.60-5.80) X10*6/uL Hgb 17.8 (14.0-18.0) g/dl Hct 49.6 (42.0-52.0) % MCV 81.8 (80.0-98.0) fL MCH 29.4 (27.0-33.0) pg MCHC 35.9 (31.0-36.0) g/dl RDW 12.3 (11.0-16.0) % Plt Count 204 (160-400) X10*3/uL MPV 10.0 (9.4-12.4) fL Immature Gran % (Auto) 0.3 (0.0-0.4) % Neut % (Auto) 54.8 (45-73) % Lymph % (Auto) 34.7 (20-40) % [place] % (Auto) 8.7 (2-11) % Eos % (Auto) 1.1 (0-4) % Baso % (Auto) 0.4 (0-2) % Lymph # (Auto) 2.7 (1.2-4.9) X10*3/uL [place] # (Auto) 0.7 (0.1-1.2) X10*3/uL Eos # (Auto) 0.1 (0.0-0.4) X10*3/uL Baso # (Auto) 0.0 (0.0-0.2) X10*3/uL Abs Immat Gran (auto) 0.02 (0.00-0.03) X10*3/uL Absolute Neuts (auto) 4.3 (2.0-8.3) x10*3/uL Absolute Nucleated RBC 0.000 (0.0-0.012) X10*3/uL Nucleated RBC % (auto) 0.0 (0.0-0.2) /100WBC Sodium 137 (135-145) mmol/L Potassium 3.7 (3.3-5.1) mmol/L Chloride 100 (96-108) mmol/L Carbon Dioxide 25 (22-29) mmol/L Anion Gap 16 (12-20) BUN 21 H (9-16) mg/dL Creatinine 1.34 (0.5-1.4) mg/dL Estim Creat Clear Calc 56.2 Estimated GFR 55 Random Glucose 144 H (60-115) mg/dL Calcium 9.9 (8.4-10.2) mg/dL Total Bilirubin 0.8 (0.0-1.0) mg/dL AST 37 (5-37) U/L ALT 31 (0-40) U/L Alkaline Phosphatase 82 (39-117) U/L Total Protein 8.1 H (6.5-8.0) g/dL Albumin 5.0 (3.5-5.0) g/dL Urine Color Yellow Urine Appearance Clear Urine pH 5.5 (5.0-9.0) Ur Specific [place] 1.015 (1.005-1.025) Urine Protein Negative (Neg-Trace) mg/dL Urine Glucose (UA) Negative (Negative) mg/dL Urine Ketones Trace (Negative) mg/dL Urine Blood Negative (Negative) Urine Nitrite Negative (Negative) Ur Leukocyte Esterase Small (1+) H (Negative) Urine RBC 0-2 (0-2) /HPF Urine WBC 0-5 (0-5) /HPF Ur Squamous Epith Cells 0-2 (0-2) /HPF Urine Bacteria None Seen (None Seen) Hyaline Casts 3-5 (0-2) /LPF Influenza Type A (PCR) NEGATIVE (Negative) Influenza Type B (PCR) NEGATIVE (Negative) RSV RNA Qual (PCR) NEGATIVE (Negative) SARS-CoV-2 RNA (RT-PCR) NEGATIVE (Negative) Independent Interpretation I performed an independent interpretation of an: CT Scan Interpretation: CT A/P notable for prostatomegaly with bladder wall thickening, no evidence of obstructing calculi Radiology Impression Discussion of test interpretation with radiology: I have reviewed the radiologist's reading. Radiologist Impression: Impression: 1. No nephrolithiasis or urinary tract obstruction demonstrated. 2. Prostatomegaly. Mild urinary bladder wall thickening. External Record Review External record reviewed: Inpatient record, Office record and Outpatient record Critical Care Time Critical Care Time Critical Care Time: Yes Total Critical Care Time: 37 Attestation: I have personally provided critical care time exclusive of time spent on separately billable procedures. Time includes review of lab data, radiology results, discussion with consultants, and monitoring for potential decompensation. Intervention performed as documented. Discharge Plan Discharge Clinical Impression: Abdominal pain, Enlarged prostate, Bladder wall thickening Patient Disposition: Home, Self-Care Instructions: Abdominal Pain (ED) Additional Instructions: You were evaluated in the emergency department today for abdominal pain. Your labs and urinalysis were reassuring and did not show evidence of infection. The CT scan of your abdomen again demonstrated an enlarged prostate without any other acute abnormalities. You are being started on a medication called tamsulosin. Please take this medication as prescribed daily until you follow up with Urology in May. Return to the emergency department if you develop worsening abdominal pain, are unable to urinate, fever 100.4 F or greater, have blood in your vomit, stool, or urine, or any other new or concerning symptoms. Prescriptions: New tamsulosin 0.4 mg capsule 0.4 mg PO DAILY Qty: 60 0RF No Action (DME) blood-glucose meter [FreeStyle [place] Lite] Kit See Rx Instructions .ROUTE .MEDSUPPLY Qty: 1 0RF Rx Instructions: As directed Lantus Solostar U-100 Insulin 100 unit/mL (3 mL) insulin pen 46 unit subcut DAILY Qty: 15 0RF Rx Instructions: NEEDS APPOINTMENT FOR MORE REFILLS. insulin lispro [Humalog KwikPen Insulin] 100 unit/mL insulin pen See Rx Instructions subcut QID Qty: 15 4RF Rx Instructions: 15 units breakfast and lunch, 20 units dinner, 4 units hs snack subcut 4 times a day; pen needle, diabetic [Pentips Pen Needle] 32 gauge x 5/32 needle 1 ea miscellaneous .COMPLEX Qty: 200 6RF Rx Instructions: 1 ea miscellaneous five times a day; PATIENT NEEDS APPOINTMENT FOR MORE REFILLS. cholecalciferol (vitamin D3) 125 mcg (5,000 unit) capsule 125 mcg PO DAILY Qty: 30 11RF nystatin-triamcinolone 100,000-0.1 unit/g-% cream 1 appl topical TID Qty: 30 0RF ibuprofen 800 mg tablet 800 mg PO Q8H PRN (Reason: pain) Qty: 14 0RF Entresto 49-51 mg tablet 1 tab PO BID (DME) lancets [FreeStyle Lancets] 28 gauge misc See Rx Instructions .ROUTE .MEDSUPPLY Qty: 100 Rx Instructions: As directed (DME) FreeStyle Lite Strips Strip See Rx Instructions .ROUTE .MEDSUPPLY Qty: 10 Rx Instructions: As directed losartan 50 mg tablet 50 mg PO DAILY Jardiance 25 mg tablet 25 mg PO QAM Trulicity 1.5 mg/0.5 mL pen injector subcut QWEEK atorvastatin 20 mg tablet 20 mg PO DAILY chlorthalidone 25 mg tablet 25 mg PO QAM Print Language: Burundian
--- NOTE | 2025-03-23 08:00 | PC.NURSE ---
PAtient A&O x 3 Paraguayan speaking, friend at bedside to help translate Patient has been experiencing right flank pain that travels to the back Patient reported blood in urine IV 20G LAC Blood collected / sent Patient aware urine sample needed Provider in to see patient Plan of care on going
[2025-03-23 08:01] LABS: MANUAL DIFF FLAG NO
[2025-03-23 08:16] LABS: Hematocrit 49.6 % (42.0-52.0); Hemoglobin 17.8 g/dl (14.0-18.0); Imm Gran Abs Auto 0.02 X10*3/uL (0.00-0.03); Imm Gran Pct Auto 0.3 % (0.0-0.4); Lymphocytes Absolute Auto 2.7 X10*3/uL (1.2-4.9); Mean Corpuscular HGB Conc 35.9 g/dl (31.0-36.0); Mean Corpuscular Hemoglobin 29.4 pg (27.0-33.0); Mean Corpuscular Volume 81.8 fL (80.0-98.0); NRBC Abs Auto 0.000 X10*3/uL (0.0-0.012); NRBC Pct Auto 0.0 /100WBC (0.0-0.2); Platelet Count 204 X10*3/uL (160-400); Red Blood Count 6.06 X10*6/uL (4.60-5.80); White Blood Count 7.8 X10*3/uL (4.8-10.8)
--- OUTSIDE RECORDS SUMMARY | 2025-03-23 08:24 | XMS_ITS | Encounter Summary ---
Author Organization [employer] Address [address] [facility] [address] [place] [address] Care Team Providers Care Cotton Feeder Name Role Phone Lisa Cantrell MD Primary Care Pro vider Angela Llamas PharmD Unavailable [phone]- [phone] Reason for Visit * Reason Onset Date Comments Results 03/21/2025 Encounter Details Date Type Department Care Team (Late st Contact Info) Description 03/21/2025 Results Follow-Up [facility] [address] [place] [address] Darshana Clay, RN [address] [place] [address] HPV mRNA E6/E7, Rectal with Reflex to Genotypes, 16, 18/45 Social History Tobacco Use Types Packs/Day Years [...] encounter Miscellaneous Notes * Telephone Encounter - Darshana Clay RN - 03/21/2025 1:49 PM EST [facility] states they can't see results. They called the lab. Spoke with Mariia who states can't see anal pap but will fax everything that they have from date range. * Telephone Encounter - Darshana Clay RN - 03/21/2025 1:03 PM EST Telephone call placed to [facility] who stated they can see the result but aren't allowed to fax it to us. Inquired if they can scan it in so it is viewable in [employer]. She states unsure. Went to [facility] lab staff to see if they can print it for me since they have access but they are on lunch. Will try again in a little while. * Telephone Encounter - Darshana Clay RN - 03/21/2025 12:45 PM EST ----- Message from Lisa Fraser MD sent at 03/21/2025 12:16 PM EST ----- Please can you follow with lab I got result of anal pap : HPV reported as positive BUT not report of rectal cytology which is weird because usually they 1st have to get an abnormal cytology report so they can do HPV as reflex Please can you check with lab about cytology report ans when will be reported thanks Thanks ----- Message ----- From: Interface, Lab Results In Sent: 03/21/2025 3:08 AM EST To: Lisa Fraser MD documented in this encounter Plan of Treatment Upcoming Encounters Date Type Department Care Team (Late st Contact Info) Description 03/31/2025 10:00 AM EST Clinical Support [facility] [address] [place] [address] 06/12/2025 9:00 AM EDT Office Visit [facility] [address] [place] [address] Lisa Cantrell MD [address] [place] [address] 06/30/2025 9:00 AM EDT Office Visit [facility] OPTOMETRY [address] [place] [address] Gracie Ingram, OD [address] [place] [address] documented as of this encounter Goals Goal [...] Plan Weekly blood pressure task No Darshana Clay, KALPESH Patient has chronic kidney disease Care Plan Patient has chronic kidney disease No Darshana Clay RN Patient has chronic kidney disease Care Plan Patient has chronic kidney disease No Darshana Clay, RN Weekly blood pressure task Care Plan [...] Reilly [place] documented as of this encounter Visit Diagnoses Not on filedocumented in this encounter Additional Health Concerns Active [...] Time PHQ-9 Depression Total Score: 0 03/13/20 25 9:07 AM EST documented as of this encounter Care Teams Cotton Feeder Relationship Specialty Start Date End Date Lisa Cantrell MD [address] [place] [address] PCP - General Internal Medicine 12/22/22 Angela Llamas, Mark [address] [place] [phone] Pharmacist Pharmacy 01/01/25 documented as of this encounter
--- OUTSIDE RECORDS SUMMARY | 2025-03-23 08:24 | XMS_ITS | Encounter Summary ---
Author Organization [employer] Address [address] [facility] 7t [place] [address] Care Team Providers Care Switchboard Installer Name Role Phone Mark Brennan Primary Care Provider Unavail able Lisa Cantrell MD Primary Care Pro vider Angela Llamas PharmD Unavailable [phone] Reason for Visit * Reason Comments Med Refill Encounter Details Date Type Department Care Team (Late Contact Info) Description 07/08/2022 Refill [facility] [address] [place] [phone] Cuca Richey FNP Social History Tobacco Use [...] Department Care Team (Late Contact Info) Description 03/31/2025 10:00 AM EST Clinical Support [address] [address] 06/12/2025 9:00 AM EDT Office Visit [facility] [address] [place] [address] [phone] Lisa Cantrell MD [address] [place] [address] 06/30/2025 9:00 AM EDT Office Visit [facility] [address] [place] [address] Juan Jose, Gracie, OD [address] [place] [address] documented as of this encounter Visit Diagnoses Not on filedocumented in this encounter Care Teams Switchboard Installer Relationship Specialty Start Date End Date Mark Brennan AGNP PCP - General Family Medicine 01/03/22 12/21/22 Lisa Cantrell MD [address] [place] [address] [phone] PCP - General Internal Medicine 12/22/22 Angela Llamas, CarrieD [address] [place] [address] [phone] Pharmacist Pharmacy 01/01/25 documented as of this encounter
--- OUTSIDE RECORDS SUMMARY | 2025-03-23 08:24 | XMS_ITS | Encounter Summary ---
Author Organization [employer] Address [address] [place] [address] [address] [place] [address] Care Team Providers Care Gas Meter Installer Name Role Phone Mark Brennan Primary Care Provider Unavail able Lisa Cantrell MD Primary Care Pro vider Angela Llamas PharmD Unavailable [phone] Reason for Visit * Reason Onset Date Comments TP appt 05/18/2022 Encounter Details Date Type Department Care Team ([facility] Contact Info) Description 05/18/[address] [facility] [address] [place] [phone] Mark Brennan AGNP TP appt Social History [...] had a TP appt with new provider. Petal [facility] tried booking but schedule for provider was booked. Please contact pt at [phone] documented in this encounter Plan of Treatment Upcoming Encounters Date Type Department Care Team ([facility] Contact Info) Description 03/31/2025 10:00 AM EST Clinical Support [facility] [address] [place] [address] 06/12/2025 9:00 AM EDT Office Visit [facility] [address] [place] [address] Lisa Cantrell MD [address] [place] [address] 06/30/2025 9:00 AM EDT Office Visit [facility] OPTOMET[facility] [address] [place] [address] Gracie Ingram, OD [address] [place] [address] documented as of this encounter Visit Diagnoses Not on filedocumented in this encounter Care Teams Gas Meter Installer Relationship Specialty Start Date End Date Mark Brennan AGNP PCP - General Family Medicine 01/03/22 12/21/22 Lisa Cantrell MD [address] [place] [phone] PCP - General Internal Medicine 12/22/22 Angela Llamas, CarrieD [address] [place] [phone] Pharmacist Pharmacy 01/01/25 documented as of this encounter
--- OUTSIDE RECORDS SUMMARY | 2025-03-23 08:24 | XMS_ITS | Encounter Summary ---
Author Organization [employer] Address [address] [place] [id number] Care Team Providers Care Director Of Research Name Role Phone Lisa Cantrell MD Primary Care Pro vider Angela Llamas PharmD Unavailable [phone] Reason for Visit * Reason Onset Date Comments Results 03/14/2025 Encounter Details Date Type Department Care Team (Late st Contact Info) Description 03/14/2025 Results Follow-Up [facility] [address] [place] [phone] Lisa Cantrell MD [address] [place] [address] POCT Glucose, Chlamydia/Trichomona s/Neisseria gonorrhoeae, PCR, Urine, Albumin, Random Urine W/Creatinine, Additional followed-up results: 14 Social History Tobacco Use Types Packs/Day Years [...] encounter Miscellaneous Notes * Telephone Encounter - Farrah Yañez RN - 03/18/2025 9:15 AM EST TC placed to the pt with S bushing and broach operator #[id number] to inform of the directions below from PCP regarding medications and POC. Pt was informed of uncontrolled glucose and the importance of adherence to prescribed DM medications to prevent complications. The pt was also directed to resume statin medication to help with elevated cholesterol. Pt instructed to warp picker vit D at the pharmacy to help with low vit D levels. Pt finally advised of elevated PSA and to schedule a follow up with urologist soon to discuss these findings. Pt stated understanding and had no further questions at this time. ----- Message from Lisa Fraser MD sent at 03/14/2025 3:52 PM EST ----- I called pt couple times not able to reach Please inform pt that from lab results so far : -Uncontrol glucose but yesterday discussed plan to improve so please advise pt to make sure to tke DM meds as advised as well mention uncontrolled cholesterol please reinforce pt to take consistently statins resume yesterday -I sent to his pharmacy vit D 2000 u daily for low vit D -Please inform his PSA is slight elevated at 5.15 -please fax result to his urologist and advise ptto f up with them Thanks ----- Message ----- From: Jaymie Reilly MA Sent: 03/13/2025 9:57 AM EST To: Lisa Fraser MD * Telephone Encounter - Farrah Yañez RN - 03/17/2025 10:08 AM EST TC placed to the pt and a VM was left to call back the office in regard to results below and scheduling request from PCP ----- Message from Lisa Fraser MD sent at 03/14/2025 3:52 PM EST ----- I called pt couple times not able to reach Please inform pt that from lab results so far : -Uncontrol glucose but yesterday discussed plan to improve so please advise pt to make sure to tke DM meds as advised as well mention uncontrolled cholesterol please reinforce pt to take consistently statins resume yesterday -I sent to his pharmacy vit D 2000 u daily for low vit D -Please inform his PSA is slight elevated at 5.15 -please fax result to his urologist and advise ptto f up with them Thanks ----- Message ----- From: Jaymie Reilly MA Sent: 03/13/2025 9:57 AM EST To: Lisa Fraser MD * Result Encounter Note - Lisa Fraser MD - 03/14/2025 3:52 PM EST I called pt couple times not able to reach Please inform pt that from lab results so far : -Uncontrol glucose but yesterday discussed plan to improve so please advise pt to make sure to tke DM meds as advised as well mention uncontrolled cholesterol please reinforce pt to take consistentlystatins resume yesterday -I sent to his pharmacy vit D 2000 u daily for low vit D -Please inform his PSA is slight elevated at 5.15 -please fax result to his urologist and advise ptto f up with them Thanks documented in this encounter Plan of Treatment Upcoming Encounters Date Type Department Care Team (Late st Contact Info) Description 03/31/2025 10:00 AM EST Clinical Support [facility] [address] [place] [id number] 06/12/2025 9:00 AM EDT Office Visit [facility] [address] [place] [phone] Lisa Cantrell MD [address] [place] [address] 06/30/2025 9:00 AM EDT Office Visit [facility] OPTOMETRY [address] [place] [address] Juan Jose, Gracie, OD [address] [place] [address] documented as of this encounter Goals Goal [...] chronic kidney disease No Lisa Cantrell MD documented as of this encounter Visit Diagnoses [...] 03/14/2025 Patient has chronic kidney disease 03/14/2025 Assessment Noted Time PHQ-9 Depression Total Score: 0 03/13/20 9:07 AM EST documented as of this encounter Care Teams Director Of Research Relationship Specialty Start Date End Date Lisa Cantrell MD [address] [place] [address] PCP - General Internal Medicine 12/22/22 Angela Llamas, CarrieD [address] [place] [address] Pharmacist Pharmacy 01/01/25 documented as of this encounter
--- OUTSIDE RECORDS SUMMARY | 2025-03-23 08:24 | XMS_ITS | Encounter Summary ---
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 Name Role Phone Lisa Cantrell MD Primary Care Pro vider Angela Llamas PharmD Unavailable [phone] Reason for Visit * Reason Onset Date Comments PSA result to [facility] Urology 03/21/2025 Encounter Details Date Type Department Care Team (Late st Contact Info) Description 03/21/2025 Telephone [facility] MEDICINE [address] [place], [place] [phone] Lisa Cantrell MD [address] [place], [place] [phone] PSA result to [facility] Urology Social History Tobacco Use Types Packs/Day Years [...] encounter Miscellaneous Notes * Telephone Encounter - Jaymie Reilly MA - 03/21/2025 1:50 PM EST [employer] sent PSA result fax to [facility] urology at [phone]. * Telephone Encounter - Jaymie Reilly MA - 03/21/2025 1:49 PM EST ----- Message from Lisa Fraser MD sent at 03/21/2025 12:15 PM EST ----- Please fax PSA result to pt's urologist Thanks documented in this encounter Plan of Treatment Upcoming Encounters Date Type Department Care Team ([facility] st Contact Info) Description 03/31/2025 10:00 AM EST Clinical Support [address] [address] 06/12/2025 9:00 AM EDT Office Visit [facility] MEDICINE [address] [place] [address] Lisa Cantrell MD [address] [place] [address] 06/30/2025 9:00 AM EDT Office Visit [facility] OPTOMETRY [address] [place] [address] Gracie Ingram, OD [address] [place] [address] documented as of this encounter Goals Goal [...] documented as of this encounter Care Teams Calender Machine Operator Relationship Specialty Start Date End Date Lisa Cantrell MD [address] [place] [id number] PCP - General Internal Medicine 12/22/22 Angela Llamas, CarrieD [address] [place] [address] Pharmacist Pharmacy 01/01/25 documented as of this encounter
--- OUTSIDE RECORDS SUMMARY | 2025-03-23 08:24 | XMS_ITS | Clinical Summary ---
Author Organization [employer] Address [address] [place] [address] [address] [place] [address] Care Team Providers Care Inspector [employer] Name Role Phone Lisa Cantrell MD Primary Care Pro vider Angela Llamas PharmD Unavailable [phone] Allergies Active Allergy Reactions Criticality Noted Date [...] FIVE TIMES DAILY 200 each 023 Active TRUEplus Lancets 33G misc 1 Units 2 times daily. TEST BLOOD SUGAR SUGAR TWICE A DAY 100 each 024 Active acetaminophen (Tylenol) 500 MG tablet Take 2 tablets (1,000 mg) by mouth every 6 (six) hours if needed for moderate pain or fever for up to 25 doses. Take 1-2 tablets po tid prn pain 90 tablet 025 Active chlorthalidone (Hygroton) 25 MG tabletIndication s:Essential hypertension Take 1 tablet (25 mg) by mouth in the morning. 90 tablet 025 Active Diclofenac Sodium 1 % gel APPLY 1 INCH TOPICALLY TWICE DAILY IN THE MORNING AND AT BEDTIME NEEDED FOR PAIN 100 g 025 Active Tirzepatide (Mounjaro) 2.5 MG/0.5ML solution auto-injectorInd ications:Diabete s mellitus type 2, insulin dependent (HCC) Inject 2.5 mg under the skin every 7 (seven) days. 2 mL 03/14/20 25 3:26 PM EST 025 Active atorvastatin (Lipitor) 40 MG tabletIndication s:Mixed hyperlipidemia Take 1 tablet (40 mg) by mouth Once per day. 90 tablet 03/14/20 25 3:26 PM EST 025 Active metFORMIN (Glucophage) 500 MG tablet Take 1 tablet (500 mg) by mouth with breakfast and with evening meal. 60 tablet 2 03/14/20 25 3:26 PM EST 025 2025 Active insulin lispro (HumaLOG) 100 UNIT/ML injectionIndicat ions:Type 2 diabetes mellitus with hyperglycemia, with long-term current use of insulin ([facility]) As sliding scale 15 mL 1 03/14/20 25 3:26 PM EST 025 Active insulin glargine (Lantus SoloStar) 100 UNIT/ML penIndications:T ype 2 diabetes mellitus with hyperglycemia, with long-term current use of insulin ([facility]) Inject 45 Units under the skin at bedtime. 15 mL 2 025 Active glucose 4 g chewable tablet Chew 4 tablets (16 g) if needed for low blood sugar. 50 tablet 2 03/14/20 25 3:26 PM EST 025 2025 Active cholecalciferol (Vitamin D-3) 50 MCG (2000 UT) capsule Take 1 capsule (50 mcg) by mouth Once per day. 90 capsule 1 03/18/20 25 12:11 PM EST 025 2025 Active alfuzosin ER (Uroxatral) 10 MG 24 hr tablet Take 10 mg by mouth in the morning. Do not crush, chew, or split. 2024 Discontinued(O ther) finasteride (Proscar) 5 MG tablet Take 5 mg by mouth in the morning. Do not crush, chew, or split. 2024 Discontinued(O ther) lidocaine (Lidoderm) 5 % patch APPLY 1 PATCH TOPICALLY TO SKIN, LEAVE ON FOR 12 HOURS AND OFF FOR 12 HOURS DIRECTED 30 patch 2 2024 Discontinued(O ther) meloxicam (Mobic) 15 MG tablet Take 1 tablet (15 mg) by mouth Once per day. 15 tablet 2024 Discontinued(O ther) losartan (Cozaar) 25 MG tablet TAKE 1 TABLET BY MOUTH EVERY DAY 90 tablet 2024 Discontinued(O ther) Aspirin Low Dose 81 MG chewable tablet CHEW 1 TABLET BY MOUTH EVERY DAY 90 tablet 2024 Discontinued(O ther) atorvastatin (Lipitor) 40 MG tabletIndication s:Mixed hyperlipidemia TAKE 1 TABLET BY MOUTH EVERY DAY 90 tablet 2024 Discontinued(R eorder (will not trigger notification to Pharmacy)) Lantus SoloStar 100 UNIT/ML penIndications:T ype 2 diabetes mellitus with hyperglycemia, with long-term current use of insulin ([facility]) INJECT 42 UNITS SUBCUTANEOUSLY EVERY EVENING DIRECTED 15 mL 2 2024 Discontinued cholecalciferol (Vitamin D-3) 125 MCG (5000 UT) tabletIndication s:Routine adult health maintenance TAKE 1 TABLET BY MOUTH EVERY DAY 90 tablet 2024 Discontinued(O ther) insulin lispro (HumaLOG) 100 UNIT/ML injectionIndicat ions:Type 2 diabetes mellitus with hyperglycemia, with long-term current use of insulin ([facility]) Inject 20 Units under the skin with breakfast, with lunch, and with evening meal. 15 mL 1 025 2024 Discontinued(R eorder (will not trigger notification to Pharmacy)) Tirzepatide (Mounjaro) 2.5 MG/0.5ML solution auto-injectorInd ications:Diabete s mellitus type 2, insulin dependent (HCC) Inject 2.5 mg under the skin every 7 (seven) days. 2 mL 2024 Discontinued(O ther) Lantus SoloStar 100 UNIT/ML penIndications:T ype 2 diabetes mellitus with hyperglycemia, with long-term current use of insulin ([facility]) INJECT 42 UNITS SUBCUTANEOUSLY EVERY EVENING DIRECTED 15 mL 2 025 2024 Discontinued(R eorder (will not trigger notification to Pharmacy)) Hospital, Clinic, or Other Facility Administered Medication Ordered Dose Route Frequency Start Date End Date Status lidocaine (Xylocaine) 2 % injection 20 mgIndications:Infl jh skin tag 20 mg INFILTRATION Once 01/19/2024 Discontinued Active Problems Problem Noted Date Diagnosed Date Hematuria 03/13/2025 Poor memory 01/19/2024 Cardiomyopathy 11/14/2023 Family history of cancer 11/14/2023 Overweight (BMI 25.0-29.9) 11/14/2023 Gastroesophageal reflux [...] of LDL-C. David SS et al. JUDD. 2013;310(98): 9254-6959 (http://education.P2 Science/faq/RFR417) Chol/HDLC Ratio <5.0 (calc) 6.6 High 6.2 High Non-HDL Cholesterol <130 mg/dL (calc) 180 High 157 High CM The 10-year ASCVD risk score (Janiya WAGGONRE, et al., 2019) is: 22.5% Values used [...] of this month, F/up in one year. [facility] Dental home: [facility] dental advised. Constipation 08/17/2022 Assessment & Plan (08/17/2022 4:09 PM EDT): Patient will start colace and miralax. We will discuss his results in two weeks at his f/up. He is also being placed for a colorectal cancer screening. Type 2 diabetes mellitus wit h diabetic microalbuminuria, with long-term current use of insulin 04/22/2016 Essential hypertension 10/08/2015 Assessment & Plan [...] return in two weeks with the log. Resolved Problems Problem Noted Date Diagnosed Date Resolved Date Type 2 diabetes mellitus wit h hyperglycemia, with long-term current use of insulin 03/13/2025 Arthralgia of right knee 10/21/202402/2025 Assessment & Plan (10/21/2024 9:00 AM EDT): [...] not resolve within 3 to 4 weeks. Skin lesion 11/14/2023 03/13/2025 Encounters Date Type Department Care Team Description 03/23/2025 Orders Only GENERIC EXTERNAL DATA DEPARTMENT Provider, Generic External Data 03/21/[address] [address] Lisa Cantrell MD PSA result to [facility] 03/21/2025 Results [address] [facility] [place] [address] Darshana Clay, KALPEHS HPV mRNA E6/E7, Rectal with Reflex to Genotypes, 16, 18/45 03/14/2025 Orders Only [address] [address] Lisa Cantrell MD 03/14/2025 Results Follow-Up [address] [address] Lisa Cantrell MD POCT Glucose, Chlamydia/Trichomona s/Neisseria gonorrhoeae, PCR, Urine, Albumin, Random Urine W/Creatinine, Additional followed-up results: 14 03/14/2025 [address] [facility] [place] [address] Lisa Cantrell MD 03/13/2025 9:00 AM EST Office Visit [address] [place] [address] Lisa Cantrell MD Hypertension, unspecified type (Primary Dx); Diabetes mellitus type 2, insulin dependent (HCC); Mixed hyperlipidemia; Type 2 diabetes mellitus with hyperglycemia, with long-term current use of insulin ([facility]); Dietary counseling; Exercise counseling; Cardiomyopathy, unspecified type (CMS/HCC) (HCC); Annual physical exam; Encounter for immunization; Essential hypertension; Overweight (BMI 25.0-29.9); Benign prostatic hyperplasia (BPH) with straining on urination; Routine adult health maintenance; Family history of cancer; Poor memory; Hematuria, unspecified type; Type 2 diabetes mellitus with diabetic microalbuminuria, with long-term current use of insulin ([facility]) 03/13/2025 Orders Only [facility] [address] Lisa Cantrell MD 03/13/2025 Telephone [facility] [address] Lisa Cantrell MD Information provided to PT 03/13/2025 Travel 03/12/2025 Telephone [facility] [place] [facility] [address] Lizbet Young MA 03/09/2025 Refill [facility] [place] [address] Lisa Cantrell MD Type 2 diabetes mellitus with hyperglycemia, with long-term current use of insulin ([facility]) 03/06/2025 Travel 02/11/2025 Orders Only GENERIC EXTERNAL DATA DEPARTMENT Provider, Generic External Data 01/26/2025 Travel 01/13/2025 Telephone [facility] [place] [address] Lisa Cantrell MD 01/13/2025 Results Follow-Up [facility] [address] Olivia Greenwood NP POCT Urinalysis, Urinalysis, Complete, with Reflex to Culture, Basic Metabolic Panel 01/06/2025 9:00 AM EDT Office Visit [facility] [place] [facility] [address] Olivia Greenwood NP Elevated blood pressure reading in office with diagnosis of hypertension (Primary Dx); Hematuria, unspecified type; Acute bilateral low back pain without sciatica 01/06/2025 Orders Only GENERIC EXTERNAL DATA DEPARTMENT Provider, Generic External Data 01/06/2025 Travel 01/01/2025 Results Follow-Up [facility] [address] Lisa Cantrell MD Albumin, Random Urine W/Creatinine, Hepatic Function Panel, Basic Metabolic Panel, Lipid Panel, Standard 01/01/2025 Results Follow-Up [facility] [address] Lisa Cantrell MD POCT A1c 01/01/2025 Orders Only [facility] [address] [place] [address] Lisa Cantrell MD 01/01/2025 Travel 12/30/2024 9:00 AM EDT Office Visit [facility] OPTOMETRY [address] [place] [address] Juan Jose, Gracie, OD Open angle with borderline findings, 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); Other disorders of optic disc, bilateral 12/30/2024 Travel 12/25/2024 Travel 12/23/2024 Travel from Last 3 Months Immunizations Immunization Administration Dates Next Due Influenza injectable quadriv alent IIV4 with preservative 03/08/2017 Influenza injectable quadrivalent preservative f ree 04/22/2016 Influenza, IIV3, injectable 03/10/2014 Influenza, seasonal, injectable, preservative fr ee 03/13/2025,01/18/2024 MMR 10/12/2015 Pfizer Covid-19 Vaccine 12+ 03/13/2025, Pneumococcal Conjugate PCV 20 11/14/2023 Pneumococcal Polysaccharide [...] Mass Index 27.7 03/13/2025 9:06 AM EST Plan of Treatment Upcoming Encounters Date Type Department Care Team (Late st Contact Info) Description 03/31/2025 10:00 AM EST Clinical Support [facility] [address] [place] [address] 06/12/2025 9:00 AM EDT Office Visit [facility] [address] [place] [address] Lisa Cantrell MD [address] [place] [address] 06/30/2025 9:00 AM EDT Office Visit [facility] OPTOMETRY [address] [place] [address] Juan Jose, Gracie, OD [address] [place] [address] Health Maintenance Due Date Last Done Comments CT Colonography 1969 Colonoscopy 1969 Colorectal Cancer Screening 1969 FIT DNA/Cologuard 1969 FIT 1969 FOBT 1969 Sigmoidoscopy 1969 Diabetes: Foot Exam 1979 Hepatitis A Vaccines (1 of 2 - Risk 2-dose series) 1988 Hepatitis B Vaccines (1 of 3 - 19+ 3-dose series) 1988 RSV Patients and Patients Aged 60 years or older (1 - Risk 50-74 years 1-dose series) 2019 Diabetes: Hemoglobin A1C 06/11/2025 025, 01/01/2025, 01/12/2024, Additional history exists DTaP/Tdap/Td Vaccines (2 - Td or Tdap) 10/07/2025 10/08/2015 Disability Screening 10/24/2025 10/24/2024 Eye Exam 12/30/2025 12/30/2024, 06, 06/28/2024, Additional history exists Alcohol/Substance Use Screening 03/13/2026 03/13/2025 Anal Pap 03/13/2026 03/13/2025, 02/11/2025 Depression Screening 03/13/2026 03/13/2025, 03/13/20 25 Diabetes: Urine Protein Screening 03/13/2026 03/13/2025, 01/01/2025, 01/12/2024, Additional history exists Lipid Panel 03/13/2026 03/13/2025, 10/0 04/2024, 01/12/2024, Additional history exists SDOH Screening 03/13/2026 03/13/2025 Tobacco Screening 03/13/2026 03/13/2025 Zoster Vaccines Completed 10/06/2020, 05/13/2019 Pneumococcal Vaccine: 50+ Years Completed 11/14/2023, 09/07/2016 COVID-19 Vaccine Completed 03/13/2025, , 03/05/2022, Additional history exists HIV Screening Completed 03/13/2025, 01/12/2024 Hepatitis C Screening Completed 03/13/2025, 024 Influenza Vaccine Completed 03/13/2025, , 03/08/2017, Additional history exists HIB Vaccines Aged Out [...] on patient's age to complete this topic Goals Goal Patient Goal Type Associated Problems [...] Care Plan Patient has chronic kidney disease Jaymie Alfaro MA Procedures Procedure Name Priority Date/Time Associated Diagnosis Comments CBC WITH AUTO DIFFERENTIAL Routine 03/23/2025 7:54 AM EST PSA, TOTAL Routine 03/13/2025 11:07 AM EST Annual physical exam VITAMIN B12/FOLATE, SERUM PANEL Routine 03/13/2025 11:07 AM EST Annual physical exam VITAMIN D,25-OH,TOTAL,IA Routine 03/13/2025 11:07 AM EST Annual physical exam TSH W/REFLEX TO FT4 Routine 03/13/2025 1 1:07 AM EST Annual physical exam SYPHILIS SCREEN Routine 03/13/2025 11:07 AM EST Annual physical exam LIPID PANEL, STANDARD Routine 03/13/2025 11:07 AM EST Annual physical exam HIV 1/2 ANTIGEN/ANTIBODY, FOURTH GENERATION W/RFL Routine 03/13/2025 11:07 AM EST Annual physical exam HEPATITIS C [...] 03/13/2025 11:07 AM EST Annual physical exam ALBUMIN, RANDOM URINE W/CREATININE Routine 03/13/2025 11:02 AM EST Annual physical exam CHLAMYDIA/TRICHOMONAS/ NEISSERIA GONORRHOEAE, PCR, URINE Routine 03/13/2025 11:02 AM EST Annual physical exam CBC WITH AUTO DIFFERENTIAL Routine 03/13/2025 10:07 AM EST Annual physical exam POCT GLUCOSE Routine 03/13/2025 9:57 AM EST Annual physical exam HPV MRNA E6/E7,RECTAL W/ RFL GENOTYPES,16,18/45 Routine 03/13/2025 12:00 AM EST CYTOPATH-CELL ENHANCED Routine 5:[address] [...] Open angle with borderline findings, low risk from Last 3 Months Results * (ABNORMAL) CBC auto differential (03/23/2025 7:54 AM EST) Only the most recent of3 resultswithin the time period is included. White Blood Count 7.8 4.8 - 10.8 X10*3/uL [facility] Red Blood Count 6.06(H) 4.60 - 5.80 X10*6/uL [facility] Hemoglobin 17.8 14.0 - 18.0 g/dl [facility] Hematocrit 49.6 42.0 - 52.0 % [facility] Mean Corpuscular Volume 81.8 80.0 - 98.0 fL [facility] Mean Corpuscular Hemoglobin 29.4 27.0 - 33.0 pg [facility] Mean Corpuscular HGB Conc 35.9 31.0 - 36.0 g/dl [facility] Red Cell Distribution Width 12.3 11.0 - 16.0 % [facility] Platelet Count 204 160 - 400 X10*3/uL [facility] Mean Platelet Volume 10.0 9.4 - 12.4 fL [facility] Neutrophils Percent Auto 54.8 45 - 73 % [facility] Imm Gran Pct Auto 0.3 0.0 - 0.4 % [facility] Lymphocytes Percent Auto 34.7 20 - 40 % [facility] Monocytes Percent Auto 8.7 2 - 11 % [facility] Eosinophils Percent Auto 1.1 0 - 4 % [facility] Basophils Percent Auto 0.4 0 - 2 % [facility] NRBC Pct Auto 0.0 0.0 - 0.2 /100WBC [facility] Neutrophils Absolute Auto 4.3 2.0 - 8.3 x10*3/uL [facility] Imm Gran Abs Auto 0.02 0.00 - 0.03 X10*3/uL [facility] Lymphocytes Absolute Auto 2.7 1.2 - 4.9 X10*3/uL [facility] Monocytes Absolute Auto 0.7 0.1 - 1.2 X10*3/uL [facility] Eosinophils Absolute Auto 0.1 0.0 - 0.4 X10*3/uL [facility] Basophils Absolute Auto 0.0 0.0 - 0.2 X10*3/uL [facility] NRBC Abs Auto 0.000 0.0 - 0.012 X10*3/uL [facility] 03/23/2025 7:54 AM EST 03/23/2025 7:59 AM EST us Generic External Data Provider LAB BLOOD ORDERAB LES Final Result Performing Organization Address City/[facility]/ZIP Co de Phone Number [facility] [address] [place] [phone] * Syphilis Screen (03/13/2025 11:07 AM EST) Syphilis Screen Nonreactive Nonreactive [facility] Blood 03/13/2025 11:0 7 AM EST 03/13/2025 2:04 PM EST us Lisa Fraser MD LAB BLOOD ORDERAB LES Final Result Performing Organization Address [facility] Co de Phone Number [facility] [address] [place] [phone] * (ABNORMAL) Vitamin D, 25-Hydroxy, Total, Immunoassay (03/13/2025 11:07 AM EST) Vitamin D 25-OH Total 18.9(L) >30 ng/mL [facility] Comment: Health Based Reference Values*< 20 ng/mL Drwqmeycp06-30 ng/mL Insufficient> 30 ng/mL Sufficient*Ronen MARTINEZ. N [...] MD LAB BLOOD ORDERAB LES Final Result [facility] [address] [place] [phone] * Vitamin B12 (Cobalamin) and Folate Panel, Serum (03/13/2025 11:07 AM EST) Vitamin B12 332 200 - 900 pg/mL [facility] Comment:NORMAL 200-900 PG/ML INDETERMINATE 160-199 PG/ML DEFICIENT < 160 PG/ML Folate 12.0 > or = 4.0 ng/mL [facility] Comment:Reference Values:> o r = 4.0 ng/mL< 4.0 ng/mL suggests folate deficiency Methotrexate, aminopterin and folinic acid(leucovorin) are chemotherapeutic agents whose molecularstructures are similar to folate; therefore, the Architectfolate assay cannot be used for patients using these drugs. Blood 03/13/2025 11:0 7 AM EST 03/13/2025 2:04 PM EST Lisa Fraser MD LAB BLOOD ORDERAB LES Final Result Performing Organization Address City/[facility]/ZIP Co de Phone Number [facility] [address] [place] [phone] * TSH with Reflex to Free T4 (03/13/2025 11:07 AM EST) Pathologist [facility] TSH reflex Free T4 1.61 0.32 - 4.0 uIU/mL [facility] Blood 03/13/2025 11:0 7 AM EST 03/13/2025 2:04 PM EST Lisa Fraser MD LAB BLOOD ORDERAB LES Final Result Performing Organization Address [facility] Co de Phone Number [facility] [address] [place] [phone] * Hepatitis C Antibody with Reflex to HCV, RNA, Quantitative, Real-Time PCR (03/13/2025 11:07 AM EST) [facility] Hepatitis C Antibody Nonreactive Nonreactive [facility] Comment:Antibodies to HCV no t detected; does not exclude early acuteHCV infection. Blood Venous blood specimen / Unknown 03/13/2025 11:07 AM EST 03/13/2025 2:04 PM EST Lisa Fraser MD LAB BLOOD ORDERAB LES Final Result Performing Organization Address [facility] Co de Phone Number [facility] [address] [place] [phone] * Hepatitis B surface antigen, EIA (03/13/2025 11:07 AM EST) Hepatitis B Surface Ag Negative Negative [facility] Blood Venous blood specimen / Unknown 03/13/2025 11:07 AM EST 03/13/2025 2:04 PM EST Lisa Fraser MD LAB BLOOD ORDERAB LES Final Result Performing Organization Address [facility]/ZIP Co de Phone Number [facility] [address] [place] [phone] * Hepatitis B Core Antibody, Total (03/13/2025 11:07 AM EST) Hepatitis B Core Antibody Reactive Nonreactive [facility] Comment:Presumptive evidence of anti-HBc. Blood Venous blood specimen / Unknown 03/13/2025 11:07 AM EST 03/13/2025 2:04 PM EST Lisa Fraser MD LAB BLOOD ORDERAB LES Final Result Performing Organization Address [facility] Co de Phone Number [facility] [address] [place] [phone] * HIV-1/2 Antigen and Antibodies, Fourth Generation, with Reflexes (03/13/2025 11:07 AM EST) Pathologist [facility] HIV AB/AG Nonreactive Nonreactive [facility] Comment:HIV-1 p24 Ag and/or HIV-1/HIV-2 Ab not detected.A test result that is nonreactive does not exclude thepossibility of exposure to or infection with HIV-1 and/orHIV-2. Nonreactive results in this assay for individualswith prior exposure to HIV-1 and/or HIV-2 may be due toantigen and antibody levels that are below the limit ofdetection of this assay.The TelinetniERPLY HIV Ag/Ab Combo assay result andsupplemental assay results should be interpreted inconjunction with the patient's clinical presentation,history and other laboratory results. If the results areinconsistent with clinical evidence, additional testing issuggested to confirm the result. Blood Venous blood specimen / Unknown 03/13/2025 11:07 AM EST 03/13/2025 2:04 PM EST us Lisa Fraser MD LAB BLOOD ORDERAB LES Final Result Performing Organization Address [facility] Co de Phone Number [facility] [address] [place] [phone] * Hepatitis B Surface Antibody, Qualitative (03/13/2025 11:07 AM EST) ~Hepatitis B Surface Antibody REACTIVE Nonreactive [facility] Comment:REACTIVE: > 11.99 mI U/mL Blood Venous blood specimen / Unknown 03/13/2025 11:07 AM EST 03/13/2025 2:04 PM EST us Lisa Fraser MD LAB BLOOD ORDERAB LES Final Result Performing Organization Address [facility] Co de Phone Number [facility] [address] [place] [phone] * (ABNORMAL) PSA,Total (03/13/2025 11:07 AM EST) Pathologist [facility] Prostate Specific Antigen 5.17(H) <0.05 - 4.0 ng/mL [facility] Comment:PSA methodology: Abb benjamin Henley i ChemiluminescentMicroparticle Immunoassay (CMIA) Blood Venous blood specimen / Unknown 03/13/2025 11:07 AM EST 03/13/2025 2:04 PM EST us Lisa Fraser MD LAB BLOOD ORDERAB LES Final Result Performing Organization Address [facility] Co de Phone Number [facility] [address] [place] [phone] * (ABNORMAL) Hemoglobin A1c (03/13/2025 11:07 AM EST) Hemoglobin A1c 8.7(H) <6.0 % [facility] Comment:Hemoglobin A1C Refer ence Range Adults: 4.8 - 6.0 % Non diabetic: < 6.0 % Goal: < 7.0 %Additional Action Suggested: > 8.0 %Note: Hemoglobin A1c results are invalid for patients with abnormal amounts of HbF. Blood transfusions may impact the HbA1c concentration in the patient sample. Estimated Average Glucose 203 mg/dL [facility] Comment:eAG = Estimated ave rage glucose which is %A1C expressed asaverage glucose, using the formula of the V1P-ObxoiapJqcquxf Glucose study (ADAG), Diabetes Care, Vol.31,#8,Nov. 2007 Blood Venous blood specimen / Unknown 03/13/2025 11:07 AM EST 03/13/2025 2:04 PM EST us Lisa Fraser MD LAB BLOOD ORDERAB LES Final Result [facility] [address] [place] [phone] * (ABNORMAL) Lipid Panel, Standard (03/13/2025 11:07 AM EST) Only the most recent of2 resultswithin the time period is included. Triglycerides 180(H) <150 mg/dL [facility] Comment:Desirable Triglyceri de: less than 150 mg/dLBorderline High Triglyceride 150-199 mg/dLHigh Triglyceride: 200-499 mg/dLVery High Triglyceride: greater than or equal to 5OO mg/dL Cholesterol 207(H) <200 mg/dL [facility] Comment:Desirable Cholestero l: less than 200 mg/dLBorderline High Cholesterol: 200-239 mg/dLHigh Cholesterol: greater than 239 mg/dL LDL Cholesterol Calculated 141(H) <100 mg/dL [facility] Comment:Desirable LDL: less than 100 mg/dLNear Optimal/Above Optimal LDL: 110- 129 mg/dLBorderline High LDL: 130-159 mg/dLHigh LDL: 160-189 mg/dLVery High LDL: greater than or equal to 190 mg/dL HDL Cholesterol 30(L) >40 mg/dL [facility] Comment:Desirable HDL: great er than 40 mg/dL Note: This HDL assay may give artificially low results in patients with liver disease. Blood Venous blood specimen / Unknown 03/13/2025 11:07 AM EST 03/13/2025 2:04 PM EST us Lisa Fraser MD LAB BLOOD ORDERAB LES Final Result [facility] [address] [place] [address] [phone] * (ABNORMAL) Comprehensive Metabolic Panel (03/13/2025 11:07 AM EST) Only the most recent of2 resultswithin the time period is included. Sodium 138 135 - 145 mmol/L [facility] Potassium 4.2 3.3 - 5.1 mmol/L [facility] Chloride 104 96 - 108 mmol/L [facility] Carbon Dioxide 28 22 - 29 mmol/L [facility] Anion Gap 10(L) 12 - 20 [facility] Urea Nitrogen (BUN) 14 9 - 16 mg/dL [facility] Creatinine, Serum 1.06 0.5 - 1.4 mg/dL [facility] Estimated Glomerular Filt Rate >60 [facility] Comment:Chronic Kidney Disea se: Estimated GFR < 60 mL/min/1.96l2Stxyoq Kidney Disease: Estimated GFR < 15 mL/min/1.73m2 Glucose 158(H) 60 - 115 mg/dL [facility] Calcium 10.0 8.4 - 10.2 mg/dL [facility] Bilirubin, Total 0.7 0.0 - 1.0 mg/dL [facility] Aspartate Amino Transferase 39(H) 5 - 37 U/L [facility] Alanine Aminotransferase 38 0 - 40 U/L [facility] Total Protein 7.7 6.5 - 8.0 g/dL [facility] Albumin Level 4.8 3.5 - 5.0 g/dL [facility] Alkaline Phosphatase 77 39 - 117 U/L [facility] Blood Venous blood specimen / Unknown 03/13/2025 11:07 AM EST 03/13/2025 2:04 PM EST Lisa Fraser MD LAB BLOOD ORDERAB LES Final Result [facility] [address] [place] [address] [phone] * Chlamydia/Trichomonas/Neisseria gonorrhoeae, PCR, Urine (03/13/2025 11:02 AM EST) CT PCR, Urine NOT DETECTED Not Detect. [facility] Comment:A not detected test result [...] NG PCR, Urine NOT DETECTED Not Detect. [facility] Comment:A not detected test result [...] MD LAB URINE ORDERAB LES Final Result [facility] [address] [place] [phone] * Albumin, Random Urine W/Creatinine (03/13/2025 11:02 AM EST) Only the most recent of2 resultswithin the time period is included. Creatinine, Urine 193.50 mg/dL [facility] Microalbumin Urine 39.0 mg/L [facility] Microalbum Creatinine Ratio Ur 20.1 <30 ug/mg cr [facility] Comment:Albumin/Creatinine R atio Reference Ranges: Normal: < 30 ug/mg creatinine Microalbuminuria: 30 - 300 ug/mg creatinineClinical Albuminuria: > 300 ug/mg creatinine Urine (Urine, Random) 03/13/2025 11:02 AM EST 03/13/2025 1:46 PM EST us Lisa Fraser MD LAB URINE ORDERAB LES Final Result [facility] [address] [place] [phone] * POCT Glucose (03/13/2025 9:57 AM EST) Glucose Blood, POC 170 60 - 200 mg/dL QC Media Lot # [id number] Lot# Expiration Date Blood Capillary blood specimen / Unknown 03/13/2025 9:57 AM EST Lisa Fraser MD POINT OF CARE PRAKASH T ENTER/EDIT ORDERABLES Final Result * Cytopath-cell enhanced (02/11/2025 5:20 PM EST) 02/11/2025 5:20 PM EST 02/12/2025 11:34 AM EST [facility] - 02/13/2025 10:03 AM EST ----- ------- Name: Arjun Parkinson Age/Sex: 54/M : 1970 Unit#: [id number] Attend Dr: Melody Stringer [facility] Re02/11/25 Status: DEP [facility]F [facility] Disch: ----- ------- SPEC : [id number] RECD: 02/12/25 STATUS: SALVADOR RODRIGUEZ NUM: [id number] ELIOT: 02/11/25-1720 [facility] DR: Melody Stringer [facility] ENTERED: 02/12/25-1246 SP TYPE: Cytology OT DR: [...] developed and their performance characteristics determined by [facility]. They have not been cleared or approved by the U.S. Food and Drug Administration (FDA). However, the FDA has determined that such clearance or approval is not necessary. This laboratory is certified under the Clinical Laboratory Improvement Amendments of 1988 (CLIA) as qualified to perform high complexity clinical laboratory testing. Copies To: Melody Stringer [facility] [address] [place] [address] Dr. Aranda [address] [place] [address] [email or web address] Lisa Cantrell MD [address] [address] CONTINUED ON NEXT PAGE ----- ------- Name: Arjun Parkinson Age/Sex: 54/M : 1970 Unit#: [id number] Attend Dr: Melody Stringer [facility] Re02/11/25 Status: DEP [facility]F [facility] Disch: ----- ------- SPEC : [id number] RECD: 02/12/25 STATUS: SALVADOR RODRIGUEZ NUM: [id number] ELIOT: 02/11/25-[address] [facility] DR: Melody Stringer [facility] ENTERED: 02/12/25-1246 SP TYPE: Cytology OTHR DR: Lisa Cantrell MD ORDERED: Cyto-enhanced ----- ------- Signed (signature on file) Yariel Barros MD 02/13/25 1003 ----- ------- END OF REPORT us Generic External Data Provider LAB CYTOLOGY CHRISTINA SPEARS Final Result Performing Organization Address City/State/[facility] Co de Phone Number [facility] [address] [place] [phone] * CT Abdomen Pelvis w/o Contrast (01/06/2025 7:21 PM EDT) Anatomical Region Laterality Modality Body, Pelvis, Abdomen Computed T omography 01/06/2025 7:21 PM EDT Narrative 01/06/2025 7:22 PM EDT [place] [address] CT Scan Report Signed Patient: Arjun Parkinson MR#: [id number] : 1970 Acct:[id number] Age/Sex: 54 / M ADM Date: 01/06/25 Loc: .ED Attending Dr: Ordering Physician: Antonino Marquez Date of Service: 01/06/25 Procedure(s): CT abdomen pelvis wo IV con Accession Number(s): [id number] cc: Antonino Marquez; [facility] Report Number: [id number]: Total DLP = 464.00 mGy-cm Reason for [...] in OV> 01/06/251921 DD/ 20 TD/TT: 01/06/251920 Weight And Test Bar Clerk: Procedure Note Donotuseinterpreter, Image - 01/06/[address] [place] [address] [address] Scan Report Signed Patient: Arjun Parkinson#: [id number] : 1970Acct:[id number] Age/Sex: 54 / MADM Date: 01/06/25 Loc: HO.ED Attending Dr: Ordering Physician: Antonino Marquez Date of Service: 01/06/25 Procedure(s): CT abdomen pelvis wo IV con Accession Number(s): [id number] cc: Antonino Marquez; [facility] Report Number: [id number]: Total DLP = 464.00 mGy-cm Reason for [...] in OV> 01/06/251921 DD/ 20 TD/TT: 01/06/251920 Weight And Test Bar Clerk: [facility] External Provider IMG CT PROCEDURES Final Result * Culture, Urine, Routine (01/06/2025 5:57 PM EDT) Urine Urine specimen obtained by clean catch procedure / Unknown 01/06/2025 5:57 PM EDT 01/06/2025 5:57 PM EDT Comment:[facility] Narrative [facility] - 01/08/2025 12:25 PM EDT Urine Culture No growth. Specimen Source: Urine clean catch Olivia Greenwood NP LAB MICROBIOLOGY - GENERAL ORDVadim SPEARS Final Result [facility] [address] [place] [phone] * (ABNORMAL) Urinalysis, Complete, with Reflex to Culture (01/06/2025 4:12 PM EDT) Only the most recent of2 resultswithin the time period is included. Color Urine Yellow [facility] Appearance Urine Clear [facility] PH 7.0 5.0 - 9.0 [facility] Glucose Urine UA >=1000(A) Negative mg/dL [facility] Urine Blood Moderate (2+)(A) Negative [facility] Specific [place] - Urine 1.020 1.005 - 1.025 [facility] Urine Protein Negative Neg-Trace mg/dL [facility] Urine Ketones Negative Negative mg/dL [facility] Nitrite Urine Negative Negative [facility] Leukocyte Esterase Urine Negative Negative [facility] RBC Urine >20(A) 0 - 2 /HPF [facility] Urine WBC 0-5 0 - 5 /HPF [facility] Urine Squamous Epithelial Cell 0-2 0 - 2 /HPF [facility] Urine Bacteria None Seen None Seen [facility] Hyaline Casts, Urine 0-2 0 - 2 /LPF [facility] 01/06/2025 4:12 PM EDT 01/06/2025 4:17 PM EDT Narrative [facility] - 01/06/2025 4:28 PM EDT [id number], Clean Catch us Generic External Data Provider LAB URINE ORDERAB LES Final Result [facility] [address] [place] [phone] * (ABNORMAL) Basic Metabolic Panel (01/06/2025 10:32 AM EDT) Only the most recent of2 resultswithin the time period is included. Sodium 136 135 - 145 mmol/L [facility] Potassium 4.2 3.3 - 5.1 mmol/L [facility] Chloride 102 96 - 108 mmol/L [facility] Carbon Dioxide 28 22 - 29 mmol/L [facility] Anion Gap 10(L) 12 - 20 [facility] Urea Nitrogen (BUN) 16 9 - 16 mg/dL [facility] Creatinine, Serum 1.08 0.5 - 1.4 mg/dL [facility] Estimated Glomerular Filt Rate >60 [facility] Comment:Chronic Kidney Disea se: Estimated GFR < 60 mL/min/1.94a1Qkhlfx Kidney Disease: Estimated GFR < 15 mL/min/1.73m2 Glucose 215(H) 60 - 115 mg/dL [facility] Calcium 9.7 8.4 - 10.2 mg/dL [facility] Blood Venous blood specimen / Unknown 01/06/2025 10:32 AM EDT 01/06/2025 11:25 AM EDT us Olivia Greenwood NP LAB BLOOD ORDERABLES Final Resu lt [facility] [address] [place] [phone] * (ABNORMAL) POCT Urinalysis (01/06/2025 9:53 [...] 63,026 Urine 01/06/2025 9:53 AM EDT Olivia Nice TUAN POINT OF CARE TEST ENTER/EDIT O RDERABLES Final Result * (ABNORMAL) Hepatic Function Panel (01/01/2025 10:22 AM EDT) Bilirubin, Total 0.7 0.0 - 1.0 mg/dL [facility] Bilirubin, Direct 0.2 0.0 - 0.5 mg/dL [facility] Aspartate Amino Transferase 45(H) 5 - 37 U/L [facility] Alanine Aminotransferase 48(H) 0 - 40 U/L [facility] Total Protein 7.4 6.5 - 8.0 g/dL [facility] Albumin Level 4.7 3.5 - 5.0 g/dL [facility] Alkaline Phosphatase 74 39 - 117 U/L [facility] 01/01/2025 10:2 2 AM EDT 01/01/2025 10:55 AM EDT Lisa Fraser MD LAB BLOOD ORDERAB LES Final Result Performing Organization Address City/State/[facility] Co de Phone Number [facility] [address] [place] [phone] * (ABNORMAL) POCT A1c (01/01/2025 9:41 AM EDT) Hemoglobin A1C 9.3(A) 4.0 - 5.7 % QC Media Lot # [id number] Lot# Expiration Date [id number] Blood 01/01/2025 9:41 AM EDT us Lisa [...] the nerve in 6 months. us Gracie Mcfarlandadelfo OD OPHTH VISUAL FIELD Final Resu lt from Last 3 Months Additional Health Concerns Active Problems Noted Date [...] 03/21/2025 Patient has chronic kidney disease 03/21/2025 Insurance C3 Care Teams Inspector Precision Assembly Relationship Specialty Start Date End Date Lisa Cantrell MD [address] [place] [phone] PCP - General Internal Medicine 12/22/22 Angela Llamas, CarrieD [address] [place] [phone] Pharmacist Pharmacy 01/01/25
--- OUTSIDE RECORDS SUMMARY | 2025-03-23 08:24 | XMS_ITS | Encounter Summary ---
Author Organization [employer] Address [address] [facility] 7t [place] [address] Care Team Providers Care Integrated Circuit Design Engineer Name Role Phone Lisa Cantrell MD Primary Care Pro vider Angela Llamas PharmD Unavailable [phone] Encounter Details Date Type Department Care Team (Late st Contact Info) Description 03/23/2025 Orders Only GENERIC EXTERNAL DATA [...] Description 03/31/2025 10:00 AM EST Clinical Support [facility] [address] [place] [address] 06/12/2025 9:00 AM EDT Office Visit [facility] [address] [place] [address] Lisa Cantrell MD [address] [place] [address] 06/30/2025 9:00 AM EDT Office Visit [facility] [address] [place] [address] Juan Jose, Gracie, OD [address] [place] [address] documented as of this encounter Goals Goal [...] has chronic kidney disease No Darshana Clay, KALPESH Patient has chronic [...] has chronic kidney disease Jaymie Alfaro [place] documented as of this encounter Procedures Procedure Name Priority Date/Time Associated Diagnosis Comments CBC WITH AUTO DIFFERENTIAL Routine 03/23/2025 7:54 AM EST documented in this encounter Results * (ABNORMAL) CBC auto differential (03/23/2025 7:54 AM EST) White Blood Count 7.8 4.8 - 10.8 X10*3/uL [facility] Red Blood Count 6.06(H) 4.60 - 5.80 X10*6/uL [facility] Hemoglobin 17.8 14.0 - 18.0 g/dl [facility] Hematocrit 49.6 42.0 - 52.0 % [facility] Mean Corpuscular Volume 81.8 80.0 - 98.0 fL [facility] Mean Corpuscular Hemoglobin 29.4 27.0 - 33.0 pg [facility] Mean Corpuscular HGB Conc 35.9 31.0 - 36.0 g/dl [facility] Red Cell Distribution Width 12.3 11.0 - 16.0 % [facility] Platelet Count 204 160 - 400 X10*3/uL [facility] Mean Platelet Volume 10.0 9.4 - 12.4 fL [facility] Neutrophils Percent Auto 54.8 45 - 73 % [facility] Imm Gran Pct Auto 0.3 0.0 - 0.4 % [facility] Lymphocytes Percent Auto 34.7 20 - 40 % [facility] Monocytes Percent Auto 8.7 2 - 11 % [facility] Eosinophils Percent Auto 1.1 0 - 4 % [facility] Basophils Percent Auto 0.4 0 - 2 % [facility] NRBC Pct Auto 0.0 0.0 - 0.2 /100WBC [facility] Neutrophils Absolute Auto 4.3 2.0 - 8.3 x10*3/uL [facility] Imm Gran Abs Auto 0.02 0.00 - 0.03 X10*3/uL [facility] Lymphocytes Absolute Auto 2.7 1.2 - 4.9 X10*3/uL [facility] Monocytes Absolute Auto 0.7 0.1 - 1.2 X10*3/uL [facility] Eosinophils Absolute Auto 0.1 0.0 - 0.4 X10*3/uL [facility] Basophils Absolute Auto 0.0 0.0 - 0.2 X10*3/uL [facility] NRBC Abs Auto 0.000 0.0 - 0.012 X10*3/uL [facility] 03/23/2025 7:54 AM EST 03/23/2025 7:59 AM EST us Generic External Data Provider LAB BLOOD ORDERAB LES Final Result Performing Organization Address City/State/[facility] Co de Phone Number [facility] [address] [place] [phone] documented in this encounter Visit Diagnoses [...] documented as of this encounter Care Teams Integrated Circuit Design Engineer Relationship Specialty Start Date End Date Lisa Cantrell MD [address] [place] [phone] PCP - General Internal Medicine 12/22/22 Angela Llamas, CarrieD [address] [place] [address] Pharmacist Pharmacy 01/01/25 documented as of this encounter
--- OUTSIDE RECORDS SUMMARY | 2025-03-23 08:24 | XMS_ITS | Encounter Summary ---
Author Organization [employer] Address [address] [place] [address] [address] [place] [address] Care Team Providers Care Home Improvement Contractor Name Role Phone Lisa Cantrell MD Primary Care Pro vider Angela Llamas PharmD Unavailable [phone] Encounter Details Date Type Department Care Team (Late st Contact Info) Description 03/13/2025 Orders Only [facility] [address] [place] [address] Lisa Cantrell MD [address] [place] [address] Social History Tobacco Use Types Packs/Day Years [...] housing situation today? I have cammy graciela 03/13/[address] you li [...] Description 03/31/2025 10:00 AM EST Clinical Support [facility] [address] [place] [phone] 06/12/2025 9:00 AM EDT Office Visit [facility] [address] [place] [phone] Lisa Cantrell MD [address] [place] [address] 06/30/2025 9:00 AM EDT Office Visit [facility] [address] [place] [address] Gracie Ingram, OD [address] [place] [address] Pending Results Name Type Priority Associated Diagnoses Date /Time HPV mRNA E6/E7, Rectal with Reflex to Genotypes, 16, 18/45 Pathology and Cytology Routine 03/13/2025 12:00 AM EST documented as of this encounter Goals Goal [...] Procedure Name Priority Date/Time Associated Diagnosis Comments HPV MRNA E6/E7,RECTAL W/ RFL GENOTYPES,16,18/45 Routine 03/13/2025 12:00 AM EST documented in this encounter Visit Diagnoses Not [...] 03/13/2025 Patient has chronic kidney disease 03/13/2025 Assessment Noted Time PHQ-9 Depression Total Score: 0 03/13/20 25 9:07 AM EST documented as of this encounter Care Teams Home Improvement Contractor Relationship Specialty Start Date End Date Lisa Cantrell MD [address] [place] [address] PCP - General Internal Medicine 12/22/22 Angela Llamas, CarrieD [address] [place] [address] Pharmacist Pharmacy 01/01/25 documented as of this encounter
--- OUTSIDE RECORDS SUMMARY | 2025-03-23 08:24 | XMS_ITS | Encounter Summary ---
Author Organization [employer] Address [address] [facility] 7t [place] [address] Care Team Providers Care Dental Tech Name Role Phone Mark Brennan Primary Care Provider Unavail able Lisa Cantrell MD Primary Care Pro vider Angela Llamas PharmD Unavailable [phone] Encounter Details Date Type Department Care Team ([facility] Contact Info) Description 07/08/2022 Orders Only [facility] [address] [place] [address] Danni Romero LPN Social History Tobacco Use [...] Description 03/31/2025 10:00 AM EST Clinical Support [facility] [address] [place] [address] [phone] 06/12/2025 9:00 AM EDT Office Visit [address] [phone] Lisa Cantrell MD [address] [place] [address] 06/30/2025 9:00 AM EDT Office Visit [facility] [address] [place] [address] Gracie Ingram, OD [address] [place] [address] documented as of this encounter Visit Diagnoses Not on filedocumented in this encounter Care Teams Dental Tech Relationship Specialty Start Date End Date Mark Brennan AGNP PCP - General Family Medicine 01/03/22 12/21/22 Lisa Cantrell MD [address] [place] [address] PCP - General Internal Medicine 12/22/22 Angela Llamas, CarrieD [address] [place] [address] [phone] Pharmacist Pharmacy 01/01/25 documented as of this encounter
--- OUTSIDE RECORDS SUMMARY | 2025-03-23 08:24 | XMS_ITS | Encounter Summary ---
Author Organization [employer] Address [address] [place] [address] [address] [place] [address] Care Team Providers Care Rehab Director Occupational Therapist Name Role Phone Lisa Cantrell MD Primary Care Pro vider Angela Llamas PharmD Unavailable [phone] Reason for Visit * Reason Comments Med Refill Encounter Details Date Type Department Care Team (Late st Contact Info) Description 04/05/2023 Refill [facility] [address] [place] [address] Lisa Cantrell MD [address] [place], [place] [phone] Type 2 diabetes mellitus with hyperglycemia, with long-term current use of insulin ([facility]) Social History Tobacco Use Types [...] Description 03/31/2025 10:00 AM EST Clinical Support [facility] [address] [place] [address] 06/12/2025 9:00 AM EDT Office Visit [facility] [address] [place] [address] Lisa Cantrell MD [address] [place] [address] 06/30/2025 9:00 AM EDT Office Visit [facility] [address] [place] [address] Juan Jose, Gracie, OD [address] [place] [address] documented as of this encounter Visit Diagnoses Diagnosis Type 2 diabetes mellitus with hyperglycemia, with long-term current use of insulin (HCC) documented in this encounter Additional Health Concerns Assessment Noted Time PHQ-9 Depression Total Score: 0 09/01/19 8:56 AM EDT documented as of this encounter Care Teams Rehab Director Occupational Therapist Relationship Specialty Start Date End Date Lisa Cantrell MD [address] [place] [phone] PCP - General Internal Medicine 12/22/22 Angela Llamas, PharmD [address] [place] [phone] Pharmacist Pharmacy 01/01/25 documented as of this encounter
[2025-03-23 08:29] LABS: Alanine Aminotransferase 31 U/L (0-40); Albumin Level 5.0 g/dL (3.5-5.0); Alkaline Phosphatase 82 U/L (39-117); Anion Gap 16 (12-20); Aspartate Amino Transferase 37 U/L (5-37); Blood Urea Nitrogen 21 mg/dL (9-16); Calcium 9.9 mg/dL (8.4-10.2); Carbon Dioxide 25 mmol/L (22-29); Chloride 100 mmol/L (96-108); Creatinine Clr Calc Pharmacy 56.2; Estimated Glomerular Filt Rate 55; Potassium 3.7 mmol/L (3.3-5.1); Sodium 137 mmol/L (135-145); Total Protein 8.1 g/dL (6.5-8.0)
[2025-03-23 08:49] LABS: Resp Syncy Virus RNA Qual PCR NEGATIVE (Negative); SARS COV2 PCR INHOUSE NEGATIVE (Negative)
[2025-03-23 09:40] LABS: Appearance Urine Clear; Glucose Urine UA Negative (Negative); PH 5.5 (5.0-9.0); Specific Gravity - Urine 1.015 (1.005-1.025); UMIC TRIGGER UACC YES
[2025-03-23 09:54] LABS: UACC Culture Trigger YES
[2025-03-23 10:35] VITALS: BP 138/83; PULSE 99; RESP 14; TEMP 36.6; O2SAT 96
[2025-03-23 12:12] VITALS: BP 138/83; PULSE 99; RESP 14; TEMP 36.6; O2SAT 96
== END 2025-03-23 12:12 | disposition home or self-care (01) ==
PROVIDERS: Emergency Provider Emergency Medicine Emergency Medical Services; PCP Student in an Organized Health Care Education/Training Program
DX: R10.31 Right lower quadrant pain (principal); N40.0 Benign prostatic hyperplasia without lower urinary tract symptoms; N32.89 Other specified disorders of bladder; E11.9 Type 2 diabetes mellitus without complications; I10 Essential (primary) hypertension; E78.5 Hyperlipidemia, unspecified; E55.9 Vitamin D deficiency, unspecified; Z79.02 Long term (current) use of antithrombotics/antiplatelets; Z79.85 Long-term (current) use of injectable non-insulin antidiabetic drugs; Z79.899 Other long term (current) drug therapy; Z79.4 Long term (current) use of insulin; Z03.818 Encounter for observation for suspected exposure to other biological agents ruled out
CPT/HCPCS: 74176; 80053; 81001; 85025; 87086; 87637; 96361; 96374; 99284; 99285; J1885

== ENCOUNTER → 2025-03-23 08:42 | Outpatient (BNV) | payer MEDICAID, SELFPAY | PROVIDERS: Emergency Provider Emergency Medicine Emergency Medical Services; PCP Student in an Organized Health Care Education/Training Program; Visit Provider Radiology Diagnostic Radiology | DX: N40.1 Benign prostatic hyperplasia with lower urinary tract symptoms (principal); N32.89 Other specified disorders of bladder | CPT/HCPCS: 74176 ==

== ENCOUNTER 2025-04-01 06:52 | Emergency (ER) | payer MEDICAID, SELFPAY ==
--- OUTSIDE RECORDS SUMMARY | 2025-03-31 10:00 | XMS_ITS | Encounter Summary ---
Author Organization [employer] Address [address] [place] [address] Care Team Providers Care Pie Filling Mixer Name Role Phone Lisa Cantrell MD Primary Care Pro vider Angela Llamas PharmD Unavailable +- [phone] Reason for Visit * Reason Comments RN BP CHECK Encounter Details Date Type Department Care Team (Latest Contact Info) Description 03/31/2025 10:00 AM EST Clinical Support [facility] MEDICINE [address] [place] [address] Farrah Yañez RN Hypertension, unspecified type Social History Tobacco Use Types [...] Sign Reading Time Taken Comments Blood Pressure 115/82 03/31/2025 10:00 AM EST Pulse 100 03/31/2025 10:00 AM EST Temperature - - Respiratory Rate 18 03/31/2025 10:00 AM EST Oxygen Saturation 98% 03/31/2025 10:00 AM EST Inhaled Oxygen Concentration - - Weight - - Height - - Body Mass Index - - documented in this encounter Progress Notes * Farrah Yañez RN - 03/31/2025 10:00 AM EST SUBJECTIVE: Arjun Purvis is a 54 y.o. year old male who presents for RN BP CHECK Preferred language for medical information: Is Analyst needed: Yes provided by [facility] full time staff interpreter #[id number] Recommendations at last visit with PCP on 03/13/2025 was to continue on chlorthalidone 25 mg daily and take consistently and return in 2 weeks for BP check with GT RN. Today, Arjun Purvis does complain of any blurred vision, shortness of breath, chest pain, dizziness, or headaches. The pt confirmed that since starting on the once weekly GLP1 Mounjaro he has been experiencing on/off headaches and dizziness. The pt denied any GI symptoms. The pt is unsure ifthis is due to BG control or BP. Pt did have a list of BG numbers at the appointment but RN only took BP numbers which will be recorded below 134/104 124/93 140/100 141/96 157/103 133/101 114/88 137/105 Current Medications[1] Patient Active Problem List Diagnosis Date Noted Hematuria 03/13/2025 Poor memory 01/19/2024 Cardiomyopathy (HCC) 11/14/2023 Family history of cancer 11/14/2023 Overweight (BMI 25.0-29.9) 11/14/2023 Gastroesophageal reflux disease 12/02/2022 Benign prostatic hyperplasia (BPH) with straining on urination 12/02/2022 Mixed hyperlipidemia 08/30/2022 Routine adult health maintenance 08/17/2022 Constipation 08/17/2022 Type 2 diabetes mellitus with diabetic microalbuminuria, with long-term current use of insulin (HCC) 04/22/2016 Essential hypertension 10/08/2015 Bee pollen Arjun Purvis does confirm adherence to medications for hypertension listed above. Confirmed medications taken today [x] Recent emergency room or hospitalizations: No Notes scanned into chart: No Tobacco Use History[2] Social History Substance and Sexual Activity Alcohol Use Yes Comment: occasionally Social History Substance and Sexual Activity Drug Use Never BP Readings from Last 4 Encounters: 03/31/25 115/82 03/13/25 134/64 01/06/25 (!) 138/98 01/01/25 (!) 140/92 Pulse Readings from Last 4 Encounters: 03/31/25 100 03/13/25 93 01/06/25 93 01/01/25 82 OBJECTIVE: Vitals: 03/31/25 1000 BP: 115/82 BP Location: Right arm Patient Position: Sitting BP Cuff Size: Adult Pulse: 100 Resp: 18 SpO2: 98% ASSESSMENT: Achieve goal blood pressure of <140/90 PLAN: Pt advised that today's findings including concerns with symptoms after starting on Mounjaro once weekly injectable will be sent to PCP for review and advisement. Arjun Purvis advised to continue taking medications as directed and reinforcement of lifestyle modifications including low sodium diet and exercise were reviewed. Arjun Purvis agreeable to plan discussed at today's visit. Future Appointments Date Time Provider Department Center 06/12/2025 9:00 AM Lisa Fraser MD MEDICINE [facility] 06/30/2025 9:00 AM Gracie Ingram OD VISION [facility] Farrah Yañez RN [1] Current Outpatient Medications Medication Sig Dispense Refill acetaminophen (Tylenol) 500 MG tablet Take 2 tablets (1,000 mg) by mouth every 6 (six) hours if needed for moderate pain or fever for up to 25 doses. Take 1-2 tablets po tid prn pain 90 tablet 0 atorvastatin (Lipitor) 40 MG tablet Take 1 tablet (40 mg) by mouth Once per day. 90 tablet 0 Blood Pressure kit 1 kit 2 times daily. 1 kit 0 chlorthalidone (Hygroton) 25 MG tablet Take 1 tablet (25 mg) by mouth in the morning. 90 tablet 0 cholecalciferol (Vitamin D-3) 50 MCG (2000 UT) capsule Take 1 capsule (50 mcg) by mouth Once per day. 90 capsule 1 Diclofenac Sodium 1 % gel APPLY 1 INCH TOPICALLY TWICE DAILY IN THE MORNING AND AT BEDTIME NEEDED FOR PAIN 100 g 0 glucose 4 g chewable tablet Chew 4 tablets (16 g) if needed for low blood sugar. 50 tablet 2 glucose blood test strip 1 each by Other route 2 times daily. 100 each 12 insulin glargine (Lantus SoloStar) 100 UNIT/ML pen Inject 45 Units under the skin at bedtime. 15 mL2 insulin lispro (HumaLOG) 100 UNIT/ML injection As sliding scale 15 mL 1 metFORMIN (Glucophage) 500 MG tablet Take 1 tablet (500 mg) by mouth with breakfast and with evening meal. 60 tablet 2 Pentips 32G X 4 MM misc USE FIVE TIMES DAILY 200 each 11 Tirzepatide (Mounjaro) 2.5 MG/0.5ML solution auto-injector Inject 2.5 mg under the skin every 7 (seven) days. 2 mL 0 TRUEplus Lancets 33G misc 1 Units 2 times daily. TEST BLOOD SUGAR SUGAR TWICE A DAY 100 each 11 No current facility-administered medications for this visit. [2] Social History Tobacco Use Smoking Status Never Passive exposure: Never Smokeless Tobacco Never documented in this encounter Plan of Treatment Upcoming Encounters Date Type Department Care Team (Late st Contact Info) Description 06/12/2025 9:00 AM EDT Office Visit [facility] MEDICINE [address] [place] [phone] Lisa Cantrell MD [address] [place] [phone] 06/30/2025 9:00 AM EDT Office Visit [facility] OPTOMETRY [address] [place] [address] Gracie Ingram, OD [address] [place] [address] documented as of this encounter Goals Goal [...] Care Plan Weekly blood pressure task No Lsia Cantrell MD Weekly blood pressure task Care [...] Care Plan Weekly blood pressure task No Shobha Mcdonald Weekly blood pressure task Care Plan Weekly blood pressure task No Shobha Mcdonald Patient has chronic kidney disease Care Plan Patient has chronic kidney disease No Shobha Mcdonald Patient has chronic kidney disease Care Plan Patient has chronic kidney disease No Shobha Mcdonald Weekly blood pressure task Care Plan Weekly [...] Care Plan Weekly blood pressure task No Farrah Yañez RN Weekly blood pressure task Care Plan Weekly blood pressure task No Farrah Yañez RN Patient has chronic kidney disease Care Plan Patient has chronic kidney disease No Farrah Yañez RN Patient has chronic kidney disease Care Plan Patient has chronic kidney disease No Farrah Yañez RN documented as of this encounter Visit Diagnoses Diagnosis Hypertension, unspecified type documented in this encounter Additional [...] kidney disease 03/21/2025 Weekly blood pressure task 03/24/2025 Weekly blood pressure task 03/24/2025 Patient has chronic kidney disease 03/24/2025 Patient has chronic kidney disease 03/24/2025 Weekly blood pressure task 03/26/2025 Weekly blood pressure task 03/26/2025 Patient has chronic kidney disease 03/26/2025 Patient has chronic kidney disease 03/26/2025 Weekly blood pressure task 03/31/2025 Weekly blood pressure task 03/31/2025 Patient has chronic kidney disease 03/31/2025 Patient has chronic kidney disease 03/31/2025 Assessment Noted Time PHQ-9 Depression Total Score: 0 03/13/20 9:07 AM EST documented as of this encounter Care Teams Pie Filling Mixer Relationship Specialty Start Date End Date Lisa Cantrell MD [address] [place] [address] PCP - General Internal Medicine 12/22/22 Angela Llamas, CarrieD [address] [place] [address] Pharmacist Pharmacy 01/01/25 documented as of this encounter
[2025-04-01 07:28] VITALS: BP 136/78; PULSE 76; RESP 16; TEMP 36.4; O2SAT 98; BMI 26.6
--- NOTE | 2025-04-01 08:14 | ED.ABDPAIN ---
HPI - Abdominal Pain General Chief Complaint: Abdominal Pain Stated Complaint: doesnt feel well Related Data Home Medications ?Medication ?Instructions ?Recorded ?Confirmed blood sugar diagnostic (FreeStyle #10 ea 04/20/20 02/11/25 Lite Strips) lancets 28 gauge (FreeStyle #100 ea 04/20/20 02/11/25 Lancets) sacubitril 49 mg-valsartan 51 mg 1 tab PO BID 04/20/20 02/11/25 tablet (Entresto) losartan 50 mg tablet 50 mg PO DAILY 03/18/21 02/11/25 atorvastatin 20 mg tablet 20 mg PO DAILY 03/31/23 02/11/25 chlorthalidone 25 mg tablet 25 mg PO QAM 03/31/23 02/11/25 dulaglutide 1.5 mg/0.5 mL mg subcut QWEEK 03/31/23 02/11/25 subcutaneous pen injector (Trulicity) empagliflozin 25 mg tablet 25 mg PO QAM 03/31/23 02/11/25 (Jardiance) Previous Rx's ?Medication ?Instructions ?Recorded blood-glucose meter (FreeStyle #1 ea 04/14/20 Maynard Lite kit) insulin glargine 100 unit/mL (3 46 unit (0.46 mL) subcut DAILY #15 10/30/20 mL) subcutaneous pen (Lantus mL Solostar U-100 Insulin) nystatin-triamcinolone 100,000 1 appl topical TID #30 grams 12/03/20 unit/g-0.1 % topical cream insulin lispro 100 unit/mL See Rx Instructions subcut QID #15 12/11/20 subcutaneous pen (Humalog KwikPen mL (U-100) Insulin) pen needle, diabetic 32 gauge x 1 ea miscellaneous .COMPLEX #200 ea 01/15/21 (Pentips Pen Needle) ibuprofen 800 mg tablet 800 mg PO Q8H PRN pain #14 tabs 03/15/21 cholecalciferol (vitamin D3) 125 125 mcg PO DAILY #30 caps 03/30/21 mcg (5,000 unit) capsule tamsulosin 0.4 mg capsule 0.4 mg PO DAILY #60 caps 03/23/25 Allergies Allergy/AdvReac Type Severity Reaction Status Date / Time No Known Allergies Allergy Verified 04/01/25 07:33 [facility] Past Medical History Medical History (Reviewed 02/11/25 @ 08:[address] [facility] [place]) Cardiac insufficiency Essential hypertension Proteinuria Vitamin D deficiency Hyperlipidemia LDL goal <100 Type 2 diabetes mellitus with hyperglycemia, with long-term current use of insulin Surgical History No history of previous surgery Family History Family History Father Cancer Mother Hypertension Paternal Uncle Cancer Diabetes Maternal Uncle Diabetes Cancer Paternal Aunt CVD (cardiovascular disease) Social History Social History Household Members: Significant Other Alcohol intake: current Alcohol intake frequency: does not drink Patient Tobacco Use Status: Never used Tobacco Advance Directives: No Advance Directives Information Provided: No Physical Exam ED Vital Signs: Vital Signs - 24 hr 04/01/25 07:28 Temperature 97.6 F Pulse Rate 76 Respiratory Rate 16 Blood Pressure 136/78 Pulse Oximetry 98 Oxygen Delivery Method Room Air BMI result Body Mass Index 26.6 Course Course Course Narrative: This is a Rapid Medical Examination (RME) performed by Nathanael Gomez PA-C in triage. Full HPI, ROS, assessment and treatment plan per primary provider in the Main ED. Hx: 54 yo M here for eval of b/l lower abd pain rad to back and groin x 4 days. nausea, no vomiting. assoc dysuria. denies hx renal stones. Plan: labs, UA Reevaluation(s) Reevaluation #1: Patient left the emergency department before myself or any of the other clinicians could review or explain physical exam findings, test results, need or lack there of for additional testing, treatment options, or a treatment plan. Discharge Plan Discharge Clinical Impression: Abdominal pain Patient Disposition: Left W/O Completing Treatment Prescriptions: No Action (DME) blood-glucose meter [FreeStyle Maynard Lite] Kit See Rx Instructions .ROUTE .MEDSUPPLY Qty: 1 0RF Rx Instructions: As directed Lantus Solostar U-100 Insulin 100 unit/mL (3 mL) insulin pen 46 unit subcut DAILY Qty: 15 0RF Rx Instructions: NEEDS APPOINTMENT FOR MORE REFILLS. insulin lispro [Humalog KwikPen Insulin] 100 unit/mL insulin pen See Rx Instructions subcut QID Qty: 15 4RF Rx Instructions: 15 units breakfast and lunch, 20 units dinner, 4 units hs snack subcut 4 times a day; pen needle, diabetic [Pentips Pen Needle] 32 gauge x 5/32 needle 1 ea miscellaneous .COMPLEX Qty: 200 6RF Rx Instructions: 1 ea miscellaneous five times a day; PATIENT NEEDS APPOINTMENT FOR MORE REFILLS. cholecalciferol (vitamin D3) 125 mcg (5,000 unit) capsule 125 mcg PO DAILY Qty: 30 11RF nystatin-triamcinolone 100,000-0.1 unit/g-% cream 1 appl topical TID Qty: 30 0RF ibuprofen 800 mg tablet 800 mg PO Q8H PRN (Reason: pain) Qty: 14 0RF tamsulosin 0.4 mg capsule 0.4 mg PO DAILY Qty: 60 0RF Entresto 49-51 mg tablet 1 tab PO BID (DME) lancets [FreeStyle Lancets] 28 gauge misc See Rx Instructions .ROUTE .MEDSUPPLY Qty: 100 Rx Instructions: As directed (DME) FreeStyle Lite Strips Strip See Rx Instructions .ROUTE .MEDSUPPLY Qty: 10 Rx Instructions: As directed losartan 50 mg tablet 50 mg PO DAILY Jardiance 25 mg tablet 25 mg PO QAM Trulicity 1.5 mg/0.5 mL pen injector subcut QWEEK atorvastatin 20 mg tablet 20 mg PO DAILY chlorthalidone 25 mg tablet 25 mg PO QAM Discharge Date/Time: 04/01/25 10:35
--- NOTE | 2025-04-01 08:54 | MHC.EDTECH ---
no answer x2 when calling into triage for labs
--- OUTSIDE RECORDS SUMMARY | 2025-04-01 14:05 | XMS_ITS | Encounter Summary ---
Author Organization [employer] Address [address] [place] [address] [address] [place] [address] Care Team Providers Care Clinical Education Manager Name Role Phone Lisa Cantrell MD Primary Care Pro vider Angela Llamas PharmD Unavailable [phone] Reason for Visit * Reason Comments Med Refill Encounter Details Date Type Department Care Team (Late st Contact Info) Description 04/05/2023 Refill [facility] MEDICINE [address] [place] [address] Lisa Cantrell MD [address] [place], [place] [phone] Type 2 diabetes mellitus with hyperglycemia, with long-term current use of insulin ([facility]) Social History Tobacco Use Types Packs/Day [...] Description 06/12/2025 9:00 AM EDT Office Visit [facility] MEDICINE [address] [place] [address] Lisa Cantrell MD [address] [place] [address] 06/30/2025 9:00 AM EDT Office Visit [facility] OPTOMETRY [address] [place] [address] Juan Jose, Gracie, OD [address] [place] [address] documented as of this encounter Visit Diagnoses Diagnosis Type 2 diabetes mellitus with hyperglycemia, with long-term current use of insulin (HCC) documented in this encounter Additional Health Concerns Assessment Noted Time PHQ-9 Depression Total Score: 0 09/01/19 23 8:56 AM EDT documented as of this encounter Care Teams Clinical Education Manager Relationship Specialty Start Date End Date Lisa Cantrell MD [address] [place] [id number] PCP - General Internal Medicine 12/22/22 Angela Llamas, CarrieD [address] [place] [phone] Pharmacist Pharmacy 01/01/25 documented as of this encounter
--- OUTSIDE RECORDS SUMMARY | 2025-04-01 14:05 | XMS_ITS | Encounter Summary ---
Author Organization [employer] Address [address] [place] [address] [address], [place] [address] Care Team Providers Care Rubble Placer Name Role Phone Mark Brennan Primary Care Provider Unavail able Lisa Cantrell MD Primary Care Pro vider Angela Llamas PharmD Unavailable [phone] Reason for Visit * Reason Comments Med Refill Encounter Details Date Type Department Care Team (Late Contact Info) Description 07/08/2022 Refill [facility] [address] [place] [phone] Cuca Richey FNP Social History Tobacco Use [...] Department Care Team (Late Contact Info) Description 06/12/2025 9:00 AM EDT Office Visit [facility] MEDICINE [address] [place] [address] Lisa Cantrell MD [address] [place], [place] [phone] 06/30/2025 9:00 AM EDT Office Visit [facility] OPT[facility]ETRY [address] [place], [place] [phone] Gracie Ingram, OD [address] [place] [address] documented as of this encounter Visit Diagnoses Not on filedocumented in this encounter Care Teams Rubble Placer Relationship Specialty Start Date End Date Mark Brennan AGNP PCP - General Family Medicine 01/03/22 12/21/22 Lisa Cantrell MD [address] [place] [address] PCP - General Internal Medicine 12/22/22 Angela Llamas PharmD [address] [place] [address] Pharmacist Pharmacy 01/01/25 documented as of this encounter
--- OUTSIDE RECORDS SUMMARY | 2025-04-01 14:05 | XMS_ITS | Encounter Summary ---
Author Organization [employer] Address [address] [place] [address] [address] [address] Care Team Providers Care Coat Fitter Name Role Phone Mark Brennan Primary Care Provider Unavail able Lisa Cantrell MD Primary Care Pro vider Angela Llamas PharmD Unavailable [phone]- [phone] Encounter Details Date Type Department Care Team (Late Contact Info) Description 07/08/2022 Orders Only [facility] [address] [place], [place] [phone] Danni Romero LPN Social History Tobacco Use [...] Description 06/12/2025 9:00 AM EDT Office Visit [facility] MEDICINE [address] [place], [place] [phone] Lisa Cantrell MD [address] [place], [place] [phone] 06/30/2025 9:00 AM EDT Office Visit [facility] OPTOMETRY [address] [place], [place] [phone] Gracie Ingram, ALISHA [address] [place] [address] documented as of this encounter Visit Diagnoses Not on filedocumented in this encounter Care Teams Coat Fitter Relationship Specialty Start Date End Date Mark Brennan AGNP PCP - General Family Medicine 01/03/22 12/21/22 Lisa Cantrell MD [address] [place], [place] [phone] PCP - General Internal Medicine 12/22/22 Angela Llamas PharmD [address] [place], [place] [phone] Pharmacist Pharmacy 01/01/25 documented as of this encounter
--- OUTSIDE RECORDS SUMMARY | 2025-04-01 14:05 | XMS_ITS | Clinical Summary ---
Author Organization [employer] Address [address] [place] [address] [address] [place] [address] Care Team Providers Care Tool Lathe Operator Name Role Phone Lisa Cantrell MD Primary Care Pro vider Angela Llamas PharmD Unavailable [phone] Allergies Active Allergy Reactions Criticality Noted Date Comments Bee Pollen Runny nose 08/17/2022 Medications glucose blood test stripIndications :Type 2 diabetes mellitus without complication, with long-term current use of insulin (HCC) 1 each by Other route 2 times daily. 100 each 023 Active Blood Pressure kitIndications:T ype 2 [...] hyperglycemia, with long-term current use of insulin ([facility]) As sliding scale 15 mL 1 03/14/20 25 3:26 PM EST 025 Active insulin glargine (Lantus SoloStar) 100 UNIT/ML penIndications:T ype 2 diabetes mellitus with hyperglycemia, with long-term current use of insulin ([facility]) Inject 45 Units under the skin at [...] hyperglycemia, with long-term current use of insulin ([facility]) INJECT 42 UNITS SUBCUTANEOUSLY EVERY EVENING DIRECTED 15 mL 2 2024 Discontinued cholecalciferol (Vitamin D-3) 125 MCG (5000 UT) tabletIndication s:Routine adult health maintenance TAKE 1 TABLET BY MOUTH EVERY DAY 90 tablet 2024 Discontinued(O ther) insulin lispro (HumaLOG) 100 UNIT/ML injectionIndicat ions:Type 2 diabetes mellitus with hyperglycemia, with long-term current use of insulin ([facility]) Inject 20 Units under the skin with [...] hyperglycemia, with long-term current use of insulin ([facility]) INJECT 42 UNITS SUBCUTANEOUSLY EVERY EVENING DIRECTED [...] of LDL-C. David SS et al. JUDD. 2013;310(01): 2133-8854 (http://education.Visualtising/faq/XBX151) Chol/HDLC Ratio <5.0 (calc) 6.6 High 6.2 [...] of this month, F/up in one year. [facility] Dental home: [facility] dental advised. Constipation 08/17/2022 Assessment & [...] Encounters Date Type Department Care Team Description 03/31/2025 10:00 AM EST Clinical Support [facility] [place] [address] Farrah Yañez, KALPESH Hypertension, unspecified type 03/31/2025 Travel 03/26/2025 Orders Only [address] [phone] Lisa Cantrell MD Abnormal anal Papanicolaou smear (Primary Dx) 03/24/2025 Travel 03/24/2025 Telephone [facility] ASHA Ritter [phone] Lisa Cantrell MD Nurse Triage 03/23/2025 Orders Only GENERIC EXTERNAL DATA DEPARTMENT Provider, Generic External Data 03/21/2025 Telephone [facility] ASHA Ritter [phone] Lisa Cantrell MD PSA result to [facility] Urology 03/21/2025 Results Follow-Up [facility] [address] [place] [address] Darshana Clay RN HPV mRNA E6/E7, Rectal with Reflex to Genotypes, 16, 18/45 03/14/2025 Orders Only [facility] Nancy [facility] [address] Lisa Cantrell MD 03/14/2025 Results Follow-Up [address] [place] [address] Lisa Cantrell MD POCT Glucose, Chlamydia/Trichomona s/Neisseria gonorrhoeae, PCR, Urine, Albumin, Random Urine W/Creatinine, Additional followed-up results: 14 03/14/2025 Telephone [facility] [place] [place] [address] Lisa Cantrell MD 03/13/2025 9:00 AM EST Office Visit [facility] [place] [place] [address] Lisa Cantrell MD Hypertension, unspecified type (Primary Dx); Diabetes mellitus type 2, insulin dependent (HCC); Mixed hyperlipidemia; Type 2 diabetes mellitus with hyperglycemia, with long-term current use of insulin ([facility]); Dietary counseling; Exercise counseling; Cardiomyopathy, unspecified type (CMS/HCC) (HCC); Annual physical exam; Encounter for immunization; Essential hypertension; Overweight (BMI 25.0-29.9); Benign prostatic hyperplasia (BPH) with straining on urination; Routine adult health maintenance; Family history of cancer; Poor memory; Hematuria, unspecified type; Type 2 diabetes mellitus with diabetic microalbuminuria, with long-term current use of insulin ([facility]) 03/13/2025 Orders Only [facility] [address] [place] [phone] Lisa Cantrell MD 03/13/[address] [address] Lisa Cantrell MD Information provided to PT 03/13/2025 Travel 03/12/2025 Telephone [facility] [address] [place] [phone] Lizbet Young [place] 03/09/[address] [address] Lisa Cantrell MD Type 2 diabetes mellitus with hyperglycemia, with long-term current use of insulin ([facility]) 03/06/2025 Travel 02/11/2025 Orders Only GENERIC EXTERNAL DATA DEPARTMENT Provider, Generic External Data 01/26/2025 Travel 01/13/[address] [address] Lisa Cantrell MD 01/13/2025 Results Follow-Up [address] [address] Olivia Greenwood NP POCT Urinalysis, Urinalysis, Complete, with Reflex to Culture, Basic Metabolic Panel 01/06/2025 9:00 AM EDT Office Visit [facility] [address] [place] [phone] Olivia Greenwood NP Elevated blood pressure reading in office with diagnosis of hypertension (Primary Dx); Hematuria, unspecified type; Acute bilateral low back pain without sciatica 01/06/2025 Orders Only GENERIC EXTERNAL DATA DEPARTMENT Provider, Generic External Data 01/06/2025 Travel 01/01/2025 Results Follow-Up [facility] [address] [place] [address] Lisa Cantrell MD Albumin, Random Urine W/Creatinine, Hepatic Function Panel, Basic Metabolic Panel, Lipid Panel, Standard 01/01/2025 Results Follow-Up [facility] [address] [place] [address] Lisa Cantrell MD POCT A1c 01/01/2025 Orders Only [facility] [address] [place] [address] Lisa Cantrell MD 01/01/2025 Travel from Last 3 Months Immunizations Immunization [...] Pulse 100 03/31/2025 10:00 AM EST Temperature 36.2 C (97.1 F) 03/13/2025 9:06 AM EST Respiratory Rate 18 03/31/2025 10:00 AM EST [...] Description 06/12/2025 9:00 AM EDT Office Visit [facility] [address] [place] [address] Lisa Cantrell MD [address] [place], [place] [phone] 06/30/2025 9:00 AM EDT Office Visit [facility] [address] [place] [address] Juan Jose, Gracie, OD [address] [place], [place] [phone] Health Maintenance Due Date Last Done Comments [...] 12/30/2025 12/30/2024, 09/03, 06/28/2024, Additional history exists Alcohol/Substance Use Screening 03/13/2026 03/13/2025 Anal Pap 03/13/2026 03/13/2025, 02/11/2025 Depression Screening 03/13/2026 03/13/2025, 03/13/20 25 Diabetes: Urine Protein Screening 03/13/2026 03/13/2025, 01/01/2025, 01/12/2024, Additional history exists Lipid Panel 03/13/2026 03/13/2025, 04/2024, 01/12/2024, Additional history exists SDOH Screening [...] chronic kidney disease No Darshana Clay, KALPESH Weekly blood pressure task Care Plan Weekly [...] Care Plan Weekly blood pressure task No Colon Sd Shobha Weekly blood pressure task Care Plan Weekly blood pressure task No Colon Sd Shobha Patient has chronic kidney disease Care Plan Patient has chronic kidney disease No Colon Sd Shobha Patient has chronic kidney disease Care Plan [...] chronic kidney disease No Farrah Yañez RN Procedures Procedure Name Priority Date/Time Associated Diagnosis Comments CT ABDOMEN PELVIS WO CONTRAST Routine 03/23/2025 9:52 AM EST URINALYSIS, COMPLETE, WITH REFLEX TO CULTURE Routine 03/23/2025 9:34 AM EST COMPREHENSIVE METABOLIC PANEL Routine 03/23/2025 7:54 AM EST CBC WITH AUTO DIFFERENTIAL Routine 03/23/2025 7:54 AM EST SARS COV2/INFLUENZA A/B AND RSV RNA QL NAAT Routine 03/23/2025 7:54 AM EST CULTURE, URINE, ROUTINE Routine 03/23/2025 12:00 AM EST PSA, TOTAL Routine 03/13/2025 11:07 [...] AM EST Annual physical exam POCT GLUCOSE (CPT-03097) Routine 03/13/2025 9:57 AM EST Annual physical exam PATHOLOGY REPORT Routine 03/13/2025 12:0 0 AM EST HPV MRNA E6/E7,RECTAL W/ RFL GENOTYPES,16,18/45 Routine [...] Diabetes mellitus type 2, insulin dependent (HCC) from Last 3 Months Results * CT Abdomen Pelvis w/o Contrast (03/23/2025 9:52 AM EST) Only the most recent of2 resultswithin the time period is included. Anatomical Region Laterality Modality Body, Pelvis, Abdomen Computed T omography 03/23/2025 9:52 AM EST Narrative 03/23/2025 9:54 AM EST [place] [address] CT Scan Report Signed Patient: Arjun Parkinson MR#: [id number] : 1970 Acct:[id number] Age/Sex: 54 / M ADM Date: 03/23/25 Loc: HO.ED Attending Dr: Ordering Physician: Malka Olmstead NP Date of Service: 03/23/25 Procedure(s): CT abdomen pelvis wo IV con Accession Number(s): [id number] cc: Lisa Cantrell MD; Malka Olmstead NP Report Number: [id number]: Total DLP = 534.00 mGy-cm Reason for Exam: R flank pain CLINICAL HISTORY: R flank pain CT abdomen and pelvis without IV or oral contrast Comparison: CT/SR - CT ABDOMEN PELVIS WO IV CON - 01/06/25 18:38 EDT Findings: Lung bases show no active disease. No dependent layering pleural effusions. The heart is not enlarged. No stones are identified in the kidneys, ureters or bladder. There is no hydronephrosis or perinephric stranding/fluid. Equivocal urinary bladder wall thickening. Prostatomegaly. Evaluation of the liver, spleen, adrenal glands and pancreas demonstrates no lesions. It should be noted that isodense masses may be obscured in the absence of intravenous contrast. Default gallbladder No pathologically enlarged lymph nodes . No ascites demonstrated. Normal appendix No vertebral body compression fractures or spondylolisthesis. No bony destructive lesions. Impression: 1. No nephrolithiasis or urinary tract obstruction demonstrated. 2. Prostatomegaly. Mild urinary bladder wall thickening. This document has been electronically signed by: Alexei Tabares MD on 03/23/2025 09:52:15 Dictated By: Alexei Tabares MD Signed By: <Electronically signed by Alexei Tabares MD in OV> 03/23/2553 DD/ 1 TD/TT: 03/23/25951 Tyre Builder: Procedure Note Donotuseinterpreter, Image - 03/23/[address] [place] [address] [address] Scan Report Signed Patient: Arjun Parkinson#: [id number] : 1970Acct:[id number] Age/Sex: 54 / MADM Date: 03/23/25 Loc: HO.ED Attending Dr: Ordering Physician: Malka Olmstead NP Date of Service: 03/23/25 Procedure(s): CT abdomen pelvis wo IV con Accession Number(s): [id number] cc: Lisa Cantrell MD; Malka Olmstead NP Report Number: [id number]: Total DLP = 534.00 mGy-cm Reason for Exam: R flank pain CLINICAL HISTORY: R flank pain CT abdomen and pelvis without IV or oral contrast Comparison: CT/SR - CT ABDOMEN PELVIS WO IV CON - 01/06/25 18:38 EDT Findings: Lung bases show no active disease. No dependent layering pleural effusions. The heart is not enlarged. No stones are identified in the kidneys, ureters or bladder. There is no hydronephrosis or perinephric stranding/fluid. Equivocal urinary bladder wall thickening. Prostatomegaly. Evaluation of the liver, spleen, adrenal glands and pancreas demonstrates no lesions. It should be noted that isodense masses may be obscured in the absence of intravenous contrast. Default gallbladder No pathologically enlarged lymph nodes . No ascites demonstrated. Normal appendix No vertebral body compression fractures or spondylolisthesis. No bony destructive lesions. Impression: 1. No nephrolithiasis or urinary tract obstruction demonstrated. 2. Prostatomegaly. Mild urinary bladder wall thickening. This document has been electronically signed by: Alexei Tabares MD on 03/23/2025 09:52:15 Dictated By: Alexei Tabares MD Signed By: <Electronically signed by Alexei Tabares MD in OV> 03/23/2553 DD/ 1 TD/TT: 03/23/25951 Tyre Builder: [facility] External Provider IMG CT PROCEDURES Final Result * (ABNORMAL) Urinalysis, Complete, with Reflex to Culture (03/23/2025 9:34 AM EST) Only the most recent of3 resultswithin the time period is included. Color Urine Yellow [facility] Appearance Urine Clear [facility] PH 5.5 5.0 - 9.0 [facility] Glucose Urine UA Negative Negative mg/dL [facility] Urine Blood Negative Negative [facility] Specific [employer] - Urine 1.015 1.005 - 1.025 [facility] Urine Protein Negative Neg-Trace mg/dL [facility] Urine Ketones Trace Negative mg/dL [facility] Nitrite Urine Negative Negative [facility] Leukocyte Esterase Urine Small (1+)(A) Negative [facility] RBC Urine 0-2 0 - 2 /HPF [facility] Urine WBC 0-5 0 - 5 /HPF [facility] Urine Squamous Epithelial Cell 0-2 0 - 2 /HPF [facility] Urine Bacteria None Seen None Seen [facility] Hyaline Casts, Urine 3-5 0 - 2 /LPF [facility] 03/23/2025 9:34 AM EST 03/23/2025 9:37 AM EST Narrative [facility] - 03/23/2025 9:54 AM EST [id number], Clean Catch Generic External Data Provider LAB URINE ORDERAB LES Final Result Performing Organization Address [facility] Co de Phone Number [facility] [address] [place] [phone] * SARS-CoV-2 RNA, Influenza A/B, and RSV RNA, Ql NAAT (03/23/2025 7:54 AM EST) Pathologist [facility] Influenza A PCR NEGATIVE Negative [facility] Influenza B PCR NEGATIVE Negative [facility] Resp Syncy Virus RNA Qual PCR NEGATIVE Negative [facility] SARS COV2 PCR NEGATIVE Negative [facility] Comment:All test results mus t be correlated with clinical findings.Negative results do not preclude SARS-CoV2, influenza Avirus, influenza B virus and/or RSV infectionand should not be used as the sole basis for treatment orother patient management decisions. Negative results must becombined with clinical observations, patient history, andepidemiological information.This test has not been evaluated for monitoring treatment ofinfection.This test has been authorized by the FDA under an EmergencyUse Authorization (EUA) for use by authorized laboratories.Testing performed on the 0xdata GeneXpert utilizingreal-time RT-PCR.All SARS CoV2 and positive influenza A/B results arereported to [facility]. 03/23/2025 7:54 AM EST 03/23/2025 7:59 AM EST Generic External Data Provider LAB MICROBIOLOGY - GENERAL ORDERABLES Final Result Performing Organization Address [facility] Co de Phone Number [facility] [address] [place] [phone] * (ABNORMAL) CBC auto differential (03/23/2025 7:54 AM EST) Only the most recent of3 resultswithin the time period is included. Pathologist [facility] White Blood Count 7.8 4.8 - 10.8 X10*3/uL [facility] Red Blood Count 6.06(H) 4.60 - 5.80 X10*6/uL [facility] Hemoglobin 17.8 14.0 - 18.0 g/dl [facility] Hematocrit 49.6 42.0 - 52.0 % [facility] Mean Corpuscular Volume 81.8 80.0 - 98.0 fL [facility] Mean Corpuscular Hemoglobin 29.4 27.0 - 33.0 pg [facility] Mean Corpuscular HGB Conc 35.9 31.0 - 36.0 g/dl [facility] Red Cell Distribution Width 12.3 11.0 - 16.0 % [facility] Platelet Count 204 160 - 400 X10*3/uL [facility] Mean Platelet Volume 10.0 9.4 - 12.4 fL [facility] Neutrophils Percent Auto 54.8 45 - 73 % [facility] Imm Gran Pct Auto 0.3 0.0 - 0.4 % [facility] Lymphocytes Percent Auto 34.7 20 - 40 % [facility] Monocytes Percent Auto 8.7 2 - 11 % [facility] Eosinophils Percent Auto 1.1 0 - 4 % [facility] Basophils Percent Auto 0.4 0 - 2 % [facility] NRBC Pct Auto 0.0 0.0 - 0.2 /100WBC [facility] Neutrophils Absolute Auto 4.3 2.0 - 8.3 x10*3/uL [facility] Imm Gran Abs Auto 0.02 0.00 - 0.03 X10*3/uL [facility] Lymphocytes Absolute Auto 2.7 1.2 - 4.9 X10*3/uL [facility] Monocytes Absolute Auto 0.7 0.1 - 1.2 X10*3/uL [facility] Eosinophils Absolute Auto 0.1 0.0 - 0.4 X10*3/uL [facility] Basophils Absolute Auto 0.0 0.0 - 0.2 X10*3/uL [facility] NRBC Abs Auto 0.000 0.0 - 0.012 X10*3/uL [facility] 03/23/2025 7:54 AM EST 03/23/2025 7:59 AM EST us Generic External Data Provider LAB BLOOD ORDERAB LES Final Result [facility] [address] [place] [phone] * (ABNORMAL) Comprehensive Metabolic Panel (03/23/2025 7:54 AM EST) Only the most recent of3 resultswithin the time period is included. Sodium 137 135 - 145 mmol/L [facility] Potassium 3.7 3.3 - 5.1 mmol/L [facility] Chloride 100 96 - 108 mmol/L [facility] Carbon Dioxide 25 22 - 29 mmol/L [facility] Anion Gap 16 12 - 20 [facility] Urea Nitrogen (BUN) 21(H) 9 - 16 mg/dL [facility] Creatinine, Serum 1.34 0.5 - 1.4 mg/dL [facility] Creatinine Clr Calc Pharmacy 56.2 [facility] Comment:eGFR (calculated fro m the MDRD study equation) and eCrCl(calculated from the Cockcroft-Gault equation) are based ondifferent parameters and may not yield comparable results.If eCrCl result is absurd, please check patient'sheight/weight. Estimated Glomerular Filt Rate 55 [facility] Comment:Chronic Kidney Disea se: Estimated GFR < 60 mL/min/1.52o4Mgialt Kidney Disease: Estimated GFR < 15 mL/min/1.73m2 Glucose 144(H) 60 - 115 mg/dL [facility] Calcium 9.9 8.4 - 10.2 mg/dL [facility] Bilirubin, Total 0.8 0.0 - 1.0 mg/dL [facility] Aspartate Amino Transferase 37 5 - 37 U/L [facility] Alanine Aminotransferase 31 0 - 40 U/L [facility] Total Protein 8.1(H) 6.5 - 8.0 g/dL [facility] Albumin Level 5.0 3.5 - 5.0 g/dL [facility] Alkaline Phosphatase 82 39 - 117 U/L [facility] 03/23/2025 7:54 AM EST 03/23/2025 7:59 AM EST us Generic External Data Provider LAB BLOOD ORDERAB LES Final Result Performing Organization Address [facility] Co de Phone Number [facility] [address] [place] [phone] * Culture, Urine, Routine (03/23/2025 12:00 AM EST) Only the most recent of2 resultswithin the time period is included. Urine Urine specimen obtained by clean catch procedure / Unknown 03/23/2025 03/23/2025 Comment:UACC Narrative [facility] - 03/24/2025 10:36 AM EST Urine Culture No growth. Specimen Source: Urine clean catch us Generic External Data Provider LAB MICROBIOLOGY - GENERAL ORDERABLES Final Result Performing Organization Address [facility] Co de Phone Number [facility] [address] [place] [phone] * Syphilis Screen (03/13/2025 11:07 AM EST) Syphilis Screen Nonreactive Nonreactive [facility] Blood 03/13/2025 11:0 7 AM EST 03/13/2025 2:04 PM EST us Lisa Fraser MD LAB BLOOD ORDERAB LES Final Result Performing Organization Address [facility] Co de Phone Number [facility] [address] [place] [phone] * (ABNORMAL) Vitamin D, 25-Hydroxy, Total, Immunoassay (03/13/2025 11:07 AM EST) Vitamin D 25-OH Total 18.9(L) >30 ng/mL [facility] Comment: Health Based Reference Values*< 20 ng/mL Qrieapiym03-15 ng/mL Insufficient> 30 ng/mL Sufficient*Ronen MARTINEZ. N [...] MD LAB BLOOD ORDERAB LES Final Result [facility] [address] [place] [phone] * Vitamin B12 (Cobalamin) and Folate Panel, Serum (03/13/2025 11:07 AM EST) Vitamin B12 332 200 - 900 pg/mL [facility] Comment:NORMAL 200-900 PG/ML INDETERMINATE 160-199 PG/ML DEFICIENT < 160 PG/ML Folate 12.0 > or = 4.0 ng/mL [facility] Comment:Reference Values:> o r = 4.0 ng/mL< 4.0 ng/mL suggests folate deficiency Methotrexate, aminopterin and folinic acid(leucovorin) are chemotherapeutic agents whose molecularstructures are similar to folate; therefore, the Architectfolate assay cannot be used for patients using these drugs. Blood 03/13/2025 11:0 7 AM EST 03/13/2025 2:04 PM EST us Lisa Fraser MD LAB BLOOD ORDERAB LES Final Result Performing Organization Address [facility] de Phone Number [facility] [address] [place] [phone] * TSH with Reflex to Free T4 (03/13/2025 11:07 AM EST) TSH reflex Free T4 1.61 0.32 - 4.0 uIU/mL [facility] Blood 03/13/2025 11:0 7 AM EST 03/13/2025 2:04 PM EST us Lisa Fraser MD LAB BLOOD ORDERAB LES Final Result Performing Organization Address [facility] [address] [place] [phone] * Hepatitis C Antibody with Reflex to HCV, RNA, Quantitative, Real-Time PCR (03/13/2025 11:07 AM EST) Hepatitis C Antibody Nonreactive Nonreactive [facility] Comment:Antibodies to HCV no t detected; does not exclude early acuteHCV infection. Blood Venous blood specimen / Unknown 03/13/2025 11:07 AM EST 03/13/2025 2:04 PM EST us Lisa Fraser MD LAB BLOOD ORDERAB LES Final Result Performing Organization Address [facility] Co de Phone Number [facility] [address] [place] [phone] * Hepatitis B surface antigen, EIA (03/13/2025 11:07 AM EST) Hepatitis B Surface Ag Negative Negative [facility] Blood Venous blood specimen / Unknown 03/13/2025 11:07 AM EST 03/13/2025 2:04 PM EST Lisa Fraser MD LAB BLOOD ORDERAB LES Final Result [facility] [address] [place] [phone] * Hepatitis B Core Antibody, Total (03/13/2025 11:07 AM EST) Hepatitis B Core Antibody Reactive Nonreactive [facility] Comment:Presumptive evidence of anti-HBc. Blood Venous blood specimen / Unknown 03/13/2025 11:07 AM EST 03/13/2025 2:04 PM EST Lisa Fraser MD LAB BLOOD ORDERAB LES Final Result Performing Organization Address [facility] Co de Phone Number [facility] [address] [place] [phone] * HIV-1/2 Antigen and Antibodies, Fourth Generation, with Reflexes (03/13/2025 11:07 AM EST) HIV AB/AG Nonreactive Nonreactive [facility] Comment:HIV-1 p24 Ag and/or HIV-1/HIV-2 Ab not detected.A test result that is nonreactive does not exclude thepossibility of exposure to or infection with HIV-1 and/orHIV-2. Nonreactive results in this assay for individualswith prior exposure to HIV-1 and/or HIV-2 may be due toantigen and antibody levels that are below the limit ofdetection of this assay.The [employer] HIV Ag/Ab Combo assay result andsupplemental assay results should be interpreted inconjunction with the patient's clinical presentation,history and other laboratory results. If the results areinconsistent with clinical evidence, additional testing issuggested to confirm the result. Blood Venous blood specimen / Unknown 03/13/2025 11:07 AM EST 03/13/2025 2:04 PM EST Lisa Fraser MD LAB BLOOD ORDERAB LES Final Result Performing Organization Address [facility] [place]/ZIP Co de Phone Number [facility] [address] [place] [phone] * Hepatitis B Surface Antibody, Qualitative (03/13/2025 11:07 AM EST) ~Hepatitis B Surface Antibody REACTIVE Nonreactive [facility] Comment:REACTIVE: > 11.99 mI U/mL Blood Venous blood specimen / Unknown 03/13/2025 11:07 AM EST 03/13/2025 2:04 PM EST us Lisa Fraser MD LAB BLOOD ORDERAB LES Final Result Performing Organization Address [facility]/ZIP Co de Phone Number [facility] [address] [place] [phone] * (ABNORMAL) PSA,Total (03/13/2025 11:07 AM EST) Pathologist [facility] Prostate Specific Antigen 5.17(H) <0.05 - 4.0 ng/mL [facility] Comment:PSA methodology: Abb benjamin Alinity i ChemiluminescentMicroparticle Immunoassay (CMIA) Blood Venous blood specimen / Unknown 03/13/2025 11:07 AM EST 03/13/2025 2:04 PM EST us Lisa Fraser MD LAB BLOOD ORDERAB LES Final Result Performing Organization Address City/[facility]/ZIP Co de Phone Number [facility] [address] [place] [phone] * (ABNORMAL) Hemoglobin A1c (03/13/2025 11:07 AM EST) Hemoglobin A1c 8.7(H) <6.0 % [facility] Comment:Hemoglobin A1C Refer ence Range Adults: 4.8 - 6.0 % Non diabetic: < 6.0 % Goal: < 7.0 %Additional Action Suggested: > 8.0 %Note: Hemoglobin A1c results are invalid for patients with abnormal amounts of HbF. Blood transfusions may impact the HbA1c concentration in the patient sample. Estimated Average Glucose 203 mg/dL [facility] Comment:eAG = Estimated ave rage glucose which is %A1C expressed asaverage glucose, using the formula of the Y2W-[id number] Glucose study (ADAG), Diabetes Care, Vol.31,#8,Nov. 2007 Blood Venous blood specimen / Unknown 03/13/2025 11:07 AM EST 03/13/2025 2:04 PM EST us Lisa Fraser MD LAB BLOOD ORDERAB LES Final Result [facility] [address], [place] [phone] * (ABNORMAL) Lipid Panel, Standard (03/13/2025 11:07 AM EST) Only the most recent of2 resultswithin the time period is included. Triglycerides 180(H) <150 mg/dL [facility] Comment:Desirable Triglyceri de: less than 150 mg/dLBorderline High Triglyceride 150-199 mg/dLHigh Triglyceride: 200-499 mg/dLVery High Triglyceride: greater than or equal to 5OO mg/dL Cholesterol 207(H) <200 mg/dL [facility] Comment:Desirable Cholestero l: less than 200 mg/dLBorderline High Cholesterol: 200-239 mg/dLHigh Cholesterol: greater than 239 mg/dL LDL Cholesterol Calculated 141(H) <100 mg/dL [facility] Comment:Desirable LDL: less than 100 mg/dLNear Optimal/Above Optimal LDL: 110- 129 mg/dLBorderline High LDL: 130-159 mg/dLHigh LDL: 160-189 mg/dLVery High LDL: greater than or equal to 190 mg/dL HDL Cholesterol 30(L) >40 mg/dL [facility] Comment:Desirable HDL: great er than 40 mg/dL Note: This HDL assay may give artificially low results in patients with liver disease. Blood Venous blood specimen / Unknown 03/13/2025 11:07 AM EST 03/13/2025 2:04 PM EST us Lisa Fraser MD LAB BLOOD ORDERAB LES Final Result [facility] [address] [place] [phone] * Chlamydia/Trichomonas/Neisseria gonorrhoeae, PCR, Urine (03/13/2025 11:02 AM EST) CT PCR, Urine NOT DETECTED Not Detect. [facility] Comment:A not detected test result [...] NG PCR, Urine NOT DETECTED Not Detect. [facility] Comment:A not detected test result [...] ORDERAB LES Final Result Performing Organization Address City/[facility] Co de Phone Number [facility] [address] [place] [phone] * Albumin, Random Urine W/Creatinine (03/13/2025 11:02 AM EST) Only the most recent of2 resultswithin the time period is included. Creatinine, Urine 193.50 mg/dL [facility] Microalbumin Urine 39.0 mg/L [facility] Microalbum Creatinine Ratio Ur 20.1 <30 ug/mg cr [facility] Comment:Albumin/Creatinine R atio Reference Ranges: Normal: < 30 ug/mg creatinine Microalbuminuria: 30 - 300 ug/mg creatinineClinical Albuminuria: > 300 ug/mg creatinine Urine (Urine, Random) 03/13/2025 11:02 AM EST 03/13/2025 1:46 PM EST us Lisa Fraser MD LAB URINE ORDERAB LES Final Result Performing Organization Address [facility] [place] Co de Phone Number [facility] [address] [place] [phone] * POCT Glucose (03/13/2025 9:57 AM EST) Glucose Blood, POC 170 60 - 200 mg/dL QC Media Lot # [id number] Lot# Expiration Date 687 Blood Capillary blood specimen / Unknown 03/13/2025 9:57 AM EST us Lisa Fraser MD POINT OF CARE PRAKASH T ENTER/EDIT ORDERABLES Final Result * Pathology Report (03/13/2025 12:00 AM EST) 03/13/2025 03/14/2025 11: 22 AM EST Narrative [facility] - 03/25/2025 10:00 AM EST ----- ------- Name: Arjun Parkinson Age/Sex: 54/M : 1970 Unit#: [id number] Attend Dr: Lisa Cantrell MD Re03/13/25 Status: DEP REF Location: [facility] Disch: ----- ------- SPEC : [id number] RECD: 03/14/25 STATUS: SALVADOR RODRIGUEZ NUM: [id number] ELIOT: 03/13/25-[address]: Lisa Cantrell MD ENTERED: 03/14/25121 SP TYPE: Cytology OT DR: ORDERED: Cyto-enhanced Diagnosis Descriptive Diagnosis: Atypical squamous cells cannot exclude high grade squamous intraepithelial lesion (ASC-H). Specimen Adequacy: Transformation zone present. Comments: Several squamous cells with increased nuclear/cytoplasmic ratio and dark chromatin are present; numerous anucleate forms are present. HPV High Risk: POSITIVE HPV Genotyping 16: POSITIVE HPV Genotyping 18: Negative Clinical History Annual physical exam Material Received Anal PAP Gross Description Received is 30 cc of cytolyt fluid from which a ThinPrep slide is prepared. IHC S/NG Disclaimer NOTE: Unless otherwise stated, all tissue is formalin-fixed and paraffin-embedded. Some or all of the immunohistochemical tests reported herein may have been developed and their performance characteristics determined by [facility]. They have not been cleared or approved by the U.S. Food and Drug Administration (FDA). However, the FDA has determined that such clearance or approval is not necessary. This laboratory is certified under the Clinical Laboratory Improvement Amendments of 1988 (CLIA) as qualified to perform high complexity clinical laboratory testing. ----- ------- Signed (signature on file) Anabela Manzo MD 03/25/25 1000 ----- ------- END OF REPORT us Lisa Fraser MD HISTORICAL/NON OR DERABLE LABS Final Result [facility] [address] [place] [phone] * (ABNORMAL) HPV mRNA E6/E7, Rectal with Reflex to Genotypes, 16, 18/45 (03/13/2025 12:00 AM EST) HPV mRNA E6/E7, Rectal DETECTED(A) NOT DETECTED [facility] Comment:Methodology: Transcr iption-Mediated AmplificationThis assay detects E6/E7 viral messenger RNA (mRNA)from 14 high-risk HPV types (16,18,31,33,35,39,45,51,52,56,58,59,66,68).For additional information please refer [email or web address]/[email or web address](This link is being provided for informational/educational purposes only.)The analytical performance characteristics of thisassay have been determined by [email or web address]. It has not been clearedor approved by the U.S. Food and Drug Administration.This assay has been validated pursuant to the CLIAregulations and is used for clinical purposes.THIS TEST WAS PERFORMED AT:[employer] [id number] [place] [id number] BARRAGAN MD,PHD HPV 16 RNA DETECTED(A) NOT DETECTED [facility] HPV 18/45 RNA NOT DETECTED NOT DETECTED [facility] Comment:Methodology: Transcr iption-Mediated AmplificationThe analytical performance characteristics of thisassay have been determined by [email or web address]. It has not been clearedor approved by the U.S. Food and Drug Administration.This assay has been validated pursuant to the CLSierra [facility] Health Centeregulations and is used for clinical purposes.THIS TEST WAS PERFORMED AT:[employer] [id number] [place] [address]GBDIYEAFELISHA BARRAGAN MD,PHD 03/13/2025 03/17/2025 9:2 1 AM EST us Lisa Fraser MD LAB CYTOLOGY CHRISTINA SPEARS Final Result [facility] [address] [place] [phone] * Cytopath-cell enhanced (02/11/2025 5:20 PM EST) 02/11/2025 5:20 PM EST 02/12/2025 11:34 AM EST Narrative [facility] - 02/13/2025 10:03 AM EST ----- ------- Name: Arjun Parkinson/Sex: 54/M : 1970 Unit#: [id number] Attend Dr: Melody Stringer [facility] Re02/11/25 Status: [facility] Disch: ----- ------- SPEC : [id number] RECD: 02/12/25 STATUS: SALVADOR RODRIGUEZ NUM: [id number] ELIOT: 02/11/25-[address]: Melody Stringer [facility] ENTERED: 02/12/25-124 SP TYPE: Cytology OTHR DR: Lisa Cantrell [...] developed and their performance characteristics determined by [facility]. They have not been cleared or approved by the U.S. Food and Drug Administration (FDA). However, the FDA has determined that such clearance or approval is not necessary. This laboratory is certified under the Clinical Laboratory Improvement Amendments of 1988 (CLIA) as qualified to perform high complexity clinical laboratory testing. Copies To: Melody Stringer [facility] [address] [place] [address] [place] [address] [email or web address] Lisa Cantrell MD [address] [address] CONTINUED ON NEXT PAGE ----- ------- Name: Zafar HansenArjun kumar Age/Sex: 54/M : 1970 Unit#: [id number] Attend Dr: Melody Stringer [facility] Re02/11/25 Status: DEP [facility] Disch: ----- ------- SPEC : [id number] RECD: 02/12/25 STATUS: CLARENCEDewayne RODRIGUEZ NUM: [id number] ELIOT: 02/11/25-[address] [facility] [address]: Melody Stringer [facility] ENTERED: 02/12/25-1246 SP TYPE: Cytology OTHR DR: Lisa Cantrell MD ORDERED: Cyto-enhanced ----- ------- Signed (signature on file) Yariel Barros MD 02/13/25 1003 ----- ------- END OF REPORT Generic External Data Provider LAB CYTOLOGY ORDE RABLES Final Result Performing Organization Address [facility]/ZIP Co de Phone Number [facility] [address], [place] [phone] * (ABNORMAL) Basic Metabolic Panel (01/06/2025 10:32 AM EDT) Only the most recent of2 resultswithin the time period is included. Sodium 136 135 - 145 mmol/L [facility] Potassium 4.2 3.3 - 5.1 mmol/L [facility] Chloride 102 96 - 108 mmol/L [facility] Carbon Dioxide 28 22 - 29 mmol/L [facility] Anion Gap 10(L) 12 - 20 [facility] Urea Nitrogen (BUN) 16 9 - 16 mg/dL [facility] Creatinine, Serum 1.08 0.5 - 1.4 mg/dL [facility] Estimated Glomerular Filt Rate >60 [facility] Comment:Chronic Kidney Disea se: Estimated GFR < 60 mL/min/1.42n8Gthyqt Kidney Disease: Estimated GFR < 15 mL/min/1.73m2 Glucose 215(H) 60 - 115 mg/dL [facility] Calcium 9.7 8.4 - 10.2 mg/dL [facility] Blood Venous blood specimen / Unknown 01/06/2025 10:32 AM EDT 01/06/2025 11:25 AM EDT Olivia Greenwood NP LAB BLOOD ORDERABLES Final Resu lt Performing Organization Address [facility]/ZIP Co de Phone Number [facility] [address] [place] [phone] * (ABNORMAL) POCT Urinalysis (01/06/2025 9:53 [...] Media Lot # [id number] Lot# Expiration Date Urine 01/06/2025 9:53 AM EDT us Olivia Greenwood NP POINT OF CARE TEST ENTER/EDIT O RDERABLES Final Result * (ABNORMAL) Hepatic Function Panel (01/01/2025 10:22 AM EDT) Bilirubin, Total 0.7 0.0 - 1.0 mg/dL [facility] Bilirubin, Direct 0.2 0.0 - 0.5 mg/dL [facility] Aspartate Amino Transferase 45(H) 5 - 37 U/L [facility] Alanine Aminotransferase 48(H) 0 - 40 U/L [facility] Total Protein 7.4 6.5 - 8.0 g/dL [facility] Albumin Level 4.7 3.5 - 5.0 g/dL [facility] Alkaline Phosphatase 74 39 - 117 U/L [facility] 01/01/2025 10:2 2 AM EDT 01/01/2025 10:55 AM EDT Lisa Fraser MD LAB BLOOD ORDERAB LES Final Result [facility] [address] [place] [phone] * (ABNORMAL) POCT A1c (01/01/2025 9:41 AM EDT) Hemoglobin A1C 9.3(A) 4.0 - 5.7 % QC Media Lot # [id number] Lot# Expiration Date ,918,060 Blood 01/01/2025 9:41 AM EDT Lisa Fraser MD POINT OF CARE PRAKASH T ENTER/EDIT ORDERABLES Final Result from Last 3 Months Additional Health Concerns [...] 03/31/2025 Patient has chronic kidney disease 03/31/2025 Insurance [employer]3 Care Teams Tool Lathe Operator Relationship Specialty Start Date End Date Lisa Cantrell MD [address] [place] [address] PCP - General Internal Medicine 12/22/22 Angela Llamas, PharmD [address] [place] [phone] Pharmacist Pharmacy 01/01/25
--- OUTSIDE RECORDS SUMMARY | 2025-04-01 14:06 | XMS_ITS | Encounter Summary ---
Author Organization [employer] Address [address] [place] [address] [address] [place] [address] Care Team Providers Care Tap Grinder Name Role Phone Mark Brennan Primary Care Provider Unavail able Lisa Cantrell MD Primary Care Pro vider Angela Llamas PharmD Unavailable [phone] Reason for Visit * Reason Onset Date Comments TP appt 05/18/2022 Encounter Details Date Type Department Care Team ([facility] Contact Info) Description 05/18/[address] [facility] [address] [place] [phone] Mark Brennan AGNP TP appt Social History [...] had a TP appt with new provider. Kid Club Attendant tried booking but schedule for provider was booked. Please contact pt at [phone] documented in this encounter Plan of Treatment Upcoming Encounters Date Type Department Care Team ([facility] [address] [facility] Contact Info) Description 06/12/2025 9:00 AM EDT Office Visit [facility] [address] [place] [address] Lisa Cantrell MD [address] [place] [address] 06/30/2025 9:00 AM EDT Office Visit [facility] [address] [place] [address] Gracie Ingram, OD [address] [place] [address] documented as of this encounter Visit Diagnoses Not on filedocumented in this encounter Care Teams Tap Grinder Relationship Specialty Start Date End Date Mark Brennan AGNP PCP - General Family Medicine 01/03/22 12/21/22 Lisa Cantrell MD [address] [place] [phone] PCP - General Internal Medicine 12/22/22 Angela Llamas, CarrieD [address] [place] [address] [phone] Pharmacist Pharmacy 01/01/25 documented as of this encounter
--- OUTSIDE RECORDS SUMMARY | 2025-04-01 14:06 | XMS_ITS | Encounter Summary ---
Author Organization [employer] Address [address] [facility] [address] [place] [address] Care Team Providers Care Svp Research And Strategic Analysis Name Role Phone Lisa Cantrell MD Primary Care Pro vider Angela Llamas PharmD Unavailable [phone] Encounter Details Date Type Department Care Team (Latest Contact Info) Description 03/31/2025 Travel Social History Tobacco Use Types Packs/Day [...] Description 06/12/2025 9:00 AM EDT Office Visit [facility] [address] [place] [address] Lisa Cantrell MD [address] [place] [address] 06/30/2025 9:00 AM EDT Office Visit [facility] [address] [place] [address] Juan Jose, Gracie, OD [address] [place] [address] documented as of this encounter Goals Goal [...] Care Plan Weekly blood pressure task No Darhsana Clay, KALPESH Patient has chronic kidney disease [...] documented as of this encounter Care Teams Svp Research And Strategic Analysis Relationship Specialty Start Date End Date Lisa Cantrell MD [address] [place] [address] PCP - General Internal Medicine 12/22/22 Angela Llamas PharmD [address] [place] [address] Pharmacist Pharmacy 01/01/25 documented as of this encounter
== END 2025-04-01 10:35 | disposition left against medical advice (07) ==
PROVIDERS: Emergency Provider Emergency Medicine
DX: R10.30 Lower abdominal pain, unspecified (principal); E11.9 Type 2 diabetes mellitus without complications; I10 Essential (primary) hypertension; E78.5 Hyperlipidemia, unspecified; Z79.899 Other long term (current) drug therapy; Z79.85 Long-term (current) use of injectable non-insulin antidiabetic drugs; Z79.4 Long term (current) use of insulin; Z79.02 Long term (current) use of antithrombotics/antiplatelets
CPT/HCPCS: 99281